=== PATIENT | male | born 1970 | race Caucasian/White ===

== ENCOUNTER 2016-08-01 15:42 | Emergency (ER) | payer OTHER ==
[2016-08-01] MEDS ORDERED: LORazepam 1 MG Tab PO ONE (16:56)
--- NOTE | 2016-08-01 17:05 | EDM.PDOC ---
ED HISTORY OF PRESENT ILLNESS - General Chief Complaint: Chest Pain Stated Complaint: HIGH BP, CHEST PN Time Seen by Provider: 08/01/16 15:53 Source of Information: Reports: Patient, RN notes reviewed - History of Present Illness INITIAL COMMENTS - FREE TEXT/NARRATIVE: 46 year old male comes in with concern of elevated BP at home, palpitations, chest pain. He does have hx of htn. Admits he drank a lot of alcohol last evening. fell early this AM hitting the edge of a table R face. Was seen earlier today at clinic for that. After getting home a few hrs ago started having palpiations, Checked his BP, it was around 200/109, He than started feeling some mild tightness across his chest. he took an extra dose of his metropolol. On arrival to ED chest pain is gone. Still feels anxious. No Shi, nausea or vomiting. Has been on meds for Htn for about 6 months, has gained about 50 or more lbs in the past 6 months. - Related Data Allergies/ADRs: Allergies Allergy/AdvReac Type Severity Reaction Status Date / Time No Known Allergies Allergy Verified 03/17/16 02:24 Home Meds: Home Meds Polyethylene Glycol 3350 [MiraLAX] 17 gm PO TID PRN #30 packet 03/17/16 [Rx] Lisinopril 20 mg PO DAILY 03/20/16 [History] Metoprolol Succinate [Toprol XL] 100 mg PO DAILY 08/01/16 [History] Tadalafil [Cialis] 10 mg PO DAILY PRN 08/01/16 [History] Cephalexin 500 mg PO Q6HR #30 capsule 08/02/16 [Rx] Past Medical History HEENT History: Reports: Other (see below) Other HEENT History: Deviated septom Cardiovascular History: Reports: Hypertension Respiratory History: Reports: Sleep apnea Other Respiratory History: wears a cpap at night Gastrointestinal History: Reports: Diverticulosis Genitourinary History: Reports: Chronic renal insuffiency Musculoskeletal History: Reports: Other (see below) Other Musculoskeletal History: femur fracture with elia placement Neurological History: Reports: Brain injury, Other (see below) Other Neuro History: 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 Pt states that he also had a TBI Endocrine/Metabolic History: Reports: Obesity/BMI 30+ - Infectious Disease History Infectious Disease History: Reports: Chicken pox - Past Surgical History GI Surgical History: Reports: Cholecystectomy Musculoskeletal Surgical History: Reports: Other (see below) Other Musculoskeletal Surgeries/Procedures:: carpal tunnel surgery to both wrists Social & Family History - Family History Family Medical History: Noncontributory Cardiac: Reports: [place] Endocrine/Metabolic: Reports: Diabetes, type II - Tobacco Use Smoking Status *Q: Never Smoker Second Hand Smoke Exposure: No - Caffeine Use Caffeine Use: Reports: Coffee Other Caffeine Use: 2 cups 2-3 times a week - Alcohol Use Days Per Week of Alcohol Use: 3 Number of Drinks Per Day: 10 Total Drinks Per Week: 30 - Recreational Drug Use Recreational Drug Use: No Recreational Drug Type: Reports: Cocaine, Marijuana/Hashish Recreational Drug Use Frequency: Not Used In Over 6 Months - Living Situation & Occupation Living situation: Reports: single Occupation: employed ([employer]) ED ROS GENERAL - Review of Systems Review Of Systems: See Below Constitutional: Denies: fever, chills, diaphoresis HEENT: Reports: Other (recent injury, swelling, erythema, bruising R face) Respiratory: Denies: Shortness of Breath, Pleuritic Chest Pain Cardiovascular: Reports: Chest pain (gone), Palpitations GI/Abdominal: Denies: Abdominal pain, Nausea, Vomiting Musculoskeletal: Denies: neck pain, arm pain, joint pain Skin: Denies: rash Neurological: Denies: Dizziness, Headache Psychiatric: Reports: Anxiety ED EXAM, GENERAL - Physical Exam Exam: See Below General Appearance: alert, anxious Eye Exam: bilateral eye: PERRL Ears: normal external exam Nose: normal inspection Throat/Mouth: Normal inspection Head: facial swelling (and brusing below and lateral to R eye) Neck: supple, full range of motion. No: tender midline Respiratory/Chest: No: no respiratory distress, lungs clear, normal breath sounds Cardiovascular: regular rate, rhythm GI/Abdominal: soft, non tender Back Exam: No: CVA tenderness (L), CVA tenderness (R), vertebral tenderness Extremities: normal inspection. No: pedal edema, leg pain Neurological: alert, oriented, no motor/sensory deficits Skin Exam: Warm, Dry, No rash EKG INTERPRETATION EKG Date: 08/01/16 Rhythm: NSR ST-T: depressed (T wave inversion lead III) Course - Vital Signs Last Recorded V/S: Last Vital Signs Temp 97.8 F 08/01/16 19:15 Pulse 72 08/01/16 19:15 Resp 18 08/01/16 19:15 BP 146/81 H 08/01/16 19:15 Pulse Ox 96 08/01/16 19:15 - Orders/Labs/Meds Meds: Medications Discontinued Medications Generic Name Dose Route Start Last Admin Trade Name Orestes PRN Reason Stop Dose Admin Cephalexin 500 mg 08/01/16 17:51 08/01/16 17:59 Keflex PO 08/01/16 17:52 500 mg ONETIME ONE Administration Clonidine HCl 0.2 mg 08/01/16 17:50 08/01/16 17:59 Catapres PO 08/01/16 17:51 0.2 mg ONETIME ONE Administration Lorazepam 1 mg 08/01/16 16:56 08/01/16 17:01 Ativan PO 08/01/16 16:57 1 mg ONETIME ONE Administration - Re-Assessments/Exams Free Text/Narrative Re-Assessment/Exam: 08/02/16 17:13 patient had taken a 2nd dose of his metropolol at home before coming in. BP's elevated on arrival but not alarming. He continued to be very anxious so was given ativan 1 mg PO. With that he did relax but BP's still running in the 150/ 90's. We than did give him clonidine 0.2 mg PO and BP readings did drop closer toward normal. I did spend a lot time counseling patient about his need to loose weight, eat a more healthy diet, get exercising. He seems to understand and "wants" to work on those changes. It sounds like heavy drinking may also be a problem. Discharge instr. as documented. Departure - Departure Time of Disposition: 18:56 Disposition: Home, Self-Care 01 Condition: fair Clinical Impression: Palpitations Hypertension Qualifiers: Hypertension type: essential hypertension Qualified Code(s): I10 - Essential ( primary) hypertension Prescriptions: Cephalexin 500 mg PO Q6HR #30 capsule Instructions: Hypertension, [id number], Palpitations, [id number] Referrals: Dedra Goncalves NP [Primary Care Provider] - Forms: ED Department Discharge Additional Instructions: low salt, low calorie diet. Continue Lisiniopril every morning as prescribed. Increase metropolol to 100 mg twice daily from your current 100 mg once daily. Read up on the [facility] diet. That is a diet that will help you loose weight in a safe way and give you a diet that is tremendously healthier than what you are eating right now. Begin a regular exercise program. Check your BP 2 or 3 times daily and keep a record of that. Follow up with your regular medical provider in about 3 days, call for appt., Return to ED as needed.
[2016-08-01] MEDS ORDERED: cloNIDine 0.1 MG Tab PO ONE (17:50)
[2016-08-01] MEDS ORDERED: Cephalexin 500 MG Cap PO ONE (17:51)
[2016-08-01 21:04] VITALS: BP 146/81
== END 2016-08-01 19:15 | disposition home or self-care (01) ==
LOC: JD.ED 15:42
DX: R00.2 Palpitations (principal); I12.9 Hypertensive chronic kidney disease with stage 1 through stage 4 chronic kidney disease, or unspecified chronic kidney disease; N18.9 Chronic kidney disease, unspecified; Z79.899 Other long term (current) drug therapy; E66.9 Obesity, unspecified; Z68.34 Body mass index [BMI] 34.0-34.9, adult
CPT/HCPCS: 93005; 99285; A9270; 99284

== ENCOUNTER 2016-11-15 01:30 | Inpatient (IN) | payer OTHER ==
[2016-11-15] MEDS ORDERED: Sodium Chloride 0.9% 1,000 ML IV SCH (02:00)
--- NOTE | 2016-11-15 02:06 | EDM.PDOC ---
ED HPI GENERAL MEDICAL PROBLEM - General Chief Complaint: Cardiovascular Problem Stated Complaint: HIGH BLOOD PRESSURE Time Seen by Provider: 11/15/16 01:45 Source of Information: Reports: Patient, RN Notes Reviewed History Limitations: Reports: No Limitations - History of Present Illness INITIAL COMMENTS - FREE TEXT/NARRATIVE: The patient states that he developed left lower quadrant abdominal pain, sharp in character, 2 days ago, 11/13/2016. The pain initially came and went, however has become more constant. He states that he has been constipated for the last 2 days. He denies any recent fever, nausea, vomiting, diarrhea, or urinary symptoms. He states that he has had similar symptoms 4 or 5 times in the past, and was always diagnosed with diverticulitis. - Related Data Allergies Allergy/AdvReac Type Severity Reaction Status Date / Time No Known Allergies Allergy Verified 11/15/16 01:36 Home Meds: Home Meds Lisinopril 20 mg PO DAILY 03/20/16 [History] Metoprolol Succinate [Toprol XL] 100 mg PO DAILY 08/01/16 [History] amLODIPine [Norvasc] 5 mg PO DAILY 11/15/16 [History] Past Medical History Cardiovascular History: Reports: Hypertension Respiratory History: Reports: Sleep Apnea (CPAP 12) Gastrointestinal History: Reports: Diverticulosis Neurological History: Reports: Brain Injury, Seizure (Petit mal seizures as a child) Psychiatric History: Reports: Addiction (alcoholism) Endocrine/Metabolic History: Reports: Obesity/BMI 30+ - Infectious Disease History Infectious Disease History: Reports: Chicken Pox - Past Surgical History GI Surgical History: Reports: Cholecystectomy Musculoskeletal Surgical History: Reports: Carpal Tunnel (bilateral), ORIF ( right femur) Social & Family History - Family History Family Medical History: Noncontributory Cardiac: Reports: [place] Endocrine/Metabolic: Reports: Diabetes, type II - Tobacco Use Smoking Status *Q: Never Smoker Second Hand Smoke Exposure: No - Caffeine Use Caffeine Use: Reports: Coffee Other Caffeine Use: 2 cups 2-3 times a week - Alcohol Use Alcohol Use History: Yes Days Per Week of Alcohol Use: 3 Number of Drinks Per Day: 10 Total Drinks Per Week: 30 Alcohol Use Frequency: Binges - Recreational Drug Use Recreational Drug Use: Yes Drug Use in Last 12 Months: No Recreational Drug Type: Reports: Cocaine, Marijuana/Hashish Recreational Drug Use Frequency: Not Used In Over 6 Months - Living Situation & Occupation Living situation: Reports: Single, Alone 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) ED ROS GENERAL - Review of Systems Review Of Systems: See Below Constitutional: Reports: No Symptoms HEENT: Reports: No Symptoms Respiratory: Reports: No Symptoms Cardiovascular: Reports: No Symptoms Endocrine: Reports: No Symptoms GI/Abdominal: Reports: No Symptoms : Reports: No Symptoms Musculoskeletal: Reports: No Symptoms Skin: Reports: No Symptoms Neurological: Reports: No Symptoms Psychiatric: Reports: No Symptoms Hematologic/Lymphatic: Reports: No Symptoms Immunologic: Reports: No Symptoms ED EXAM, GENERAL - Physical Exam Exam: See Below Exam Limited By: No Limitations General Appearance: Alert, WD/WN, No Apparent Distress Eye Exam: Bilateral Eye: Normal Inspection Ears: Normal External Exam, Hearing Grossly Normal Nose: Normal Inspection, No Blood Throat/Mouth: Normal Inspection, Normal Lips, Normal Voice, No Airway Compromise Head: Atraumatic, Normocephalic Neck: Normal Inspection, Full Range of Motion Respiratory/Chest: No Respiratory Distress, Lungs Clear, Normal Breath Sounds, No Accessory Muscle Use Cardiovascular: Normal Peripheral Pulses, Regular Rate, Rhythm, No Gallop, No JVD, No Murmur, No Rub Peripheral Pulses: 4+: Radial (L), Radial (R) GI/Abdominal: Normal Bowel Sounds, Soft, No Organomegaly, No Distention, No Abnormal Bruit, No Mass, Tender (Left lower quadrant only. Nontender elsewhere.) , Other (Obese). No: Rebound (Male) Exam: Deferred Rectal (Males) Exam: Deferred Back Exam: Normal Inspection, Full Range of Motion. No: CVA Tenderness (L), CVA Tenderness (R) Extremities: Normal Inspection, Normal Range of Motion, No Pedal Edema, Normal Capillary Refill Neurological: Alert, Oriented, Normal Cognition, No Motor/Sensory Deficits Psychiatric: Normal Affect Skin Exam: Warm, Dry, Intact, Normal Color, No Rash Lymphatic: No Adenopathy Course - Vital Signs Last Recorded V/S: Last Vital Signs Temp 36.9 C 11/15/16 01:36 Pulse 82 11/15/16 01:36 Resp 25 H 11/15/16 01:36 BP 159/103 H 11/15/16 01:36 Pulse Ox 98 11/15/16 01:36 - Orders/Labs/Meds Orders: Active Orders 24 hr Category Date Time Status Abdomen Pelvis w Cont [CT] Stat Exams 11/15/16 02:00 Taken Levofloxacin/Dextrose 5%-Water [Levaquin in D5W 750 MG/ Med 11/15/16 04:28 Ordered 150 ML] 750 mg Premix Bag 1 bag IV ONETIME Sodium Chloride 0.9% [Normal Saline] 1,000 ml Med 11/15/16 02:00 Active IV ASDIRECTED metroNIDAZOLE/Normal Saline [Flagyl 500 MG in NS 100 ML Med 11/15/16 04:29 Ordered ] 500 mg Premix Bag 1 bag IV ONETIME Medication Orders Sodium Chloride (Normal Saline) 1,000 mls @ 150 mls/hr IV ASDIRECTED SAM Last Admin: 11/15/16 02:18 Dose: 150 mls/hr Levofloxacin/Dextrose 750 mg/ (Premix) 150 mls @ 100 mls/hr IV ONETIME ONE Stop: 11/15/16 05:57 Metronidazole 500 mg/ Premix 100 mls @ 100 mls/hr IV ONETIME ONE Stop: 11/15/16 05:28 Labs: Laboratory Tests 11/15/16 11/15/16 11/15/16 Range/Units 02:10 02:10 02:10 WBC 12.14 H (4.23-9.07) K/mm3 RBC 4.95 (4.63-6.08) M/mm3 Hgb 16.6 (13.7-17.5) gm/L Hct 45.0 (40.1-51.0) % MCV 90.9 (79.0-92.2) fl MCH 33.5 H (25.7-32.2) pg MCHC 36.9 H (32.2-35.5) g/dl RDW Std Deviation 41.8 (35.1-43.9) fL Plt Count 182 (163-337) K/mm3 MPV 10.3 (9.4-12.3) fl Neutrophils % (Manual) 72 H (40-60) % Band Neutrophils % 0 (0-10) % Lymphocytes % (Manual) 22 (20-40) % Atypical Lymphs % 0 % Monocytes % (Manual) 2 (2-10) % Eosinophils % (Manual) 4 (0.8-7.0) % Basophils % (Manual) 0 L (0.2-1.2) Platelet Estimate Adequate RBC Morph Comment Normal Sodium 133 L (136-145) mEq/L Potassium 4.0 (3.5-5.1) mEq/L Chloride 98 (98-107) mEq/L Carbon Dioxide 25 (21-32) mEq/L Anion Gap 14.0 (5-15) BUN 23 H (7-18) mg/dL Creatinine 1.3 (0.7-1.3) mg/dL Est Cr Clr Drug Dosing 71.00 mL/min Estimated GFR (MDRD) 59 (>60) mL/min BUN/Creatinine Ratio 17.7 (14-18) Glucose 109 H (74-106) mg/dL Calcium 9.5 (8.5-10.1) mg/dL Total Bilirubin 1.3 H (0.2-1.0) mg/dL AST 44 H (15-37) U/L ALT 103 H (16-63) U/L Alkaline Phosphatase 101 (46-116) U/L Total Protein 8.4 H (6.4-8.2) g/dl Albumin 4.2 (3.4-5.0) g/dl Globulin 4.2 gm/dL Albumin/Globulin Ratio 1.0 (1-2) Lipase 80 (73-393) U/L Urine Color Yellow (Yellow) Urine Appearance Clear (Clear) Urine pH 6.0 (5.0-8.0) Ur Specific [place] 1.025 (1.005-1.030) Urine Protein Negative (Negative) Urine Glucose (UA) Negative (Negative) Urine Ketones Negative (Negative) Urine Occult Blood Negative (Negative) Urine Nitrite Negative (Negative) Urine Bilirubin Negative (Negative) Urine Urobilinogen 0.2 (0.2-1.0) Ur Leukocyte Esterase Negative (Negative) Urine RBC Not seen (0-5) /hpf Urine WBC 0-5 (0-5) /hpf Ur Epithelial Cells 0-5 (0-5) /hpf Urine Bacteria Not seen (FEW) /hpf Urine Mucus Not seen (FEW) /hpf Meds: Medications Generic Name Dose Route Start Last Admin Trade Name Freq PRN Reason Stop Dose Admin Sodium Chloride 1,000 mls @ 150 mls/hr 11/15/16 02:00 11/15/16 02:18 Normal Saline IV 150 mls/hr ASDIRECTED SAM Administration Levofloxacin/Dextrose 750 mg/ 150 mls @ 100 mls/hr 11/15/16 04:28 Premix IV 11/15/16 05:57 ONETIME ONE Metronidazole 500 mg/ Premix 100 mls @ 100 mls/hr 11/15/16 04:29 IV 11/15/16 05:28 ONETIME ONE Discontinued Medications Generic Name Dose Route Start Last Admin Trade Name Orestes PRN Reason Stop Dose Admin Diatrizoate Meglum/Diatrizoate Sod 120 ml 11/15/16 03:51 11/15/16 03:53 Gastrografin 37% PO 11/15/16 03:52 90 ml ONETIME ONE Administration Iopamidol 150 ml 11/15/16 03:51 11/15/16 03:53 Isovue-300 (61%) IVPUSH 11/15/16 03:52 125 ml ONETIME ONE Administration - Re-Assessments/Exams Free Text/Narrative Re-Assessment/Exam: 11/15/16 04:26 CT of the abdomen and pelvis with oral and IV contrast is read by [facility] as: 1. Findings consistent with acute diverticulitis at the junction of the descending and sigmoid colon. No perforation or abscess. Remaining sigmoid colon is also mildly thickened which may be secondary to underdistention with mild colitis not excluded. 2. Hepatic steatosis. 3. Incidental/non-acute findings are described above. 11/15/16 04:37 Test results discussed with the patient. I'm recommending admitting to the hospital, keeping him npo, giving him IV fluid, IV Levaquin, IV Flagyl, and ordering a surgical consultation, because the patient may benefit from excision of the diseased portion of his colon, given that this is his fifth or sixth episode. The patient is agreeable to being admitted. He states that Dr. Jarocho Tavarez was the surgeon that performed his cholecystectomy. Case then discussed with Dr. Villegas at 04:35. She agrees to the admission. Departure - Departure Time of Disposition: 04:38 Disposition: Admitted As Inpatient 66 Condition: Fair Clinical Impression: Acute diverticulitis - My Orders Last 24 Hours: My Active Orders 11/15/16 02:00 Abdomen Pelvis w Cont [CT] Stat Sodium Chloride 0.9% [Normal Saline] 1,000 ml IV ASDIRECTED 11/15/16 04:28 Levofloxacin/Dextrose 5%-Water [Levaquin in D5W 750 MG/150 ML] 750 mg Premix Bag 1 bag IV ONETIME 11/15/16 04:29 metroNIDAZOLE/Normal Saline [Flagyl 500 MG in NS 100 ML] 500 mg Premix Bag 1 bag IV ONETIME - Assessment/Plan Last 24 Hours: My Active Orders 11/15/16 02:00 Abdomen Pelvis w Cont [CT] Stat Sodium Chloride 0.9% [Normal Saline] 1,000 ml IV ASDIRECTED 11/15/16 04:28 Levofloxacin/Dextrose 5%-Water [Levaquin in D5W 750 MG/150 ML] 750 mg Premix Bag 1 bag IV ONETIME 11/15/16 04:29 metroNIDAZOLE/Normal Saline [Flagyl 500 MG in NS 100 ML] 500 mg Premix Bag 1 bag IV ONETIME
[2016-11-15] MEDS ORDERED: Diatrizoate Meglumine/Diatrizoate Sodium 37% 120 ML Bottle PO ONE (03:51)
[2016-11-15] MEDS ORDERED: Iopamidol 612 MG/ML 150 ML Bottle IVPUSH ONE (03:51)
[2016-11-15] MEDS ORDERED: Levofloxacin/Dextrose 5%-Water 750 MG in Premix Bag 1 BAG IV ONE (04:28)
[2016-11-15] MEDS ORDERED: metroNIDAZOLE/Normal Saline 500 MG in Premix Bag 1 BAG IV ONE (04:29)
[2016-11-15] MEDS ORDERED: HYDROmorphone 1 MG/ML Syringe IVPUSH PRN ×2 (05:21→05:28)
[2016-11-15] MEDS ORDERED: Ondansetron 4 MG/2 ML SDV IVPUSH PRN (05:32)
[2016-11-15] MEDS ORDERED: Pneumococcal Polyvalent-23 Vaccine 0.5 ML SDV IM ONE (06:26)
[2016-11-15] MEDS ORDERED: Ondansetron 4 MG Tab.DIS PO PRN (06:41)
[2016-11-15] MEDS ORDERED: Morphine 2 MG/ML Syringe IVPUSH PRN (06:41)
[2016-11-15] MEDS ORDERED: Temazepam 7.5 MG Cap PO PRN (06:41)
[2016-11-15] MEDS ORDERED: Docusate Sodium 100 MG Cap PO PRN (06:41)
[2016-11-15] MEDS ORDERED: Magnesium Hydroxide 400 MG/5 ML Susp 30 ML Cup PO PRN (06:41)
[2016-11-15] MEDS ORDERED: Famotidine 20 MG/2 ML SDV IVPUSH ONE (06:47)
--- NOTE | 2016-11-15 08:06 | PCM.HP ---
<DudleyGloria M - Last Filed: 11/15/16 08:07> H&P History of Present Illness - General Date of Service: 11/15/16 Admit Problem/Dx: Diverticulitis Alexandre was admitted through ER early childhood hours with bridge orders from ER physician, Dr. Saldaña with acute diverticulitis. He has been having LLQ pain intermittent x 2 days, worse last night. He has been constipated the past 2 days since onset of pain. He has had hx of diverticulitis 4 or 5 times in the past. He has been on a "diet" with his PCP and has been eating "tuna fish and pistachios for a week". In hindsight, he feels the nuts were his trigger. He was nauseated upon arrival to ED but no vomiting. No f/c/s. He has not had flare of diverticulitis for "at least a few years". He had CT of abd and pelvis with oral and IV contrast is read by [facility] as: 1. Findings consistent with acute diverticulitis at the junction of the descending and sigmoid colon. No perforation or abscess. Remaining sigmoid colon is also mildly thickened which may be secondary to underdistention with mild colitis not excluded. 2. Hepatic steatosis. 3. Incidental/non-acute findings are described above. He was given IV levaquin and flagyl in the ED and ordered to continue. Since transfer to the floor patient has had several loose stools with improvement of pain and abd distention. No hematochezia/melena noted. He rates pain at 1/10 now, was 8/10 when he came into ER. He is afebrile, no f/c/s. No nausea. PMH significant for HTN and obesity. He is a full code status. Source of Information: Patient, Other (ER notes) History Limitations: Reports: No Limitations, Other (anxious) - History of Present Illness Onset of Symptoms: Reports: Gradual Symptom Onset Date: 11/13/16 Location: Reports: Abdomen Quality: Reports: Pressure, Sharp, Stabbing Severity: Severe (was severe upon presentation to ED, now is mild.) Improves with: Reports: Rest Worsens with: Reports: Movement Context: Reports: Other (eating nuts for the past week) Associated Symptoms: Reports: Loss of Appetite. Denies: Chest Pain, Cough, Diaphoresis, Fever/Chills, Headaches, Nausea/Vomiting, Shortness of Breath - Related Data Allergies/Adverse Reactions: Allergies Allergy/AdvReac Type Severity Reaction Status Date / Time No Known Allergies Allergy Verified 11/15/16 05:21 Home Medications: Home Meds Lisinopril 20 mg PO DAILY 03/20/16 [History] Metoprolol Succinate [Toprol XL] 100 mg PO DAILY 08/01/16 [History] Levofloxacin [Levaquin] 750 mg PO DAILY #10 tablet 11/15/16 [Rx] Ofloxacin [IJD: Ocuflox 0.3% Ophth Soln] 2 ml EYEBOTH QID #1 bottle 11/15/16 [Rx ] Ondansetron [Zofran ODT] 4 mg PO Q4H PRN #15 tab.dis 11/15/16 [Rx] amLODIPine [Norvasc] 5 mg PO DAILY 11/15/16 [History] metroNIDAZOLE [Flagyl] 500 mg PO Q8H #30 tablet 11/15/16 [Rx] Past Medical History HEENT History: Reports: Other (See Below) Cardiovascular History: Reports: Hypertension Respiratory History: Reports: Sleep Apnea Other Respiratory History: uses CPAP at home Gastrointestinal History: Reports: Diverticulosis Genitourinary History: Reports: Chronic Renal Insuffiency, Other (See Below) Other Genitourinary History: impotence Musculoskeletal History: Reports: Other (See Below) Neurological History: Reports: Brain Injury, Seizure Other Neuro History: 2001 head injury. Seizures as a child - out grew age 12. Psychiatric History: Reports: Addiction Other Psychiatric History: Alcohol Endocrine/Metabolic History: Reports: Obesity/BMI 30+ - Infectious Disease History Infectious Disease History: Reports: Chicken Pox - Past Surgical History GI Surgical History: Reports: Cholecystectomy Musculoskeletal Surgical History: Reports: Carpal Tunnel, ORIF Other Musculoskeletal Surgeries/Procedures:: bilateral carpal tunnel. Right leg ORIF. Dermatological Surgical History: Reports: None Social & Family History - Family History Family Medical History: Noncontributory Cardiac: Reports: [place] Endocrine/Metabolic: Reports: Diabetes, type II Oncologic: Reports: Lung - Tobacco Use Smoking Status *Q: Never Smoker Second Hand Smoke Exposure: No - Caffeine Use Caffeine Use: Reports: Coffee Other Caffeine Use: 2 cups 2-3 times a week - Alcohol Use Days Per Week of Alcohol Use: 4 Number of Drinks Per Day: 4 Total Drinks Per Week: 16 - Recreational Drug Use Recreational Drug Use: Yes Drug Use in Last 12 Months: No Recreational Drug Type: Reports: Marijuana/Hashish Recreational Drug Use Frequency: Not Used In Over 6 Months - Living Situation & Occupation Living situation: Reports: Single, Alone 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 Denies: Fever, Chills, Weakness HEENT: Reports: No Symptoms Pulmonary: Reports: No Symptoms. Denies: Shortness of Breath, Cough Cardiovascular: Reports: No Symptoms. Denies: Chest Pain, Palpitations, Dyspnea on Exertion Gastrointestinal: Reports: Abdominal Pain, Constipation. Denies: Black Stool, Bloody Stool Genitourinary: Reports: No Symptoms Musculoskeletal: Reports: No Symptoms Psychiatric: Reports: Anxiety, Agitation Neurological: Reports: No Symptoms Exam - Exam Exam: See Below - Vital Signs Vital Signs: Last Vital Signs Temp 97.9 F 11/15/16 07:54 Pulse 77 11/15/16 07:54 Resp 20 11/15/16 07:54 BP 152/95 H 11/15/16 07:54 Pulse Ox 96 11/15/16 07:54 Weight: 113.353 kg - Exam General: Alert, Oriented, Cooperative, Other (anxious) HEENT: EOMI, Hearing Intact, Mucosa Moist & [place], Pupils Equal, Pupils Reactive. No: Conjunctiva Clear (injection to sclera bilat) Neck: Supple, Trachea Midline Lungs: Clear to Auscultation, Normal Respiratory Effort Cardiovascular: Regular Rate, Regular Rhythm Abdomen: Normal Bowel Sounds, Tenderness (LLQ). No: Distention, Guarding, Rigidity, Rebound, Hepatomegaly, Splenomegaly, Mass (Male) Exam: Deferred Rectal (Males) Exam: Deferred Back Exam: Normal Inspection Extremities: Normal Inspection. No: Clubbing, Cyanosis, Calf Tenderness, Edema Peripheral Pulses: 2+: Dorsalis Pedis (L), Dorsalis Pedis (R) Skin: Warm, Dry Neurological: Cranial Nerves Intact Neuro Extensive - Mental Status: Alert, Oriented x3, Normal Cognition, Memory Intact, Other (anxious) Psychiatric: Alert, Anxious - Patient Data Result Diagrams: 11/15/16 02:10 11/15/16 02:10 *Q Meaningful Use (ADM) - VTE *Q VTE Criteria *Q: - Stroke *Q Stroke Criteria *Q: - AMI *Q AMI Criteria *Q: - Problem List (1) Acute diverticulitis SNOMED Code(s): 779994408 ICD Code: K57.92 - DVTRCLI OF INTEST, PART UNSP, W/O PERF OR ABSCESS W/O BLEED Status: Acute Priority: High Current Visit: Yes (2) Abdominal pain SNOMED Code(s): 20008042 ICD Code: R10.9 - UNSPECIFIED ABDOMINAL PAIN Status: Acute Priority: High Current Visit: Yes Qualifiers: Abdominal location: left lower quadrant Qualified Code(s): R10.32 - Left lower quadrant pain Problem List Initiated/Reviewed/Updated: Yes Orders Last 24hrs: Active Orders 24 hr Category Date Time Status Patient Status [ADT] Routine ADT 11/15/16 06:41 Active Activity as Tolerated [RC] .Routine Care 11/15/16 05:47 Active Ambulate [RC] QSHIFT Care 11/15/16 06:41 Active CPAP Adult [RT BiPAP/CPAP] [RC] ASDIRECTED Care 11/15/16 05:50 Active Height and Weight [RC] DAILY Care 11/15/16 06:41 Active Intake and Output [RC] QSHIFT Care 11/15/16 06:42 Active Oxygen Therapy [RC] PRN Care 11/15/16 06:41 Active Up ad Rena [RC] ASDIRECTED Care 11/15/16 06:41 Active VTE/DVT Education [RC] PER UNIT ROUTINE Care 11/15/16 06:41 Active Vital Signs [RC] Q4H Care 11/15/16 06:41 Active Consult to Case Management [CONS] Routine Cons 11/15/16 06:41 Active Consult to Lpn Or Medical Assistant [CONS] Routine Cons 11/15/16 06:41 Active Consult to Varnish Finisher [CONS] Routine Cons 11/15/16 06:41 Active Nothing per Oral Now Diet [DIET] Diet 11/15/16 Breakfast Active BASIC METABOLIC PANEL,BMP [CHEM] DAILY Lab 11/16/16 05:00 Ordered BASIC METABOLIC PANEL,BMP [CHEM] DAILY Lab 11/17/16 05:00 Ordered BASIC METABOLIC PANEL,BMP [CHEM] DAILY Lab 11/18/16 05:00 Ordered BASIC METABOLIC PANEL,BMP [CHEM] DAILY Lab 11/19/16 05:00 Ordered BASIC METABOLIC PANEL,BMP [CHEM] DAILY Lab 11/20/16 05:00 Ordered C-REACTIVE PROTEIN [CHEM] DAILY Lab 11/16/16 05:00 Ordered C-REACTIVE PROTEIN [CHEM] DAILY Lab 11/17/16 05:00 Ordered C-REACTIVE PROTEIN [CHEM] DAILY Lab 11/18/16 05:00 Ordered C-REACTIVE PROTEIN [CHEM] DAILY Lab 11/19/16 05:00 Ordered CBC WITH AUTO DIFF [HEME] DAILY Lab 11/16/16 05:00 Ordered CBC WITH AUTO DIFF [HEME] DAILY Lab 11/17/16 05:00 Ordered CBC WITH AUTO DIFF [HEME] DAILY Lab 11/18/16 05:00 Ordered CBC WITH AUTO DIFF [HEME] DAILY Lab 11/19/16 05:00 Ordered CBC WITH AUTO DIFF [HEME] DAILY Lab 11/20/16 05:00 Ordered UA W/MICROSCOPIC [URIN] Routine Lab 11/15/16 06:41 Uncollected Acetaminophen/HYDROcodone [Sherman 325-5 MG] Med 11/15/16 06:41 Active 1 tab PO Q4H PRN Docusate Sodium [Colace] Med 11/15/16 06:41 Active 100 mg PO BID PRN Enoxaparin [Lovenox] Med 11/15/16 09:00 Active 40 mg SUBCUT DAILY Famotidine [Pepcid] Med 11/15/16 21:00 Active 20 mg PO BID Levofloxacin/Dextrose 5%-Water [Levaquin in D5W 750 MG/ Med 11/16/16 05:30 Active 150 ML] 750 mg Premix Bag 1 bag IV Q24H Lisinopril [Prinivil] Med 11/15/16 09:00 Active 20 mg PO DAILY Magnesium Hydroxide [Milk of Magnesia] Med 11/15/16 06:41 Active 30 ml PO Q12H PRN Metoclopramide [Reglan] Med 11/15/16 07:00 Active 10 mg IVPUSH Q6H Metoprolol Succinate [Toprol XL] Med 11/15/16 09:00 Active 100 mg PO DAILY Morphine Med 11/15/16 06:41 Active 2 mg IVPUSH Q2H PRN Ofloxacin [Ocuflox 0.3% Ophth Soln] Med 11/15/16 07:45 Ordered 2 ml EYEBOTH Q2H Ondansetron [Zofran ODT] Med 11/15/16 06:41 Active 4 mg PO Q4H PRN Ondansetron [Zofran] Med 11/15/16 05:32 Active 4 mg IVPUSH Q6H PRN Temazepam [Restoril] Med 11/15/16 06:41 Active 7.5 mg PO BEDTIME PRN amLODIPine [Norvasc] Med 11/15/16 09:00 Active 5 mg PO DAILY metroNIDAZOLE/Normal Saline [Flagyl 500 MG in NS 100 ML Med 11/15/16 13:00 Active ] 500 mg Premix Bag 1 bag IV Q8H Resuscitation Status Routine Resus Stat 11/15/16 05:47 Ordered Medication Orders Hydrocodone Bitart/Acetaminophen (Sherman 325-5 Mg) 1 tab PO Q4H PRN PRN Reason: Pain (moderate 4-6) Amlodipine Besylate (Norvasc) [address] [facility] Docusate Sodium (Colace) 100 mg PO BID PRN PRN Reason: Constipation Enoxaparin Sodium (Lovenox) [address] [facility] Famotidine (Pepcid) [address] [facility] Sodium Chloride (Normal Saline) 1,000 mls @ 150 mls/hr IV ASDIRECTED [facility] Last Admin: 11/15/16 02:18 Dose: 150 mls/hr Levofloxacin/Dextrose 750 mg/ (Premix) 150 mls @ 100 mls/hr IV Q24H [facility] Metronidazole 500 mg/ Premix 100 mls @ 100 mls/hr IV Q8H [facility] Lisinopril (Prinivil) [address] [facility] Magnesium Hydroxide (Milk Of Magnesia) 30 ml PO Q12H PRN PRN Reason: Constipation Metoclopramide HCl (Reglan) [address] [facility] Metoprolol Succinate (Toprol Xl) [address] [facility] Morphine Sulfate (Morphine) 2 mg IVPUSH Q2H PRN PRN Reason: Pain (severe 7-10) Stop: 11/16/16 06:43 Ofloxacin (Ocuflox 0.3% Ophth Soln) [address] [facility] Ondansetron HCl (Zofran) 4 mg IVPUSH Q6H PRN PRN Reason: Nausea/Vomiting Ondansetron HCl (Zofran Odt) 4 mg PO Q4H PRN PRN Reason: nausea, able to take PO Temazepam (Restoril) 7.5 mg PO BEDTIME PRN PRN Reason: Sleep Assessment/Plan Comment:: I/P: Acute sigmoid diverticulitis: confirmed via CT scan -WBC 12K, CRP 1.7 -follow daily labs -Rec'd levaquin and flagyl in ER via IV, will continue -Cont IVF for hydration -NPO -antiemetics PRN -Feels better after bowel movements, pain improved -Patient wishes to be discharged home on oral antibiotics; discussed repeat labs, needs to tolerate meals and pain controlled prior to discharge. Chronic: -HTN-b/p elevated, cont home meds and close monitoring -telemetry ? anxiety Hx of alcohol use/abuse documented in history--will confirm with patient, ? withdrawl. Initiate CIWA scale. Other: GI/DVT prophylax CM/SW for dc planning assistance Patient is Full Code status <La Villegas - Last Filed: 11/15/16 17:38> Exam - Vital Signs Vital Signs: Last Vital Signs Temp 36.7 C 11/15/16 12:07 Pulse 72 11/15/16 12:07 Resp 20 11/15/16 12:07 BP 135/78 11/15/16 12:07 Pulse Ox 98 11/15/16 12:07 - Patient Data Result Diagrams: 11/15/16 02:10 11/15/16 02:10 *Q Meaningful Use (ADM) - VTE *Q VTE Criteria *Q: - Stroke *Q Stroke Criteria *Q: - AMI *Q AMI Criteria *Q: Orders Last 24hrs: Active Orders 24 hr Category Date Time Status Patient Status [ADT] Routine ADT 11/15/16 06:41 Active Activity as Tolerated [RC] .Routine Care 11/15/16 05:47 Active Ambulate [RC] QSHIFT Care 11/15/16 06:41 Active CIWAA Assessment [RC] Q4H Care 11/15/16 08:45 Active CPAP Adult [RT BiPAP/CPAP] [RC] ASDIRECTED Care 11/15/16 05:50 Active Height and Weight [RC] DAILY Care 11/15/16 06:41 Active Intake and Output [RC] QSHIFT Care 11/15/16 06:42 Active Oxygen Therapy [RC] PRN Care 11/15/16 06:41 Active Up ad Rena [RC] ASDIRECTED Care 11/15/16 06:41 Active VTE/DVT Education [RC] PER UNIT ROUTINE Care 11/15/16 06:41 Active Vital Signs [RC] Q4H Care 11/15/16 06:41 Active Consult to Case Management [CONS] Routine Cons 11/15/16 06:41 Active Consult to Lpn Or Medical Assistant [CONS] Routine Cons 11/15/16 06:41 Active Consult to Varnish Finisher [CONS] Routine Cons 11/15/16 06:41 Active Clear Liquid Diet [DIET] Diet 11/15/16 Dinner Active BASIC METABOLIC PANEL,BMP [CHEM] DAILY Lab 11/16/16 05:00 Ordered BASIC METABOLIC PANEL,BMP [CHEM] DAILY Lab 11/17/16 05:00 Ordered BASIC METABOLIC PANEL,BMP [CHEM] DAILY Lab 11/18/16 05:00 Ordered BASIC METABOLIC PANEL,BMP [CHEM] DAILY Lab 11/19/16 05:00 Ordered BASIC METABOLIC PANEL,BMP [CHEM] DAILY Lab 11/20/16 05:00 Ordered C-REACTIVE PROTEIN [CHEM] DAILY Lab 11/16/16 05:00 Ordered C-REACTIVE PROTEIN [CHEM] DAILY Lab 11/17/16 05:00 Ordered C-REACTIVE PROTEIN [CHEM] DAILY Lab 11/18/16 05:00 Ordered C-REACTIVE PROTEIN [CHEM] DAILY Lab 11/19/16 05:00 Ordered CBC WITH AUTO DIFF [HEME] DAILY Lab 11/16/16 05:00 Ordered CBC WITH AUTO DIFF [HEME] DAILY Lab 11/17/16 05:00 Ordered CBC WITH AUTO DIFF [HEME] DAILY Lab 11/18/16 05:00 Ordered CBC WITH AUTO DIFF [HEME] DAILY Lab 11/19/16 05:00 Ordered CBC WITH AUTO DIFF [HEME] DAILY Lab 11/20/16 05:00 Ordered Acetaminophen/HYDROcodone [Sherman 325-5 MG] Med 11/15/16 06:41 Active 1 tab PO Q4H PRN Docusate Sodium [Colace] Med 11/15/16 06:41 Active 100 mg PO BID PRN Enoxaparin [Lovenox] Med 11/15/16 09:00 Active 40 mg SUBCUT DAILY Famotidine [Pepcid] Med 11/15/16 21:00 Active 20 mg PO BID LORazepam [Ativan] Med 11/15/16 10:09 Active 1 mg IVPUSH Q4H PRN Levofloxacin/Dextrose 5%-Water [Levaquin in D5W 750 MG/ Med 11/16/16 05:30 Active 150 ML] 750 mg Premix Bag 1 bag IV Q24H Lisinopril [Prinivil] Med 11/15/16 09:00 Active 20 mg PO DAILY Magnesium Hydroxide [Milk of Magnesia] Med 11/15/16 06:41 Active 30 ml PO Q12H PRN Metoprolol Succinate [Toprol XL] Med 11/15/16 09:00 Active 100 mg PO DAILY Morphine Med 11/15/16 06:41 Active 2 mg IVPUSH Q2H PRN Ofloxacin [Ocuflox 0.3% Ophth Soln] Med 11/15/16 13:00 Active 0 ml EYEBOTH QID Ondansetron [Zofran ODT] Med 11/15/16 06:41 Active 4 mg PO Q4H PRN Ondansetron [Zofran] Med 11/15/16 05:32 Active 4 mg IVPUSH Q6H PRN Temazepam [Restoril] Med 11/15/16 06:41 Active 7.5 mg PO BEDTIME PRN amLODIPine [Norvasc] Med 11/15/16 09:00 Active 5 mg PO DAILY chlordiazePOXIDE [Librium] Med 11/15/16 10:15 Active 50 mg PO BID cloNIDine [Catapres] Med 11/15/16 21:00 Active 0.1 mg PO Q12HR metroNIDAZOLE/Normal Saline [Flagyl 500 MG in NS 100 ML Med 11/15/16 13:00 Active ] 500 mg Premix Bag 1 bag IV Q8H Resuscitation Status Routine Resus Stat 11/15/16 05:47 Ordered Medication Orders Hydrocodone Bitart/Acetaminophen (Sherman 325-5 Mg) 1 tab PO Q4H PRN PRN Reason: Pain (moderate 4-6) Amlodipine Besylate (Norvasc) [address] [facility] Last Admin: 11/15/16 09:51 Dose: Chlordiazepoxide HCl (Librium) [address] [facility] Last Admin: 11/15/16 10:53 Dose: 50 mg Clonidine HCl (Catapres) 0.[address] [facility] Docusate Sodium (Colace) 100 mg PO BID PRN PRN Reason: Constipation Enoxaparin Sodium (Lovenox) [address] [facility] Last Admin: 11/15/16 09:51 Dose: Not Given Famotidine (Pepcid) [address] [facility] Levofloxacin/Dextrose 750 mg/ (Premix) 150 mls @ 100 mls/hr IV Q24H [facility] Metronidazole 500 mg/ Premix 100 mls @ 100 mls/hr IV Q8H [facility] Last Admin: 11/15/16 15:26 Dose: 100 mls/hr Lisinopril (Prinivil) [address] [facility] Last Admin: 11/15/16 09:51 Dose: Lorazepam (Ativan) 1 mg IVPUSH Q4H PRN PRN Reason: Withdrawal Symptoms Magnesium Hydroxide (Milk Of Magnesia) 30 ml PO Q12H PRN PRN Reason: Constipation Metoprolol Succinate (Toprol Xl) [address] [facility] Last Admin: 11/15/16 09:51 Dose: Morphine Sulfate (Morphine) 2 mg IVPUSH Q2H PRN PRN Reason: Pain (severe 7-10) Stop: 11/16/16 06:43 Ofloxacin (Ocuflox 0.3% Ophth Soln) [address] [facility] Last Admin: 11/15/16 17:12 Dose: Admin: 11/15/16 15:27 Dose: 2 drop Admin: 11/15/16 15:27 Dose: Not Given Ondansetron HCl (Zofran) 4 mg IVPUSH Q6H PRN PRN Reason: Nausea/Vomiting Ondansetron HCl (Zofran Odt) 4 mg PO Q4H PRN PRN Reason: nausea, able to take PO Temazepam (Restoril) 7.5 mg PO BEDTIME PRN PRN Reason: Sleep Assessment/Plan Comment:: Needs insight, explained disease process including treatment, progression and untoward events. Has wanted to leave, degree of anxiety is out of proportion with diverticulitis.
--- NOTE | 2016-11-15 09:08 | CT ---
CT abdomen and pelvis Technique: Multiple axial sections were obtained from above the dome of the diaphragm inferiorly through the pubic symphysis. Intravenous and oral contrast has been given. Delayed images were obtained through the bladder. Comparison: Previous CT abdomen and pelvis exam of 03/17/16. Findings: Small portion of the visualized lung bases show nothing acute. Liver shows fatty infiltration. 1.6 cm cyst is noted within the upper right lobe of the liver. This finding is stable from previous exam. Spleen appears within normal limits. Adrenal glands show no nodule. Pancreas is within normal limits. Surgical clips are seen from prior cholecystectomy. Kidneys show contrast enhancement without hydronephrosis or mass. Abdominal aorta shows no aneurysmal dilatation. No retroperitoneal adenopathy or mesenteric abnormalities are seen. Mild inflammatory change is seen around the diverticula at the junction of the descending and sigmoid colon compatible with diverticulitis. Diverticulosis is noted within the sigmoid colon as well as descending colon. No bowel dilatation is seen. No free fluid is identified. Small fat-containing umbilical hernia is incidentally noted. Bone window settings were reviewed showing mild degenerative change within the spine. Impression: 1. Findings compatible with diverticulitis at the junction of the descending and sigmoid regions. 2. Other incidental findings as noted above which remains stable from prior CT exam. Diagnostic code #3 Agree with preliminary report issued by [facility] ([facility] preliminary report dictated on 11/15/16, 5:16 AM Central Time)
[2016-11-15] MEDS: Metoclopramide 10 MG/2 ML SDV IVPUSH SCH ×2 (09:50→15:56)
[2016-11-15] MEDS: Ofloxacin 0.3% Ophth Soln 5 ML Bottle EYEBOTH SCH ×7 (09:50→20:10)
[2016-11-15] MEDS: Enoxaparin 40 MG/0.4 ML Syringe SUBCUT SCH (09:51)
[2016-11-15] MEDS: Lisinopril 20 MG Tab PO SCH (09:51)
[2016-11-15] MEDS: amLODIPine 5 MG Tab PO SCH (09:51)
[2016-11-15] MEDS: Metoprolol Succinate 50 MG Tab.ER PO SCH (09:51)
[2016-11-15] MEDS ORDERED: LORazepam 1 MG Tab PO ONE (10:06)
[2016-11-15] MEDS ORDERED: LORazepam 2 MG/ML MDV IVPUSH PRN ×2 (10:09→21:26)
[2016-11-15] MEDS: chlordiazePOXIDE 25 MG Cap PO SCH ×2 (10:53→20:09)
[2016-11-15] MEDS: metroNIDAZOLE/Normal Saline 500 MG in Premix Bag 1 BAG IV SCH ×2 (15:26→20:11)
[2016-11-15] MEDS: Acetaminophen/HYDROcodone 325-5 MG Tab PO PRN (18:51)
[2016-11-15] MEDS: Famotidine 20 MG Tab PO SCH (20:08)
[2016-11-15] MEDS ORDERED: cloNIDine 0.1 MG Tab PO SCH (21:00)
[2016-11-15] MEDS ORDERED: Temazepam 15 MG Cap PO PRN (21:24)
[2016-11-15] MEDS ORDERED: hydrALAZINE 20 MG/ML SDV IVPUSH PRN (21:34)
[2016-11-15] MEDS ORDERED: cloNIDine 0.1 MG Tab PO PRN (23:16)
[2016-11-16] MEDS: metroNIDAZOLE/Normal Saline 500 MG in Premix Bag 1 BAG IV SCH ×3 (04:08→20:55)
[2016-11-16] MEDS: Acetaminophen/HYDROcodone 325-5 MG Tab PO PRN ×4 (04:09→20:56)
[2016-11-16] MEDS ORDERED: cloNIDine 0.1 MG Tab PO SCH (05:00)
[2016-11-16] MEDS: Levofloxacin/Dextrose 5%-Water 750 MG in Premix Bag 1 BAG IV SCH (05:21)
[2016-11-16] MEDS: Famotidine 20 MG Tab PO SCH ×2 (08:36→20:57)
[2016-11-16] MEDS: Enoxaparin 40 MG/0.4 ML Syringe SUBCUT SCH (08:36)
[2016-11-16] MEDS: Metoprolol Succinate 50 MG Tab.ER PO SCH (09:02)
[2016-11-16] MEDS: amLODIPine 5 MG Tab PO SCH (09:16)
[2016-11-16] MEDS: chlordiazePOXIDE 25 MG Cap PO SCH ×2 (09:16→20:56)
[2016-11-16] MEDS: Lisinopril 20 MG Tab PO SCH (09:17)
[2016-11-16] MEDS: Ofloxacin 0.3% Ophth Soln 5 ML Bottle EYEBOTH SCH ×6 (09:18→20:57)
--- NOTE | 2016-11-16 11:58 | PCM.PN ---
<Gloria Buckner M - Last Filed: 11/16/16 11:58> - General Info Date of Service: 11/16/16 Admission Dx/Problem (Free Text): Diverticulitis Patient is doing better today, less anxious and pain is less to LLQ today. Slept well last night. Tolerating clear liquids without problems/nausea or worsening pain, is hungry this morning. Has been ambulating in hallways. CIWAA's have been 0-3. Functional Status: Reports: pain controlled, tolerating diet, ambulating, urinating. Denies: new symptoms - Review of Systems General: Reports: No Symptoms. Denies: Fever HEENT: Reports: no symptoms Pulmonary: Reports: no symptoms Cardiovascular: Reports: No Symptoms Gastrointestinal: Reports: Abdominal pain (LLQ). Denies: Constipation, Diarrhea , Nausea, Vomiting Genitourinary: Reports: no symptoms Musculoskeletal: Reports: no symptoms Neurological: Reports: No Symptoms Psychiatric: Reports: no symptoms, anxiety (improved) - Patient Data Vitals - most recent: Last Vital Signs Temp 97.5 F 11/16/16 08:27 Pulse 90 11/16/16 08:27 Resp 16 11/16/16 08:27 BP 139/81 11/16/16 09:17 Pulse Ox 96 11/16/16 08:27 Weight - most recent: 111.782 kg I&O - last 24 hours: Intake & Output 11/15/16 11/16/16 11/16/16 22:59 06:59 14:59 Intake Total 1860 500 900 Balance 1860 500 900 Lab Results last 24 hrs: Laboratory Results - last 24 hr 11/16/16 11/16/16 11/16/16 Range/Units 05:55 05:55 05:55 WBC 5.60 (4.23-9.07) K/mm3 RBC 4.47 L (4.63-6.08) M/mm3 Hgb 14.8 (13.7-17.5) gm/L Hct 41.7 (40.1-51.0) % MCV 93.3 H (79.0-92.2) fl MCH 33.1 H (25.7-32.2) pg MCHC 35.5 (32.2-35.5) g/dl RDW Std Deviation 42.8 (35.1-43.9) fL Plt Count 126 L (163-337) K/mm3 MPV 10.6 (9.4-12.3) fl Neut % (Auto) 67.0 (34.0-67.9) % Lymph % (Auto) 15.7 L (21.8-53.1) % [place] % (Auto) 13.2 H (5.3-12.2) % Eos % (Auto) 3.6 (0.8-7.0) Baso % (Auto) 0.5 (0.1-1.2) % Neut # (Auto) 3.75 (1.78-5.38) K/mm3 Lymph # (Auto) 0.88 L (1.32-3.57) K/mm3 [place] # (Auto) 0.74 (0.30-0.82) K/mm3 Eos # (Auto) 0.20 (0.04-0.54) K/mm3 Baso # (Auto) 0.03 (0.01-0.08) K/mm3 Sodium 136 (136-145) mEq/L Potassium 4.0 (3.5-5.1) mEq/L Chloride 103 (98-107) mEq/L Carbon Dioxide 24 (21-32) mEq/L Anion Gap 13.0 (5-15) BUN 16 (7-18) mg/dL Creatinine 1.2 (0.7-1.3) mg/dL Est Cr Clr Drug Dosing 76.92 mL/min Estimated GFR (MDRD) > 60 (>60) mL/min BUN/Creatinine Ratio 13.3 L (14-18) Glucose 108 H (74-106) mg/dL Calcium 8.9 (8.5-10.1) mg/dL C-Reactive Protein 6.0 H* (<1.0) mg/dL Med Orders - Current: Current Medications Hydrocodone Bitart/Acetaminophen ([place] 325-5 Mg) 1 tab PO Q4H PRN PRN Reason: Pain (moderate 4-6) Last Admin: 11/16/16 08:35 Dose: 1 tab Amlodipine Besylate (Norvasc) 5 mg PO DAILY [facility] Last Admin: 11/16/16 09:16 Dose: 5 mg Chlordiazepoxide HCl (Librium) 50 mg PO BID [facility] Last Admin: 11/16/16 09:16 Dose: 50 mg Clonidine HCl (Catapres) 0.1 mg PO Q8H PRN PRN Reason: Anxiety Docusate Sodium (Colace) 100 mg PO BID PRN PRN Reason: Constipation Enoxaparin Sodium (Lovenox) 40 mg SUBCUT DAILY [facility] Last Admin: 11/16/16 08:36 Dose: 40 mg Famotidine (Pepcid) 20 mg PO BID [facility] Last Admin: 11/16/16 08:36 Dose: 20 mg Hydralazine HCl (Apresoline) 20 mg IVPUSH Q6H PRN PRN Reason: Hypertension Hydrochlorothiazide (Hydrochlorothiazide) 12.5 mg PO DAILY [facility] Levofloxacin/Dextrose 750 mg/ (Premix) 150 mls @ 100 mls/hr IV Q24H [facility] Last Admin: 11/16/16 05:21 Dose: 100 mls/hr Metronidazole 500 mg/ Premix 100 mls @ 100 mls/hr IV Q8H [facility] Last Admin: 11/16/16 04:08 Dose: 100 mls/hr Lorazepam (Ativan) 2 mg IVPUSH Q4H PRN PRN Reason: Withdrawal Symptoms Losartan Potassium (Cozaar) 50 mg PO DAILY [facility] Magnesium Hydroxide (Milk Of Magnesia) 30 ml PO Q12H PRN PRN Reason: Constipation Ofloxacin (Ocuflox 0.3% Oph Soln) 0 ml EYEBOTH QID [facility] Last Admin: 11/16/16 09:28 Dose: Not Given Ondansetron HCl (Zofran) 4 mg IVPUSH Q6H PRN PRN Reason: Nausea/Vomiting Ondansetron HCl (Zofran Odt) 4 mg PO Q4H PRN PRN Reason: nausea, able to take PO Temazepam (Restoril) 15 mg PO BEDTIME PRN PRN Reason: Sleep Discontinued Medications Clonidine HCl (Catapres) 0.1 mg PO Q12HR [facility] Last Admin: 11/15/16 20:15 Dose: 0.1 mg Clonidine HCl (Catapres) 0.1 mg PO Q8H [facility] Diatrizoate Meglum/Diatrizoate Sod (Gastrografin 37%) 120 ml PO ONETIME ONE Stop: 11/15/16 03:52 Last Admin: 11/15/16 03:53 Dose: 90 ml Famotidine (Pepcid) 20 mg IVPUSH ONETIME ONE Stop: 11/15/16 06:48 Last Admin: 11/15/16 08:01 Dose: 20 mg Hydromorphone HCl (Dilaudid) 1 mg IVPUSH Q2H PRN PRN Reason: Pain Last Admin: 11/15/16 05:37 Dose: 1 mg Sodium Chloride (Normal Saline) 1,000 mls @ 150 mls/hr IV ASDIRECTED [facility] Last Admin: 11/15/16 02:18 Dose: 150 mls/hr Levofloxacin/Dextrose 750 mg/ (Premix) 150 mls @ 100 mls/hr IV ONETIME ONE Stop: 11/15/16 05:57 Last Admin: 11/15/16 04:50 Dose: 100 mls/hr Metronidazole 500 mg/ Premix 100 mls @ 100 mls/hr IV ONETIME ONE Stop: 11/15/16 05:28 Last Admin: 11/15/16 04:50 Dose: 100 mls/hr Iopamidol (Isovue-300 (61%)) 150 ml IVPUSH ONETIME ONE Stop: 11/15/16 03:52 Last Admin: 11/15/16 03:53 Dose: 125 ml Lisinopril (Prinivil) 20 mg PO DAILY [facility] Last Admin: 11/16/16 09:17 Dose: 20 mg Lorazepam (Ativan) 1 mg PO ONETIME ONE Stop: 11/15/16 10:07 Last Admin: 11/15/16 10:53 Dose: 1 mg Lorazepam (Ativan) 1 mg IVPUSH Q4H PRN PRN Reason: Withdrawal Symptoms Metoclopramide HCl (Reglan) 10 mg IVPUSH Q6H [facility] Last Admin: 11/15/16 15:56 Dose: Not Given Metoprolol Succinate (Toprol Xl) 100 mg PO DAILY [facility] Last Admin: 11/16/16 09:02 Dose: Not Given Morphine Sulfate (Morphine) 2 mg IVPUSH Q2H PRN PRN Reason: Pain (severe 7-10) Stop: 11/16/16 06:43 Ofloxacin (Ocuflox 0.3% Ophth Soln) 0 ml EYEBOTH Q2H [facility] Last Admin: 11/16/16 09:18 Dose: 2 drop Temazepam (Restoril) 7.5 mg PO BEDTIME PRN PRN Reason: Sleep - Exam Quality Assessment: DVT prophylaxis General: alert, oriented, cooperative, no acute distress HEENT: Pupils equal, Pupils reactive, EOMI, Mucous membr. moist/pink Neck: supple Lungs: Clear to auscultation, Normal respiratory effort Cardiovascular: Regular Rate, Regular Rhythm Abdomen: bowel sounds present, soft, no distension, tenderness (LLQ). No: rigidity, rebound, guarding (Male) Exam: Deferred Extremities: no edema Peripheral Pulses: 0: Dorsalis Pedis (R), 1+: Dorsalis Pedis (L) Neurological: no new focal deficit Psy/Mental Status: alert, normal affect, normal mood - Problem List & Annotations (1) Acute diverticulitis SNOMED Code(s): 943335595 Code(s): K57.92 - DVTRCLI OF INTEST, PART UNSP, W/O PERF OR ABSCESS W/O BLEED Status: Acute Priority: High Current Visit: Yes (2) Abdominal pain SNOMED Code(s): 42969289 Code(s): R10.9 - UNSPECIFIED ABDOMINAL PAIN Status: Acute Priority: High Current Visit: Yes Qualifiers: Abdominal location: left lower quadrant Qualified Code(s): R10.32 - Left lower quadrant pain (3) Hypertension SNOMED Code(s): 05641781 Code(s): I10 - ESSENTIAL (PRIMARY) HYPERTENSION Status: Chronic Priority : Medium Current Visit: Yes Qualifiers: Hypertension type: essential hypertension Qualified Code(s): I10 - Essential (primary) hypertension (4) Alcohol use SNOMED Code(s): 382873567 Code(s): Z78.9 - OTHER SPECIFIED HEALTH STATUS Status: Chronic Priority: High Current Visit: Yes (5) Anxiety SNOMED Code(s): 24367771 Code(s): F41.9 - ANXIETY DISORDER, UNSPECIFIED Status: Chronic Priority: Medium Current Visit: Yes - Problem List Review Problem List Initiated/Reviewed/Updated: Yes - My Orders Last 24 Hours: My Active Orders 11/15/16 13:00 Ofloxacin [Ocuflox 0.3% Ophth Soln] 0 ml EYEBOTH QID 11/15/16 21:00 Famotidine [Pepcid] 20 mg PO BID 11/17/16 05:00 BASIC METABOLIC PANEL,BMP [CHEM] DAILY C-REACTIVE PROTEIN [CHEM] DAILY CBC WITH AUTO DIFF [HEME] DAILY 11/17/16 09:00 Hydrochlorothiazide 12.5 mg PO DAILY Losartan [Cozaar] 50 mg PO DAILY 11/18/16 05:00 BASIC METABOLIC PANEL,BMP [CHEM] DAILY C-REACTIVE PROTEIN [CHEM] DAILY CBC WITH AUTO DIFF [HEME] DAILY 11/19/16 05:00 BASIC METABOLIC PANEL,BMP [CHEM] DAILY C-REACTIVE PROTEIN [CHEM] DAILY CBC WITH AUTO DIFF [HEME] DAILY 11/20/16 05:00 BASIC METABOLIC PANEL,BMP [CHEM] DAILY CBC WITH AUTO DIFF [HEME] DAILY - Plan Plan:: I/P: Acute sigmoid diverticulitis: confirmed via CT scan -WBC 12K, CRP 1.7--improving -follow daily labs -Rec'd levaquin and flagyl in ER via IV, will continue -Clear liquid diet- advance to full liquid this afternoon -antiemetics PRN -Cont ambulate QID and PRN -Feels better after bowel movements, pain improved -Order Builder consult Chronic: -HTN-b/p elevated -telemetry -Adjust antihypertensive regimen and cont close monitoring -Alcohol use/abuse -Outpatient substance abuse counseling -Anxiety -Fup as outpatient -Obesity -Order Builder consult -Alcohol cessation Other: GI/DVT prophylax CM/SW for dc planning assistance Patient is Full Code status <[place] - Last Filed: 11/16/16 12:49> - Patient Data Vitals - most recent: Last Vital Signs Temp 36.4 C 11/16/16 08:27 Pulse 90 11/16/16 08:27 Resp 16 11/16/16 08:27 BP 139/81 11/16/16 09:17 Pulse Ox 96 11/16/16 08:27 I&O - last 24 hours: Intake & Output 11/15/16 11/16/16 11/16/16 22:59 06:59 14:59 Intake Total 1860 500 900 Balance 1860 500 900 Lab Results last 24 hrs: Laboratory Results - last 24 hr 11/16/16 11/16/16 11/16/16 Range/Units 05:55 05:55 05:55 WBC 5.60 (4.23-9.07) K/mm3 RBC 4.47 L (4.63-6.08) M/mm3 Hgb 14.8 (13.7-17.5) gm/L Hct 41.7 (40.1-51.0) % MCV 93.3 H (79.0-92.2) fl MCH 33.1 H (25.7-32.2) pg MCHC 35.5 (32.2-35.5) g/dl RDW Std Deviation 42.8 (35.1-43.9) fL Plt Count 126 L (163-337) K/mm3 MPV 10.6 (9.4-12.3) fl Neut % (Auto) 67.0 (34.0-67.9) % Lymph % (Auto) 15.7 L (21.8-53.1) % [place] % (Auto) 13.2 H (5.3-12.2) % Eos % (Auto) 3.6 (0.8-7.0) Baso % (Auto) 0.5 (0.1-1.2) % Neut # (Auto) 3.75 (1.78-5.38) K/mm3 Lymph # (Auto) 0.88 L (1.32-3.57) K/mm3 [place] # (Auto) 0.74 (0.30-0.82) K/mm3 Eos # (Auto) 0.20 (0.04-0.54) K/mm3 Baso # (Auto) 0.03 (0.01-0.08) K/mm3 Sodium 136 (136-145) mEq/L Potassium 4.0 (3.5-5.1) mEq/L Chloride 103 (98-107) mEq/L Carbon Dioxide 24 (21-32) mEq/L Anion Gap 13.0 (5-15) BUN 16 (7-18) mg/dL Creatinine 1.2 (0.7-1.3) mg/dL Est Cr Clr Drug Dosing 76.92 mL/min Estimated GFR (MDRD) > 60 (>60) mL/min BUN/Creatinine Ratio 13.3 L (14-18) Glucose 108 H (74-106) mg/dL Calcium 8.9 (8.5-10.1) mg/dL C-Reactive Protein 6.0 H* (<1.0) mg/dL Med Orders - Current: Current Medications Hydrocodone Bitart/Acetaminophen ([place] 325-5 Mg) 1 tab PO Q4H PRN PRN Reason: Pain (moderate 4-6) Last Admin: 11/16/16 08:35 Dose: 1 tab Amlodipine Besylate (Norvasc) 5 mg PO DAILY [facility] Last Admin: 11/16/16 09:16 Dose: 5 mg Chlordiazepoxide HCl (Librium) 50 mg PO BID [facility] Last Admin: 11/16/16 09:16 Dose: 50 mg Clonidine HCl (Catapres) 0.1 mg PO Q8H PRN PRN Reason: Anxiety Docusate Sodium (Colace) 100 mg PO BID PRN PRN Reason: Constipation Enoxaparin Sodium (Lovenox) 40 mg SUBCUT DAILY [facility] Last Admin: 11/16/16 08:36 Dose: 40 mg Famotidine (Pepcid) 20 mg PO BID [facility] Last Admin: 11/16/16 08:36 Dose: 20 mg Hydralazine HCl (Apresoline) 20 mg IVPUSH Q6H PRN PRN Reason: Hypertension Hydrochlorothiazide (Hydrochlorothiazide) 12.5 mg PO DAILY [facility] Levofloxacin/Dextrose 750 mg/ (Premix) 150 mls @ 100 mls/hr IV Q24H [facility] Last Admin: 11/16/16 05:21 Dose: 100 mls/hr Metronidazole 500 mg/ Premix 100 mls @ 100 mls/hr IV Q8H [facility] Last Admin: 11/16/16 04:08 Dose: 100 mls/hr Lorazepam (Ativan) 2 mg IVPUSH Q4H PRN PRN Reason: Withdrawal Symptoms Losartan Potassium (Cozaar) 50 mg PO DAILY [facility] Magnesium Hydroxide (Milk Of Magnesia) 30 ml PO Q12H PRN PRN Reason: Constipation Ofloxacin (Ocuflox 0.3% Ophth Soln) 0 ml EYEBOTH QID [facility] Last Admin: 11/16/16 09:28 Dose: Not Given Ondansetron HCl (Zofran) 4 mg IVPUSH Q6H PRN PRN Reason: Nausea/Vomiting Ondansetron HCl (Zofran Odt) 4 mg PO Q4H PRN PRN Reason: nausea, able to take PO Temazepam (Restoril) 15 mg PO BEDTIME PRN PRN Reason: Sleep Discontinued Medications Clonidine HCl (Catapres) 0.1 mg PO Q12HR [facility] Last Admin: 11/15/16 20:15 Dose: 0.1 mg Clonidine HCl (Catapres) 0.1 mg PO Q8H [facility] Diatrizoate Meglum/Diatrizoate Sod (Gastrografin 37%) 120 ml PO ONETIME ONE Stop: 11/15/16 03:52 Last Admin: 11/15/16 03:53 Dose: 90 ml Famotidine (Pepcid) 20 mg IVPUSH ONETIME ONE Stop: 11/15/16 06:48 Last Admin: 11/15/16 08:01 Dose: 20 mg Hydromorphone HCl (Dilaudid) 1 mg IVPUSH Q2H PRN PRN Reason: Pain Last Admin: 11/15/16 05:37 Dose: 1 mg Sodium Chloride (Normal Saline) 1,000 mls @ 150 mls/hr IV ASDIRECTED [facility] Last Admin: 11/15/16 02:18 Dose: 150 mls/hr Levofloxacin/Dextrose 750 mg/ (Premix) 150 mls @ 100 mls/hr IV ONETIME ONE Stop: 11/15/16 05:57 Last Admin: 11/15/16 04:50 Dose: 100 mls/hr Metronidazole 500 mg/ Premix 100 mls @ 100 mls/hr IV ONETIME ONE Stop: 11/15/16 05:28 Last Admin: 11/15/16 04:50 Dose: 100 mls/hr Iopamidol (Isovue-300 (61%)) 150 ml IVPUSH ONETIME ONE Stop: 11/15/16 03:52 Last Admin: 11/15/16 03:53 Dose: 125 ml Lisinopril (Prinivil) 20 mg PO DAILY [facility] Last Admin: 11/16/16 09:17 Dose: 20 mg Lorazepam (Ativan) 1 mg PO ONETIME ONE Stop: 11/15/16 10:07 Last Admin: 11/15/16 10:53 Dose: 1 mg Lorazepam (Ativan) 1 mg IVPUSH Q4H PRN PRN Reason: Withdrawal Symptoms Metoclopramide HCl (Reglan) 10 mg IVPUSH Q6H [facility] Last Admin: 11/15/16 15:56 Dose: Not Given Metoprolol Succinate (Toprol Xl) 100 mg PO DAILY [facility] Last Admin: 11/16/16 09:02 Dose: Not Given Morphine Sulfate (Morphine) 2 mg IVPUSH Q2H PRN PRN Reason: Pain (severe 7-10) Stop: 11/16/16 06:43 Ofloxacin (Ocuflox 0.3% Ophth Soln) 0 ml EYEBOTH Q2H [facility] Last Admin: 11/16/16 09:18 Dose: 2 drop Temazepam (Restoril) 7.5 mg PO BEDTIME PRN PRN Reason: Sleep - My Orders Last 24 Hours: My Active Orders 11/15/16 21:24 Temazepam [Restoril] 15 mg PO BEDTIME PRN 11/15/16 21:26 LORazepam [Ativan] 2 mg IVPUSH Q4H PRN 11/15/16 21:34 hydrALAZINE [Apresoline] 20 mg IVPUSH Q6H PRN 11/15/16 23:16 cloNIDine [Catapres] 0.1 mg PO Q8H PRN 11/16/16 Lunch Full Liquid Diet [DIET] - Plan Plan:: Poor insight, has not invested in himself and impulsive; lives in the moment only. Will be provided with alcohol program via [facility] as an out patient. States he [facility] to [facility]. Declined AA, etc; wants weight loss information which has been provided by the dietary dept. LOS additional 24-48 hours to advice diet and treat withdrawal from ETOH.
[2016-11-17] MEDS: Levofloxacin/Dextrose 5%-Water 750 MG in Premix Bag 1 BAG IV SCH (05:34)
[2016-11-17] MEDS: metroNIDAZOLE/Normal Saline 500 MG in Premix Bag 1 BAG IV SCH (05:34)
[2016-11-17 08:14] VITALS: BP 153/99
[2016-11-17] MEDS: Ofloxacin 0.3% Ophth Soln 5 ML Bottle EYEBOTH SCH (08:42)
[2016-11-17] MEDS: chlordiazePOXIDE 25 MG Cap PO SCH (08:43)
[2016-11-17] MEDS: Enoxaparin 40 MG/0.4 ML Syringe SUBCUT SCH (08:43)
[2016-11-17] MEDS: Famotidine 20 MG Tab PO SCH (08:43)
[2016-11-17] MEDS: amLODIPine 5 MG Tab PO SCH (08:49)
[2016-11-17] MEDS ORDERED: Hydrochlorothiazide 12.5 MG Cap PO SCH (09:00)
[2016-11-17] MEDS ORDERED: Losartan 25 MG Tab PO SCH (09:00)
--- NOTE | 2016-11-17 12:21 | PCM.DCSUM1 ---
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 Saldaña with acute diverticulitis. He has been having LLQ pain intermittent x 2 days, worse last night. He has been constipated the past 2 days since onset of pain. He has had hx of diverticulitis 4 or 5 times in the past. He has been on a "diet" with his PCP and has been eating "tuna fish and pistachios for a week". In hindsight, he feels the nuts were his trigger. He was nauseated upon arrival to ED but no vomiting. No f/c/s. He has not had flare of diverticulitis for "at least a few years". He had CT of abd and pelvis with oral and IV contrast is read by [facility] as: 1. Findings consistent with acute diverticulitis at the junction of the descending and sigmoid colon. No perforation or abscess. Remaining sigmoid colon is also mildly thickened which may be secondary to underdistention with mild colitis not excluded. 2. Hepatic steatosis. 3. Incidental/non-acute findings are described above. He was given IV levaquin and flagyl in the ED and ordered to continue. Since transfer to the floor patient has had several loose stools with improvement of pain and abd distention. No hematochezia/melena noted. He rates pain at 1/10 now, was 8/10 when he came into ER. He is afebrile, no f/c/s. No nausea. PMH significant for HTN and obesity. He is a full code status. Patient was treated with IV levaquin and metronidazole, zofran, oral pain medications. IVF initially while NPO. Diet advanced to clear liquids-->full liquids-->soft and regular, heart healthy. Tolerated well. He was ambulatory around the unit. CIWA's were 0-3 for alcohol withdrawl as he admitted to drinking 4-5 whiskey cokes/night. He is referred to outpatient alcohol treatment /counseling. Supply Chain Generalist was consulted for diverticulitis and weight management as he is concerned about 60lb wt gain since moving to [place] from [place] a few years ago for work. He will cont to see Supply Chain Generalist as outpatient. B/P medications were augmented with improvements in pressures. He is instructed to keep a log of b/p' s, check once daily and take record to PCP at follow up visit for review. Multiple long discusions were had with patient with provider, nursing, social work regarding need for lifestyle changes with diet, exercise, alcohol cessation. He does wish to change lifestyle and appears motivated however is laden with excuses during his stay. States he desires a new PCP who will keep him motivated to make these needed lifestyle changes. He will follow up with Dr. Johnson in the clinic within 7 days of discharge with b/p log for review. He will continue to see Supply Chain Generalist weekly on an outpatient basis. He has been provided referral for outpatient substance abuse counseling, patient will need to make own appointment as hospital staff is unable to arrange appointment for patient per [facility] office. Patient is dc'd home this afternoon with soft diet, oral antibiotic, avoidance of all alcohol. - Discharge Data Discharge Date: 11/17/16 (admit date 11/15/16) Discharge Disposition: Home, Self-Care 01 Condition: Good - Discharge Diagnosis/Problem(s) (1) Acute diverticulitis SNOMED Code(s): 182821919 ICD Code: K57.92 - DVTRCLI OF INTEST, PART UNSP, W/O PERF OR ABSCESS W/O BLEED Status: Acute Priority: High Current Visit: Yes (2) Abdominal pain SNOMED Code(s): 59989612 ICD Code: R10.9 - UNSPECIFIED ABDOMINAL PAIN Status: Acute Priority: High Current Visit: Yes Qualifiers: Abdominal location: left lower quadrant Qualified Code(s): R10.32 - Left lower quadrant pain (3) Hypertension SNOMED Code(s): 57271528 ICD Code: I10 - ESSENTIAL (PRIMARY) HYPERTENSION Status: Chronic Priority : Medium Current Visit: Yes Qualifiers: Hypertension type: essential hypertension Qualified Code(s): I10 - Essential (primary) hypertension (4) Alcohol use SNOMED Code(s): 204942378 ICD Code: Z78.9 - OTHER SPECIFIED HEALTH STATUS Status: Chronic Priority : High Current Visit: Yes (5) Anxiety SNOMED Code(s): 08581085 ICD Code: F41.9 - ANXIETY DISORDER, UNSPECIFIED Status: Chronic Priority : Medium Current Visit: Yes - Patient Summary/Data Operative Procedure(s) Performed: None Complications: None Consults: Consultations 11/15/16 06:41 Consult to Case Management [CONS] Routine Consult to Supply Chain Generalist [CONS] Routine Consult to Oil Well Pumper [CONS] Routine Labs Pending at D/C: None Planned Operative Procedure(s) after DC: None Hospital Course: As above - Patient Instructions Diet: Heart Healthy Diet, Weight Loss Diet Activity: As Tolerated (no work for 48 hours then may return. ) Driving: Do Not Drive (today; may drive tomorrow) Showering/Bathing: May Shower Notify Provider of: Fever, Increased Pain, Nausea and/or Vomiting - Discharge Plan Prescriptions/Med Rec: Levofloxacin [Levaquin] 750 mg PO DAILY #14 tablet Olmesartan/Amlodipin/Hcthiazid [Tribenzor 40-5-25 MG] 1 each PO DAILY #30 tablet Ondansetron [Zofran ODT] 4 mg PO Q4H PRN #15 tab.dis PRN Reason: Nausea metroNIDAZOLE [Flagyl] 500 mg PO Q8H #21 tablet Home Medications: Home Meds amLODIPine [Norvasc] 5 mg PO DAILY 11/15/16 [History] Levofloxacin [Levaquin] 750 mg PO DAILY #14 tablet 11/17/16 [Rx] Olmesartan/Amlodipin/Hcthiazid [Tribenzor 40-5-25 MG] 1 each PO DAILY #30 tablet 11/17/16 [Rx] Ondansetron [Zofran ODT] 4 mg PO Q4H PRN #15 tab.dis 11/17/16 [Rx] metroNIDAZOLE [Flagyl] 500 mg PO Q8H #21 tablet 11/17/16 [Rx] Patient Handouts: Alcohol Use Disorder, Alcohol Withdrawal, Diverticulitis, Alcohol Abuse and Nutrition, Diet for Metabolic Syndrome, Calorie Counting for Weight Loss Referrals: Yariel Martínez MD [Physician] - Sandip Johnson [Physician] - 11/24/16 4:00 pm (at [facility] in [place] come to east side of hospital building, come 15 minutes prior to the appointment ro register.) - Discharge Summary/Plan Comment DC Time >30 min.: Yes (40 min) - General Info Date of Service: 11/17/16 Admission Dx/Problem (Free Text: Diverticulitis Patient is doing better today, less anxious and pain is less to LLQ today. Slept well last night. Tolerated regular breakfast without problems/nausea or worsening pain, is hungry this morning. Has been ambulating in hallways without problems/pain. CIWAA's have been 0-3. He has met with veneer drier tailer and wishes to cont f/up as outpatient with her. Is anxious for discharge home today. Functional Status: Reports: pain controlled, tolerating diet, ambulating, urinating. Denies: new symptoms - Review of Systems General: Reports: No Symptoms HEENT: Reports: no symptoms Pulmonary: Reports: no symptoms Cardiovascular: Reports: No Symptoms Gastrointestinal: Reports: Abdominal pain (minimal LLQ abd pain) Genitourinary: Reports: no symptoms Musculoskeletal: Reports: no symptoms Skin: Reports: no symptoms Neurological: Reports: No Symptoms Psychiatric: Reports: anxiety (improved from time of admission). Denies: cravings (denies alcohol cravings) - Patient Data Vitals - Most Recent: Last Vital Signs Temp 97.9 F 11/17/16 07:50 Pulse 82 11/17/16 07:50 Resp 12 11/17/16 07:50 BP 153/99 H 11/17/16 08:49 Pulse Ox 100 11/17/16 07:50 Weight - Most Recent: 67.041 kg I&O - Last 24 hours: Intake & Output 11/16/16 11/17/16 11/17/16 22:59 06:59 14:59 Intake Total 1250 500 120 Output Total 1800 3 Balance -550 497 120 Lab Results - Last 24 hrs: Laboratory Results - last 24 hr 11/17/16 11/17/16 11/17/16 Range/Units 05:19 05:39 05:39 WBC 5.00 (4.23-9.07) K/mm3 RBC 4.31 L (4.63-6.08) M/mm3 Hgb 14.5 (13.7-17.5) gm/L Hct 40.3 (40.1-51.0) % MCV 93.5 H (79.0-92.2) fl MCH 33.6 H (25.7-32.2) pg MCHC 36.0 H (32.2-35.5) g/dl RDW Std Deviation 41.9 (35.1-43.9) fL Plt Count 146 L (163-337) K/mm3 MPV 10.0 (9.4-12.3) fl Neut % (Auto) 60.6 (34.0-67.9) % Lymph % (Auto) 20.6 L (21.8-53.1) % [place] % (Auto) 13.8 H (5.3-12.2) % Eos % (Auto) 4.6 (0.8-7.0) Baso % (Auto) 0.4 (0.1-1.2) % Neut # (Auto) 3.03 (1.78-5.38) K/mm3 Lymph # (Auto) 1.03 L (1.32-3.57) K/mm3 [place] # (Auto) 0.69 (0.30-0.82) K/mm3 Eos # (Auto) 0.23 (0.04-0.54) K/mm3 Baso # (Auto) 0.02 (0.01-0.08) K/mm3 Manual Slide Review Not Reportable Sodium 139 (136-145) mEq/L Potassium 4.1 (3.5-5.1) mEq/L Chloride 105 (98-107) mEq/L Carbon Dioxide 27 (21-32) mEq/L Anion Gap 11.1 (5-15) BUN 12 (7-18) mg/dL Creatinine 1.1 (0.7-1.3) mg/dL Est Cr Clr Drug Dosing 79.57 mL/min Estimated GFR (MDRD) > 60 (>60) mL/min BUN/Creatinine Ratio 10.9 L (14-18) Glucose 100 (74-106) mg/dL Calcium 9.1 (8.5-10.1) mg/dL C-Reactive Protein 4.3 H* (<1.0) mg/dL Med Orders - Current: Current Medications Hydrocodone Bitart/Acetaminophen (Dana 325-5 Mg) 1 tab PO Q4H PRN PRN Reason: Pain (moderate 4-6) Last Admin: 11/16/16 20:56 Dose: 1 tab Amlodipine Besylate (Norvasc) 5 mg PO DAILY [facility] Last Admin: 11/17/16 08:49 Dose: 5 mg Chlordiazepoxide HCl (Librium) 50 mg PO BID [facility] Last Admin: 11/17/16 08:43 Dose: 50 mg Clonidine HCl (Catapres) 0.1 mg PO Q8H PRN PRN Reason: Anxiety Docusate Sodium (Colace) 100 mg PO BID PRN PRN Reason: Constipation Enoxaparin Sodium (Lovenox) 40 mg SUBCUT DAILY [facility] Last Admin: 11/17/16 08:43 Dose: 40 mg Famotidine (Pepcid) 20 mg PO BID [facility] Last Admin: 11/17/16 08:43 Dose: 20 mg Hydralazine HCl (Apresoline) 20 mg IVPUSH Q6H PRN PRN Reason: Hypertension Hydrochlorothiazide (Hydrochlorothiazide) 12.5 mg PO DAILY [facility] Last Admin: 11/17/16 08:43 Dose: 12.5 mg Levofloxacin/Dextrose 750 mg/ (Premix) 150 mls @ 100 mls/hr IV Q24H [facility] Last Admin: 11/17/16 05:34 Dose: 100 mls/hr Metronidazole 500 mg/ Premix 100 mls @ 100 mls/hr IV Q8H [facility] Last Admin: 11/17/16 05:34 Dose: 100 mls/hr Lorazepam (Ativan) 2 mg IVPUSH Q4H PRN PRN Reason: Withdrawal Symptoms Losartan Potassium (Cozaar) 50 mg PO DAILY [facility] Last Admin: 11/17/16 08:43 Dose: 50 mg Magnesium Hydroxide (Milk Of Magnesia) 30 ml PO Q12H PRN PRN Reason: Constipation Ofloxacin (Ocuflox 0.3% Ophth Soln) 0 ml EYEBOTH QID [facility] Last Admin: 11/17/16 08:42 Dose: 2 drop Ondansetron HCl (Zofran) 4 mg IVPUSH Q6H PRN PRN Reason: Nausea/Vomiting Ondansetron HCl (Zofran Odt) 4 mg PO Q4H PRN PRN Reason: nausea, able to take PO Temazepam (Restoril) 15 mg PO BEDTIME PRN PRN Reason: Sleep Discontinued Medications Clonidine HCl (Catapres) 0.1 mg PO Q12HR [facility] Last Admin: 11/15/16 20:15 Dose: 0.1 mg Clonidine HCl (Catapres) 0.1 mg PO Q8H [facility] Diatrizoate Meglum/Diatrizoate Sod (Gastrografin 37%) 120 ml PO ONETIME ONE Stop: 11/15/16 03:52 Last Admin: 11/15/16 03:53 Dose: 90 ml Famotidine (Pepcid) 20 mg IVPUSH ONETIME ONE Stop: 11/15/16 06:48 Last Admin: 11/15/16 08:01 Dose: 20 mg Hydromorphone HCl (Dilaudid) 1 mg IVPUSH Q2H PRN PRN Reason: Pain Last Admin: 11/15/16 05:37 Dose: 1 mg Sodium Chloride (Normal Saline) 1,000 mls @ 150 mls/hr IV ASDIRECTED [facility] Last Admin: 11/15/16 02:18 Dose: 150 mls/hr Levofloxacin/Dextrose 750 mg/ (Premix) 150 mls @ 100 mls/hr IV ONETIME ONE Stop: 11/15/16 05:57 Last Admin: 11/15/16 04:50 Dose: 100 mls/hr Metronidazole 500 mg/ Premix 100 mls @ 100 mls/hr IV ONETIME ONE Stop: 11/15/16 05:28 Last Admin: 11/15/16 04:50 Dose: 100 mls/hr Iopamidol (Isovue-300 (61%)) 150 ml IVPUSH ONETIME ONE Stop: 11/15/16 03:52 Last Admin: 11/15/16 03:53 Dose: 125 ml Lisinopril (Prinivil) 20 mg PO DAILY [facility] Last Admin: 11/16/16 09:17 Dose: 20 mg Lorazepam (Ativan) 1 mg PO ONETIME ONE Stop: 11/15/16 10:07 Last Admin: 11/15/16 10:53 Dose: 1 mg Lorazepam (Ativan) 1 mg IVPUSH Q4H PRN PRN Reason: Withdrawal Symptoms Metoclopramide HCl (Reglan) 10 mg IVPUSH Q6H [facility] Last Admin: 11/15/16 15:56 Dose: Not Given Metoprolol Succinate (Toprol Xl) 100 mg PO DAILY [facility] Last Admin: 11/16/16 09:02 Dose: Not Given Morphine Sulfate (Morphine) 2 mg IVPUSH Q2H PRN PRN Reason: Pain (severe 7-10) Stop: 11/16/16 06:43 Ofloxacin (Ocuflox 0.3% Ophth Soln) 0 ml EYEBOTH Q2H [facility] Last Admin: 11/16/16 12:44 Dose: 2 drop Temazepam (Restoril) 7.5 mg PO BEDTIME PRN PRN Reason: Sleep - Exam Quality Assessment: Reports: DVT prophylaxis General: Reports: alert, oriented, cooperative, no acute distress HEENT: Reports: Pupils equal, Pupils reactive, EOMI, Mucous membr. moist/pink Neck: Reports: supple Lungs: Reports: Clear to auscultation, Normal respiratory effort Cardiovascular: Reports: Regular Rate, Regular Rhythm Abdomen: Reports: bowel sounds present, soft, no distension, tenderness ( minimal to LLQ). Denies: rigidity, rebound, guarding (Male) Exam: Deferred Rectal (Males) Exam: Deferred Extremities: Reports: no edema Neurological: Reports: no new focal deficit Psy/Mental Status: Reports: alert, normal affect, normal mood *Q Meaningful Use (DIS) - VTE *Q VTE Criteria *Q: - Stroke *Q Stroke Criteria *Q: - AMI *Q AMI Criteria *Q: <La Villegas - Last Filed: 11/17/16 12:47> Discharge Summary - Hospital Course Free Text/Narrative:: Patient states that he needs a firm hand/guidance for medical care. He is aware of the need to make dietary changes, lose weight and abstain from ETOH. He has requested a change in providers as mentioned above. - Patient Summary/Data Consults: Consultations 11/15/16 06:41 Consult to Case Management [CONS] Routine Consult to Supply Chain Generalist [CONS] Routine Consult to Oil Well Pumper [CONS] Routine - Patient Data Vitals - Most Recent: Last Vital Signs Temp 36.6 C 11/17/16 07:50 Pulse 82 11/17/16 07:50 Resp 12 11/17/16 07:50 BP 153/99 H 11/17/16 08:49 Pulse Ox 100 11/17/16 07:50 I&O - Last 24 hours: Intake & Output 11/16/16 11/17/16 11/17/16 22:59 06:59 14:59 Intake Total 1250 500 120 Output Total 1800 3 Balance -550 497 120 Lab Results - Last 24 hrs: Laboratory Results - last 24 hr 11/17/16 11/17/16 11/17/16 Range/Units 05:19 05:39 05:39 WBC 5.00 (4.23-9.07) K/mm3 RBC 4.31 L (4.63-6.08) M/mm3 Hgb 14.5 (13.7-17.5) gm/L Hct 40.3 (40.1-51.0) % MCV 93.5 H (79.0-92.2) fl MCH 33.6 H (25.7-32.2) pg MCHC 36.0 H (32.2-35.5) g/dl RDW Std Deviation 41.9 (35.1-43.9) fL Plt Count 146 L (163-337) K/mm3 MPV 10.0 (9.4-12.3) fl Neut % (Auto) 60.6 (34.0-67.9) % Lymph % (Auto) 20.6 L (21.8-53.1) % [place] % (Auto) 13.8 H (5.3-12.2) % Eos % (Auto) 4.6 (0.8-7.0) Baso % (Auto) 0.4 (0.1-1.2) % Neut # (Auto) 3.03 (1.78-5.38) K/mm3 Lymph # (Auto) 1.03 L (1.32-3.57) K/mm3 [place] # (Auto) 0.69 (0.30-0.82) K/mm3 Eos # (Auto) 0.23 (0.04-0.54) K/mm3 Baso # (Auto) 0.02 (0.01-0.08) K/mm3 Manual Slide Review Not Reportable Sodium 139 (136-145) mEq/L Potassium 4.1 (3.5-5.1) mEq/L Chloride 105 (98-107) mEq/L Carbon Dioxide 27 (21-32) mEq/L Anion Gap 11.1 (5-15) BUN 12 (7-18) mg/dL Creatinine 1.1 (0.7-1.3) mg/dL Est Cr Clr Drug Dosing 79.57 mL/min Estimated GFR (MDRD) > 60 (>60) mL/min BUN/Creatinine Ratio 10.9 L (14-18) Glucose 100 (74-106) mg/dL Calcium 9.1 (8.5-10.1) mg/dL C-Reactive Protein 4.3 H* (<1.0) mg/dL Med Orders - Current: Current Medications Hydrocodone Bitart/Acetaminophen (Dana 325-5 Mg) 1 tab PO Q4H PRN PRN Reason: Pain (moderate 4-6) Last Admin: 11/16/16 20:56 Dose: 1 tab Amlodipine Besylate (Norvasc) 5 mg PO DAILY [facility] Last Admin: 11/17/16 08:49 Dose: 5 mg Chlordiazepoxide HCl (Librium) 50 mg PO BID [facility] Last Admin: 11/17/16 08:43 Dose: 50 mg Clonidine HCl (Catapres) 0.1 mg PO Q8H PRN PRN Reason: Anxiety Docusate Sodium (Colace) 100 mg PO BID PRN PRN Reason: Constipation Enoxaparin Sodium (Lovenox) 40 mg SUBCUT DAILY [facility] Last Admin: 11/17/16 08:43 Dose: 40 mg Famotidine (Pepcid) 20 mg PO BID [facility] Last Admin: 11/17/16 08:43 Dose: 20 mg Hydralazine HCl (Apresoline) 20 mg IVPUSH Q6H PRN PRN Reason: Hypertension Hydrochlorothiazide (Hydrochlorothiazide) 12.5 mg PO DAILY [facility] Last Admin: 11/17/16 08:43 Dose: 12.5 mg Levofloxacin/Dextrose 750 mg/ (Premix) 150 mls @ 100 mls/hr IV Q24H [facility] Last Admin: 11/17/16 05:34 Dose: 100 mls/hr Metronidazole 500 mg/ Premix 100 mls @ 100 mls/hr IV Q8H [facility] Last Admin: 11/17/16 05:34 Dose: 100 mls/hr Lorazepam (Ativan) 2 mg IVPUSH Q4H PRN PRN Reason: Withdrawal Symptoms Losartan Potassium (Cozaar) 50 mg PO DAILY [facility] Last Admin: 11/17/16 08:43 Dose: 50 mg Magnesium Hydroxide (Milk Of Magnesia) 30 ml PO Q12H PRN PRN Reason: Constipation Ofloxacin (Ocuflox 0.3% Ophth Soln) 0 ml EYEBOTH QID [facility] Last Admin: 11/17/16 08:42 Dose: 2 drop Ondansetron HCl (Zofran) 4 mg IVPUSH Q6H PRN PRN Reason: Nausea/Vomiting Ondansetron HCl (Zofran Odt) 4 mg PO Q4H PRN PRN Reason: nausea, able to take PO Temazepam (Restoril) 15 mg PO BEDTIME PRN PRN Reason: Sleep Discontinued Medications Clonidine HCl (Catapres) 0.1 mg PO Q12HR [facility] Last Admin: 11/15/16 20:15 Dose: 0.1 mg Clonidine HCl (Catapres) 0.1 mg PO Q8H [facility] Diatrizoate Meglum/Diatrizoate Sod (Gastrografin 37%) 120 ml PO ONETIME ONE Stop: 11/15/16 03:52 Last Admin: 11/15/16 03:53 Dose: 90 ml Famotidine (Pepcid) 20 mg IVPUSH ONETIME ONE Stop: 11/15/16 06:48 Last Admin: 11/15/16 08:01 Dose: 20 mg Hydromorphone HCl (Dilaudid) 1 mg IVPUSH Q2H PRN PRN Reason: Pain Last Admin: 11/15/16 05:37 Dose: 1 mg Sodium Chloride (Normal Saline) 1,000 mls @ 150 mls/hr IV ASDIRECTED [facility] Last Admin: 11/15/16 02:18 Dose: 150 mls/hr Levofloxacin/Dextrose 750 mg/ (Premix) 150 mls @ 100 mls/hr IV ONETIME ONE Stop: 11/15/16 05:57 Last Admin: 11/15/16 04:50 Dose: 100 mls/hr Metronidazole 500 mg/ Premix 100 mls @ 100 mls/hr IV ONETIME ONE Stop: 11/15/16 05:28 Last Admin: 11/15/16 04:50 Dose: 100 mls/hr Iopamidol (Isovue-300 (61%)) 150 ml IVPUSH ONETIME ONE Stop: 11/15/16 03:52 Last Admin: 11/15/16 03:53 Dose: 125 ml Lisinopril (Prinivil) 20 mg PO DAILY [facility] Last Admin: 11/16/16 09:17 Dose: 20 mg Lorazepam (Ativan) 1 mg PO ONETIME ONE Stop: 11/15/16 10:07 Last Admin: 11/15/16 10:53 Dose: 1 mg Lorazepam (Ativan) 1 mg IVPUSH Q4H PRN PRN Reason: Withdrawal Symptoms Metoclopramide HCl (Reglan) 10 mg IVPUSH Q6H [facility] Last Admin: 11/15/16 15:56 Dose: Not Given Metoprolol Succinate (Toprol Xl) 100 mg PO DAILY [facility] Last Admin: 11/16/16 09:02 Dose: Not Given Morphine Sulfate (Morphine) 2 mg IVPUSH Q2H PRN PRN Reason: Pain (severe 7-10) Stop: 11/16/16 06:43 Ofloxacin (Ocuflox 0.3% Ophth Soln) 0 ml EYEBOTH Q2H [facility] Last Admin: 11/16/16 12:44 Dose: 2 drop Temazepam (Restoril) 7.5 mg PO BEDTIME PRN PRN Reason: Sleep *Q Meaningful Use (DIS) - VTE *Q VTE Criteria *Q: - Stroke *Q Stroke Criteria *Q: - AMI *Q AMI Criteria *Q:
== END 2016-11-17 12:45 | disposition home or self-care (01) | DRG 392 ==
LOC: JD.ED 01:30 → JD.MS 04:49
PROVIDERS: ADMIT Internal Medicine Cardiovascular Disease; ATTEND Internal Medicine Cardiovascular Disease
DX: K57.32 Diverticulitis of large intestine without perforation or abscess without bleeding (principal); I12.9 Hypertensive chronic kidney disease with stage 1 through stage 4 chronic kidney disease, or unspecified chronic kidney disease; N18.9 Chronic kidney disease, unspecified; F41.9 Anxiety disorder, unspecified; E66.9 Obesity, unspecified; Z68.30 Body mass index [BMI] 30.0-30.9, adult; G47.30 Sleep apnea, unspecified; F10.20 Alcohol dependence, uncomplicated; K76.0 Fatty (change of) liver, not elsewhere classified; Z79.899 Other long term (current) drug therapy; N52.9 Male erectile dysfunction, unspecified
CPT/HCPCS: 36415; 74177; 74177-26; 80048; 80053; 80306; 81001; 83690; 85025; 86140; 94660; 96360; 96361; 99222; 99232; 99239; 99284; 99285-25; A9270-GY; G0480; J1170; J1650; J1956; J7040; Q9963; Q9967

== ENCOUNTER 2017-03-09 09:39 | Inpatient (IN) | payer OTHER ==
[2017-03-09] MEDS ORDERED: Sodium Chloride 0.9% 1,000 ML IV ONE (10:43)
[2017-03-09] MEDS ORDERED: LORazepam 2 MG/ML MDV IVPUSH ONE ×3 (10:44→11:34)
--- NOTE | 2017-03-09 11:31 | EDM.PDOCBH ---
ED HPI GENERAL MEDICAL PROBLEM - General Chief Complaint: Drug or Alcohol Abuse Stated Complaint: Alcohol withdrawal Time Seen by Provider: 03/09/17 11:15 Source of Information: Reports: Patient, RN Notes Reviewed History Limitations: Reports: No Limitations - History of Present Illness INITIAL COMMENTS - FREE TEXT/NARRATIVE: 47 year old male presents to the ED with complaints of alcohol withdrawal and is seeking help for alcohol abuse. He admits to drinking 2 full liters and 2 fifths of vodka since Monday (4 days ago). He last drink was around 7pm last evening. This morning he woke up feeling shaky, anxious, and experiencing visual hallucinations. He denies history of alcohol withdrawal seizures. He says this amount of drinking is not normal for him. He usually only drinks on the weekends. He says he was feeling very down while he was drinking. He admits to suicidal thoughts while he was drinking but denies suicidal intent or plan at this time. 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 He is now established with a buddhist and feels hopeful. He denies nausea or vomiting. He has some LUQ abdominal pain and burning. He denies tobacco or drug use. Left Abdomen Pain Score (Numeric/FACES): 8 - Related Data Allergies Allergy/AdvReac Type Severity Reaction Status Date / Time No Known Allergies Allergy Verified 03/09/17 10:06 Home Meds: Home Meds Levofloxacin [Levaquin] 750 mg PO DAILY #14 tablet 11/17/16 [Rx] Olmesartan/Amlodipin/Hcthiazid [Tribenzor 40-5-25 MG] 1 each PO DAILY #30 tablet 11/17/16 [Rx] Ondansetron [Zofran ODT] 4 mg PO Q4H PRN #15 tab.dis 11/17/16 [Rx] metroNIDAZOLE [Flagyl] 500 mg PO Q8H #21 tablet 11/17/16 [Rx] Past Medical History HEENT History: Reports: Other (See Below) Cardiovascular History: Reports: Hypertension Respiratory History: Reports: Sleep Apnea Other Respiratory History: uses CPAP at home Gastrointestinal History: Reports: Diverticulosis Genitourinary History: Reports: Chronic Renal Insuffiency, Other (See Below) Other Genitourinary History: impotence Musculoskeletal History: Reports: Fracture Neurological History: Reports: Brain Injury, Seizure Other Neuro History: 2001 head injury. Seizures as a child - out grew age 12. Psychiatric History: Reports: Addiction, Depression, Suicidal Ideation Other Psychiatric History: Alcohol Endocrine/Metabolic History: Reports: Obesity/BMI 30+ - Infectious Disease History Infectious Disease History: Reports: Chicken Pox - Past Surgical History GI Surgical History: Reports: Cholecystectomy Musculoskeletal Surgical History: Reports: Other (See Below) Other Musculoskeletal Surgeries/Procedures:: Hand surg x2 and right leg surg Dermatological Surgical History: Reports: None Social & Family History - Family History Family Medical History: Noncontributory Cardiac: Reports: [place] Endocrine/Metabolic: Reports: Diabetes, type II Oncologic: Reports: Lung - Tobacco Use Smoking Status *Q: Never Smoker Second Hand Smoke Exposure: No - Caffeine Use Caffeine Use: Reports: Coffee Other Caffeine Use: 2 cups 2-3 times a week - Alcohol Use Days Per Week of Alcohol Use: 3 Number of Drinks Per Day: 0 Total Drinks Per Week: 0 Date of Last Drink: 03/08/17 Time of Last Drink: 18:00 - Recreational Drug Use Recreational Drug Use: No Drug Use in Last 12 Months: No Recreational Drug Type: Reports: Marijuana/Hashish Recreational Drug Use Frequency: Not Used In Over 6 Months - Living Situation & Occupation Living situation: Reports: Single, Alone 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 Denies: Fever Respiratory: Reports: No Symptoms. Denies: Shortness of Breath Cardiovascular: Reports: No Symptoms. Denies: Chest Pain GI/Abdominal: Reports: Abdominal Pain. Denies: Black Stool, Bloody Stool, Diarrhea, Hematemesis, Nausea, Vomiting Neurological: Denies: Headache Psychiatric: Reports: Anxiety, Depression, Hallucinations. Denies: Suicidal Ideation ED EXAM, BEHAVIORAL HEALTH - Physical Exam Exam: See Below Exam Limited By: No Limitations General Appearance: Alert, Anxious, Moderate Distress, Obese Eye Exam: Bilateral Eye: EOMI, PERRL Respiratory/Chest: No Respiratory Distress, Lungs Clear, Normal Breath Sounds Cardiovascular: Normal Peripheral Pulses, No Murmur, Tachycardia GI/Abdominal: Normal Bowel Sounds, Soft, No Organomegaly, No Distention, Tender (LUQ and epigastric region ) Neurological: Alert, Normal Cognition, Normal Gait, Oriented x 3, Tremor. No: Ataxia Psychiatric: Depressed Mood, Restless, Tearful, Visual Hallucinations. No: Suicidal Plan, Suicidal Thoughts, Auditory Hallucinations, Paranoid Thoughts, Threatening Behavior Skin Exam: Warm, Intact, Normal color, Diaphoretic COURSE, BEHAVIORAL HEALTH COMP - Course Vital Signs: Last Vital Signs Temp 98.6 F 03/09/17 09:58 Pulse 104 H 03/09/17 09:58 Resp 24 H 03/09/17 09:58 BP 125/71 03/09/17 09:58 Pulse Ox 99 03/09/17 09:58 Orders, Labs, Meds: Active Orders 24 hr Category Date Time Status CIWAA Assessment [RC] Q1H Care 03/09/17 11:28 Ordered Sodium Chloride 0.9% [Normal Saline] 1,000 ml Med 03/09/17 10:43 Active IV ONETIME Medication Orders Sodium Chloride (Normal Saline) 1,000 mls @ 999 mls/hr IV ONETIME ONE Stop: 03/09/17 11:43 Last Admin: 03/09/17 10:57 Dose: 999 mls/hr Laboratory Tests 03/09/17 03/09/17 Range/Units 10:35 10:35 WBC 9.79 H (4.23-9.07) K/mm3 RBC 4.57 L (4.63-6.08) M/mm3 Hgb 15.3 (13.7-17.5) gm/L Hct 42.8 (40.1-51.0) % MCV 93.7 H (79.0-92.2) fl MCH 33.5 H (25.7-32.2) pg MCHC 35.7 H (32.2-35.5) g/dl RDW Std Deviation 42.2 (35.1-43.9) fL Plt Count 238 (163-337) K/mm3 MPV 10.0 (9.4-12.3) fl Neut % (Auto) 78.7 H (34.0-67.9) % Lymph % (Auto) 11.7 L (21.8-53.1) % [place] % (Auto) 8.2 (5.3-12.2) % Eos % (Auto) 0.6 L (0.8-7.0) Baso % (Auto) 0.6 (0.1-1.2) % Neut # (Auto) 7.70 H (1.78-5.38) K/mm3 Lymph # (Auto) 1.15 L (1.32-3.57) K/mm3 [place] # (Auto) 0.80 (0.30-0.82) K/mm3 Eos # (Auto) 0.06 (0.04-0.54) K/mm3 Baso # (Auto) 0.06 (0.01-0.08) K/mm3 Sodium 138 (136-145) mEq/L Potassium 5.1 (3.5-5.1) mEq/L Chloride 99 (98-107) mEq/L Carbon Dioxide 20 L (21-32) mEq/L Anion Gap 24.1 H (5-15) BUN 44 H (7-18) mg/dL Creatinine 2.1 H (0.7-1.3) mg/dL Est Cr Clr Drug Dosing 44.19 mL/min Estimated GFR (MDRD) 34 (>60) mL/min BUN/Creatinine Ratio 21.0 H (14-18) Glucose 98 (74-106) mg/dL Calcium 9.4 (8.5-10.1) mg/dL Total Bilirubin 0.9 (0.2-1.0) mg/dL AST 66 H (15-37) U/L ALT 58 (16-63) U/L Alkaline Phosphatase 114 (46-116) U/L Total Protein 8.6 H (6.4-8.2) g/dl Albumin 4.4 (3.4-5.0) g/dl Globulin 4.2 gm/dL Albumin/Globulin Ratio 1.1 (1-2) Ethyl Alcohol 0.02 (0.00) gm% Medications Generic Name Dose Route Start Last Admin Trade Name Freq PRN Reason Stop Dose Admin Sodium Chloride 1,000 mls @ 999 mls/hr 03/09/17 10:43 03/09/17 10:57 Normal Saline IV 03/09/17 11:43 999 mls/hr ONETIME ONE Administration Discontinued Medications Generic Name Dose Route Start Last Admin Trade Name Freq PRN Reason Stop Dose Admin Lorazepam 1 mg 03/09/17 10:44 03/09/17 10:56 Ativan IVPUSH 03/09/17 10:45 1 mg ONETIME ONE Administration Lorazepam 1 mg 03/09/17 11:28 Ativan IVPUSH 03/09/17 11:29 ONETIME ONE Lorazepam 0 mg 03/09/17 11:34 Ativan IVPUSH 03/09/17 11:35 ONETIME ONE Protocol Re-Assessment/Re-Exam: CBC essentially normal. CMP reveals Na 138, K 5.1, Co2 20, anion gap 24, BUN 44 , creatinine 2.1, AST 66, ALT 58. ETOH is 0.02. wa protocol implemented. Treated initially with IV fluids and Ativan. [address] Avelar who has accepted care of the patient. He will be admitted as inpatient to the ICU for alcohol withdrawal. Departure - Departure Time of Disposition: 11:41 Disposition: Admitted As Inpatient 66 Condition: Fair Clinical Impression: Alcohol withdrawal syndrome Qualifiers: Complication of substance-induced condition: with delirium Qualified Code(s): F10.231 - Alcohol dependence with withdrawal delirium - Discharge Information Referrals: PCP,Unknown [Primary Care Provider] - - My Orders Last 24 Hours: My Active Orders 03/09/17 10:43 Sodium Chloride 0.9% [Normal Saline] 1,000 ml IV ONETIME 03/09/17 11:28 CIWAA Assessment [RC] Q1H - Assessment/Plan Last 24 Hours: My Active Orders 03/09/17 10:43 Sodium Chloride 0.9% [Normal Saline] 1,000 ml IV ONETIME 03/09/17 11:28 CIWAA Assessment [RC] Q1H
--- NOTE | 2017-03-09 11:45 | PCM.HP ---
H&P History of Present Illness - General Date of Service: 03/09/17 Admit Problem/Dx: Ashish Calixto Source of Information: Patient, Old Records, Provider, RN Notes Reviewed History Limitations: Reports: Altered Mental Status, Intoxication - History of Present Illness Initial Comments - Free Text/Narative: This is a 47 yo white male with past medical hx/o hypertension, diabetes, history of fatty liver disease, sleep apnea, hx/o TBI, history of diverticulitis , hx/o substance abuse and alcohol induced seizures who presents to emergency department with complains of alcohol withdrawal. Patient carries a history of chronic alcohol abuse. He has been drinking since Monday and took about 2 full Liters and 2 fifths of vodka. His last drink was about 7 PM last evening. Patient woke up this morning tremulous, anxious and having visual hallucinations. He carries a hx/o alcohol related seizures but denies having any. Patient could not give me a reason why he drinks so much. However her expressed willingness to get better. He has been speaking to someone at his local nondenominational. His initial workup in emergency department shows a CBC remarkable for WBC of 9.79, RBC of 4.57, MCV of 92.7, MCH of 32.5, MCHC of 34.7, neutrophils of 70.7% , lymphocytes of 11.7% and eosinophils of 0.6%. His chemistry is remarkable for carbon dioxide of 20, anion gap of 24.1, BUN of 44, creatinine of 2.1, AST of 66 , and total protein of 8.6. His lipase is normal at 101. Blood alcohol level is 0.02. Patient is being admitted for medical detoxification. He is full code. Left Abdomen Pain Score (Numeric/FACES): 8 - Related Data Allergies/Adverse Reactions: Allergies Allergy/AdvReac Type Severity Reaction Status Date / Time No Known Allergies Allergy Verified 03/09/17 15:42 Home Medications: Home Meds Olmesartan/Amlodipin/Hcthiazid [Tribenzor 40-5-25 MG] 1 each PO DAILY #30 tablet 11/17/16 [Rx] Tadalafil [Cialis] 5 mg PO DAILY 03/09/17 [History] Past Medical History HEENT History: Reports: Other (See Below) Cardiovascular History: Reports: Hypertension Respiratory History: Reports: Sleep Apnea Other Respiratory History: uses CPAP at home Gastrointestinal History: Reports: Diverticulosis Genitourinary History: Reports: Chronic Renal Insuffiency, Other (See Below) Other Genitourinary History: impotence Musculoskeletal History: Reports: Fracture Neurological History: Reports: Brain Injury, Seizure Other Neuro History: 2001 head injury. Seizures as a child - out grew age 12. Psychiatric History: Reports: Addiction, Depression, Suicidal Ideation Other Psychiatric History: Alcohol Endocrine/Metabolic History: Reports: Obesity/BMI 30+ - Infectious Disease History Infectious Disease History: Reports: Chicken Pox - Past Surgical History GI Surgical History: Reports: Cholecystectomy Musculoskeletal Surgical History: Reports: Other (See Below) Other Musculoskeletal Surgeries/Procedures:: Hand surg x2 and right leg surg Dermatological Surgical History: Reports: None Social & Family History - Family History Family Medical History: Noncontributory Cardiac: Reports: [place] Endocrine/Metabolic: Reports: Diabetes, type II Oncologic: Reports: Lung - Tobacco Use Smoking Status *Q: Never Smoker Second Hand Smoke Exposure: No - Caffeine Use Caffeine Use: Reports: Coffee Other Caffeine Use: 2 cups 2-3 times a week - Alcohol Use Days Per Week of Alcohol Use: 3 Number of Drinks Per Day: 0 Total Drinks Per Week: 0 Date of Last Drink: 03/08/17 Time of Last Drink: 18:00 - Recreational Drug Use Recreational Drug Use: No Drug Use in Last 12 Months: No Recreational Drug Type: Reports: Marijuana/Hashish Recreational Drug Use Frequency: Not Used In Over 6 Months - Living Situation & Occupation Living situation: Reports: Single, Alone Occupation: Employed ([employer]) H&P Review of Systems - Review of Systems: Review Of Systems: See Below General: Reports: Malaise, Weakness, Night Sweats. Denies: Fever, Chills, Fatigue HEENT: Reports: No Symptoms Pulmonary: Denies: Shortness of Breath Cardiovascular: Denies: Chest Pain, Dyspnea on Exertion, Lightheadedness Gastrointestinal: Reports: Abdominal Pain. Denies: Nausea, Vomiting Skin: Denies: Cyanosis, Pallor, Diaphoresis, Bruising, Pruritis Psychiatric: Reports: Depression, Anxiety, Hallucinations. Denies: Agitation, Suicidal Ideation Neurological: Reports: Tremors, Trouble Speaking, Difficulty Walking, Weakness, Gait Disturbance. Denies: Confusion, Dizziness, Seizure Hematologic/Lymphatic: Reports: No Symptoms Immunologic: Reports: No Symptoms Exam - Exam Exam: See Below - Vital Signs Vital Signs: Last Vital Signs Temp 37.0 C 03/09/17 09:58 Pulse 104 H 03/09/17 09:58 Resp 24 H 03/09/17 09:58 BP 125/71 03/09/17 09:58 Pulse Ox 99 03/09/17 09:58 Weight: 108.862 kg - Exam General: Alert, Oriented, Cooperative, Moderate Distress, Other (Obese) HEENT: Conjunctiva Clear, Hearing Intact, Mucosa Moist & [place], Nares Patent, Normal Nasal Septum, Posterior Pharynx Clear, Pupils Equal, Pupils Reactive. No : EOMI Neck: Supple, Trachea Midline, +2 Carotid Pulse wo Bruit Lungs: Clear to Auscultation, Normal Respiratory Effort Cardiovascular: Regular Rhythm, Tachycardia GI/Abdominal Exam: Normal Bowel Sounds, Soft, Non-Tender, No Organomegaly, No Distention, No Abnormal Bruit, No Mass, Other (Obese) (Male) Exam: Deferred Rectal (Males) Exam: Deferred Back Exam: Normal Inspection, Decreased Range of Motion Extremities: Normal Inspection, Normal Range of Motion, Non-Tender, No Pedal Edema, Normal Capillary Refill Peripheral Pulses: 3+: Posterior Tibial (L), Posterior Tibial (R), Dorsalis Pedis (L), Dorsalis Pedis (R) Skin: Warm, Dry, Intact Neuro Extensive - Mental Status: Oriented x3, Normal Cognition, Memory Intact, Nl Response to Commands, Other (Intoxicated) Neuro Extensive - Motor, Sensory, Reflexes: CN II-XII Intact (limited due to intoxication), Normal Gait Psychiatric: Anxious, Hallucinations, Withdrawal Symptoms. No: Alert, Suicidal Ideation - Patient Data Lab Results Last 24 hrs: Laboratory Results - last 24 hr 03/09/17 03/09/17 Range/Units 10:35 10:35 WBC 9.79 H (4.23-9.07) K/mm3 RBC 4.57 L (4.63-6.08) M/mm3 Hgb 15.3 (13.7-17.5) gm/L Hct 42.8 (40.1-51.0) % MCV 93.7 H (79.0-92.2) fl MCH 33.5 H (25.7-32.2) pg MCHC 35.7 H (32.2-35.5) g/dl RDW Std Deviation 42.2 (35.1-43.9) fL Plt Count 238 (163-337) K/mm3 MPV 10.0 (9.4-12.3) fl Neut % (Auto) 78.7 H (34.0-67.9) % Lymph % (Auto) 11.7 L (21.8-53.1) % [place] % (Auto) 8.2 (5.3-12.2) % Eos % (Auto) 0.6 L (0.8-7.0) Baso % (Auto) 0.6 (0.1-1.2) % Neut # (Auto) 7.70 H (1.78-5.38) K/mm3 Lymph # (Auto) 1.15 L (1.32-3.57) K/mm3 [place] # (Auto) 0.80 (0.30-0.82) K/mm3 Eos # (Auto) 0.06 (0.04-0.54) K/mm3 Baso # (Auto) 0.06 (0.01-0.08) K/mm3 Sodium 138 (136-145) mEq/L Potassium 5.1 (3.5-5.1) mEq/L Chloride 99 (98-107) mEq/L Carbon Dioxide 20 L (21-32) mEq/L Anion Gap 24.1 H (5-15) BUN 44 H (7-18) mg/dL Creatinine 2.1 H (0.7-1.3) mg/dL Est Cr Clr Drug Dosing 44.19 mL/min Estimated GFR (MDRD) 34 (>60) mL/min BUN/Creatinine Ratio 21.0 H (14-18) Glucose 98 (74-106) mg/dL Calcium 9.4 (8.5-10.1) mg/dL Total Bilirubin 0.9 (0.2-1.0) mg/dL AST 66 H (15-37) U/L ALT 58 (16-63) U/L Alkaline Phosphatase 114 (46-116) U/L Total Protein 8.6 H (6.4-8.2) g/dl Albumin 4.4 (3.4-5.0) g/dl Globulin 4.2 gm/dL Albumin/Globulin Ratio 1.1 (1-2) Ethyl Alcohol 0.02 (0.00) gm% Result Diagrams: 03/09/17 10:35 03/09/17 10:35 *Q Meaningful Use (ADM) - VTE *Q VTE Criteria *Q: - Stroke *Q Stroke Criteria *Q: - AMI *Q AMI Criteria *Q: Problem List Initiated/Reviewed/Updated: Yes Orders Last 24hrs: Active Orders 24 hr Category Date Time Status CIWAA Assessment [RC] Q1H Care 03/09/17 11:28 Active LIPASE [CHEM] Stat Lab 03/09/17 11:41 Ordered Assessment/Plan Comment:: Assessment/Plan: Acute: ETOH Withdrawal Symptoms/DT - CIWA protocol: CIWA score is markedly elevated - Librium/Clonidine/Topamax/Seroquel - Hydralzine and IVP BB for HR/BP control - Ativan for Abortive Seizure and Withdrawal Symptoms - Tele-psych and SA consult Alcohol Abuse - Acute on Chronic - Risk factors: Occupation and underlying Psych issues - He drinks heavily - He was not very forthcoming with me why he drinks so much - CIWA Protocol as above - SA consult Hx/o Poly-Substance Abuse - Used Marijuana/Hashish in the past - UDS: not done - Counseled on Substance Abuse - SA/Psych consult Acute Kidney Injury/Pre-renal Azotemia - BUN 44/Cr 2.1 - Likely dehydration from drinking alcohol and poor fluid intake - Baseline GFR is > 60; he is at 34 - Currently receiving IV hydration - Monitor Is/Os Chronic: HTN ANNABELLE on CPAP Hx/o TBI with Seizures Hx/o Substance Abuse Anxiety Depression Hx/o Suicidal Ideation Hx/o ETOH Induced Seizures Alcohol Dependence/Abuse Plan: Admit to ICU MVI, Folic, Acid and Thiamine CIWA protocol Ativan for Abortive Seizure and Withdrawal Symptoms PRN meds for Withdrawal Symptoms Aspiration/Seizure Precautions SW/CM d/c planning SA/Psych consult Code Status: 1
[2017-03-09] MEDS ORDERED: Promethazine 12.5 MG in Sodium Chloride 0.9% 50 ML IV PRN (11:49)
[2017-03-09] MEDS ORDERED: Polyethylene Glycol 3350 Powder 17 GM Packet PO PRN (11:49)
[2017-03-09] MEDS ORDERED: Acetaminophen 325 MG Tab PO PRN (11:49)
[2017-03-09] MEDS ORDERED: Ondansetron 4 MG/2 ML SDV IV PRN (11:49)
[2017-03-09] MEDS ORDERED: Acetaminophen/HYDROcodone 325-5 MG Tab PO PRN (11:49)
[2017-03-09] MEDS ORDERED: Bisacodyl 5 MG Tab PO PRN (11:49)
[2017-03-09] MEDS ORDERED: Albuterol/Ipratropium 3.0-0.5 MG/3 ML Neb Soln NEB PRN (11:49)
[2017-03-09] MEDS ORDERED: HYDROmorphone 0.5 MG/0.5 ML Syringe IVPUSH PRN (11:49)
[2017-03-09] MEDS ORDERED: Docusate Sodium 100 MG Cap PO PRN (11:49)
[2017-03-09] MEDS ORDERED: chlordiazePOXIDE 25 MG Cap PO PRN (11:55)
[2017-03-09] MEDS ORDERED: cloNIDine 0.1 MG Tab PO PRN (11:55)
[2017-03-09] MEDS ORDERED: hydrALAZINE 20 MG/ML SDV IVPUSH PRN (11:56)
[2017-03-09] MEDS ORDERED: LORazepam 2 MG/ML MDV IVPUSH PRN ×2 (11:56→11:59)
[2017-03-09] MEDS ORDERED: Metoprolol Tartrate 5 MG/5 ML SDV IVPUSH PRN (11:56)
[2017-03-09] MEDS ORDERED: Sodium Chloride 0.9% 1,000 ML IV SCH (12:00)
[2017-03-09] MEDS ORDERED: Famotidine 20 MG Tab PO SCH (12:00)
[2017-03-09] MEDS ORDERED: Topiramate 25 MG Tab PO STA (12:15)
[2017-03-09] MEDS ORDERED: QUEtiapine 25 MG Tab PO ONE (13:00)
[2017-03-09] MEDS: QUEtiapine 25 MG Tab PO ONE ×2 (13:04→13:05)
[2017-03-09 20:38] VITALS: BP 98/58
--- NOTE | 2017-03-09 21:15 | PCM.DCSUM1 ---
Discharge Summary - Hospital Course Free Text/Narrative:: 47 year old male presents to the ED with complaints of alcohol withdrawal and is seeking help for alcohol abuse. He admits to drinking 2 full liters and 2 fifths of vodka since Monday (4 days ago). He last drink was around 7pm last evening. This morning he woke up feeling shaky, anxious, and experiencing visual hallucinations. He denies history of alcohol withdrawal seizures. He says this amount of drinking is not normal for him. He usually only drinks on the weekends. He says he was feeling very down while he was drinking. He admits to suicidal thoughts while he was drinking but denies suicidal intent or plan at this time. 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 He is now established with a baptist and feels hopeful. He denies nausea or vomiting. He has some LUQ abdominal pain and burning. He denies tobacco or drug use. CBC essentially normal. CMP reveals Na 138, K 5.1, Co2 20, anion gap 24, BUN 44, creatinine 2.1, AST 66, ALT 58. ETOH is 0.02. [place] protocol implemented. Treated initially with IV fluids and Ativan. He was subsequently admitted to ICU for detox. He is a full code. He does not have a PCP. Once in our care standard treatment for alcohol withdrawals was initiated. It is reported he wished to sober up. Librium, Catapres, [place], Lopressor and normal saline were given. Nursing reports the patient received a call from his boss requiring the patient to be to work tomorrow. The patient would now like to leave immediately. I went in to discuss with the patient what has changed, as he was reportedly excited to achieve a sober lifestyle. He reports he spoke with his baptist and he will still remain sober and he does not need to be here. I explained to the patient that his baptist leaders are not medical lab technician and that there is a high risk of withdrawal symptoms including nausea, vomiting, dizziness, seizure, syncope, hallucinations, injury to himself or other people, and potentially . 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 He is unfazed by this and requests to leave. AMA form is signed. Nursing witnesses this. IV is removed. Patient is discharged. I was unable to examine patient prior to discharge. - Discharge Data Discharge Date: 03/09/17 (Admit date: 03/09/17) Discharge Disposition: Against Medical Advice 07 Condition: Fair - Discharge Diagnosis/Problem(s) (1) Alcohol withdrawal syndrome SNOMED Code(s): 181525966 ICD Code: F10.239 - ALCOHOL DEPENDENCE WITH WITHDRAWAL, UNSPECIFIED Status : Acute Priority: High Current Visit: Yes Qualifiers: Complication of substance-induced condition: with delirium Qualified Code(s ): F10.231 - Alcohol dependence with withdrawal delirium - Patient Instructions Diet: Usual Diet as Tolerated Driving: Do Not Drive Showering/Bathing: May Shower Notify Provider of: Fever, Increased Pain, Nausea and/or Vomiting ( hallucinations, seizures, tremors ) - Discharge Plan Home Medications: Home Meds Olmesartan/Amlodipin/Hcthiazid [Tribenzor 40-5-25 MG] 1 each PO DAILY #30 tablet 11/17/16 [Rx] Tadalafil [Cialis] 5 mg PO DAILY 03/09/17 [History] Referrals: PCP,Unknown [Primary Care Provider] - - Discharge Summary/Plan Comment DC Time >30 min.: No - General Info Date of Service: 03/09/17 Admission Dx/Problem (Free Text: Deleirолег Calixto Subjective Update: Patient did not allow me to obtain ROS prior to him leaving. - Patient Data Vitals - Most Recent: Last Vital Signs Temp 98.8 F 03/09/17 20:00 Pulse 112 H 03/09/17 19:25 Resp 19 03/09/17 20:00 BP 98/58 L 03/09/17 20:00 Pulse Ox 97 03/09/17 20:00 Weight - Most Recent: 240 lb I&O - Last 24 hours: Intake & Output 03/09/17 03/09/17 03/09/17 06:59 14:59 22:59 Intake Total 300 1208 Balance 300 1208 Med Orders - Current: Current Medications Acetaminophen (Tylenol) 650 mg PO Q4H PRN PRN Reason: Pain (Mild 1-3)/fever Hydrocodone Bitart/Acetaminophen ([place] 325-5 Mg) 1 tab PO Q4H PRN PRN Reason: Pain (moderate 4-6) Last Admin: 03/09/17 15:15 Dose: 1 tab Albuterol/Ipratropium (Duoneb 3.0-0.5 Mg/3 Ml) 3 ml NEB Q4H PRN PRN Reason: Shortness Of Breath/wheezing Amlodipine Besylate (Norvasc) 5 mg PO DAILY PENDING SALE TO [facility] Bisacodyl (Dulcolax) 5 mg PO DAILY PRN PRN Reason: Constipation Chlordiazepoxide HCl (Librium) 25 mg PO Q8H PRN PRN Reason: Withdrawal Symptoms Last Admin: 03/09/17 15:12 Dose: 25 mg Clonidine HCl (Catapres) 0.1 mg PO Q4H PRN PRN Reason: Agitation Last Admin: 03/09/17 15:12 Dose: 0.1 mg Docusate Sodium (Colace) 100 mg PO BID PRN PRN Reason: Constipation Famotidine (Pepcid) 20 mg PO BID PENDING SALE TO [facility] Last Admin: 03/09/17 13:05 Dose: 20 mg Folic Acid (Folic Acid) 1 mg PO DAILY PENDING SALE TO [facility] Stop: 03/12/17 09:01 Hydralazine HCl (Apresoline) 20 mg IVPUSH Q4H PRN PRN Reason: Hypertension Hydrochlorothiazide (Hydrochlorothiazide) 25 mg PO DAILY PENDING SALE TO [facility] Hydromorphone HCl (Dilaudid) 0.25 mg IVPUSH Q2H PRN PRN Reason: Pain (severe 7-10) Promethazine HCl 12.5 mg/ (Sodium Chloride) 50.5 mls @ 100 mls/hr IV Q6H PRN PRN Reason: Nausea/Vomiting Sodium Chloride (Normal Saline) 1,000 mls @ 125 mls/hr IV ASDIRECTED PENDING SALE TO [facility] Last Admin: 03/09/17 13:14 Dose: 125 mls/hr Lorazepam (Ativan) 2 mg IVPUSH Q4H PRN PRN Reason: Seizures Lorazepam (Ativan) 1 mg IVPUSH Q4H PRN; Protocol PRN Reason: Withdrawal Symptoms Losartan Potassium (Cozaar) 100 mg PO DAILY PENDING SALE TO [facility] Magnesium Sulfate (Pharmacy To Dose - Magnesium Replacement) 0 dose .XX ASDIRECTED PRN PRN Reason: RX TO WATCH MAG LEVELS Metoprolol Tartrate (Lopressor) 5 mg IVPUSH Q4H PRN PRN Reason: Tachycardia Last Admin: 03/09/17 17:05 Dose: 5 mg Multivitamins (Thera) 1 each PO DAILY PENDING SALE TO [facility] Ondansetron HCl (Zofran) 4 mg IV Q6H PRN PRN Reason: Nausea/Vomiting Polyethylene Glycol (Miralax) 17 gm PO DAILY PRN PRN Reason: Constipation Potassium Chloride (Pharmacy To Dose - Potassium Replacement) 0 dose .XX ASDIRECTED PRN PRN Reason: RX TO WATCH K LEVELS Quetiapine Fumarate (Seroquel) 50 mg PO BEDTIME SAM Quetiapine Fumarate (Seroquel) 25 mg PO DAILY SAM Senna/Docusate Sodium (Senna Plus) 1 tab PO BID PRN PRN Reason: Constipation Thiamine HCl (Vitamin B-1) 100 mg PO DAILY SAM Topiramate (Topamax) 25 mg PO BID SAM Discontinued Medications Sodium Chloride (Normal Saline) 1,000 mls @ 999 mls/hr IV ONETIME ONE Stop: 03/09/17 11:43 Last Admin: 03/09/17 10:57 Dose: 999 mls/hr Lorazepam (Ativan) 1 mg IVPUSH ONETIME ONE Stop: 03/09/17 10:45 Last Admin: 03/09/17 10:56 Dose: 1 mg Lorazepam (Ativan) 1 mg IVPUSH ONETIME ONE Stop: 03/09/17 11:29 Last Admin: 03/09/17 11:36 Dose: Not Given Lorazepam (Ativan) 0 mg IVPUSH ONETIME ONE PRN Reason: Protocol Stop: 03/09/17 11:35 Last Admin: 03/09/17 11:39 Dose: 2 mg Quetiapine Fumarate (Seroquel) 50 mg PO ONETIME ONE Stop: 03/09/17 12:16 Last Admin: 03/09/17 13:05 Dose: 50 mg Quetiapine Fumarate (Seroquel) 50 mg PO ONETIME ONE Stop: 03/09/17 13:01 Last Admin: 03/09/17 13:16 Dose: Not Given Topiramate (Topamax) 50 mg PO NOW STA Stop: 03/09/17 12:16 Last Admin: 03/09/17 13:05 Dose: 50 mg - Exam Physical Findings Comments:: Patient did not allow me to examine him prior to him leaving *Q Meaningful Use (DIS) - VTE *Q VTE Criteria *Q: - Stroke *Q Stroke Criteria *Q: - AMI *Q AMI Criteria *Q:
[2017-03-10] MEDS ORDERED: Topiramate 25 MG Tab PO SCH (09:00)
[2017-03-10] MEDS ORDERED: Folic Acid 1 MG Tab PO SCH (09:00)
[2017-03-10] MEDS ORDERED: Thiamine 100 MG Tab PO SCH (09:00)
[2017-03-10] MEDS ORDERED: amLODIPine 5 MG Tab PO SCH (09:00)
[2017-03-10] MEDS ORDERED: Hydrochlorothiazide 25 MG Tab PO SCH (09:00)
[2017-03-10] MEDS ORDERED: Losartan 100 MG Tab PO SCH (09:00)
[2017-03-10] MEDS ORDERED: QUEtiapine 25 MG Tab PO SCH ×2 (09:00→21:00)
[2017-03-10] MEDS ORDERED: Multivitamins,Therapeutic Tab PO SCH (09:00)
== END 2017-03-09 19:47 | disposition left against medical advice (07) | DRG 894 ==
LOC: JD.ED 09:39 → UNDOADMIN 11:46 → JD.ICU 11:46
PROVIDERS: ADMIT Internal Medicine; ATTEND Internal Medicine
DX: F10.231 Alcohol dependence with withdrawal delirium (principal); N17.9 Acute kidney failure, unspecified; I12.9 Hypertensive chronic kidney disease with stage 1 through stage 4 chronic kidney disease, or unspecified chronic kidney disease; N18.9 Chronic kidney disease, unspecified; G47.33 Obstructive sleep apnea (adult) (pediatric); F32.9 Major depressive disorder, single episode, unspecified; F41.9 Anxiety disorder, unspecified; Z53.21 Procedure and treatment not carried out due to patient leaving prior to being seen by health care provider; E66.9 Obesity, unspecified; Z68.30 Body mass index [BMI] 30.0-30.9, adult; Y90.5 Blood alcohol level of 100-119 mg/100 ml
CPT/HCPCS: 36415; 80053; 83690; 85025; 96361; 96374; 96376; 99284; 99285-25; A9270-GY; G0480; J2060; J3490; J7040

== ENCOUNTER 2017-03-29 17:35 | Inpatient (IN) | payer OTHER ==
--- NOTE | 2017-03-29 18:08 | EDM.PDOC ---
ED HPI GENERAL MEDICAL PROBLEM - General Chief Complaint: Drug or Alcohol Abuse Stated Complaint: Alcohol detox Time Seen by Provider: 03/29/17 18:08 Source of Information: Reports: Patient, RN Notes Reviewed History Limitations: Reports: No Limitations - History of Present Illness INITIAL COMMENTS - FREE TEXT/NARRATIVE: 47 year old male presents to the ED with complaints of alcohol withdrawal. He reports drinking 1 liter plus 1/5th of Vodka since Monday (two days ago). His last drink was around 2am this morning. He is experiencing tremors, visual hallucinations, and anxiety. He says he would like help with the withdrawals. He would then like to seek outpatient treatment. He denies drug use. He is accompanied by his house keeper who checks in on him frequently. She reports that last evening she was unable to wake him up because he was so heavily intoxicated. He admits to some nausea and vomiting. No abdominal pain. He denies suicidal thoughts. Patient was here on 03/09/17. I saw him and subsequently admitted him for alcohol withdrawal. After reviewing the chart, I see that the patient left AMA later that day. I asked the patient about this. He said that his boss called and needed him at work the next day. I asked when he is scheduled to work again and he said Monday (5 days from now). I asked if he's committed to staying this time and he said yes. - Related Data Allergies Allergy/AdvReac Type Severity Reaction Status Date / Time No Known Allergies Allergy Verified 03/09/17 15:42 Home Meds: Home Meds Olmesartan/Amlodipin/Hcthiazid [Tribenzor 40-5-25 MG] 1 each PO DAILY #30 tablet 11/17/16 [Rx] Tadalafil [Cialis] 5 mg PO DAILY 03/09/17 [History] Past Medical History HEENT History: Reports: Impaired Vision Cardiovascular History: Reports: High Cholesterol, Hypertension Respiratory History: Reports: Sleep Apnea Other Respiratory History: uses CPAP at home Gastrointestinal History: Reports: Diverticulosis Genitourinary History: Reports: Other (See Below) Other Genitourinary History: impotence Musculoskeletal History: Reports: Fracture Neurological History: Reports: Brain Injury, Seizure Other Neuro History: 2001 head injury. Seizures as a child - out grew age 12. Psychiatric History: Reports: Addiction, Depression, Suicidal Ideation Other Psychiatric History: Alcohol Endocrine/Metabolic History: Reports: Obesity/BMI 30+ - Infectious Disease History Infectious Disease History: Reports: Chicken Pox - Past Surgical History GI Surgical History: Reports: Cholecystectomy Musculoskeletal Surgical History: Reports: Other (See Below) Other Musculoskeletal Surgeries/Procedures:: Hand surg x2 and right leg surg Social & Family History - Family History Family Medical History: Noncontributory Cardiac: Reports: [place] Endocrine/Metabolic: Reports: Diabetes, type II Oncologic: Reports: Lung - Tobacco Use Smoking Status *Q: Never Smoker Second Hand Smoke Exposure: No - Caffeine Use Caffeine Use: Reports: None Other Caffeine Use: 2 cups 2-3 times a week - Alcohol Use Days Per Week of Alcohol Use: 7 Number of Drinks Per Day: 10 Total Drinks Per Week: 70 - Recreational Drug Use Recreational Drug Use: Yes Drug Use in Last 12 Months: No Recreational Drug Type: Reports: Marijuana/Hashish Recreational Drug Use Frequency: Not Used In Over 6 Months - Living Situation & Occupation Living situation: Reports: Single, Alone 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 Denies: Fever, Chills Respiratory: Reports: No Symptoms. Denies: Shortness of Breath Cardiovascular: Reports: No Symptoms. Denies: Chest Pain GI/Abdominal: Reports: Nausea, Vomiting. Denies: Abdominal Pain Neurological: Reports: Tremors. Denies: Headache, Numbness, Tingling, Difficulty Walking, Weakness Psychiatric: Reports: Anxiety ED EXAM, GENERAL - Physical Exam Exam: See Below Exam Limited By: No Limitations General Appearance: Alert, Anxious, Moderate Distress, Obese Eye Exam: Bilateral Eye: EOMI, PERRL Respiratory/Chest: No Respiratory Distress, Lungs Clear, Normal Breath Sounds, No Accessory Muscle Use, Chest Non-Tender Cardiovascular: Normal Peripheral Pulses, Tachycardia GI/Abdominal: Normal Bowel Sounds, Soft, Non-Tender, No Distention, Other ( obese abdomen ) Neurological: Alert, Oriented, Normal Cognition, Normal Gait, Other (tremors noted ) Psychiatric: Anxious, Tearful Skin Exam: Warm, Intact, Diaphoretic Course - Vital Signs Last Recorded V/S: Last Vital Signs Temp 99.1 F 03/29/17 17:53 Pulse 105 H 03/29/17 17:53 Resp 20 03/29/17 17:53 BP 128/81 03/29/17 17:53 Pulse Ox 99 03/29/17 17:53 - Orders/Labs/Meds Orders: Active Orders 24 hr Category Date Time Status Peripheral IV Care [RC] . DIRECTED Care 03/29/17 18:41 Active Sodium Chloride 0.9% [Saline Flush] Med 03/29/17 18:41 Active 10 ml FLUSH ASDIRECTED PRN Peripheral IV Insertion Adult [OM.PC] Stat Oth 03/29/17 18:41 Ordered Medication Orders Sodium Chloride (Saline Flush) 10 ml FLUSH ASDIRECTED PRN PRN Reason: Keep Vein Open Labs: Laboratory Tests 03/29/17 03/29/17 03/29/17 Range/Units 18:51 19:20 19:20 WBC 11.69 H (4.23-9.07) K/mm3 RBC 4.32 L (4.63-6.08) M/mm3 Hgb 14.4 (13.7-17.5) gm/L Hct 40.2 (40.1-51.0) % MCV 93.1 H (79.0-92.2) fl MCH 33.3 H (25.7-32.2) pg MCHC 35.8 H (32.2-35.5) g/dl RDW Std Deviation 40.1 (35.1-43.9) fL Plt Count 283 (163-337) K/mm3 MPV 9.7 (9.4-12.3) fl Neut % (Auto) 74.7 H (34.0-67.9) % Lymph % (Auto) 13.3 L (21.8-53.1) % Lake % (Auto) 10.1 (5.3-12.2) % Eos % (Auto) 1.2 (0.8-7.0) Baso % (Auto) 0.5 (0.1-1.2) % Neut # (Auto) 8.73 H (1.78-5.38) K/mm3 Lymph # (Auto) 1.56 (1.32-3.57) K/mm3 Lake # (Auto) 1.18 H (0.30-0.82) K/mm3 Eos # (Auto) 0.14 (0.04-0.54) K/mm3 Baso # (Auto) 0.06 (0.01-0.08) K/mm3 Sodium 134 L (136-145) mEq/L Potassium 4.8 (3.5-5.1) mEq/L Chloride 98 (98-107) mEq/L Carbon Dioxide 20 L (21-32) mEq/L Anion Gap 20.8 H (5-15) BUN 60 H (7-18) mg/dL Creatinine 2.3 H (0.7-1.3) mg/dL Est Cr Clr Drug Dosing 41.00 mL/min Estimated GFR (MDRD) 31 (>60) mL/min BUN/Creatinine Ratio 26.1 H (14-18) Glucose 103 (74-106) mg/dL Calcium 9.0 (8.5-10.1) mg/dL Total Bilirubin 0.6 (0.2-1.0) mg/dL AST 46 H (15-37) U/L ALT 71 H (16-63) U/L Alkaline Phosphatase 104 (46-116) U/L Total Protein 8.3 H (6.4-8.2) g/dl Albumin 4.2 (3.4-5.0) g/dl Globulin 4.1 gm/dL Albumin/Globulin Ratio 1.0 (1-2) Lipase 113 (73-393) U/L Urine Opiates Screen Negative (NEGATIVE) Ur Buprenorphine Scrn Negative (NEGATIVE) Ur Oxycodone Screen Negative (NEGATIVE) Urine Methadone Screen Negative (NEGATIVE) Ur Propoxyphene Screen Negative (NEGATIVE) Ur Barbiturates Screen Negative (NEGATIVE) Ur Tricyclics Screen Negative (NEGATIVE) Ur Phencyclidine Scrn Negative (NEGATIVE) Ur Amphetamine Screen Negative (NEGATIVE) U Methamphetamines Scrn Negative (NEGATIVE) U Benzodiazepines Scrn Negative (NEGATIVE) U Cocaine Metab Screen Negative (NEGATIVE) U Marijuana (THC) Screen Negative (NEGATIVE) Ethyl Alcohol 0.01 (0.00) gm% Meds: Medications Generic Name Dose Route Start Last Admin Trade Name Freq PRN Reason Stop Dose Admin Sodium Chloride 10 ml 03/29/17 18:41 Saline Flush FLUSH ASDIRECTED PRN Keep Vein Open Discontinued Medications Generic Name Dose Route Start Last Admin Trade Name Freq PRN Reason Stop Dose Admin Hydromorphone HCl 2 mg 03/29/17 18:41 Dilaudid IVPUSH 03/29/17 18:42 ONETIME ONE Sodium Chloride 1,000 mls @ 999 mls/hr 03/29/17 18:42 03/29/17 19:25 Normal Saline IV 03/29/17 19:42 999 mls/hr ONETIME ONE Administration Lorazepam 0 mg 03/29/17 18:47 03/29/17 19:34 Ativan IVPUSH 03/29/17 18:48 2 mg ONETIME ONE Administration Protocol - Re-Assessments/Exams Free Text/Narrative Re-Assessment/Exam: CIWA protocol and Ativan protocol implemented. IV fluids ordered. CBC reveals elevated WBC of 11.69. CMP reveals Na 134, K 4.8, Co2 20, BUN 60, creatinine 2.3, anion gap 20.8, and elevated LFTs. Negative UDS. ETOH 0.01. Patient is agreeable to be admitted and go through alcohol withdrawal treatment. 03/29/17 20:[address] Villegas. Plan to admit to ICU for alcohol withdrawal. She has accepted care of the patient. He will be admitted inpatient to the ICU. Departure - Departure Time of Disposition: 20:21 Disposition: Admitted As Inpatient 66 Condition: Fair Clinical Impression: Alcohol withdrawal syndrome Qualifiers: Complication of substance-induced condition: with delirium Qualified Code(s): F10.231 - Alcohol dependence with withdrawal delirium - Discharge Information Referrals: Sandip Johnson [Primary Care Provider] - Forms: ED Department Discharge - My Orders Last 24 Hours: My Active Orders 03/29/17 18:41 Peripheral IV Care [RC] . DIRECTED Sodium Chloride 0.9% [Saline Flush] 10 ml FLUSH ASDIRECTED PRN Peripheral IV Insertion Adult [OM.PC] Stat - Assessment/Plan Last 24 Hours: My Active Orders 03/29/17 18:41 Peripheral IV Care [RC] . DIRECTED Sodium Chloride 0.9% [Saline Flush] 10 ml FLUSH ASDIRECTED PRN Peripheral IV Insertion Adult [OM.PC] Stat
[2017-03-29] MEDS ORDERED: HYDROmorphone 1 MG/ML Syringe IVPUSH ONE (18:41)
[2017-03-29] MEDS ORDERED: Sodium Chloride 0.9% 10 ML Syringe FLUSH PRN (18:41)
[2017-03-29] MEDS ORDERED: Sodium Chloride 0.9% 1,000 ML IV ONE (18:42)
[2017-03-29] MEDS ORDERED: LORazepam 2 MG/ML MDV IVPUSH ONE ×2 (18:47→20:38)
[2017-03-29] MEDS ORDERED: Magnesium Sulfate/Water 2 GM in Premix Bag 1 BAG IV ONE (22:00)
[2017-03-29] MEDS: LORazepam 2 MG/ML MDV IVPUSH PRN ×2 (22:11→23:49)
[2017-03-29] MEDS: NS + KCl 20mEq/L 1,000 ML IV SCH (22:16)
[2017-03-29] MEDS ORDERED: chlordiazePOXIDE 25 MG Cap PO ONE (22:30)
[2017-03-29] MEDS ORDERED: cloNIDine 0.1 MG Tab PO ONE (22:30)
[2017-03-30] MEDS: LORazepam 2 MG/ML MDV IVPUSH PRN ×8 (02:20→23:40)
[2017-03-30] MEDS: NS + KCl 20mEq/L 1,000 ML IV SCH (03:27)
[2017-03-30] MEDS: chlordiazePOXIDE 25 MG Cap PO SCH ×3 (08:26→20:07)
[2017-03-30] MEDS ORDERED: cloNIDine 0.1 MG Tab PO SCH (09:00)
[2017-03-30] MEDS ORDERED: Ondansetron 4 MG/2 ML SDV IVPUSH PRN (09:03)
[2017-03-30] MEDS ORDERED: FLU Vacc QS 2017-18 (6mos UP)/PF 60 MCG/0.5 ML Syringe IM ONE (10:00)
[2017-03-30] MEDS ORDERED: NS + KCl 20mEq/L 1,000 ML IV SCH (10:15)
--- NOTE | 2017-03-30 13:18 | PCM.HP ---
H&P History of Present Illness - General Date of Service: 03/29/17 Admit Problem/Dx: Admission Diagnosis/Problem Admission Diagnosis/Problem Alcohol withdrawal syndrome Source of Information: Patient, Provider History Limitations: Reports: No Limitations - History of Present Illness Initial Comments - Free Text/Narative: 47 year old male with history of HTN/HLD/ANNABELLE and alcohol dependence presents to the ED requesting assistance for withdrawal symptoms. He previously presented earlier in the month but signed out AMA. On that occasion, he had also requested help for alcohol dependence. He stated that he could not stay because he could not miss work and left AMA. He returns on the day of admission stating that he requires help and will stay. He drinks up to a liter or a fifth of Vodka daily. At the time he was seen in the ED he was anxious, and tremulous; he will be admitted to the ICU. Onset of Symptoms: Reports: Gradual Symptom Onset Date: 03/29/17 Duration of Symptoms: Reports: Hour(s):, Getting Worse Location: Reports: Abdomen, Generalized Quality: Reports: Same as Previous Episode Severity: Moderate Improves with: Reports: Medication Worsens with: Reports: None Associated Symptoms: Reports: Confusion, Other (anxiety/agitation) Headache Pain Score (Numeric/FACES): 3 - Related Data Allergies/Adverse Reactions: Allergies Allergy/AdvReac Type Severity Reaction Status Date / Time No Known Allergies Allergy Verified 03/09/17 15:42 Home Medications: Home Meds Olmesartan/Amlodipin/Hcthiazid [Tribenzor 40-5-25 MG] 1 each PO DAILY #30 tablet 11/17/16 [Rx] Tadalafil [Cialis] 5 mg PO DAILY 03/09/17 [History] Past Medical History HEENT History: Reports: Impaired Vision Cardiovascular History: Reports: High Cholesterol, Hypertension Respiratory History: Reports: Sleep Apnea Other Respiratory History: uses CPAP at home Gastrointestinal History: Reports: Diverticulosis Genitourinary History: Reports: Other (See Below) Other Genitourinary History: impotence Musculoskeletal History: Reports: Fracture Neurological History: Reports: Brain Injury, Seizure Other Neuro History: 2001 head injury. Seizures as a child - out grew age 12. Psychiatric History: Reports: Addiction, Depression, Suicidal Ideation Other Psychiatric History: Alcohol Endocrine/Metabolic History: Reports: Obesity/BMI 30+ - Infectious Disease History Infectious Disease History: Reports: Chicken Pox - Past Surgical History GI Surgical History: Reports: Cholecystectomy Musculoskeletal Surgical History: Reports: Other (See Below) Other Musculoskeletal Surgeries/Procedures:: Hand surg x2 and right leg surg Social & Family History - Family History Family Medical History: Noncontributory Cardiac: Reports: NE Endocrine/Metabolic: Reports: Diabetes, type II Oncologic: Reports: Lung - Tobacco Use Smoking Status *Q: Never Smoker Second Hand Smoke Exposure: No - Caffeine Use Caffeine Use: Reports: None Other Caffeine Use: 2 cups 2-3 times a week - Alcohol Use Days Per Week of Alcohol Use: 7 Number of Drinks Per Day: 10 Total Drinks Per Week: 70 Date of Last Drink: 03/28/17 Time of Last Drink: 03:00 - Recreational Drug Use Recreational Drug Use: Yes Drug Use in Last 12 Months: No Recreational Drug Type: Reports: Marijuana/Hashish Recreational Drug Use Frequency: Not Used In Over 6 Months - Living Situation & Occupation Living situation: Reports: Single, Alone 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) H&P Review of Systems - Review of Systems: Review Of Systems: See Below General: Reports: Diaphoresis HEENT: Reports: No Symptoms Pulmonary: Reports: No Symptoms Cardiovascular: Reports: Lightheadedness Gastrointestinal: Reports: No Symptoms Genitourinary: Reports: No Symptoms Musculoskeletal: Reports: No Symptoms Skin: Reports: No Symptoms Psychiatric: Reports: Confusion Neurological: Reports: No Symptoms Hematologic/Lymphatic: Reports: No Symptoms Immunologic: Reports: No Symptoms Exam - Exam Exam: See Below - Vital Signs Vital Signs: Last Vital Signs Temp 36.4 C 03/30/17 08:00 Pulse 78 03/30/17 12:00 Resp 10 L 03/30/17 12:00 BP 101/54 L 03/30/17 12:00 Pulse Ox 97 03/30/17 12:00 Weight: 112.037 kg - Exam Quality Assessment: Supplemental Oxygen, DVT Prophylaxis General: Alert, Oriented, Cooperative, Mild Distress HEENT: EOMI, Nares Patent, Normal Nasal Septum, Pupils Equal, Pupils Reactive, PERRLA Neck: Supple, Trachea Midline Lungs: Clear to Auscultation, Normal Respiratory Effort Cardiovascular: Regular Rate, Tachycardia GI/Abdominal Exam: Normal Bowel Sounds, Soft, Non-Tender, No Organomegaly, No Distention (Male) Exam: Deferred Rectal (Males) Exam: Deferred Back Exam: Normal Inspection Extremities: Normal Inspection, Normal Range of Motion Skin: Warm Neurological: Cranial Nerves Intact, Reflexes Equal Bilateral Neuro Extensive - Mental Status: Alert, Oriented x3, Normal Mood/Affect, Normal Cognition, Memory Intact Neuro Extensive - Motor, Sensory, Reflexes: CN II-XII Intact, Normal Gait, Normal Reflexes Psychiatric: Alert, Anxious - Patient Data Lab Results Last 24 hrs: Laboratory Results - last 24 hr 03/30/17 03/30/17 Range/Units 06:10 06:10 WBC 5.74 (4.23-9.07) K/mm3 RBC 3.67 L (4.63-6.08) M/mm3 Hgb 12.1 L (13.7-17.5) gm/L Hct 34.5 L (40.1-51.0) % MCV 94.0 H (79.0-92.2) fl MCH 33.0 H (25.7-32.2) pg MCHC 35.1 (32.2-35.5) g/dl RDW Std Deviation 39.9 (35.1-43.9) fL Plt Count 186 (163-337) K/mm3 MPV 10.0 (9.4-12.3) fl Neut % (Auto) 59.2 (34.0-67.9) % Lymph % (Auto) 21.8 (21.8-53.1) % [place] % (Auto) 14.1 H (5.3-12.2) % Eos % (Auto) 4.0 (0.8-7.0) Baso % (Auto) 0.7 (0.1-1.2) % Neut # (Auto) 3.40 (1.78-5.38) K/mm3 Lymph # (Auto) 1.25 L (1.32-3.57) K/mm3 [place] # (Auto) 0.81 (0.30-0.82) K/mm3 Eos # (Auto) 0.23 (0.04-0.54) K/mm3 Baso # (Auto) 0.04 (0.01-0.08) K/mm3 Sodium 134 L (136-145) mEq/L Potassium 5.1 (3.5-5.1) mEq/L Chloride 104 (98-107) mEq/L Carbon Dioxide 22 (21-32) mEq/L Anion Gap 13.1 (5-15) BUN 49 H (7-18) mg/dL Creatinine 1.5 H (0.7-1.3) mg/dL Est Cr Clr Drug Dosing 62.86 mL/min Estimated GFR (MDRD) 50 (>60) mL/min BUN/Creatinine Ratio 32.7 H (14-18) Glucose 103 (74-106) mg/dL Calcium 8.3 L (8.5-10.1) mg/dL Magnesium 2.6 H (1.8-2.4) mg/dl C-Reactive Protein < 0.2 (<1.0) mg/dL Result Diagrams: 03/30/17 06:10 03/30/17 06:10 *Q Meaningful Use (ADM) - VTE *Q VTE Criteria *Q: - Stroke *Q Stroke Criteria *Q: - AMI *Q AMI Criteria *Q: - Problem List (1) Obesity (BMI 30-39.9) SNOMED Code(s): 193645710 ICD Code: E66.9 - OBESITY, UNSPECIFIED Status: Acute Current Visit: Yes (2) Alcohol withdrawal syndrome SNOMED Code(s): 524940113 ICD Code: F10.239 - ALCOHOL DEPENDENCE WITH WITHDRAWAL, UNSPECIFIED Status : Acute Priority: High Current Visit: Yes Qualifiers: Complication of substance-induced condition: with delirium Qualified Code(s ): F10.231 - Alcohol dependence with withdrawal delirium (3) Alcohol use SNOMED Code(s): 592575133 ICD Code: Z78.9 - OTHER SPECIFIED HEALTH STATUS Status: Chronic Priority : High Current Visit: No (4) Anxiety SNOMED Code(s): 83550900 ICD Code: F41.9 - ANXIETY DISORDER, UNSPECIFIED Status: Chronic Priority : Medium Current Visit: No (5) Hypertension SNOMED Code(s): 33306188 ICD Code: I10 - ESSENTIAL (PRIMARY) HYPERTENSION Status: Chronic Priority : High Current Visit: No Qualifiers: Hypertension type: essential hypertension Qualified Code(s): I10 - Essential (primary) hypertension (6) Sleep apnea SNOMED Code(s): 82035147 ICD Code: G47.30 - SLEEP APNEA, UNSPECIFIED Status: Chronic Priority: Medium Current Visit: No Problem Details: Home CPAP Qualifiers: Sleep apnea type: unspecified type Qualified Code(s): G47.30 - Sleep apnea , unspecified Problem List Initiated/Reviewed/Updated: Yes Orders Last 24hrs: Active Orders 24 hr Category Date Time Status RT BiPAP/CPAP [RC] ASDIRECTED Care 03/29/17 21:50 Active Full Liquid Diet [DIET] Diet 03/30/17 Lunch Active LORazepam [Ativan] Med 03/30/17 00:10 Active 4 mg IVPUSH Q6H PRN LORazepam [Ativan] Med 03/29/17 21:50 Active See Protocol IVPUSH ASDIRECTED PRN NS + KCl 20mEq/L [Normal Saline with 20 mEq KCl] 1,000 Med 03/30/17 10:15 Active ml IV ASDIRECTED Ondansetron [Zofran] Med 03/30/17 09:03 Active 4 mg IVPUSH Q4HR PRN chlordiazePOXIDE [Librium] Med 03/30/17 09:00 Active 25 mg PO TID cloNIDine [Catapres] Med 03/30/17 09:00 Active 0.1 mg PO Q12HR Resuscitation Status Routine Resus Stat 03/30/17 09:52 Ordered Medication Orders Chlordiazepoxide HCl (Librium) 25 mg PO TID [facility] Last Admin: 03/30/17 08:26 Dose: 25 mg Clonidine HCl (Catapres) 0.1 mg PO Q12HR [facility] Last Admin: 03/30/17 08:26 Dose: 0.1 mg Potassium Chloride/Sodium Chloride (Normal Saline With 20 Meq Kcl) 1,000 mls @ 125 mls/hr IV ASDIRECTED SAM Last Admin: 03/30/17 10:13 Dose: 125 mls/hr Lorazepam (Ativan) 0 mg IVPUSH ASDIRECTED PRN; Protocol PRN Reason: Withdrawal Symptoms Last Admin: 03/30/17 09:53 Dose: 1 mg Admin: 03/30/17 06:37 Dose: 1 mg Admin: 03/30/17 02:20 Dose: 2 mg Admin: 03/29/17 23:49 Dose: 2 mg Admin: 03/29/17 22:11 Dose: 1 mg Lorazepam (Ativan) 4 mg IVPUSH Q6H PRN PRN Reason: Anxiety Last Admin: 03/30/17 02:57 Dose: 4 mg Ondansetron HCl (Zofran) 4 mg IVPUSH Q4HR PRN PRN Reason: Nausea/Vomiting Last Admin: 03/30/17 09:52 Dose: 4 mg Sodium Chloride (Saline Flush) 10 ml FLUSH ASDIRECTED PRN PRN Reason: Keep Vein Open Assessment/Plan Comment:: Impression: ETOH dependence ETOH withdrawal syndrome Anxiety/depression Chronic HTN Obesity, BMI 35.4 ANNABELLE on CPAP HLD History of diverticulitis Plan: IVF CIWA protocol Monitor and replace electrolytes BB/clonidine scheduled or when needed. Daily labs Home meds SW/PT/OT consults DVT/GI prophylaxis Substance abuse consult Psychiatric eval LOS anticipated 96 hours.
--- NOTE | 2017-03-30 13:58 | PCM.PN ---
- General Info Date of Service: 03/30/17 Functional Status: Reports: Tolerating Diet, Ambulating, Urinating - Review of Systems General: Reports: No Symptoms HEENT: Reports: No Symptoms Pulmonary: Reports: No Symptoms Cardiovascular: Reports: No Symptoms Gastrointestinal: Reports: No Symptoms Genitourinary: Reports: No Symptoms Musculoskeletal: Reports: No Symptoms Skin: Reports: No Symptoms Neurological: Reports: No Symptoms Psychiatric: Reports: Anxiety - Patient Data Vitals - Most Recent: Last Vital Signs Temp 36.4 C 03/30/17 08:00 Pulse 78 03/30/17 12:00 Resp 10 L 03/30/17 12:00 BP 101/54 L 03/30/17 12:00 Pulse Ox 97 03/30/17 12:00 Weight - Most Recent: 112.037 kg I&O - Last 24 Hours: Intake & Output 03/29/17 03/30/17 03/30/17 22:59 06:59 14:59 Intake Total 1630 Output Total 850 750 Balance 780 -750 Lab Results Last 24 Hours: Laboratory Results - last 24 hr 03/30/17 03/30/17 Range/Units 06:10 06:10 WBC 5.74 (4.23-9.07) K/mm3 RBC 3.67 L (4.63-6.08) M/mm3 Hgb 12.1 L (13.7-17.5) gm/L Hct 34.5 L (40.1-51.0) % MCV 94.0 H (79.0-92.2) fl MCH 33.0 H (25.7-32.2) pg MCHC 35.1 (32.2-35.5) g/dl RDW Std Deviation 39.9 (35.1-43.9) fL Plt Count 186 (163-337) K/mm3 MPV 10.0 (9.4-12.3) fl Neut % (Auto) 59.2 (34.0-67.9) % Lymph % (Auto) 21.8 (21.8-53.1) % [place] % (Auto) 14.1 H (5.3-12.2) % Eos % (Auto) 4.0 (0.8-7.0) Baso % (Auto) 0.7 (0.1-1.2) % Neut # (Auto) 3.40 (1.78-5.38) K/mm3 Lymph # (Auto) 1.25 L (1.32-3.57) K/mm3 [place] # (Auto) 0.81 (0.30-0.82) K/mm3 Eos # (Auto) 0.23 (0.04-0.54) K/mm3 Baso # (Auto) 0.04 (0.01-0.08) K/mm3 Sodium 134 L (136-145) mEq/L Potassium 5.1 (3.5-5.1) mEq/L Chloride 104 (98-107) mEq/L Carbon Dioxide 22 (21-32) mEq/L Anion Gap 13.1 (5-15) BUN 49 H (7-18) mg/dL Creatinine 1.5 H (0.7-1.3) mg/dL Est Cr Clr Drug Dosing 62.86 mL/min Estimated GFR (MDRD) 50 (>60) mL/min BUN/Creatinine Ratio 32.7 H (14-18) Glucose 103 (74-106) mg/dL Calcium 8.3 L (8.5-10.1) mg/dL Magnesium 2.6 H (1.8-2.4) mg/dl C-Reactive Protein < 0.2 (<1.0) mg/dL Med Orders - Current: Current Medications Chlordiazepoxide HCl (Librium) 25 mg PO TID [facility] Last Admin: 03/30/17 08:26 Dose: 25 mg Clonidine HCl (Catapres) 0.1 mg PO Q12HR [facility] Last Admin: 03/30/17 08:26 Dose: 0.1 mg Potassium Chloride/Sodium Chloride (Normal Saline With 20 Meq Kcl) 1,000 mls @ 125 mls/hr IV ASDIRECTED SAM Last Admin: 03/30/17 10:13 Dose: 125 mls/hr Lorazepam (Ativan) 0 mg IVPUSH ASDIRECTED PRN; Protocol PRN Reason: Withdrawal Symptoms Last Admin: 03/30/17 09:53 Dose: 1 mg Lorazepam (Ativan) 4 mg IVPUSH Q6H PRN PRN Reason: Anxiety Last Admin: 03/30/17 02:57 Dose: 4 mg Ondansetron HCl (Zofran) 4 mg IVPUSH Q4HR PRN PRN Reason: Nausea/Vomiting Last Admin: 03/30/17 09:52 Dose: 4 mg Sodium Chloride (Saline Flush) 10 ml FLUSH ASDIRECTED PRN PRN Reason: Keep Vein Open Discontinued Medications Chlordiazepoxide HCl (Librium) 25 mg PO ONETIME ONE Stop: 03/29/17 22:31 Last Admin: 03/29/17 22:35 Dose: 25 mg Clonidine HCl (Catapres) 0.1 mg PO ONETIME ONE Stop: 03/29/17 22:31 Last Admin: 03/29/17 22:35 Dose: 0.1 mg Hydromorphone HCl (Dilaudid) 2 mg IVPUSH ONETIME ONE Stop: 03/29/17 18:42 Last Admin: 03/30/17 00:26 Dose: Not Given Sodium Chloride (Normal Saline) 1,000 mls @ 999 mls/hr IV ONETIME ONE Stop: 03/29/17 19:42 Last Admin: 03/29/17 19:25 Dose: 999 mls/hr Magnesium Sulfate 2 gm/ Premix 50 mls @ 25 mls/hr IV ONETIME ONE Stop: 03/29/17 23:59 Last Admin: 03/29/17 22:15 Dose: 25 mls/hr Potassium Chloride/Sodium Chloride (Normal Saline With 20 Meq Kcl) 1,000 mls @ 200 mls/hr IV ASDIRECTED [facility] Last Admin: 03/30/17 03:27 Dose: 200 mls/hr Influenza Virus Vaccine (Pharmacy To Dose - Influenza Vaccine) 1 each IM ONETIME ONE Stop: 03/29/17 21:39 Influenza Virus Vaccine (Flulaval Quad [id number]) 60 mcg IM .ONCE ONE Stop: 03/30/17 10:01 Lorazepam (Ativan) 0 mg IVPUSH ONETIME ONE PRN Reason: Protocol Stop: 03/29/17 18:48 Last Admin: 03/29/17 19:34 Dose: 2 mg Lorazepam (Ativan) 0 mg IVPUSH ONETIME ONE PRN Reason: Protocol Stop: 03/29/17 20:39 Last Admin: 03/29/17 20:43 Dose: 2 mg - Exam Quality Assessment: Supplemental Oxygen, DVT Prophylaxis General: Alert, Oriented, Cooperative, No Acute Distress HEENT: Pupils Equal, Pupils Reactive, EOMI Neck: Supple, Trachea Midline Lungs: Normal Respiratory Effort Cardiovascular: Regular Rate GI/Abdominal Exam: Normal Bowel Sounds, Soft, Non-Tender, No Organomegaly, No Distention (Male) Exam: Deferred Back Exam: Normal Inspection Extremities: Normal Inspection Skin: Warm Neurological: No New Focal Deficit, Normal Gait, Normal Speech Psy/Mental Status: Alert, Anxious - Problem List & Annotations (1) Obesity (BMI 30-39.9) SNOMED Code(s): 268201700 Code(s): E66.9 - OBESITY, UNSPECIFIED Status: Acute Current Visit: Yes (2) Alcohol withdrawal syndrome SNOMED Code(s): 543275111 Code(s): F10.239 - ALCOHOL DEPENDENCE WITH WITHDRAWAL, UNSPECIFIED Status: Acute Priority: High Current Visit: Yes Qualifiers: Complication of substance-induced condition: with delirium Qualified Code(s ): F10.231 - Alcohol dependence with withdrawal delirium (3) Alcohol use SNOMED Code(s): 443269395 Code(s): Z78.9 - OTHER SPECIFIED HEALTH STATUS Status: Chronic Priority: High Current Visit: No (4) Anxiety SNOMED Code(s): 21207797 Code(s): F41.9 - ANXIETY DISORDER, UNSPECIFIED Status: Chronic Priority: Medium Current Visit: No (5) Hypertension SNOMED Code(s): 38358004 Code(s): I10 - ESSENTIAL (PRIMARY) HYPERTENSION Status: Chronic Priority : High Current Visit: No Qualifiers: Hypertension type: essential hypertension Qualified Code(s): I10 - Essential (primary) hypertension (6) Sleep apnea SNOMED Code(s): 83508986 Code(s): G47.30 - SLEEP APNEA, UNSPECIFIED Status: Chronic Priority: Medium Current Visit: No Qualifiers: Sleep apnea type: unspecified type Qualified Code(s): G47.30 - Sleep apnea , unspecified Annotation/Comment:: Home CPAP - Problem List Review Problem List Initiated/Reviewed/Updated: Yes - My Orders Last 24 Hours: My Active Orders 03/29/17 21:50 RT BiPAP/CPAP [RC] ASDIRECTED LORazepam [Ativan] See Protocol IVPUSH ASDIRECTED PRN 03/30/17 00:10 LORazepam [Ativan] 4 mg IVPUSH Q6H PRN 03/30/17 09:00 chlordiazePOXIDE [Librium] 25 mg PO TID cloNIDine [Catapres] 0.1 mg PO Q12HR 03/30/17 09:03 Ondansetron [Zofran] 4 mg IVPUSH Q4HR PRN 03/30/17 09:52 Resuscitation Status Routine 03/30/17 10:15 NS + KCl 20mEq/L [Normal Saline with 20 mEq KCl] 1,000 ml IV ASDIRECTED 03/30/17 Lunch Full Liquid Diet [DIET] - Plan Plan:: Impression: ETOH dependence ETOH withdrawal syndrome Anxiety/depression Chronic HTN Obesity, BMI 35.4 ANNABELLE on CPAP HLD History of diverticulitis Plan: IVF CIWA protocol Monitor and replace electrolytes BB/clonidine scheduled or when needed. Daily labs Home meds SW/PT/OT consults DVT/GI prophylaxis Substance abuse consult Psychiatric eval LOS anticipated 96 hours.
[2017-03-30] MEDS ORDERED: Metoprolol Tartrate 5 MG/5 ML SDV IVPUSH PRN (14:00)
[2017-03-30] MEDS: Biotin/Folic Acid/Vitamin C/Vitamin B Complex Tab PO SCH (14:26)
[2017-03-30] MEDS: Pantoprazole 40 MG Tab.CR PO SCH (16:59)
[2017-03-30] MEDS: Metoprolol Tartrate 25 MG Tab PO SCH ×2 (18:34→22:13)
[2017-03-30] MEDS: Folic Acid 1 MG Tab PO SCH (20:06)
[2017-03-31] MEDS: cloNIDine 0.1 MG Tab PO SCH ×3 (00:05→20:50)
[2017-03-31] MEDS: LORazepam 2 MG/ML MDV IVPUSH PRN ×4 (03:29→14:30)
[2017-03-31] MEDS: Pantoprazole 40 MG Tab.CR PO SCH ×2 (05:37→15:45)
[2017-03-31] MEDS: chlordiazePOXIDE 25 MG Cap PO SCH ×3 (08:34→20:50)
[2017-03-31] MEDS: Biotin/Folic Acid/Vitamin C/Vitamin B Complex Tab PO SCH (08:34)
[2017-03-31] MEDS: Metoprolol Tartrate 25 MG Tab PO SCH ×2 (08:35→20:50)
[2017-03-31] MEDS ORDERED: chlordiazePOXIDE 25 MG Cap PO ONE (12:47)
--- NOTE | 2017-03-31 17:39 | PCM.PN ---
- General Info Date of Service: 03/31/17 Functional Status: Reports: Tolerating Diet, Ambulating, Urinating - Review of Systems General: Reports: No Symptoms HEENT: Reports: No Symptoms Pulmonary: Reports: No Symptoms Cardiovascular: Reports: No Symptoms Gastrointestinal: Reports: No Symptoms Genitourinary: Reports: No Symptoms Musculoskeletal: Reports: No Symptoms Skin: Reports: No Symptoms Neurological: Reports: No Symptoms Psychiatric: Reports: Anxiety, Agitation - Patient Data Vitals - Most Recent: Last Vital Signs Temp 37.2 C 03/31/17 15:49 Pulse 72 03/31/17 15:49 Resp 22 H 03/31/17 15:49 BP 130/79 03/31/17 15:49 Pulse Ox 96 03/31/17 15:49 Weight - Most Recent: 112.491 kg I&O - Last 24 Hours: Intake & Output 03/31/17 03/31/17 03/31/17 06:59 14:59 22:59 Intake Total 480 450 325 Output Total 400 200 Balance 80 250 325 Lab Results Last 24 Hours: Laboratory Results - last 24 hr 03/31/17 03/31/17 03/31/17 Range/Units 05:44 05:45 05:45 Sodium 133 L (136-145) mEq/L Potassium 5.0 (3.5-5.1) mEq/L Chloride 103 (98-107) mEq/L Carbon Dioxide 23 (21-32) mEq/L Anion Gap 12.0 (5-15) BUN 32 H (7-18) mg/dL Creatinine 1.3 (0.7-1.3) mg/dL Est Cr Clr Drug Dosing 72.53 mL/min Estimated GFR (MDRD) 59 (>60) mL/min BUN/Creatinine Ratio 24.6 H (14-18) Glucose 103 (74-106) mg/dL Hemoglobin A1c 5.40 (4.50-6.20) % Calcium 9.7 (8.5-10.1) mg/dL Magnesium 2.1 (1.8-2.4) mg/dl Med Orders - Current: Current Medications Chlordiazepoxide HCl (Librium) 50 mg PO TID [facility] Last Admin: 03/31/17 15:44 Dose: 50 mg Clonidine HCl (Catapres) 0.1 mg PO Q12HR [facility] Last Admin: 03/31/17 08:34 Dose: Not Given Folic Acid (Folic Acid) 1 mg PO BEDTIME [facility] Last Admin: 03/30/17 20:06 Dose: 1 mg Lorazepam (Ativan) 0 mg IVPUSH ASDIRECTED PRN; Protocol PRN Reason: Withdrawal Symptoms Last Admin: 03/31/17 14:30 Dose: 2 mg Lorazepam (Ativan) 2 mg IVPUSH Q6H [facility] Metoprolol Tartrate (Lopressor) 5 mg IVPUSH Q6H PRN PRN Reason: heart rate Metoprolol Tartrate (Lopressor) 25 mg PO Q12HR [facility] Last Admin: 03/31/17 08:35 Dose: Not Given Ondansetron HCl (Zofran) 4 mg IVPUSH Q4HR PRN PRN Reason: Nausea/Vomiting Last Admin: 03/30/17 09:52 Dose: 4 mg Pantoprazole Sodium (Protonix) 40 mg PO BIDAC [facility] Last Admin: 03/31/17 15:45 Dose: 40 mg Sodium Chloride (Saline Flush) 10 ml FLUSH ASDIRECTED PRN PRN Reason: Keep Vein Open Vitamin B Complex/Vit C/Folic Acid (Nephrocaps) 1 tab PO DAILY [facility] Last Admin: 03/31/17 08:34 Dose: 1 tab Discontinued Medications Chlordiazepoxide HCl (Librium) 25 mg PO TID [facility] Last Admin: 03/31/17 08:34 Dose: 25 mg Chlordiazepoxide HCl (Librium) 25 mg PO ONETIME ONE Stop: 03/29/17 22:31 Last Admin: 03/29/17 22:35 Dose: 25 mg Chlordiazepoxide HCl (Librium) 25 mg PO ONETIME ONE Stop: 03/31/17 12:48 Last Admin: 03/31/17 13:05 Dose: 25 mg Clonidine HCl (Catapres) 0.1 mg PO Q12HR [facility] Last Admin: 03/30/17 08:26 Dose: 0.1 mg Clonidine HCl (Catapres) 0.1 mg PO ONETIME ONE Stop: 03/29/17 22:31 Last Admin: 03/29/17 22:35 Dose: 0.1 mg Hydromorphone HCl (Dilaudid) 2 mg IVPUSH ONETIME ONE Stop: 03/29/17 18:42 Last Admin: 03/30/17 00:26 Dose: Not Given Sodium Chloride (Normal Saline) 1,000 mls @ 999 mls/hr IV ONETIME ONE Stop: 03/29/17 19:42 Last Admin: 03/29/17 19:25 Dose: 999 mls/hr Magnesium Sulfate 2 gm/ Premix 50 mls @ 25 mls/hr IV ONETIME ONE Stop: 03/29/17 23:59 Last Admin: 03/29/17 22:15 Dose: 25 mls/hr Potassium Chloride/Sodium Chloride (Normal Saline With 20 Meq Kcl) 1,000 mls @ 200 mls/hr IV ASDIRECTED [facility] Last Admin: 03/30/17 03:27 Dose: 200 mls/hr Potassium Chloride/Sodium Chloride (Normal Saline With 20 Meq Kcl) 1,000 mls @ 125 mls/hr IV ASDIRECTED [facility] Last Admin: 03/30/17 10:13 Dose: 125 mls/hr Influenza Virus Vaccine (Pharmacy To Dose - Influenza Vaccine) 1 each IM ONETIME ONE Stop: 03/29/17 21:39 Influenza Virus Vaccine (Flulaval Quad [id number]) 60 mcg IM .ONCE ONE Stop: 03/30/17 10:01 Lorazepam (Ativan) 0 mg IVPUSH ONETIME ONE PRN Reason: Protocol Stop: 03/29/17 18:48 Last Admin: 03/29/17 19:34 Dose: 2 mg Lorazepam (Ativan) 0 mg IVPUSH ONETIME ONE PRN Reason: Protocol Stop: 03/29/17 20:39 Last Admin: 03/29/17 20:43 Dose: 2 mg Lorazepam (Ativan) 4 mg IVPUSH Q6H PRN PRN Reason: Anxiety Last Admin: 03/31/17 10:41 Dose: 4 mg - Exam Quality Assessment: DVT Prophylaxis General: Alert, Oriented, Cooperative, No Acute Distress HEENT: Pupils Equal, Pupils Reactive, EOMI Neck: Supple, Trachea Midline, No JVD Lungs: Normal Respiratory Effort Cardiovascular: Regular Rate, Tachycardia GI/Abdominal Exam: Normal Bowel Sounds, Soft, Non-Tender, No Organomegaly, No Distention (Male) Exam: Deferred Back Exam: Normal Inspection Extremities: Normal Inspection Skin: Warm Neurological: No New Focal Deficit, Normal Gait, Normal Speech Psy/Mental Status: Alert, Anxious, Agitated - Problem List & Annotations (1) Obesity (BMI 30-39.9) SNOMED Code(s): 050901294 Code(s): E66.9 - OBESITY, UNSPECIFIED Status: Acute Current Visit: Yes (2) Alcohol withdrawal syndrome SNOMED Code(s): 058354702 Code(s): F10.239 - ALCOHOL DEPENDENCE WITH WITHDRAWAL, UNSPECIFIED Status: Acute Priority: High Current Visit: Yes Qualifiers: Complication of substance-induced condition: with delirium Qualified Code(s ): F10.231 - Alcohol dependence with withdrawal delirium (3) Alcohol use SNOMED Code(s): 936383279 Code(s): Z78.9 - OTHER SPECIFIED HEALTH STATUS Status: Chronic Priority: High Current Visit: No (4) Anxiety SNOMED Code(s): 79109329 Code(s): F41.9 - ANXIETY DISORDER, UNSPECIFIED Status: Chronic Priority: Medium Current Visit: No (5) Hypertension SNOMED Code(s): 86728346 Code(s): I10 - ESSENTIAL (PRIMARY) HYPERTENSION Status: Chronic Priority : High Current Visit: No Qualifiers: Hypertension type: essential hypertension Qualified Code(s): I10 - Essential (primary) hypertension (6) Sleep apnea SNOMED Code(s): 77322316 Code(s): G47.30 - SLEEP APNEA, UNSPECIFIED Status: Chronic Priority: Medium Current Visit: No Qualifiers: Sleep apnea type: unspecified type Qualified Code(s): G47.30 - Sleep apnea , unspecified Annotation/Comment:: Home CPAP - Problem List Review Problem List Initiated/Reviewed/Updated: Yes - My Orders Last 24 Hours: My Active Orders 03/30/17 19:00 Metoprolol Tartrate [Lopressor] 25 mg PO Q12HR 03/30/17 21:00 Folic Acid 1 mg PO BEDTIME 03/30/17 23:00 cloNIDine [Catapres] 0.1 mg PO Q12HR 03/30/17 Dinner Regular Diet [DIET] 03/31/17 09:00 Consult to Dietary [Consult to Sample Carrier] [CONS] Routine Consult to Pitch Gatherer [CONS] Routine 03/31/17 11:55 chlordiazePOXIDE [Librium] 50 mg PO TID 03/31/17 12:00 Consult for Substance Abuse [CONS] Routine 03/31/17 18:00 LORazepam [Ativan] 2 mg IVPUSH Q6H - Plan Plan:: Impression: ETOH dependence ETOH withdrawal syndrome Anxiety/depression Chronic HTN Obesity, BMI 35.4 ANNABELLE on CPAP HLD History of diverticulitis Plan: Increase Librium 50 mg q 8H, adjust as needed. IVF CIWA protocol Monitor and replace electrolytes BB/clonidine scheduled or when needed. Daily labs Home meds SW/PT/OT consults DVT/GI prophylaxis Substance abuse consult Psychiatric eval LOS >96 hours for treatment.
[2017-03-31] MEDS: LORazepam 2 MG/ML MDV IVPUSH SCH (18:44)
[2017-03-31] MEDS ORDERED: Temazepam 30 MG Cap PO PRN (20:34)
[2017-03-31] MEDS: Folic Acid 1 MG Tab PO SCH (20:50)
[2017-04-01] MEDS: LORazepam 2 MG/ML MDV IVPUSH SCH ×4 (00:20→19:01)
[2017-04-01] MEDS: Pantoprazole 40 MG Tab.CR PO SCH ×2 (06:01→15:01)
[2017-04-01] MEDS: cloNIDine 0.1 MG Tab PO SCH ×2 (08:17→21:13)
[2017-04-01] MEDS: chlordiazePOXIDE 25 MG Cap PO SCH ×3 (08:56→21:13)
[2017-04-01] MEDS: Biotin/Folic Acid/Vitamin C/Vitamin B Complex Tab PO SCH (08:56)
[2017-04-01] MEDS: Metoprolol Tartrate 25 MG Tab PO SCH ×2 (08:57→21:11)
--- NOTE | 2017-04-01 15:49 | PCM.PN ---
- General Info Date of Service: 04/01/17 Functional Status: Reports: Tolerating Diet, Ambulating, Urinating - Review of Systems General: Reports: No Symptoms HEENT: Reports: No Symptoms Pulmonary: Reports: No Symptoms Cardiovascular: Reports: No Symptoms Gastrointestinal: Reports: No Symptoms Genitourinary: Reports: No Symptoms Musculoskeletal: Reports: No Symptoms Skin: Reports: No Symptoms Psychiatric: Reports: Anxiety, Agitation, Other (irritable) - Patient Data Vitals - Most Recent: Last Vital Signs Temp 36.6 C 04/01/17 12:00 Pulse 72 04/01/17 08:57 Resp 17 04/01/17 12:00 BP 136/78 04/01/17 12:00 Pulse Ox 98 04/01/17 12:00 Weight - Most Recent: 112.491 kg I&O - Last 24 Hours: Intake & Output 04/01/17 04/01/17 04/01/17 06:59 14:59 22:59 Intake Total 800 500 Balance 800 500 Med Orders - Current: Current Medications Chlordiazepoxide HCl (Librium) 50 mg PO TID [facility] Last Admin: 04/01/17 15:01 Dose: 50 mg Clonidine HCl (Catapres) 0.1 mg PO Q12HR [facility] Last Admin: 04/01/17 08:17 Dose: Not Given Folic Acid (Folic Acid) 1 mg PO BEDTIME [facility] Last Admin: 03/31/17 20:50 Dose: 1 mg Lorazepam (Ativan) 0 mg IVPUSH ASDIRECTED PRN; Protocol PRN Reason: Withdrawal Symptoms Last Admin: 03/31/17 14:30 Dose: 2 mg Lorazepam (Ativan) 2 mg IVPUSH Q6H [facility] Last Admin: 04/01/17 11:04 Dose: 2 mg Metoprolol Tartrate (Lopressor) 5 mg IVPUSH Q6H PRN PRN Reason: heart rate Metoprolol Tartrate (Lopressor) 25 mg PO Q12HR [facility] Last Admin: 04/01/17 08:57 Dose: 25 mg Ondansetron HCl (Zofran) 4 mg IVPUSH Q4HR PRN PRN Reason: Nausea/Vomiting Last Admin: 03/30/17 09:52 Dose: 4 mg Pantoprazole Sodium (Protonix) 40 mg PO BIDAC [facility] Last Admin: 04/01/17 15:01 Dose: 40 mg Sodium Chloride (Saline Flush) 10 ml FLUSH ASDIRECTED PRN PRN Reason: Keep Vein Open Temazepam (Restoril) 30 mg PO BEDTIME PRN PRN Reason: Insomnia Last Admin: 03/31/17 20:50 Dose: 30 mg Vitamin B Complex/Vit C/Folic Acid (Nephrocaps) 1 tab PO DAILY [facility] Last Admin: 04/01/17 08:56 Dose: 1 tab Discontinued Medications Chlordiazepoxide HCl (Librium) 25 mg PO TID [facility] Last Admin: 03/31/17 08:34 Dose: 25 mg Chlordiazepoxide HCl (Librium) 25 mg PO ONETIME ONE Stop: 03/29/17 22:31 Last Admin: 03/29/17 22:35 Dose: 25 mg Chlordiazepoxide HCl (Librium) 25 mg PO ONETIME ONE Stop: 03/31/17 12:48 Last Admin: 03/31/17 13:05 Dose: 25 mg Clonidine HCl (Catapres) 0.1 mg PO Q12HR [facility] Last Admin: 03/30/17 08:26 Dose: 0.1 mg Clonidine HCl (Catapres) 0.1 mg PO ONETIME ONE Stop: 03/29/17 22:31 Last Admin: 03/29/17 22:35 Dose: 0.1 mg Hydromorphone HCl (Dilaudid) 2 mg IVPUSH ONETIME ONE Stop: 03/29/17 18:42 Last Admin: 03/30/17 00:26 Dose: Not Given Sodium Chloride (Normal Saline) 1,000 mls @ 999 mls/hr IV ONETIME ONE Stop: 03/29/17 19:42 Last Admin: 03/29/17 19:25 Dose: 999 mls/hr Magnesium Sulfate 2 gm/ Premix 50 mls @ 25 mls/hr IV ONETIME ONE Stop: 03/29/17 23:59 Last Admin: 03/29/17 22:15 Dose: 25 mls/hr Potassium Chloride/Sodium Chloride (Normal Saline With 20 Meq Kcl) 1,000 mls @ 200 mls/hr IV ASDIRECTED [facility] Last Admin: 03/30/17 03:27 Dose: 200 mls/hr Potassium Chloride/Sodium Chloride (Normal Saline With 20 Meq Kcl) 1,000 mls @ 125 mls/hr IV ASDIRECTED [facility] Last Admin: 03/30/17 10:13 Dose: 125 mls/hr Influenza Virus Vaccine (Pharmacy To Dose - Influenza Vaccine) 1 each IM ONETIME ONE Stop: 03/29/17 21:39 Influenza Virus Vaccine (Flulaval Quad [id number]) 60 mcg IM .ONCE ONE Stop: 03/30/17 10:01 Lorazepam (Ativan) 0 mg IVPUSH ONETIME ONE PRN Reason: Protocol Stop: 03/29/17 18:48 Last Admin: 03/29/17 19:34 Dose: 2 mg Lorazepam (Ativan) 0 mg IVPUSH ONETIME ONE PRN Reason: Protocol Stop: 03/29/17 20:39 Last Admin: 03/29/17 20:43 Dose: 2 mg Lorazepam (Ativan) 4 mg IVPUSH Q6H PRN PRN Reason: Anxiety Last Admin: 03/31/17 10:41 Dose: 4 mg - Exam Quality Assessment: DVT Prophylaxis General: Alert, Oriented, Cooperative, No Acute Distress HEENT: Pupils Equal, Pupils Reactive, EOMI Neck: Supple, Trachea Midline, No JVD Lungs: Clear to Auscultation, Normal Respiratory Effort Cardiovascular: Regular Rate, Tachycardia GI/Abdominal Exam: Normal Bowel Sounds, Soft, Non-Tender, No Organomegaly, No Distention (Male) Exam: Deferred Back Exam: Normal Inspection Extremities: Normal Inspection Skin: Warm Neurological: No New Focal Deficit Psy/Mental Status: Alert, Normal Affect, Normal Mood - Problem List & Annotations (1) Obesity (BMI 30-39.9) SNOMED Code(s): 836992808 Code(s): E66.9 - OBESITY, UNSPECIFIED Status: Acute Current Visit: Yes (2) Alcohol withdrawal syndrome SNOMED Code(s): 153593528 Code(s): F10.239 - ALCOHOL DEPENDENCE WITH WITHDRAWAL, UNSPECIFIED Status: Acute Priority: High Current Visit: Yes Qualifiers: Complication of substance-induced condition: with delirium Qualified Code(s ): F10.231 - Alcohol dependence with withdrawal delirium (3) Alcohol use SNOMED Code(s): 250489308 Code(s): Z78.9 - OTHER SPECIFIED HEALTH STATUS Status: Chronic Priority: High Current Visit: No (4) Anxiety SNOMED Code(s): 10088764 Code(s): F41.9 - ANXIETY DISORDER, UNSPECIFIED Status: Chronic Priority: Medium Current Visit: No (5) Hypertension SNOMED Code(s): 82418634 Code(s): I10 - ESSENTIAL (PRIMARY) HYPERTENSION Status: Chronic Priority : High Current Visit: No Qualifiers: Hypertension type: essential hypertension Qualified Code(s): I10 - Essential (primary) hypertension (6) Sleep apnea SNOMED Code(s): 51092255 Code(s): G47.30 - SLEEP APNEA, UNSPECIFIED Status: Chronic Priority: Medium Current Visit: No Qualifiers: Sleep apnea type: unspecified type Qualified Code(s): G47.30 - Sleep apnea , unspecified Annotation/Comment:: Home CPAP - Problem List Review Problem List Initiated/Reviewed/Updated: Yes - My Orders Last 24 Hours: My Active Orders 03/31/17 18:00 LORazepam [Ativan] 2 mg IVPUSH Q6H 03/31/17 20:34 Temazepam [Restoril] 30 mg PO BEDTIME PRN 04/01/17 11:39 Consult to Physician [CONS] Routine 04/01/17 11:40 Notify Provider Consults [RC] ASDIRECTED - Plan Plan:: Impression: ETOH dependence ETOH withdrawal syndrome Anxiety/depression Psychosis, 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 Chronic HTN Obesity, BMI 35.4 ANNABELLE on CPAP HLD History of diverticulitis Plan: Increase Librium 50 mg q 8H, adjust as needed. IVF CIWA protocol Psych recommendation, Seroquel 50 mg at bedtime; continue Librium 50 mg TID Monitor and replace electrolytes BB/clonidine scheduled or when needed. Daily labs Home meds SW/PT/OT consults DVT/GI prophylaxis Substance abuse consult--->04/02/17. LOS >96 hours for treatment.
[2017-04-01] MEDS: Folic Acid 1 MG Tab PO SCH (21:13)
[2017-04-01] MEDS: QUEtiapine 25 MG Tab PO SCH (21:13)
[2017-04-01] MEDS: Topiramate 25 MG Tab PO SCH (21:13)
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
[2017-04-02] MEDS: LORazepam 2 MG/ML MDV IVPUSH SCH ×4 (00:24→18:52)
[2017-04-02] MEDS: Pantoprazole 40 MG Tab.CR PO SCH ×2 (06:28→15:11)
[2017-04-02] MEDS: cloNIDine 0.1 MG Tab PO SCH ×2 (08:42→21:22)
[2017-04-02] MEDS: Metoprolol Tartrate 25 MG Tab PO SCH ×2 (08:42→21:21)
[2017-04-02] MEDS: Biotin/Folic Acid/Vitamin C/Vitamin B Complex Tab PO SCH (08:57)
[2017-04-02] MEDS: chlordiazePOXIDE 25 MG Cap PO SCH ×3 (08:57→21:21)
[2017-04-02] MEDS: Topiramate 25 MG Tab PO SCH ×2 (08:57→21:22)
--- NOTE | 2017-04-02 12:19 | PCM.PN ---
- General Info Date of Service: 04/02/17 Functional Status: Reports: Tolerating Diet, Ambulating, Urinating - Review of Systems General: Reports: No Symptoms HEENT: Reports: No Symptoms Pulmonary: Reports: No Symptoms Cardiovascular: Reports: No Symptoms Gastrointestinal: Reports: No Symptoms Genitourinary: Reports: No Symptoms Musculoskeletal: Reports: No Symptoms Skin: Reports: No Symptoms Neurological: Reports: No Symptoms Psychiatric: Reports: No Symptoms - Patient Data Vitals - Most Recent: Last Vital Signs Temp 36.8 C 04/02/17 08:00 Pulse 60 04/02/17 08:42 Resp 16 04/02/17 08:00 BP 110/70 04/02/17 08:42 Pulse Ox 95 04/02/17 08:00 Weight - Most Recent: 112.491 kg I&O - Last 24 Hours: Intake & Output 04/01/17 04/02/17 04/02/17 22:59 06:59 14:59 Intake Total 540 800 Balance 540 800 Med Orders - Current: Current Medications Chlordiazepoxide HCl (Librium) 50 mg PO TID [facility] Last Admin: 04/02/17 08:57 Dose: 50 mg Clonidine HCl (Catapres) 0.1 mg PO Q12HR [facility] Last Admin: 04/02/17 08:42 Dose: Not Given Folic Acid (Folic Acid) 1 mg PO BEDTIME [facility] Last Admin: 04/01/17 21:13 Dose: 1 mg Lorazepam (Ativan) 0 mg IVPUSH ASDIRECTED PRN; Protocol PRN Reason: Withdrawal Symptoms Last Admin: 03/31/17 14:30 Dose: 2 mg Lorazepam (Ativan) 2 mg IVPUSH Q6H [facility] Last Admin: 04/02/17 06:27 Dose: 2 mg Metoprolol Tartrate (Lopressor) 5 mg IVPUSH Q6H PRN PRN Reason: heart rate Metoprolol Tartrate (Lopressor) 25 mg PO Q12HR [facility] Last Admin: 04/02/17 08:42 Dose: Not Given Ondansetron HCl (Zofran) 4 mg IVPUSH Q4HR PRN PRN Reason: Nausea/Vomiting Last Admin: 03/30/17 09:52 Dose: 4 mg Pantoprazole Sodium (Protonix) 40 mg PO BIDAC [facility] Last Admin: 04/02/17 06:28 Dose: 40 mg Quetiapine Fumarate (Seroquel) 50 mg PO BEDTIME [facility] Last Admin: 04/01/17 21:13 Dose: 50 mg Sodium Chloride (Saline Flush) 10 ml FLUSH ASDIRECTED PRN PRN Reason: Keep Vein Open Temazepam (Restoril) 30 mg PO BEDTIME PRN PRN Reason: Insomnia Last Admin: 03/31/17 20:50 Dose: 30 mg Topiramate (Topamax) 25 mg PO BID [facility] Last Admin: 04/02/17 08:57 Dose: 25 mg Vitamin B Complex/Vit C/Folic Acid (Nephrocaps) 1 tab PO DAILY [facility] Last Admin: 04/02/17 08:57 Dose: 1 tab Discontinued Medications Chlordiazepoxide HCl (Librium) 25 mg PO TID [facility] Last Admin: 03/31/17 08:34 Dose: 25 mg Chlordiazepoxide HCl (Librium) 25 mg PO ONETIME ONE Stop: 03/29/17 22:31 Last Admin: 03/29/17 22:35 Dose: 25 mg Chlordiazepoxide HCl (Librium) 25 mg PO ONETIME ONE Stop: 03/31/17 12:48 Last Admin: 03/31/17 13:05 Dose: 25 mg Clonidine HCl (Catapres) 0.1 mg PO Q12HR [facility] Last Admin: 03/30/17 08:26 Dose: 0.1 mg Clonidine HCl (Catapres) 0.1 mg PO ONETIME ONE Stop: 03/29/17 22:31 Last Admin: 03/29/17 22:35 Dose: 0.1 mg Hydromorphone HCl (Dilaudid) 2 mg IVPUSH ONETIME ONE Stop: 03/29/17 18:42 Last Admin: 03/30/17 00:26 Dose: Not Given Sodium Chloride (Normal Saline) 1,000 mls @ 999 mls/hr IV ONETIME ONE Stop: 03/29/17 19:42 Last Admin: 03/29/17 19:25 Dose: 999 mls/hr Magnesium Sulfate 2 gm/ Premix 50 mls @ 25 mls/hr IV ONETIME ONE Stop: 03/29/17 23:59 Last Admin: 03/29/17 22:15 Dose: 25 mls/hr Potassium Chloride/Sodium Chloride (Normal Saline With 20 Meq Kcl) 1,000 mls @ 200 mls/hr IV ASDIRECTED [facility] Last Admin: 03/30/17 03:27 Dose: 200 mls/hr Potassium Chloride/Sodium Chloride (Normal Saline With 20 Meq Kcl) 1,000 mls @ 125 mls/hr IV ASDIRECTED [facility] Last Admin: 03/30/17 10:13 Dose: 125 mls/hr Influenza Virus Vaccine (Pharmacy To Dose - Influenza Vaccine) 1 each IM ONETIME ONE Stop: 03/29/17 21:39 Influenza Virus Vaccine (Flulaval Quad [id number]) 60 mcg IM .ONCE ONE Stop: 03/30/17 10:01 Lorazepam (Ativan) 0 mg IVPUSH ONETIME ONE PRN Reason: Protocol Stop: 03/29/17 18:48 Last Admin: 03/29/17 19:34 Dose: 2 mg Lorazepam (Ativan) 0 mg IVPUSH ONETIME ONE PRN Reason: Protocol Stop: 03/29/17 20:39 Last Admin: 03/29/17 20:43 Dose: 2 mg Lorazepam (Ativan) 4 mg IVPUSH Q6H PRN PRN Reason: Anxiety Last Admin: 03/31/17 10:41 Dose: 4 mg - Exam Quality Assessment: DVT Prophylaxis General: Alert, Oriented, Cooperative, No Acute Distress HEENT: Pupils Equal, Pupils Reactive, EOMI Neck: Supple, Trachea Midline, No JVD Lungs: Normal Respiratory Effort, Decreased Breath Sounds, Wheezing Cardiovascular: Regular Rate, Regular Rhythm GI/Abdominal Exam: Normal Bowel Sounds, Soft, Non-Tender, No Organomegaly, No Distention (Male) Exam: Deferred Back Exam: Normal Inspection Extremities: Normal Inspection, Normal Range of Motion, Non-Tender, No Pedal Edema Skin: Warm Neurological: No New Focal Deficit Psy/Mental Status: Alert, Anxious, Agitated - Problem List & Annotations (1) Obesity (BMI 30-39.9) SNOMED Code(s): 614580432 Code(s): E66.9 - OBESITY, UNSPECIFIED Status: Acute Current Visit: Yes (2) Alcohol withdrawal syndrome SNOMED Code(s): 553019664 Code(s): F10.239 - ALCOHOL DEPENDENCE WITH WITHDRAWAL, UNSPECIFIED Status: Acute Priority: High Current Visit: Yes Qualifiers: Complication of substance-induced condition: with delirium Qualified Code(s ): F10.231 - Alcohol dependence with withdrawal delirium (3) Alcohol use SNOMED Code(s): 781944250 Code(s): Z78.9 - OTHER SPECIFIED HEALTH STATUS Status: Chronic Priority: High Current Visit: No (4) Anxiety SNOMED Code(s): 29651335 Code(s): F41.9 - ANXIETY DISORDER, UNSPECIFIED Status: Chronic Priority: Medium Current Visit: No (5) Hypertension SNOMED Code(s): 50577697 Code(s): I10 - ESSENTIAL (PRIMARY) HYPERTENSION Status: Chronic Priority : High Current Visit: No Qualifiers: Hypertension type: essential hypertension Qualified Code(s): I10 - Essential (primary) hypertension (6) Sleep apnea SNOMED Code(s): 38062368 Code(s): G47.30 - SLEEP APNEA, UNSPECIFIED Status: Chronic Priority: Medium Current Visit: No Qualifiers: Sleep apnea type: unspecified type Qualified Code(s): G47.30 - Sleep apnea , unspecified Annotation/Comment:: Home CPAP - Problem List Review Problem List Initiated/Reviewed/Updated: Yes - My Orders Last 24 Hours: My Active Orders 04/01/17 11:39 Consult to Physician [CONS] Routine 04/01/17 11:40 Notify Provider Consults [RC] ASDIRECTED - Plan Plan:: Impression: ETOH dependence ETOH withdrawal syndrome Anxiety/depression Psychosis, 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 Chronic HTN Obesity, BMI 35.4 ANNABELLE on CPAP HLD History of diverticulitis Plan: Increase Librium 50 mg q 8H, adjust as needed. IVF CIWA protocol Ativan scheduled Continue Seroquel 50 mg at bedtime; continue Librium 50 mg TID Monitor and replace electrolytes BB/clonidine scheduled or when needed. Daily labs Home meds SW/PT/OT consults DVT/GI prophylaxis Substance abuse consult, inpatient therapy recommend; will pursue placement in [facility] LOS >96 hours for treatment for ETOH withdrawal.
[2017-04-02] MEDS ORDERED: Bisacodyl 5 MG Tab PO ONE (21:00)
[2017-04-02] MEDS: Folic Acid 1 MG Tab PO SCH (21:21)
[2017-04-02] MEDS: QUEtiapine 25 MG Tab PO SCH (21:21)
[2017-04-03] MEDS: LORazepam 2 MG/ML MDV IVPUSH SCH ×4 (00:30→18:20)
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
[2017-04-03] MEDS: Pantoprazole 40 MG Tab.CR PO SCH ×2 (07:16→16:21)
[2017-04-03] MEDS: Biotin/Folic Acid/Vitamin C/Vitamin B Complex Tab PO SCH (08:25)
[2017-04-03] MEDS: Metoprolol Tartrate 25 MG Tab PO SCH ×2 (08:25→23:02)
[2017-04-03] MEDS: cloNIDine 0.1 MG Tab PO SCH ×2 (08:26→23:00)
[2017-04-03] MEDS: Topiramate 25 MG Tab PO SCH ×2 (08:26→20:05)
[2017-04-03] MEDS: chlordiazePOXIDE 25 MG Cap PO SCH ×3 (09:06→20:04)
[2017-04-03] MEDS ORDERED: LORazepam 2 MG/ML MDV IVPUSH ONE (16:10)
[2017-04-03] MEDS ORDERED: Haloperidol Lactate 5 MG/ML SDV IVPUSH ONE (16:16)
--- NOTE | 2017-04-03 17:38 | PCM.PN ---
- General Info Functional Status: Reports: Tolerating Diet, Ambulating, Urinating - Review of Systems General: Reports: No Symptoms HEENT: Reports: No Symptoms Pulmonary: Reports: No Symptoms Cardiovascular: Reports: No Symptoms Gastrointestinal: Reports: No Symptoms Genitourinary: Reports: No Symptoms Musculoskeletal: Reports: No Symptoms Skin: Reports: No Symptoms Neurological: Reports: No Symptoms Psychiatric: Reports: Mood Lability, Anxiety, Agitation - Patient Data Vitals - Most Recent: Last Vital Signs Temp 37.6 C 04/03/17 16:00 Pulse 74 04/03/17 16:00 Resp 20 04/03/17 16:00 BP 129/79 04/03/17 16:00 Pulse Ox 100 04/03/17 16:00 Weight - Most Recent: 112.491 kg I&O - Last 24 Hours: Intake & Output 04/03/17 04/03/17 04/03/17 06:59 14:59 22:59 Intake Total 120 120 860 Balance 120 120 860 Med Orders - Current: Current Medications Chlordiazepoxide HCl (Librium) 50 mg PO TID [facility] Last Admin: 04/03/17 16:21 Dose: 50 mg Clonidine HCl (Catapres) 0.1 mg PO Q12HR [facility] Last Admin: 04/03/17 08:26 Dose: Not Given Folic Acid (Folic Acid) 1 mg PO BEDTIME [facility] Last Admin: 04/02/17 21:21 Dose: 1 mg Lorazepam (Ativan) 0 mg IVPUSH ASDIRECTED PRN; Protocol PRN Reason: Withdrawal Symptoms Last Admin: 03/31/17 14:30 Dose: 2 mg Lorazepam (Ativan) 3 mg IVPUSH Q6H [facility] Last Admin: 04/03/17 14:54 Dose: Not Given Metoprolol Tartrate (Lopressor) 5 mg IVPUSH Q6H PRN PRN Reason: heart rate Metoprolol Tartrate (Lopressor) 25 mg PO Q12HR [facility] Last Admin: 04/03/17 08:25 Dose: Not Given Ondansetron HCl (Zofran) 4 mg IVPUSH Q4HR PRN PRN Reason: Nausea/Vomiting Last Admin: 03/30/17 09:52 Dose: 4 mg Pantoprazole Sodium (Protonix) 40 mg PO BIDAC [facility] Last Admin: 04/03/17 16:21 Dose: 40 mg Quetiapine Fumarate (Seroquel) 50 mg PO BEDTIME [facility] Last Admin: 04/02/17 21:21 Dose: 50 mg Sodium Chloride (Saline Flush) 10 ml FLUSH ASDIRECTED PRN PRN Reason: Keep Vein Open Topiramate (Topamax) 25 mg PO BID [facility] Last Admin: 04/03/17 08:26 Dose: 25 mg Vitamin B Complex/Vit C/Folic Acid (Nephrocaps) 1 tab PO DAILY [facility] Last Admin: 04/03/17 08:25 Dose: 1 tab Discontinued Medications Bisacodyl (Dulcolax) 10 mg PO ONETIME ONE Stop: 04/02/17 21:01 Last Admin: 04/02/17 21:22 Dose: Not Given Chlordiazepoxide HCl (Librium) 25 mg PO TID [facility] Last Admin: 03/31/17 08:34 Dose: 25 mg Chlordiazepoxide HCl (Librium) 25 mg PO ONETIME ONE Stop: 03/29/17 22:31 Last Admin: 03/29/17 22:35 Dose: 25 mg Chlordiazepoxide HCl (Librium) 25 mg PO ONETIME ONE Stop: 03/31/17 12:48 Last Admin: 03/31/17 13:05 Dose: 25 mg Clonidine HCl (Catapres) 0.1 mg PO Q12HR [facility] Last Admin: 03/30/17 08:26 Dose: 0.1 mg Clonidine HCl (Catapres) 0.1 mg PO ONETIME ONE Stop: 03/29/17 22:31 Last Admin: 03/29/17 22:35 Dose: 0.1 mg Haloperidol Lactate (Haldol) 1 mg IVPUSH ONETIME ONE Stop: 04/03/17 16:17 Last Admin: 04/03/17 16:27 Dose: 1 mg Hydromorphone HCl (Dilaudid) 2 mg IVPUSH ONETIME ONE Stop: 03/29/17 18:42 Last Admin: 03/30/17 00:26 Dose: Not Given Sodium Chloride (Normal Saline) 1,000 mls @ 999 mls/hr IV ONETIME ONE Stop: 03/29/17 19:42 Last Admin: 03/29/17 19:25 Dose: 999 mls/hr Magnesium Sulfate 2 gm/ Premix 50 mls @ 25 mls/hr IV ONETIME ONE Stop: 03/29/17 23:59 Last Admin: 03/29/17 22:15 Dose: 25 mls/hr Potassium Chloride/Sodium Chloride (Normal Saline With 20 Meq Kcl) 1,000 mls @ 200 mls/hr IV ASDIRECTED [facility] Last Admin: 03/30/17 03:27 Dose: 200 mls/hr Potassium Chloride/Sodium Chloride (Normal Saline With 20 Meq Kcl) 1,000 mls @ 125 mls/hr IV ASDIRECTED [facility] Last Admin: 03/30/17 10:13 Dose: 125 mls/hr Influenza Virus Vaccine (Pharmacy To Dose - Influenza Vaccine) 1 each IM ONETIME ONE Stop: 03/29/17 21:39 Influenza Virus Vaccine (Flulaval Quad [id number]) 60 mcg IM .ONCE ONE Stop: 03/30/17 10:01 Lorazepam (Ativan) 0 mg IVPUSH ONETIME ONE PRN Reason: Protocol Stop: 03/29/17 18:48 Last Admin: 03/29/17 19:34 Dose: 2 mg Lorazepam (Ativan) 0 mg IVPUSH ONETIME ONE PRN Reason: Protocol Stop: 03/29/17 20:39 Last Admin: 03/29/17 20:43 Dose: 2 mg Lorazepam (Ativan) 4 mg IVPUSH Q6H PRN PRN Reason: Anxiety Last Admin: 03/31/17 10:41 Dose: 4 mg Lorazepam (Ativan) 2 mg IVPUSH Q6H [facility] Last Admin: 04/02/17 12:50 Dose: 2 mg Lorazepam (Ativan) 2 mg IVPUSH ONETIME ONE Stop: 04/03/17 16:11 Last Admin: 04/03/17 16:30 Dose: 2 mg Temazepam (Restoril) 30 mg PO BEDTIME PRN PRN Reason: Insomnia Last Admin: 03/31/17 20:50 Dose: 30 mg - Exam Quality Assessment: DVT Prophylaxis General: Alert, Oriented, Cooperative, No Acute Distress HEENT: Pupils Equal, Pupils Reactive, EOMI Neck: Supple, Trachea Midline Lungs: Normal Respiratory Effort Cardiovascular: Regular Rate, Regular Rhythm GI/Abdominal Exam: Normal Bowel Sounds, Soft, Non-Tender, No Organomegaly, No Distention (Male) Exam: Deferred Back Exam: Normal Inspection Extremities: Normal Inspection, No Pedal Edema Skin: Warm Neurological: No New Focal Deficit Psy/Mental Status: Alert, Labile Mood, Anxious, Agitated - Problem List & Annotations (1) Obesity (BMI 30-39.9) SNOMED Code(s): 217836614 Code(s): E66.9 - OBESITY, UNSPECIFIED Status: Acute Current Visit: Yes (2) Alcohol withdrawal syndrome SNOMED Code(s): 227558396 Code(s): F10.239 - ALCOHOL DEPENDENCE WITH WITHDRAWAL, UNSPECIFIED Status: Acute Priority: High Current Visit: Yes Qualifiers: Complication of substance-induced condition: with delirium Qualified Code(s ): F10.231 - Alcohol dependence with withdrawal delirium (3) Alcohol use SNOMED Code(s): 237923817 Code(s): Z78.9 - OTHER SPECIFIED HEALTH STATUS Status: Chronic Priority: High Current Visit: No (4) Anxiety SNOMED Code(s): 65430283 Code(s): F41.9 - ANXIETY DISORDER, UNSPECIFIED Status: Chronic Priority: Medium Current Visit: No (5) Hypertension SNOMED Code(s): 60006465 Code(s): I10 - ESSENTIAL (PRIMARY) HYPERTENSION Status: Chronic Priority : High Current Visit: No Qualifiers: Hypertension type: essential hypertension Qualified Code(s): I10 - Essential (primary) hypertension (6) Sleep apnea SNOMED Code(s): 98805518 Code(s): G47.30 - SLEEP APNEA, UNSPECIFIED Status: Chronic Priority: Medium Current Visit: No Qualifiers: Sleep apnea type: unspecified type Qualified Code(s): G47.30 - Sleep apnea , unspecified Annotation/Comment:: Home CPAP - Problem List Review Problem List Initiated/Reviewed/Updated: Yes - My Orders Last 24 Hours: My Active Orders 04/02/17 18:00 LORazepam [Ativan] 3 mg IVPUSH Q6H 04/03/17 16:33 RT Incentive Spirometry [RC] ASDIRECTED - Plan Plan:: Impression: ETOH dependence ETOH withdrawal syndrome Anxiety/depression Psychosis, 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 Chronic HTN Obesity, BMI 35.4 ANNABELLE on CPAP HLD History of diverticulitis Plan: Increase Librium 50 mg q 8H, adjust as needed. IVF CIWA protocol Ativan/Haldol scheduled Continue Seroquel 50 mg at bedtime; continue Librium 50 mg TID Monitor and replace electrolytes BB/clonidine scheduled or when needed. Daily labs Home meds SW/PT/OT consults DVT/GI prophylaxis Substance abuse consult, inpatient therapy recommend; will pursue placement in [facility]--->04/04/17 LOS >96 hours for treatment for ETOH withdrawal.
[2017-04-03] MEDS ORDERED: Topiramate 25 MG Tab PO SCH (19:38)
[2017-04-03] MEDS: Folic Acid 1 MG Tab PO SCH (20:05)
[2017-04-03] MEDS: QUEtiapine 25 MG Tab PO SCH (20:05)
[2017-04-03] MEDS: Haloperidol Lactate 5 MG/ML SDV IVPUSH SCH (20:08)
[2017-04-03] MEDS ORDERED: LORazepam 2 MG/ML MDV IVPUSH SCH (21:00)
[2017-04-04] MEDS: Haloperidol Lactate 5 MG/ML SDV IVPUSH SCH ×3 (02:26→10:24)
[2017-04-04] MEDS: LORazepam 2 MG/ML MDV IVPUSH SCH ×2 (02:26→09:35)
[2017-04-04] MEDS: LORazepam 2 MG/ML MDV IVPUSH PRN (03:44)
[2017-04-04] MEDS: Pantoprazole 40 MG Tab.CR PO SCH (08:03)
[2017-04-04 08:43] VITALS: BP 139/82
--- NOTE | 2017-04-04 08:44 | PCM.DCSUM1 ---
Discharge Summary - Hospital Course Free Text/Narrative:: Alexandre is a 47yo male who presented to ED with alcohol withdrawl symptoms and wanting assistance for alcohol dependence. He is known to Hospitalist service as this is his 3rd admission in the past 4-6 months, second for alcohol withdrawl. Hospitalist service was consulted for admission for detox and assist with dependence. He was initially admitted to ICU, monitored with detox protocol, ativan, librium , seroquel. Dr. Martínez, Psychatrist and Moses Devine [facility] were consulted. Patient was committed for inpatient treatment. Patient went through alcohol withdrawl without complications. He is discharged to [facility] with registered representative's office to transport. He is to follow up with PCP when discharged from [facility] and when he returns to [place]. - Discharge Data Discharge Date: 04/04/17 (admit date 03/29/17) Discharge Disposition: DC/Tfer to Inpt Rehab Fac 62 Condition: Fair - Discharge Diagnosis/Problem(s) (1) Alcohol withdrawal syndrome SNOMED Code(s): 202823613 ICD Code: F10.239 - ALCOHOL DEPENDENCE WITH WITHDRAWAL, UNSPECIFIED Status : Acute Priority: High Qualifiers: Complication of substance-induced condition: with delirium Qualified Code(s ): F10.231 - Alcohol dependence with withdrawal delirium (2) Alcohol use SNOMED Code(s): 758426441 ICD Code: Z78.9 - OTHER SPECIFIED HEALTH STATUS Status: Chronic Priority : High (3) Anxiety SNOMED Code(s): 94138086 ICD Code: F41.9 - ANXIETY DISORDER, UNSPECIFIED Status: Chronic Priority : Medium (4) Obesity (BMI 30-39.9) SNOMED Code(s): 110517362 ICD Code: E66.9 - OBESITY, UNSPECIFIED Status: Acute - Patient Summary/Data Operative Procedure(s) Performed: None Complications: None Consults: Consultations 03/31/17 09:00 Consult to Dietary [Consult to Web[employer] Process Server Developer] [CONS] Routine Consult to Phy Therapist [CONS] Routine 03/31/17 12:00 Consult for Substance Abuse [CONS] Routine 04/01/17 11:39 Consult to Physician [CONS] Routine 04/01/17 17:58 Consult to Spiritual Care [CONS] Routine Labs Pending at D/C: None Recommended Follow-up Testing/Procedures: Follow up with PCP when discharged from inpatient rehab Planned Operative Procedure(s) after DC: None Hospital Course: As above - Patient Instructions Diet: Heart Healthy Diet, Drink 8-10+ Glasses/Day Activity: As Tolerated Driving: Do Not Drive Showering/Bathing: May Shower Notify Provider of: Fever, Increased Pain, Swelling and Redness, Nausea and/or Vomiting - Discharge Plan Prescriptions/Med Rec: Metoprolol Tartrate [Lopressor] 25 mg PO Q12HR #60 tablet Biotin/FA/Vit C/Vit B Complex [Nephrocaps] 1 tab PO DAILY #30 tablet Folic Acid 1 mg PO BEDTIME #30 tablet Pantoprazole [ProTONIX] 40 mg PO BIDAC #60 tab.cr QUEtiapine [SEROquel] 50 mg PO BEDTIME #30 tablet Home Medications: Home Meds Olmesartan/Amlodipin/Hcthiazid [Tribenzor 40-5-25 MG] 1 each PO DAILY #30 tablet 11/17/16 [Rx] Biotin/FA/Vit C/Vit B Complex [Nephrocaps] 1 tab PO DAILY #30 tablet 04/04/17 [ Rx] Folic Acid 1 mg PO BEDTIME #30 tablet 04/04/17 [Rx] Metoprolol Tartrate [Lopressor] 25 mg PO Q12HR #60 tablet 04/04/17 [Rx] Pantoprazole [ProTONIX] 40 mg PO BIDAC #60 tab.cr 04/04/17 [Rx] QUEtiapine [SEROquel] 50 mg PO BEDTIME #30 tablet 04/04/17 [Rx] Patient Handouts: Alcohol Use Disorder, Alcohol Intoxication Forms: ED Department Discharge Referrals: Sandip Johnson [Primary Care Provider] - - Discharge Summary/Plan Comment DC Time >30 min.: Yes (40 min) - General Info Date of Service: 04/04/17 Admission Dx/Problem (Free Text: Admission Diagnosis/Problem Admission Diagnosis/Problem Alcohol withdrawal syndrome Functional Status: Reports: Pain Controlled, Tolerating Diet, Ambulating, Urinating - Review of Systems General: Reports: No Symptoms HEENT: Reports: No Symptoms Pulmonary: Reports: No Symptoms Cardiovascular: Reports: No Symptoms Gastrointestinal: Reports: No Symptoms Genitourinary: Reports: No Symptoms Musculoskeletal: Reports: No Symptoms Skin: Reports: No Symptoms Neurological: Reports: No Symptoms Psychiatric: Reports: No Symptoms - Patient Data Vitals - Most Recent: Last Vital Signs Temp 98.7 F 04/04/17 08:00 Pulse 69 04/04/17 08:00 Resp 16 04/04/17 08:00 BP 139/82 04/04/17 08:00 Pulse Ox 100 04/04/17 08:00 Weight - Most Recent: 244 lb 8 oz I&O - Last 24 hours: Intake & Output 04/03/17 04/04/17 04/04/17 22:59 06:59 14:59 Intake Total 1100 120 Output Total 300 Balance 1100 -180 Lab Results - Last 24 hrs: Laboratory Results - last 24 hr 04/04/17 Range/Units 08:00 WBC 7.62 (4.23-9.07) K/mm3 RBC 3.96 L (4.63-6.08) M/mm3 Hgb 13.3 L (13.7-17.5) gm/L Hct 37.2 L (40.1-51.0) % MCV 93.9 H (79.0-92.2) fl MCH 33.6 H (25.7-32.2) pg MCHC 35.8 H (32.2-35.5) g/dl RDW Std Deviation 40.2 (35.1-43.9) fL Plt Count 160 L (163-337) K/mm3 MPV 10.3 (9.4-12.3) fl Neut % (Auto) 66.4 (34.0-67.9) % Lymph % (Auto) 17.5 L (21.8-53.1) % [place] % (Auto) 10.4 (5.3-12.2) % Eos % (Auto) 4.9 (0.8-7.0) Baso % (Auto) 0.5 (0.1-1.2) % Neut # (Auto) 5.07 (1.78-5.38) K/mm3 Lymph # (Auto) 1.33 (1.32-3.57) K/mm3 [place] # (Auto) 0.79 (0.30-0.82) K/mm3 Eos # (Auto) 0.37 (0.04-0.54) K/mm3 Baso # (Auto) 0.04 (0.01-0.08) K/mm3 Med Orders - Current: Current Medications Chlordiazepoxide HCl (Librium) 50 mg PO TID [facility] Last Admin: 04/03/17 20:04 Dose: 50 mg Clonidine HCl (Catapres) 0.1 mg PO Q12HR [facility] Last Admin: 04/03/17 23:00 Dose: Not Given Folic Acid (Folic Acid) 1 mg PO BEDTIME [facility] Last Admin: 04/03/17 20:05 Dose: 1 mg Haloperidol Lactate (Haldol) 1 mg IVPUSH Q6H [facility] Last Admin: 04/04/17 02:26 Dose: 1 mg Lorazepam (Ativan) 0 mg IVPUSH ASDIRECTED PRN; Protocol PRN Reason: Withdrawal Symptoms Last Admin: 04/04/17 03:44 Dose: 1 mg Lorazepam (Ativan) 2 mg IVPUSH Q6H [facility] Last Admin: 04/04/17 02:26 Dose: 2 mg Metoprolol Tartrate (Lopressor) 5 mg IVPUSH Q6H PRN PRN Reason: heart rate Metoprolol Tartrate (Lopressor) 25 mg PO Q12HR [facility] Last Admin: 04/03/17 23:02 Dose: Not Given Ondansetron HCl (Zofran) 4 mg IVPUSH Q4HR PRN PRN Reason: Nausea/Vomiting Last Admin: 03/30/17 09:52 Dose: 4 mg Pantoprazole Sodium (Protonix) 40 mg PO BIDAC [facility] Last Admin: 04/04/17 08:03 Dose: Not Given Quetiapine Fumarate (Seroquel) 50 mg PO BEDTIME [facility] Last Admin: 04/03/17 20:05 Dose: 50 mg Sodium Chloride (Saline Flush) 10 ml FLUSH ASDIRECTED PRN PRN Reason: Keep Vein Open Topiramate (Topamax) 25 mg PO BID [facility] Last Admin: 04/03/17 20:05 Dose: 25 mg Vitamin B Complex/Vit C/Folic Acid (Nephrocaps) 1 tab PO DAILY [facility] Last Admin: 04/03/17 08:25 Dose: 1 tab Discontinued Medications Bisacodyl (Dulcolax) 10 mg PO ONETIME ONE Stop: 04/02/17 21:01 Last Admin: 04/02/17 21:22 Dose: Not Given Chlordiazepoxide HCl (Librium) 25 mg PO TID [facility] Last Admin: 03/31/17 08:34 Dose: 25 mg Chlordiazepoxide HCl (Librium) 25 mg PO ONETIME ONE Stop: 03/29/17 22:31 Last Admin: 03/29/17 22:35 Dose: 25 mg Chlordiazepoxide HCl (Librium) 25 mg PO ONETIME ONE Stop: 03/31/17 12:48 Last Admin: 03/31/17 13:05 Dose: 25 mg Clonidine HCl (Catapres) 0.1 mg PO Q12HR [facility] Last Admin: 03/30/17 08:26 Dose: 0.1 mg Clonidine HCl (Catapres) 0.1 mg PO ONETIME ONE Stop: 03/29/17 22:31 Last Admin: 03/29/17 22:35 Dose: 0.1 mg Haloperidol Lactate (Haldol) 1 mg IVPUSH ONETIME ONE Stop: 04/03/17 16:17 Last Admin: 04/03/17 16:27 Dose: 1 mg Haloperidol Lactate (Haldol) 1 mg IVPUSH Q6HR [facility] Last Admin: 04/04/17 04:54 Dose: Not Given Hydromorphone HCl (Dilaudid) 2 mg IVPUSH ONETIME ONE Stop: 03/29/17 18:42 Last Admin: 03/30/17 00:26 Dose: Not Given Sodium Chloride (Normal Saline) 1,000 mls @ 999 mls/hr IV ONETIME ONE Stop: 03/29/17 19:42 Last Admin: 03/29/17 19:25 Dose: 999 mls/hr Magnesium Sulfate 2 gm/ Premix 50 mls @ 25 mls/hr IV ONETIME ONE Stop: 03/29/17 23:59 Last Admin: 03/29/17 22:15 Dose: 25 mls/hr Potassium Chloride/Sodium Chloride (Normal Saline With 20 Meq Kcl) 1,000 mls @ 200 mls/hr IV ASDIRECTED [facility] Last Admin: 03/30/17 03:27 Dose: 200 mls/hr Potassium Chloride/Sodium Chloride (Normal Saline With 20 Meq Kcl) 1,000 mls @ 125 mls/hr IV ASDIRECTED [facility] Last Admin: 03/30/17 10:13 Dose: 125 mls/hr Influenza Virus Vaccine (Pharmacy To Dose - Influenza Vaccine) 1 each IM ONETIME ONE Stop: 03/29/17 21:39 Influenza Virus Vaccine (Flulaval Quad [id number]) 60 mcg IM .ONCE ONE Stop: 03/30/17 10:01 Lorazepam (Ativan) 0 mg IVPUSH ONETIME ONE PRN Reason: Protocol Stop: 03/29/17 18:48 Last Admin: 03/29/17 19:34 Dose: 2 mg Lorazepam (Ativan) 0 mg IVPUSH ONETIME ONE PRN Reason: Protocol Stop: 03/29/17 20:39 Last Admin: 03/29/17 20:43 Dose: 2 mg Lorazepam (Ativan) 4 mg IVPUSH Q6H PRN PRN Reason: Anxiety Last Admin: 03/31/17 10:41 Dose: 4 mg Lorazepam (Ativan) 2 mg IVPUSH Q6H [facility] Last Admin: 04/02/17 12:50 Dose: 2 mg Lorazepam (Ativan) 3 mg IVPUSH Q6H [facility] Last Admin: 04/03/17 18:20 Dose: Not Given Lorazepam (Ativan) 2 mg IVPUSH ONETIME ONE Stop: 04/03/17 16:11 Last Admin: 04/03/17 16:30 Dose: 2 mg Lorazepam (Ativan) 2 mg IVPUSH Q6H [facility] Last Admin: 04/03/17 20:05 Dose: 2 mg Temazepam (Restoril) 30 mg PO BEDTIME PRN PRN Reason: Insomnia Last Admin: 03/31/17 20:50 Dose: 30 mg Topiramate (Topamax) 25 mg PO BID [facility] Last Admin: 04/03/17 08:26 Dose: 25 mg Topiramate (Topamax) 50 mg PO BID [facility] - Exam Quality Assessment: Reports: DVT Prophylaxis General: Reports: Alert, Cooperative, No Acute Distress HEENT: Reports: Pupils Equal, EOMI, Mucous Membr. Moist/[place] Neck: Reports: Supple Lungs: Reports: Clear to Auscultation, Normal Respiratory Effort Cardiovascular: Reports: Regular Rate, Regular Rhythm GI/Abdominal Exam: Normal Bowel Sounds (Male) Exam: Deferred Rectal (Males) Exam: Deferred Extremities: No Pedal Edema Neurological: Reports: No New Focal Deficit Psy/Mental Status: Reports: Alert, Normal Affect, Normal Mood *Q Meaningful Use (DIS) - VTE *Q VTE Criteria *Q: - Stroke *Q Stroke Criteria *Q: - AMI *Q AMI Criteria *Q:
[2017-04-04] MEDS: Biotin/Folic Acid/Vitamin C/Vitamin B Complex Tab PO SCH (08:45)
[2017-04-04] MEDS: Topiramate 25 MG Tab PO SCH (08:45)
[2017-04-04] MEDS: chlordiazePOXIDE 25 MG Cap PO SCH (08:45)
[2017-04-04] MEDS: cloNIDine 0.1 MG Tab PO SCH (08:48)
[2017-04-04] MEDS: Metoprolol Tartrate 25 MG Tab PO SCH (10:25)
== END 2017-04-04 10:03 | DRG 897 ==
LOC: JD.ED 17:35 → JD.ICU 20:35
PROVIDERS: ADMIT Internal Medicine Cardiovascular Disease; ATTEND Internal Medicine Cardiovascular Disease
PROC: HZ2ZZZZ Detoxification Services for Substance Abuse Treatment (ICD-10-PCS; principal; 2017-03-29)
DX: F10.231 Alcohol dependence with withdrawal delirium (principal); F14.20 Cocaine dependence, uncomplicated; Y90.0 Blood alcohol level of less than 20 mg/100 ml; F12.90 Cannabis use, unspecified, uncomplicated; I10 Essential (primary) hypertension; E78.5 Hyperlipidemia, unspecified; G47.33 Obstructive sleep apnea (adult) (pediatric); F32.9 Major depressive disorder, single episode, unspecified; E66.9 Obesity, unspecified; Z79.899 Other long term (current) drug therapy; F29 Unspecified psychosis not due to a substance or known physiological condition; F41.9 Anxiety disorder, unspecified; Z68.35 Body mass index [BMI] 35.0-35.9, adult
CPT/HCPCS: 36415; 80048; 80053; 80306; 83036; 83690; 83735; 83880; 85025; 86140; 94660; 96361; 96374; 99284; 99285-25; A9270-GY; G0480; J1630; J2060; J2405; J3475; J3480; J7040

== ENCOUNTER 2017-05-05 07:41 | Emergency (ER) | payer OTHER ==
[2017-05-05 07:53] VITALS: BP 117/57
--- NOTE | 2017-05-05 08:17 | EDM.PDOCBH ---
ED HPI GENERAL MEDICAL PROBLEM - General Chief Complaint: Drug or Alcohol Abuse Stated Complaint: CHEST HURTING FROM DRINKING NEEDS DETOX Time Seen by Provider: 05/05/17 07:55 Source of Information: Reports: Patient History Limitations: Reports: Intoxication - History of Present Illness INITIAL COMMENTS - FREE TEXT/NARRATIVE: The patient presents for detox. He was seen twice last month. On one occasion he was admitted for detox and he left AMA before 24 hours. He came back 20 days later and was admitted for detox and then he went to [place]. He completed the stay in [place] and was sober until the of this month. He has been drinking daily since then and very heavy the past few days. He last drank last night at 12 am or 1am. He says he had some mid sternal chest pain this morning. He has been at a [facility] based AA program at the local [facility]. Onset: Gradual Duration: Day(s): Location: Reports: Chest Quality: Reports: Sharp Severity: Moderate Improves with: Reports: None Worsens with: Reports: None Associated Symptoms: Reports: Chest Pain. Denies: Confusion, Cough, Diaphoresis , Fever/Chills, Nausea/Vomiting, Shortness of Breath - Related Data Allergies Allergy/AdvReac Type Severity Reaction Status Date / Time No Known Allergies Allergy Verified 05/05/17 07:52 Home Meds: Home Meds Olmesartan/Amlodipin/Hcthiazid [Tribenzor 40-5-25 MG] 1 each PO DAILY #30 tablet 11/17/16 [Rx] Biotin/FA/Vit C/Vit B Complex [Nephrocaps] 1 tab PO DAILY #30 tablet 04/04/17 [ Rx] Folic Acid 1 mg PO BEDTIME #30 tablet 04/04/17 [Rx] Metoprolol Tartrate [Lopressor] 25 mg PO Q12HR #60 tablet 04/04/17 [Rx] Pantoprazole [ProTONIX] 40 mg PO BIDAC #60 tab.cr 04/04/17 [Rx] QUEtiapine [SEROquel] 50 mg PO BEDTIME #30 tablet 04/04/17 [Rx] Past Medical History HEENT History: Reports: Impaired Vision Cardiovascular History: Reports: High Cholesterol, Hypertension Respiratory History: Reports: Sleep Apnea Other Respiratory History: uses CPAP at home Gastrointestinal History: Reports: Diverticulosis Genitourinary History: Reports: Other (See Below) Other Genitourinary History: impotence Musculoskeletal History: Reports: Fracture Neurological History: Reports: Brain Injury, Seizure Other Neuro History: 2001 head injury. Seizures as a child - out grew age 12. Psychiatric History: Reports: Addiction, Depression, Suicidal Ideation Other Psychiatric History: Alcohol Endocrine/Metabolic History: Reports: Obesity/BMI 30+ - Infectious Disease History Infectious Disease History: Reports: Chicken Pox - Past Surgical History GI Surgical History: Reports: Cholecystectomy Musculoskeletal Surgical History: Reports: Other (See Below) Other Musculoskeletal Surgeries/Procedures:: Hand surg x2 and right leg surg Dermatological Surgical History: Reports: None Social & Family History - Family History Family Medical History: Noncontributory Cardiac: Reports: [place] Endocrine/Metabolic: Reports: Diabetes, type II Oncologic: Reports: Lung - Tobacco Use Smoking Status *Q: Unknown Ever Smoked Second Hand Smoke Exposure: No - Caffeine Use Caffeine Use: Reports: None Other Caffeine Use: 2 cups 2-3 times a week - Alcohol Use Days Per Week of Alcohol Use: 7 Number of Drinks Per Day: 10 Total Drinks Per Week: 70 - Recreational Drug Use Recreational Drug Use: No Drug Use in Last 12 Months: No Recreational Drug Type: Reports: Marijuana/Hashish Recreational Drug Use Frequency: Not Used In Over 6 Months - Living Situation & Occupation Living situation: Reports: Single, Alone 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) ED ROS GENERAL - Review of Systems Review Of Systems: See Below Constitutional: Reports: No Symptoms HEENT: Reports: No Symptoms Respiratory: Reports: No Symptoms Cardiovascular: Reports: Chest Pain Endocrine: Reports: No Symptoms GI/Abdominal: Reports: No Symptoms : Reports: No Symptoms Musculoskeletal: Reports: No Symptoms ED EXAM, BEHAVIORAL HEALTH - Physical Exam Exam: See Below Exam Limited By: No Limitations General Appearance: Alert, No Apparent Distress Ears: Normal External Exam Nose: Normal Inspection Head: Atraumatic, Normocephalic Neck: Normal Inspection Respiratory/Chest: No Respiratory Distress, Lungs Clear, Normal Breath Sounds Cardiovascular: Regular Rate, Rhythm, No Edema, No Murmur GI/Abdominal: Soft, Non-Tender, No Organomegaly, No Mass COURSE, BEHAVIORAL HEALTH COMP - Course Vital Signs: Last Vital Signs Temp 98.5 F 05/05/17 07:47 Pulse 92 05/05/17 07:47 Resp 18 05/05/17 07:47 BP 117/57 L 05/05/17 07:47 Pulse Ox 98 05/05/17 07:47 Re-Assessment/Re-Exam: I told the patient we will need to start an IV, do an EKG, CXR and labs. He said no that is not what I need. I just need the IV. I told him you are a 47 year old man and we are not going to ignore the fact that you had chest pain. I also told him that you do not come in here and tell us how to do our job. He did not want to stay and he left before the discharge was done. Departure - Departure Time of Disposition: 08:20 Disposition: Home, Self-Care 01 Condition: Good Clinical Impression: Alcohol abuse - Discharge Information Referrals: Sandip Johnson [Primary Care Provider] - Additional Instructions: Call Moses Devine at [facility] Abuse [facility] at or [facility] at . Please return if you are worse.
[2017-05-05] MEDS ORDERED: Ondansetron 4 MG/2 ML SDV IVPUSH ONE (09:05)
[2017-05-05] MEDS ORDERED: Sodium Chloride 0.9% 10 ML Syringe FLUSH PRN (09:05)
[2017-05-05] MEDS ORDERED: Famotidine 20 MG/2 ML SDV IVPUSH ONE (09:07)
[2017-05-05] MEDS ORDERED: Sodium Chloride 0.9% 1,000 ML IV SCH (09:15)
--- NOTE | 2017-05-05 10:43 | CR ---
Chest: Portable view of the chest was obtained. Comparison: Prior chest x-ray of 11/09/15. Heart size and mediastinum are normal. Lungs are clear. Bony structures are grossly intact. Impression: 1. Nothing acute is identified on portable chest x-ray. Diagnostic code #1
== END 2017-05-05 11:16 | disposition home or self-care (01) ==
LOC: JD.ED 07:41
DX: F10.10 Alcohol abuse, uncomplicated (principal); Y90.0 Blood alcohol level of less than 20 mg/100 ml; R07.89 Other chest pain; I10 Essential (primary) hypertension; F32.9 Major depressive disorder, single episode, unspecified; Z79.899 Other long term (current) drug therapy
CPT/HCPCS: 36415; 71010; 80053; 84484; 85025; 96361; 96374; 96375; 99285; G0480; J2405; J7040; J7050; 99284

== ENCOUNTER 2017-07-09 14:03 | Emergency (ER) | payer OTHER ==
[2017-07-09 14:17] VITALS: BP 145/94
[2017-07-09] MEDS ORDERED: Sodium Chloride 0.9% 1,000 ML IV SCH (14:45)
--- NOTE | 2017-07-09 14:54 | EDM.PDOC ---
ED HPI GENERAL MEDICAL PROBLEM - General Chief Complaint: Gastrointestinal Problem Stated Complaint: DIVERTICULITIS FLARE UP Time Seen by Provider: 07/09/17 14:16 Source of Information: Reports: Patient History Limitations: Reports: No Limitations - History of Present Illness INITIAL COMMENTS - FREE TEXT/NARRATIVE: The patient states that he saw Dr. Johnson on 06/22/2017 for abdominal bloating, constipation, and left lower quadrant abdominal pain. The patient states that no tests were done, but that diverticulitis was diagnosed, the patient was prescribed 10 day courses of Augmentin and Flagyl. He states that his bloating has continued, and he now has watery diarrhea instead of constipation. His left lower quadrant abdominal pain has improved, and is now quite minimal, however, the patient is concerned that he still has diverticulitis. No recent fever. No recent nausea or emesis. No recent chest pain, palpitations, or dyspnea. The patient's symptoms are similar to prior diverticulitis, that he has had 6 or 7 times. Abdomen Pain Score (Numeric/FACES): 7 - Related Data Allergies Allergy/AdvReac Type Severity Reaction Status Date / Time No Known Allergies Allergy Verified 07/09/17 14:17 Home Meds: Home Meds Olmesartan/Amlodipin/Hcthiazid [[id number] 20-5-12.5] 1 tab PO DAILY [History] Tadalafil [Cialis] 10 mg PO ASDIRECTED 07/09/17 [History] Past Medical History HEENT History: Reports: Impaired Vision Cardiovascular History: Reports: High Cholesterol, Hypertension Respiratory History: Reports: Sleep Apnea (nightly CPAP 12) Gastrointestinal History: Reports: Diverticulosis Musculoskeletal History: Reports: Fracture Neurological History: Reports: Brain Injury (2000), Seizure (Petit mal seizures as a child) Psychiatric History: Reports: Addiction ([place]), Depression, Suicidal Ideation Endocrine/Metabolic History: Reports: Obesity/BMI 30+ - Infectious Disease History Infectious Disease History: Reports: Chicken Pox - Past Surgical History GI Surgical History: Reports: Cholecystectomy Musculoskeletal Surgical History: Reports: Carpal Tunnel (bilateral), ORIF ( right femur) Dermatological Surgical History: Reports: None Social & Family History - Family History Family Medical History: Noncontributory Cardiac: Reports: [place] Endocrine/Metabolic: Reports: Diabetes, type II Oncologic: Reports: Lung - Tobacco Use Smoking Status *Q: Never Smoker Second Hand Smoke Exposure: No - Caffeine Use Caffeine Use: Reports: Coffee Other Caffeine Use: 2 cups 2-3 times a week - Alcohol Use Alcohol Use History: Yes Days Per Week of Alcohol Use: 7 Number of Drinks Per Day: 10 Total Drinks Per Week: 70 Date/Time of Last Drink Comment: None since 05/01/2017 - Recreational Drug Use Recreational Drug Use: Yes Drug Use in Last 12 Months: No Recreational Drug Type: Reports: Cocaine (last 2002), Marijuana/Hashish (last 2013) - Living Situation & Occupation Living situation: Reports: , Alone 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 ED EXAM, GI/ABD - Physical Exam Exam: See Below Exam Limited By: No Limitations General Appearance: Alert, WD/WN, No Apparent Distress Eyes: Bilateral: Normal Appearance, EOMI Ears: Normal External Exam, Hearing Grossly Normal Nose: Normal Inspection, No Blood Throat/Mouth: Normal Inspection, Normal Lips, Normal Voice, No Airway Compromise Head: Atraumatic, Normocephalic Neck: Normal Inspection, Full Range of Motion Respiratory/Chest: No Respiratory Distress, Lungs Clear, Normal Breath Sounds, No Accessory Muscle Use Cardiovascular: Normal Peripheral Pulses, Regular Rate, Rhythm, No Edema, No Gallop, No JVD, No Murmur, No Rub GI/Abdominal Exam: Soft, No Organomegaly, No Distention, No Abnormal Bruit, No Mass, Tender (Minimal, to the left lower quadrant only. Essentially nontender elsewhere.), Abnormal Bowel Sounds (decreased) (Male) Exam: Deferred Rectal (Males) Exam: Deferred Back Exam: Normal Inspection, Full Range of Motion, NT Extremities: Normal Inspection, Normal Range of Motion, No Pedal Edema, Normal Capillary Refill Neurological: Alert, Oriented, Normal Cognition, No Motor/Sensory Deficits Psychiatric: Normal Affect Skin Exam: Warm, Dry, Intact, Normal Color, No Rash Course - Vital Signs Last Recorded V/S: Last Vital Signs Temp 36.3 C 07/09/17 14:09 Pulse 94 07/09/17 14:09 Resp 13 07/09/17 14:09 BP 145/94 H 07/09/17 14:09 Pulse Ox 98 07/09/17 14:09 - Orders/Labs/Meds Orders: Active Orders 24 hr Category Date Time Status Abdomen Pelvis w Cont [CT] Stat Exams 07/09/17 14:39 Taken Sodium Chloride 0.9% [Normal Saline] 1,000 ml Med 07/09/17 14:45 Active IV ASDIRECTED Sodium Chloride 0.9% [Saline Flush] Med 07/09/17 15:52 Active 10 ml FLUSH ONETIME PRN Medication Orders Sodium Chloride (Normal Saline) 1,000 mls @ 150 mls/hr IV ASDIRECTED SAM Last Admin: 07/09/17 14:45 Dose: 150 mls/hr Sodium Chloride (Saline Flush) 10 ml FLUSH ONETIME PRN PRN Reason: IV FLUSH Last Admin: 07/09/17 16:01 Dose: 10 ml Labs: Laboratory Tests 07/09/17 07/09/17 07/09/17 Range/Units 14:17 14:17 15:15 WBC 6.21 (4.23-9.07) K/mm3 RBC 4.74 (4.63-6.08) M/mm3 Hgb 14.9 (13.7-17.5) gm/L Hct 42.1 (40.1-51.0) % MCV 88.8 (79.0-92.2) fl MCH 31.4 (25.7-32.2) pg MCHC 35.4 (32.2-35.5) g/dl RDW Std Deviation 40.4 (35.1-43.9) fL Plt Count 217 (163-337) K/mm3 MPV 10.4 (9.4-12.3) fl Neutrophils % (Manual) 55 (40-60) % Band Neutrophils % 0 (0-10) % Lymphocytes % (Manual) 41 H (20-40) % Atypical Lymphs % 0 % Monocytes % (Manual) 2 (2-10) % Eosinophils % (Manual) 1 (0.8-7.0) % Basophils % (Manual) 1 (0.2-1.2) Platelet Estimate Adequate Plt Morphology Comment Normal RBC Morph Comment Normal Sodium 137 (136-145) mEq/L Potassium 4.1 (3.5-5.1) mEq/L Chloride 100 (98-107) mEq/L Carbon Dioxide 28 (21-32) mEq/L Anion Gap 13.1 (5-15) BUN 21 H (7-18) mg/dL Creatinine 1.2 (0.7-1.3) mg/dL Est Cr Clr Drug Dosing 78.58 mL/min Estimated GFR (MDRD) > 60 (>60) mL/min BUN/Creatinine Ratio 17.5 (14-18) Glucose 108 H (74-106) mg/dL Calcium 9.2 (8.5-10.1) mg/dL Total Bilirubin 0.5 (0.2-1.0) mg/dL AST 46 H (15-37) U/L ALT 64 H (16-63) U/L Alkaline Phosphatase 81 (46-116) U/L Total Protein 7.8 (6.4-8.2) g/dl Albumin 3.9 (3.4-5.0) g/dl Globulin 3.9 gm/dL Albumin/Globulin Ratio 1.0 (1-2) Lipase 112 (73-393) U/L Urine Color Yellow (Yellow) Urine Appearance Clear (Clear) Urine pH 6.5 (5.0-8.0) Ur Specific [place] 1.025 (1.005-1.030) Urine Protein Trace H (Negative) Urine Glucose (UA) Negative (Negative) Urine Ketones Negative (Negative) Urine Occult Blood Negative (Negative) Urine Nitrite Negative (Negative) Urine Bilirubin Negative (Negative) Urine Urobilinogen 0.2 (0.2-1.0) Ur Leukocyte Esterase Negative (Negative) Urine RBC Not seen (0-5) /hpf Urine WBC 0-5 (0-5) /hpf Ur Epithelial Cells 0-5 (0-5) /hpf Urine Bacteria Not seen (FEW) /hpf Urine Mucus Not seen (FEW) /hpf Meds: Medications Generic Name Dose Route Start Last Admin Trade Name Freq PRN Reason Stop Dose Admin Sodium Chloride 1,000 mls @ 150 mls/hr 07/09/17 14:45 07/09/17 14:45 Normal Saline IV 150 mls/hr ASDIRECTED SAM Administration Sodium Chloride 10 ml 07/09/17 15:52 07/09/17 16:01 Saline Flush FLUSH 10 ml ONETIME PRN Administration IV FLUSH Discontinued Medications Generic Name Dose Route Start Last Admin Trade Name Freq PRN Reason Stop Dose Admin Diatrizoate Meglum/Diatrizoate Sod 120 ml 07/09/17 15:52 07/09/17 16:00 Gastrografin 37% PO 07/09/17 15:53 90 ml ONETIME ONE Administration Iopamidol 150 ml 07/09/17 15:52 07/09/17 16:01 Isovue-300 (61%) IVPUSH 07/09/17 15:53 150 ml ONETIME ONE Administration - Re-Assessments/Exams Free Text/Narrative Re-Assessment/Exam: 07/09/17 14:49 The patient is complaining primarily of a bloating sensation and watery diarrhea , not so much pain. He is not requesting pain medication. I have ordered a CT scan, along with blood work and a urinalysis. I ordered IV fluid to complete the CT scan. 07/09/17 16:27 CT of the abdomen and pelvis with oral and IV contrast is read by [facility] as "Distal colonic diverticulosis. No CT evidence of diverticulitis." 07/09/17 16:44 Test results discussed with the patient. No diverticulitis on today's workup. I will refer the patient to Dr. Tavarez for colonoscopy, as the patient states that it has been about 4 years since he last had one. Departure - Departure Time of Disposition: 16:45 Disposition: Home, Self-Care 01 Condition: Good Clinical Impression: Diverticulosis - Discharge Information Referrals: Sandip Johnson [Primary Care Provider] - Jarocho Tavarez MD [Physician] - Forms: ED Department Discharge Additional Instructions: You were seen in the emergency room for mild lower left abdominal pain, bloating , and watery diarrhea. Workup in the ER included blood work, a urinalysis, and a CT scan of your abdomen and pelvis. Your workup found that you have diverticulosis (pockets on your colon), but no diverticulitis (infection of those pockets). You can resume a normal diet. Consider increasing the fiber in your diet. Follow-up with the Surgeon Dr. Tavarez to discuss getting a colonoscopy. If any other problems, please do not hesitate to return to the ER. - My Orders Last 24 Hours: My Active Orders 07/09/17 14:39 Abdomen Pelvis w Cont [CT] Stat 07/09/17 14:45 Sodium Chloride 0.9% [Normal Saline] 1,000 ml IV ASDIRECTED 07/09/17 15:52 Sodium Chloride 0.9% [Saline Flush] 10 ml FLUSH ONETIME PRN - Assessment/Plan Last 24 Hours: My Active Orders 07/09/17 14:39 Abdomen Pelvis w Cont [CT] Stat 07/09/17 14:45 Sodium Chloride 0.9% [Normal Saline] 1,000 ml IV ASDIRECTED 07/09/17 15:52 Sodium Chloride 0.9% [Saline Flush] 10 ml FLUSH ONETIME PRN
[2017-07-09] MEDS ORDERED: Diatrizoate Meglumine/Diatrizoate Sodium 37% 120 ML Bottle PO ONE (15:52)
[2017-07-09] MEDS ORDERED: Sodium Chloride 0.9% 10 ML Syringe FLUSH PRN (15:52)
[2017-07-09] MEDS ORDERED: Iopamidol 612 MG/ML 150 ML Bottle IVPUSH ONE (15:52)
--- NOTE | 2017-07-10 10:05 | CT ---
CT abdomen and pelvis Technique: Multiple axial sections were obtained from above the dome of the diaphragm inferiorly to the pubic symphysis. Intravenous and oral contrast was utilized. Delayed images were also obtained through the bladder. Comparison: Prior CT abdomen and pelvis exam of 11/15/16. Findings: Visualized lung bases show nothing acute. Liver shows fatty infiltration. Two cysts are identified within the liver which appears stable from previous exam. Spleen appears within normal limits. Adrenal glands show no nodule. Pancreas is within normal limits. Surgical clips are seen from prior cholecystectomy. Adrenal glands show no nodule. Kidneys show symmetric contrast enhancement without hydronephrosis or mass. Aorta shows no aneurysmal dilatation. No retroperitoneal adenopathy or mesenteric abnormalities are seen. Sigmoid and descending diverticulosis is seen without diverticulitis. Appendix is seen which appears normal. Delayed images show contrast within the distal ureters and within the bladder. Bone window settings were reviewed which show mild degenerative change within the spine most prominent at L4-L5 and L5-S1. Small fat-containing umbilical hernia is incidentally noted. Impression: 1. Incidental findings as noted above. Nothing acute is identified on CT study of the abdomen and pelvis. Diagnostic code #2 I agree with preliminary report issued by [facility] ([facility] preliminary report dictated on 07/09/17, 5:18 PM Central Time)
== END 2017-07-09 17:02 | disposition home or self-care (01) ==
LOC: JD.ED 14:03
DX: K57.30 Diverticulosis of large intestine without perforation or abscess without bleeding (principal); I10 Essential (primary) hypertension; E78.00 Pure hypercholesterolemia, unspecified; G47.30 Sleep apnea, unspecified
CPT/HCPCS: 36415; 74177; 80053; 81001; 83690; 85025; 96360; 96361; 99284; J7040; J7050; Q9963; Q9967

== ENCOUNTER 2017-07-19 19:24 | Emergency (ER) | payer OTHER ==
[2017-07-19 19:36] VITALS: BP 141/90
--- NOTE | 2017-07-19 20:01 | EDM.PDOC ---
ED HPI GENERAL MEDICAL PROBLEM - General Chief Complaint: Drug or Alcohol Abuse Stated Complaint: chest pain Time Seen by Provider: 07/19/17 19:44 - History of Present Illness INITIAL COMMENTS - FREE TEXT/NARRATIVE: 47-year-old male presents to emergency room alcohol detox. However, he has to be at work in the morning. Patient's been drinking heavily he needs to get back into treatment program he has been in several inpatient treatments and Antabuse has not worked well for him he wants to try the once a month shot and he needs to follow-up with [facility]. Patient has been in multiple times for detox. This time the patient complains of substernal chest burning and significant heartburn. He has not had any issues of vomiting blood or passing blood in the stool has not had significant bleeding or bruising. Chest Pain Score (Numeric/FACES): 7 - Related Data Allergies Allergy/AdvReac Type Severity Reaction Status Date / Time No Known Allergies Allergy Verified 07/19/17 19:36 Home Meds: Home Meds Olmesartan/Amlodipin/Hcthiazid [[id number] 20-5-12.5] 1 tab PO DAILY [History] Tadalafil [Cialis] 10 mg PO ASDIRECTED 07/09/17 [History] Past Medical History HEENT History: Reports: Impaired Vision Cardiovascular History: Reports: High Cholesterol, Hypertension Respiratory History: Reports: Sleep Apnea Other Respiratory History: uses CPAP at home Gastrointestinal History: Reports: Diverticulosis Genitourinary History: Reports: Other (See Below) Other Genitourinary History: impotence Musculoskeletal History: Reports: Fracture Neurological History: Reports: Brain Injury, Seizure Other Neuro History: 2001 head injury. Seizures as a child - out grew age 12. Psychiatric History: Reports: Addiction, Depression, Suicidal Ideation Other Psychiatric History: Alcohol Endocrine/Metabolic History: Reports: Obesity/BMI 30+ - Infectious Disease History Infectious Disease History: Reports: Chicken Pox - Past Surgical History GI Surgical History: Reports: Cholecystectomy Musculoskeletal Surgical History: Reports: Carpal Tunnel, ORIF Dermatological Surgical History: Reports: None Social & Family History - Family History Family Medical History: Noncontributory Cardiac: Reports: [place] Endocrine/Metabolic: Reports: Diabetes, type II Oncologic: Reports: Lung - Tobacco Use Smoking Status *Q: Never Smoker Second Hand Smoke Exposure: No - Caffeine Use Caffeine Use: Reports: Coffee Other Caffeine Use: 2 cups 2-3 times a week - Alcohol Use Days Per Week of Alcohol Use: 7 Number of Drinks Per Day: 10 Total Drinks Per Week: 70 - Recreational Drug Use Recreational Drug Use: No Drug Use in Last 12 Months: No Recreational Drug Type: Reports: Cocaine (last 2002), Marijuana/Hashish (last 2013) Recreational Drug Use Frequency: Not Used In Over 6 Months - Living Situation & Occupation Living situation: Reports: , Alone 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 Denies: No Symptoms : Reports: No Symptoms ED EXAM, GENERAL - Physical Exam Exam: See Below Exam Limited By: No Limitations General Appearance: Alert, No Apparent Distress Eye Exam: Bilateral Eye: Normal Inspection, PERRL Ears: Normal External Exam, Normal Canal, Hearing Grossly Normal, Normal TMs Nose: Normal Inspection, Normal Mucosa, No Blood Throat/Mouth: Normal Inspection, Normal Lips, Normal Teeth, Normal Oropharynx, Normal Voice, No Airway Compromise Head: Atraumatic, Normocephalic Neck: Normal Inspection, Supple, Non-Tender, Full Range of Motion Respiratory/Chest: No Respiratory Distress, Lungs Clear, Normal Breath Sounds, No Accessory Muscle Use, Chest Non-Tender Cardiovascular: Normal Peripheral Pulses, Regular Rate, Rhythm, No Edema, No Murmur GI/Abdominal: Normal Bowel Sounds, Soft, Other (He has some epigastric discomfort with palpation no rigidity rebound or guarding noted no other significant tenderness noted) Back Exam: Normal Inspection. No: CVA Tenderness (L), CVA Tenderness (R) Psychiatric: Normal Affect Skin Exam: Warm, Dry, Intact Lymphatic: No Adenopathy Course - Vital Signs Last Recorded V/S: Last Vital Signs Temp 37.2 C 07/19/17 19:30 Pulse 101 H 07/19/17 19:30 Resp 22 H 07/19/17 19:30 BP 141/90 H 07/19/17 19:30 Pulse Ox 99 07/19/17 19:30 - Orders/Labs/Meds Orders: Active Orders 24 hr Category Date Time Status EKG Documentation Completion [RC] STAT Care 07/19/17 20:02 Active Famotidine [Pepcid] Med 07/19/17 22:21 Once 40 mg PO ONETIME ONE Medication Orders Famotidine (Pepcid) 40 mg PO ONETIME ONE Stop: 07/19/17 22:22 Labs: Laboratory Tests 07/19/17 07/19/17 07/19/17 Range/Units 20:15 20:15 20:15 WBC 10.38 H (4.23-9.07) K/mm3 RBC 4.74 (4.63-6.08) M/mm3 Hgb 14.9 (13.7-17.5) gm/L Hct 41.4 (40.1-51.0) % MCV 87.3 (79.0-92.2) fl MCH 31.4 (25.7-32.2) pg MCHC 36.0 H (32.2-35.5) g/dl RDW Std Deviation 39.8 (35.1-43.9) fL Plt Count 227 (163-337) K/mm3 MPV 9.7 (9.4-12.3) fl Neutrophils % (Manual) 80 H (40-60) % Band Neutrophils % 0 (0-10) % Lymphocytes % (Manual) 14 L (20-40) % Atypical Lymphs % 0 % Monocytes % (Manual) 4 (2-10) % Eosinophils % (Manual) 0 L (0.8-7.0) % Basophils % (Manual) 2 H (0.2-1.2) Platelet Estimate Adequate RBC Morph Comment Normal PT 11.2 (8.0-13.0) SECONDS INR 1.05 Troponin I < 0.017 (0.00-0.056) ng/mL TSH 3rd Generation 3.345 (0.358-3.74) uIU/mL Urine Color (Yellow) Urine Appearance (Clear) Urine pH (5.0-8.0) Ur Specific [place] (1.005-1.030) Urine Protein (Negative) Urine Glucose (UA) (Negative) Urine Ketones (Negative) Urine Occult Blood (Negative) Urine Nitrite (Negative) Urine Bilirubin (Negative) Urine Urobilinogen (0.2-1.0) Ur Leukocyte Esterase (Negative) Urine RBC (0-5) /hpf Urine WBC (0-5) /hpf Ur Epithelial Cells (0-5) /hpf Urine Bacteria (FEW) /hpf Urine Mucus (FEW) /hpf Urine Opiates Screen (NEGATIVE) Ur Buprenorphine Scrn (NEGATIVE) Ur Oxycodone Screen (NEGATIVE) Urine Methadone Screen (NEGATIVE) Ur Propoxyphene Screen (NEGATIVE) Ur Barbiturates Screen (NEGATIVE) Ur Tricyclics Screen (NEGATIVE) Ur Phencyclidine Scrn (NEGATIVE) Ur Amphetamine Screen (NEGATIVE) U Methamphetamines Scrn (NEGATIVE) U Benzodiazepines Scrn (NEGATIVE) U Cocaine Metab Screen (NEGATIVE) U Marijuana (THC) Screen (NEGATIVE) Ethyl Alcohol 0.00 (0.00) gm% 07/19/17 07/19/17 Range/Units 21:23 21:23 WBC (4.23-9.07) K/mm3 RBC (4.63-6.08) M/mm3 Hgb (13.7-17.5) gm/L Hct (40.1-51.0) % MCV (79.0-92.2) fl MCH (25.7-32.2) pg MCHC (32.2-35.5) g/dl RDW Std Deviation (35.1-43.9) fL Plt Count (163-337) K/mm3 MPV (9.4-12.3) fl Neutrophils % (Manual) (40-60) % Band Neutrophils % (0-10) % Lymphocytes % (Manual) (20-40) % Atypical Lymphs % % Monocytes % (Manual) (2-10) % Eosinophils % (Manual) (0.8-7.0) % Basophils % (Manual) (0.2-1.2) Platelet Estimate RBC Morph Comment PT (8.0-13.0) SECONDS INR Troponin I (0.00-0.056) ng/mL TSH 3rd Generation (0.358-3.74) uIU/mL Urine Color Yellow (Yellow) Urine Appearance Clear (Clear) Urine pH 6.0 (5.0-8.0) Ur Specific [place] > or = 1.030 (1.005-1.030) Urine Protein 1+ H (Negative) Urine Glucose (UA) Negative (Negative) Urine Ketones Negative (Negative) Urine Occult Blood Trace-lysed H (Negative) Urine Nitrite Negative (Negative) Urine Bilirubin Negative (Negative) Urine Urobilinogen 0.2 (0.2-1.0) Ur Leukocyte Esterase Negative (Negative) Urine RBC Not seen (0-5) /hpf Urine WBC 0-5 (0-5) /hpf Ur Epithelial Cells 0-5 (0-5) /hpf Urine Bacteria Few (FEW) /hpf Urine Mucus Not seen (FEW) /hpf Urine Opiates Screen Negative (NEGATIVE) Ur Buprenorphine Scrn Negative (NEGATIVE) Ur Oxycodone Screen Negative (NEGATIVE) Urine Methadone Screen Negative (NEGATIVE) Ur Propoxyphene Screen Negative (NEGATIVE) Ur Barbiturates Screen Negative (NEGATIVE) Ur Tricyclics Screen Negative (NEGATIVE) Ur Phencyclidine Scrn Negative (NEGATIVE) Ur Amphetamine Screen Negative (NEGATIVE) U Methamphetamines Scrn Negative (NEGATIVE) U Benzodiazepines Scrn Negative (NEGATIVE) U Cocaine Metab Screen Negative (NEGATIVE) U Marijuana (THC) Screen Negative (NEGATIVE) Ethyl Alcohol (0.00) gm% Meds: Medications Generic Name Dose Route Start Last Admin Trade Name Freq PRN Reason Stop Dose Admin Famotidine 40 mg 07/19/17 22:21 Pepcid PO 07/19/17 22:22 ONETIME ONE Discontinued Medications Generic Name Dose Route Start Last Admin Trade Name Freq PRN Reason Stop Dose Admin Al Hydroxide/Mg Hydroxide 30 0 ml 07/19/17 20:03 07/19/17 20:19 ml/ Lidocaine HCl 15 ml PO 07/19/17 20:04 45 ml ONETIME ONE Administration Lorazepam 1 mg 07/19/17 20:45 07/19/17 20:50 Ativan PO 07/19/17 20:46 1 mg ONETIME ONE Administration Ondansetron HCl 4 mg 07/19/17 20:04 07/19/17 20:19 Zofran Odt PO 07/19/17 20:05 4 mg ONETIME ONE Administration - Re-Assessments/Exams Free Text/Narrative Re-Assessment/Exam: 07/19/17 20:44 Patient had improvement following the GI cocktail he understands that he's given have limited medical options with him be in insistent on going to work tomorrow he is given a milligram of Ativan now and he can use on as-needed basis so long as he is not going to work. 07/19/17 22:22 Patient continues to do well after the GI cocktail he was given 1 mg of Ativan is doing well with this patient needs to go to work tomorrow. Any agrees to follow-up with [facility]. Patient was given 1 mg of Ativan and this is controlling his symptoms. He understands he cannot use this and go to work at the same time he thinks he will be okay. He agrees to return to the emergency room with any questions or problems. Departure - Departure Time of Disposition: 22:23 Disposition: Home, Self-Care 01 Clinical Impression: Anxiety, Dyspepsia, GERD (gastroesophageal reflux disease) Alcohol withdrawal syndrome Qualifiers: Complication of substance-induced condition: with delirium Qualified Code(s): F10.231 - Alcohol dependence with withdrawal delirium - Discharge Information Instructions: Chemical Dependency Additional Instructions: Return to emergency room if any questions problems worsening symptoms. Follow-up with [facility] as soon as you can. Use the Ativan, 1 mg every 6 hours as needed to control symptoms however he need to allow 12 hours after using this medication before driving or returning to work. You have been given 10 of the lorazepam, or Ativan from the machine out in the waiting room. Follow-up in the Hospital clinic if needed by the end of the week [phone] - My Orders Last 24 Hours: My Active Orders 07/19/17 20:02 EKG Documentation Completion [RC] STAT 07/19/17 22:21 Famotidine [Pepcid] 40 mg PO ONETIME ONE - Assessment/Plan Last 24 Hours: My Active Orders 07/19/17 20:02 EKG Documentation Completion [RC] STAT 07/19/17 22:21 Famotidine [Pepcid] 40 mg PO ONETIME ONE
[2017-07-19] MEDS ORDERED: Alum Hydrox/Mag Hydrox/Simeth 30 ML, Lidocaine 2% 15 ML PO ONE ×2 (20:03)
[2017-07-19] MEDS ORDERED: Ondansetron 4 MG Tab.DIS PO ONE (20:04)
[2017-07-19] MEDS ORDERED: LORazepam 1 MG Tab PO ONE (20:45)
[2017-07-19] MEDS ORDERED: Famotidine 20 MG Tab PO ONE (22:21)
== END 2017-07-19 22:30 | disposition home or self-care (01) ==
LOC: JD.ED 19:24
DX: F10.231 Alcohol dependence with withdrawal delirium (principal); F41.9 Anxiety disorder, unspecified; R10.13 Epigastric pain; K21.9 Gastro-esophageal reflux disease without esophagitis; I10 Essential (primary) hypertension; E78.00 Pure hypercholesterolemia, unspecified; F32.9 Major depressive disorder, single episode, unspecified; Z79.899 Other long term (current) drug therapy
CPT/HCPCS: 36415; 80306; 81001; 84443; 84484; 85025; 85610; 93005; 99285; A9270; G0480; 99284

== ENCOUNTER 2017-07-25 21:13 | Inpatient (IN) | payer OTHER ==
[2017-07-25] MEDS ORDERED: HYDROmorphone 0.5 MG/0.5 ML SYRINGE IVPUSH ONE ×2 (21:40→23:22)
[2017-07-25] MEDS ORDERED: Metoclopramide 10 MG/2 ML SDV IVPUSH ONE (21:41)
[2017-07-25] MEDS ORDERED: Sodium Chloride 0.9% 1,000 ML IV SCH (21:45)
--- NOTE | 2017-07-25 21:48 | EDM.PDOC ---
ED HPI GENERAL MEDICAL PROBLEM - General Chief Complaint: Abdominal Pain Stated Complaint: DIVERTICULTIS Time Seen by Provider: 07/25/17 21:43 Source of Information: Reports: Patient History Limitations: Reports: No Limitations - History of Present Illness INITIAL COMMENTS - FREE TEXT/NARRATIVE: 47-year-old male presents to the ED with acute lower abdominal pain. He states for the last 2 days he's had gradually worsening left lower quadrant abdominal pain. He developed watery diarrhea ever since he was on a 10 day course of antibiotics for diverticulitis.he believes this was Amoxil and Flagyl. Finished meds about 10 days ago. Patient apparently by history has had 6 bouts of diverticulitis in the last year. Initial problems or diagnosis of diverticulitis was 5 years ago. He states yesterday he developed significant bleeding bright red per rectum which occurred 3 more times today. Pain is increased in the left lower quadrant to the point that he can barely walk. Painful to ride in the truck today. He went to work out of fear of getting fired as he has missed quite a bit of work due to illness and alchoholism. Feels like he has the flu.Not sure if he has a fever but he is a low-grade fever on exam here. States it is very painful to touch his left lower quadrant of his abdomen to cough or to sneeze. Painfull to get in and out of the truck. Patient did have half a chicken salad for dinner but did not eat any supper tonight. States he has not drank any alcohol for the last 9 days.? However nurses report he was in the ED july 19 acutely intoxicated. Check of the records indicate he was seen in the ED on July 19 and blood alcohol that time was 0.0. He was seeking alcohol detox at that time but was insistent he needed to get to work the next day or he would lose his job. Follow-up with alcohol and drug treatment Counselor Moses Devine. He is interested in the once monthly injection of long-acting Antabuse. He denies any use of street drugs or other substances. Urine drug screen was negative last week. Onset: Gradual (Increasing left lower quadrant abdominal pain over the last 3 days. Associated high-volume dark colored diarrhea stool that became bloody yesterday. No pain with bowel movement.) Onset Date: 03/18/18 (His finished a ten-day course of antibiotics states he did develop diarrhea since that time and it's never cleared up.) Duration: Day(s): Location: Reports: Abdomen (Left lower quadrant of the abdomen.) Quality: Reports: Ache Severity: Severe (Pain is 9 out of 10) Improves with: Reports: Rest Worsens with: Reports: Other (Worse with deep breathing coughing or sneezing for getting in and out of the motor vehicle.), Movement Context: Reports: Other (History of recurrent diverticulitis proven by CT scans on several occasions.). Denies: Activity, Exercise, Lifting, Sick Contact, Trauma Associated Symptoms: Reports: Loss of Appetite, Malaise, Nausea/Vomiting, Weakness, Other (States joints ache today.). Denies: Confusion, Chest Pain, Cough, cough w sputum, Diaphoresis, Fever/Chills, Headaches, Rash (Mild nausea) , Seizure, Shortness of Breath, Syncope Treatments [employer] EX[employer]ENT[employer]IC: Reports: Other (see below) (None.) - Related Data Allergies Allergy/AdvReac Type Severity Reaction Status Date / Time No Known Allergies Allergy Verified 07/25/17 21:20 Home Meds: Home Meds Olmesartan/Amlodipin/Hcthiazid [[id number] 20-5-12.5] 1 tab PO DAILY [History] Tadalafil [Cialis] 10 mg PO ASDIRECTED 07/09/17 [History] Past Medical History HEENT History: Reports: Impaired Vision Cardiovascular History: Reports: High Cholesterol, Hypertension Respiratory History: Reports: Sleep Apnea Other Respiratory History: uses CPAP at home Gastrointestinal History: Reports: Diverticulosis Genitourinary History: Reports: Other (See Below) Other Genitourinary History: impotence Musculoskeletal History: Reports: Fracture Neurological History: Reports: Brain Injury, Seizure Other Neuro History: 2001 head injury. Seizures as a child - out grew age 12. Psychiatric History: Reports: Addiction, Depression, Suicidal Ideation Other Psychiatric History: Alcohol Endocrine/Metabolic History: Reports: Obesity/BMI 30+ - Infectious Disease History Infectious Disease History: Reports: Chicken Pox - Past Surgical History GI Surgical History: Reports: Cholecystectomy Musculoskeletal Surgical History: Reports: Carpal Tunnel, ORIF Dermatological Surgical History: Reports: None Social & Family History - Family History Family Medical History: Noncontributory Cardiac: Reports: [place] Endocrine/Metabolic: Reports: Diabetes, type II Oncologic: Reports: Lung - Tobacco Use Smoking Status *Q: Unknown Ever Smoked Second Hand Smoke Exposure: No - Caffeine Use Caffeine Use: Reports: Coffee Other Caffeine Use: 2 cups 2-3 times a week - Alcohol Use Days Per Week of Alcohol Use: 7 Number of Drinks Per Day: 10 Total Drinks Per Week: 70 - Recreational Drug Use Recreational Drug Use: No Drug Use in Last 12 Months: No Recreational Drug Type: Reports: Cocaine (last 2002), Marijuana/Hashish (last 2013) Recreational Drug Use Frequency: Not Used In Over 6 Months - Living Situation & Occupation Living situation: Reports: , Alone 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 Denies: Fever, Chills HEENT: Reports: No Symptoms Respiratory: Reports: No Symptoms Cardiovascular: Reports: No Symptoms Endocrine: Reports: Fatigue GI/Abdominal: Reports: Abdominal Pain, Diarrhea (See history of present illness well localized to the left lower quadrant of the abdomen. History of recurrent diverticulitis. Bloody diarrhea the last 2 days. After this it was dark in color but not bloody), Decreased Appetite, Nausea (Mild nausea). Denies: Stool Incontinence, Vomiting : Reports: No Symptoms (Today.) Musculoskeletal: Reports: Joint Pain (Everything aches knees hips lower back) Skin: Reports: No Symptoms Neurological: Reports: No Symptoms Psychiatric: Reports: No Symptoms Hematologic/Lymphatic: Reports: No Symptoms Immunologic: Reports: No Symptoms ED EXAM, GI/ABD - Physical Exam Exam: See Below Exam Limited By: No Limitations General Appearance: Alert, WD/WN, Anxious (Came prepared to stay in the hospital as he feels too ill to navigate at home. He is hoping to get a colonoscopy done and definitive management of recurrent diverticulitis.), Moderate Distress Throat/Mouth: Normal Inspection, Normal Lips, Normal Teeth, Normal Oropharynx Head: Atraumatic, Normocephalic Neck: Normal Inspection, Supple, Non-Tender, Full Range of Motion. No: Lymphadenopathy (L), Lymphadenopathy (R) Respiratory/Chest: No Respiratory Distress, Lungs Clear, Normal Breath Sounds, No Accessory Muscle Use Cardiovascular: Normal Peripheral Pulses, Regular Rate, Rhythm, No Edema, No Gallop, No Murmur GI/Abdominal Exam: Normal Bowel Sounds, No Organomegaly, Distended (Is diffusely distended and slightly tympanitic to percussion. Still passing flatus. ), Guarding (Left lower quadrant of the abdomen left lower quadrant of the abdomen), Rebound, Tender, Other (Clinically has an acute abdomen with peritonitis localized to the left lower quadrant.) (Male) Exam: No Hernia Back Exam: Normal Inspection, Full Range of Motion. No: CVA Tenderness (L), CVA Tenderness (R) Extremities: Normal Inspection, Normal Range of Motion, Non-Tender, No Pedal Edema Neurological: Alert, Oriented, CN II-XII Intact, Normal Cognition Psychiatric: Normal Affect, Normal Mood Skin Exam: Warm, Dry, Intact, Normal Color, No Rash Course - Vital Signs Last Recorded V/S: Last Vital Signs Temp 37.2 C 07/25/17 21:20 Pulse 95 07/25/17 21:20 Resp 18 07/25/17 21:20 BP 127/80 07/25/17 21:20 Pulse Ox 97 07/25/17 21:20 - Orders/Labs/Meds Orders: Active Orders 24 hr Category Date Time Status Abdomen 1V Flat [CR] Stat Exams 07/25/17 21:41 Taken Abdomen Pelvis w Cont [CT] Stat Exams 07/25/17 22:14 Taken Sodium Chloride 0.9% [Normal Saline] 1,000 ml Med 07/25/17 21:45 Active IV ASDIRECTED Medication Orders Sodium Chloride (Normal Saline) 1,000 mls @ 200 mls/hr IV ASDIRECTED SAM Last Admin: 07/25/17 21:50 Dose: 200 mls/hr Labs: Laboratory Tests 07/25/17 07/25/17 07/25/17 Range/Units 21:45 21:45 21:45 WBC 12.70 H (4.23-9.07) K/mm3 RBC 4.30 L (4.63-6.08) M/mm3 Hgb 13.5 L (13.7-17.5) gm/L Hct 38.3 L (40.1-51.0) % MCV 89.1 (79.0-92.2) fl MCH 31.4 (25.7-32.2) pg MCHC 35.2 (32.2-35.5) g/dl RDW Std Deviation 42.0 (35.1-43.9) fL Plt Count 165 (163-337) K/mm3 MPV 10.4 (9.4-12.3) fl Neutrophils % (Manual) 73 H (40-60) % Band Neutrophils % 1 (0-10) % Lymphocytes % (Manual) 13 L (20-40) % Atypical Lymphs % 0 % Monocytes % (Manual) 8 (2-10) % Eosinophils % (Manual) 4 (0.8-7.0) % Basophils % (Manual) 1 (0.2-1.2) Toxic Granulation 2+ moderate Platelet Estimate Adequate Plt Morphology Comment Normal RBC Morph Comment Normal ESR 22 H (0-15) mm/hr Sodium 136 (136-145) mEq/L Potassium 3.8 (3.5-5.1) mEq/L Chloride 99 (98-107) mEq/L Carbon Dioxide 26 (21-32) mEq/L Anion Gap 14.8 (5-15) BUN 26 H (7-18) mg/dL Creatinine 1.2 (0.7-1.3) mg/dL Est Cr Clr Drug Dosing 78.58 mL/min Estimated GFR (MDRD) > 60 (>60) mL/min BUN/Creatinine Ratio 21.7 H (14-18) Glucose 92 (74-106) mg/dL Calcium 9.4 (8.5-10.1) mg/dL Magnesium 1.4 L (1.8-2.4) mg/dl Total Bilirubin 0.8 (0.2-1.0) mg/dL AST 41 H (15-37) U/L ALT 67 H (16-63) U/L Alkaline Phosphatase 79 (46-116) U/L C-Reactive Protein 2.5 H* (<1.0) mg/dL Total Protein 7.9 (6.4-8.2) g/dl Albumin 4.3 (3.4-5.0) g/dl Globulin 3.6 gm/dL Albumin/Globulin Ratio 1.2 (1-2) Lipase 116 (73-393) U/L Urine Color (Yellow) Urine Appearance (Clear) Urine pH (5.0-8.0) Ur Specific [place] (1.005-1.030) Urine Protein (Negative) Urine Glucose (UA) (Negative) Urine Ketones (Negative) Urine Occult Blood (Negative) Urine Nitrite (Negative) Urine Bilirubin (Negative) Urine Urobilinogen (0.2-1.0) Ur Leukocyte Esterase (Negative) Urine RBC (0-5) /hpf Urine WBC (0-5) /hpf Ur Epithelial Cells (0-5) /hpf Urine Bacteria (FEW) /hpf Urine Mucus (FEW) /hpf C.difficile [id number] C. difficile Tox (PCR) 07/25/17 07/25/17 Range/Units 22:50 23:30 WBC (4.23-9.07) K/mm3 RBC (4.63-6.08) M/mm3 Hgb (13.7-17.5) gm/L Hct (40.1-51.0) % MCV (79.0-92.2) fl MCH (25.7-32.2) pg MCHC (32.2-35.5) g/dl RDW Std Deviation (35.1-43.9) fL Plt Count (163-337) K/mm3 MPV (9.4-12.3) fl Neutrophils % (Manual) (40-60) % Band Neutrophils % (0-10) % Lymphocytes % (Manual) (20-40) % Atypical Lymphs % % Monocytes % (Manual) (2-10) % Eosinophils % (Manual) (0.8-7.0) % Basophils % (Manual) (0.2-1.2) Toxic Granulation Platelet Estimate Plt Morphology Comment RBC Morph Comment ESR (0-15) mm/hr Sodium (136-145) mEq/L Potassium (3.5-5.1) mEq/L Chloride (98-107) mEq/L Carbon Dioxide (21-32) mEq/L Anion Gap (5-15) BUN (7-18) mg/dL Creatinine (0.7-1.3) mg/dL Est Cr Clr Drug Dosing mL/min Estimated GFR (MDRD) (>60) mL/min BUN/Creatinine Ratio (14-18) Glucose (74-106) mg/dL Calcium (8.5-10.1) mg/dL Magnesium (1.8-2.4) mg/dl Total Bilirubin (0.2-1.0) mg/dL AST (15-37) U/L ALT (16-63) U/L Alkaline Phosphatase (46-116) U/L C-Reactive Protein (<1.0) mg/dL Total Protein (6.4-8.2) g/dl Albumin (3.4-5.0) g/dl Globulin gm/dL Albumin/Globulin Ratio (1-2) Lipase (73-393) U/L Urine Color Yellow (Yellow) Urine Appearance Clear (Clear) Urine pH 5.5 (5.0-8.0) Ur Specific [place] > or = 1.030 (1.005-1.030) Urine Protein Negative (Negative) Urine Glucose (UA) Negative (Negative) Urine Ketones Negative (Negative) Urine Occult Blood Negative (Negative) Urine Nitrite Negative (Negative) Urine Bilirubin Negative (Negative) Urine Urobilinogen 0.2 (0.2-1.0) Ur Leukocyte Esterase Negative (Negative) Urine RBC 0-5 (0-5) /hpf Urine WBC 0-5 (0-5) /hpf Ur Epithelial Cells 0-5 (0-5) /hpf Urine Bacteria Few (FEW) /hpf Urine Mucus Few (FEW) /hpf C.difficile [id number] Presumptive negative C. difficile Tox (PCR) Positive H Meds: Medications Generic Name Dose Route Start Last Admin Trade Name Freq PRN Reason Stop Dose Admin Sodium Chloride 1,000 mls @ 200 mls/hr 07/25/17 21:45 07/25/17 21:50 Normal Saline IV 200 mls/hr ASDIRECTED SAM Administration Discontinued Medications Generic Name Dose Route Start Last Admin Trade Name Freq PRN Reason Stop Dose Admin Diatrizoate Meglum/Diatrizoate Sod 90 ml 07/25/17 23:13 07/25/17 23:54 Gastrografin 37% PO 07/25/17 23:14 90 ml ONETIME ONE Administration Hydromorphone HCl 1 mg 07/25/17 21:40 07/25/17 21:50 Dilaudid IVPUSH 07/25/17 21:41 1 mg ONETIME ONE Administration Hydromorphone HCl 1 mg 07/25/17 23:22 07/25/17 23:28 Dilaudid IVPUSH 07/25/17 23:23 1 mg ONETIME ONE Administration Hydromorphone HCl 1 mg 07/26/17 01:12 07/26/17 01:23 Dilaudid IVPUSH 07/26/17 01:13 1 mg ONETIME ONE Administration Metronidazole 500 mg/ Premix 100 mls @ 100 mls/hr 07/25/17 22:15 07/25/17 22: 20 IV 07/25/17 23:14 100 mls/hr ONETIME ONE Administration Magnesium Sulfate 2 gm/ Premix 50 mls @ 25 mls/hr 07/25/17 22:57 07/25/17 23: 24 IV 07/26/17 00:56 25 mls/hr ONETIME ONE Administration Levofloxacin/Dextrose 750 mg/ 150 mls @ 100 mls/hr 07/25/17 23:59 Premix IV 07/26/17 01:28 ONETIME ONE Iopamidol 125 ml 07/25/17 23:13 07/25/17 23:54 Isovue-300 (61%) IVPUSH 07/25/17 23:14 125 ml ONETIME ONE Administration Lorazepam 1 mg 07/26/17 01:12 07/26/17 01:23 Ativan IVPUSH 07/26/17 01:13 1 ml ONETIME ONE Administration Metoclopramide HCl 10 mg 07/25/17 21:41 07/25/17 21:50 Reglan IVPUSH 07/25/17 21:42 10 mg ONETIME ONE Administration - Radiology Interpretation Free Text/Narrative:: 47-year-old male presents to the ED with diffuse left lower quadrant abdominal pain. Patient states he just finished a ten-day course of antibiotics for suspect diverticulitis a week ago. On recheck he was doing well although he felt he wasn't much improved. He has developed watery dark diarrhea since the time of antibiotic usage suggesting possibility of C. difficile enteritis. Over the last 2 and half days she's developed increasing left lower quadrant abdominal pain that worsened today with very sharp stabbing pain. 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 Appetite has dissipated with last meal at dinner today. Had one loose bloody stool about 1:00 today nothing since. Still passing flatus per rectum. He's able to localize the pain very well to the left lower quadrant of the abdomen. On my assessment he has scattered few by bowel sounds. Abdomen is mildly distended and tibia to percussion. He is tender to percussion left lower quadrant and acutely tender with evidence of acute abdomen peritonitis left lower quadrant. Has rebound tenderness and guarding. Plan 1 view of the abdomen will be done to rule out free air which would mandate immediate surgery. If this is normal he will of CT of the abdomen with oral and IV contrast. Routine labs to be collected meantime. IV will be normal saline at 200 mils per hour. Will give Dilaudid 1 mg IV and Reglan 10 mg IV for pain relief. - Re-Assessments/Exams Free Text/Narrative Re-Assessment/Exam: 07/25/17 22:15 1 view the abdomen reveals no free air. No sign of bowel obstruction. Will therefore proceed with CT of the abdomen and pelvis with oral and IV contrast. Labs are pending. Will start him on Flagyl 500 mg intravenously at this time. Reports pain is tolerable at this time. 07/25/17 22:47 Labs are back. White count is elevated at 12.70 with 73% neutrophils and 1% bands reported. Hemoglobin is 13.5 with hematocrit of 38.3. Platelet count 165,000. Sedimentation rate was 22. Sodium is 136 with a potassium of 3.8. Chloride is 99 with bicarbonate 26. And a gap is 14.8. BUNs mildly elevated at 26 with a creatinine of 1.2. GFR remains greater than 60. Glucose is 92. Calcium is 9.4 magnesium is low at 1.4. Total bilirubin 0.8. AST is 41 ALT is 67. Alkaline phosphatase normal at 79. C-reactive protein is 2.5. Lipase normal at 116. Magnesium level is a little on the low side. This puts him at a little bit higher risk of alcohol withdrawal symptoms. Will give 2 g of magnesium sulfate intravenously after the Flagyl is completed 07/25/17 23:23 patient is starting to have more pain. Likely due to contrast traversing his colon. Will repeat Dilaudid 1 mg IV. 07/26/17 00:00 CT of the abdomen and pelvis has been completed. Visualized portions of the distal lungs appear normal. Cardiac silhouette is normal. Liver is normal. Gallbladder is absent with surgical clips present in the gallbladder fossa. Pancreas appears normal. Both kidneys appear normal with normal ureters. Small bowel appears to be normal stomach is filled with contrast and appears normal. There is an area of diverticulitis of the superior aspect of the sigmoid colon near the junction with the descending colon. There is surrounding inflammatory infiltrate without any phlegmon or abscess. Free air is evident. Will add Levaquin 750 mg IV to his treatment. Plan will be to tentatively admit him to hospital for IV antibiotic therapy. 07/26/17 00:54 spoke with bank consultant hospitalist Dr. Avelar and the patient will be admitted to the [facility] surgery floor on telemetry. I will write the bridge orders to facilitate admission. 07/26/17 01:26 Stool sample is positive for C. difficile enteritis toxin. This test came back after had spoken with Dr. Avelar. This would be a better explanation of his chronic diarrhea since finishing course of Amoxil and Flagyl 10 days ago. Patient will be admitted to the hospital with contact isolation. Departure - Departure Time of Disposition: 01:22 Disposition: Admitted As Inpatient 66 Condition: Fair Clinical Impression: Enteritis due to Clostridium difficile, Hypomagnesemia, History of alcohol abuse Diverticulitis large intestine Qualifiers: Diverticulitis bleeding: with bleeding Diverticulitis complication: without perforation or abscess Qualified Code(s): K57.33 - Diverticulitis of large intestine without perforation or abscess with bleeding - Discharge Information - My Orders Last 24 Hours: My Active Orders 07/25/17 21:41 Abdomen 1V Flat [CR] Stat 07/25/17 21:45 Sodium Chloride 0.9% [Normal Saline] 1,000 ml IV ASDIRECTED 07/25/17 22:14 Abdomen Pelvis w Cont [CT] Stat - Assessment/Plan Last 24 Hours: My Active Orders 07/25/17 21:41 Abdomen 1V Flat [CR] Stat 07/25/17 21:45 Sodium Chloride 0.9% [Normal Saline] 1,000 ml IV ASDIRECTED 07/25/17 22:14 Abdomen Pelvis w Cont [CT] Stat
[2017-07-25] MEDS ORDERED: metroNIDAZOLE/Normal Saline 500 MG in Premix Bag 1 BAG IV ONE (22:15)
[2017-07-25] MEDS ORDERED: Magnesium Sulfate/Water 2 GM in Premix Bag 1 BAG IV ONE (22:57)
[2017-07-25] MEDS ORDERED: Diatrizoate Meglumine/Diatrizoate Sodium 37% 120 ML Bottle PO ONE (23:13)
[2017-07-25] MEDS ORDERED: Iopamidol 612 MG/ML 150 ML Bottle IVPUSH ONE (23:13)
[2017-07-25] MEDS ORDERED: Levofloxacin/Dextrose 5%-Water 750 MG in Premix Bag 1 BAG IV ONE (23:59)
[2017-07-26] MEDS ORDERED: LORazepam 2 MG/ML SDV IVPUSH ONE (01:12)
[2017-07-26] MEDS ORDERED: HYDROmorphone 0.5 MG/0.5 ML SYRINGE IVPUSH ONE (01:12)
[2017-07-26] MEDS ORDERED: Metoclopramide 10 MG/2 ML SDV IVPUSH PRN (02:48)
--- NOTE | 2017-07-26 06:49 | CR ---
Abdomen: Supine view of the abdomen was obtained. Comparison: Previous abdominal x-ray of 03/17/16. Intramedullary elia partially visualized within the right femur. Surgical clips are noted from prior cholecystectomy. Bowel gas pattern shows slightly prominent air-filled small bowel loops within the upper abdomen possibly due to slight ileus. Bowel gas pattern is otherwise unremarkable. Bony structures show mild degenerative endplate spurring. Impression: 1. Several slightly prominent air-filled loops of small bowel most likely representing ileus. 2. Other incidental findings. Diagnostic code #2
--- NOTE | 2017-07-26 06:59 | PCM.HP ---
<Ira Avelar T - Last Filed: 07/26/17 06:59> H&P History of Present Illness - General Date of Service: 07/26/17 Admit Problem/Dx: Admission Diagnosis/Problem Admission Diagnosis/Problem Diverticulitis large intestine w/o perforation or abscess w/bleeding Source of Information: Patient, Lead Investigator, Old Records, Provider, RN Notes Reviewed History Limitations: Reports: No Limitations - Related Data Allergies/Adverse Reactions: Allergies Allergy/AdvReac Type Severity Reaction Status Date / Time No Known Allergies Allergy Verified 07/25/17 21:20 Home Medications: Home Meds Olmesartan/Amlodipin/Hcthiazid [[id number]-[id number]-Hhfp 20-5-12.5] 1 tab PO DAILY [History] Tadalafil [Cialis] 10 mg PO ASDIRECTED 07/09/17 [History] Past Medical History HEENT History: Reports: Impaired Vision Cardiovascular History: Reports: High Cholesterol, Hypertension Respiratory History: Reports: Sleep Apnea Other Respiratory History: uses CPAP at home Gastrointestinal History: Reports: Diverticulosis Genitourinary History: Reports: Other (See Below) Other Genitourinary History: impotence Musculoskeletal History: Reports: Fracture Neurological History: Reports: Brain Injury, Seizure Other Neuro History: 2001 head injury. Seizures as a child - out grew age 12. Psychiatric History: Reports: Addiction, Depression, Suicidal Ideation Other Psychiatric History: Alcohol Endocrine/Metabolic History: Reports: Obesity/BMI 30+ - Infectious Disease History Infectious Disease History: Reports: C-Difficile - Past Surgical History GI Surgical History: Reports: Cholecystectomy Musculoskeletal Surgical History: Reports: Carpal Tunnel, ORIF Dermatological Surgical History: Reports: None Social & Family History - Family History Family Medical History: Noncontributory Cardiac: Reports: [place] Endocrine/Metabolic: Reports: Diabetes, type II Oncologic: Reports: Lung - Tobacco Use Smoking Status *Q: Never Smoker Second Hand Smoke Exposure: No - Caffeine Use Caffeine Use: Reports: Coffee Other Caffeine Use: 2 cups 2-3 times a week - Alcohol Use Days Per Week of Alcohol Use: 7 Number of Drinks Per Day: 10 Total Drinks Per Week: 70 - Recreational Drug Use Recreational Drug Use: No Drug Use in Last 12 Months: No Recreational Drug Type: Reports: Cocaine (last 2002), Marijuana/Hashish (last 2013) Recreational Drug Use Frequency: Not Used In Over 6 Months - Living Situation & Occupation Living situation: Reports: , Alone 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) H&P Review of Systems - Review of Systems: Review Of Systems: See Below Exam - Exam Exam: See Below - Vital Signs Vital Signs: Last Vital Signs Temp 36.8 C 07/26/17 04:23 Pulse 87 07/26/17 04:26 Resp 18 07/26/17 04:23 BP 90/53 L 07/26/17 04:23 Pulse Ox 96 07/26/17 04:26 Weight: 252 lb 4.8 oz - Patient Data Result Diagrams: 07/25/17 21:45 07/25/17 21:45 *Q Meaningful Use (ADM) - VTE *Q VTE Criteria *Q: - Stroke *Q Stroke Criteria *Q: - AMI *Q AMI Criteria *Q: Orders Last 24hrs: Active Orders 24 hr Category Date Time Status Up With Assistance [RC] ASDIRECTED Care 07/26/17 02:48 Active Clear Liquid Diet [DIET] Diet 07/26/17 Breakfast Active D5 1/2 NS w/ 20 mEq/L KCl 1,000 ml Med 07/26/17 04:00 Active IV ASDIRECTED Meperidine [Demerol] Med 07/26/17 02:48 Active 75 mg IV Q3HR PRN Metoclopramide [Reglan] Med 07/26/17 02:48 Active 10 mg IVPUSH Q6H PRN Sodium Chloride 0.9% [Normal Saline] 1,000 ml Med 07/26/17 02:45 Active IV ASDIRECTED metroNIDAZOLE/Normal Saline [Flagyl 500 MG in NS 100 ML Med 07/26/17 06:00 Active ] 500 mg Premix Bag 1 bag IV Q8H Resuscitation Status Routine Resus Stat 07/26/17 02:48 Ordered Medication Orders Potassium Chloride/Dextrose/Sod Cl (D5 1/2 Ns W/ 20 Meq/L Kcl) 1,000 mls @ 125 mls/hr IV ASDIRECTED [facility] Sodium Chloride (Normal Saline) 1,000 mls @ 125 mls/hr IV ASDIRECTED [facility] Metronidazole 500 mg/ Premix 100 mls @ 100 mls/hr IV Q8H [facility] Meperidine HCl (Demerol) 75 mg IV Q3HR PRN PRN Reason: pain Metoclopramide HCl (Reglan) 10 mg IVPUSH Q6H PRN PRN Reason: nausea <Partha Calvin - Last Filed: 07/26/17 12:52> H&P History of Present Illness - General Admit Problem/Dx: Admission Diagnosis/Problem Admission Diagnosis/Problem Diverticulitis large intestine w/o perforation or abscess w/bleeding Source of Information: Patient, Old Records, Provider, RN, RN Notes Reviewed History Limitations: Reports: No Limitations - History of Present Illness Initial Comments - Free Text/Narative: Alexandre Lopez is a 47 yo male who presented to our ED last night (07/25/17) wwith sudden onset lower abdominal pain. He states the pain has been ongoing for the past 2 days it has been worsening It is primarily in his left lower quadrant. He's also had watery diarrhea. He was recently on a 10 day course of antibiotics for diverticulitis, which he believes was Amoxil and Flagyl. he reportedly finished this course about 10 days ago. Reports 6 bouts of diverticulitis in the past year. Reports havingan initial diagnosis of diverticulitis approximately 5 years prior. Patient states yesterday he had a very significant bout of bright red blood per rectum. This continued to occur. The pain issevere he has difficulty walking. Reportedly has difficulty eating with appetite. Reportedly has not drank any alcohol for the last 9 days. Old records show he came to the ED on July 19 needing assistance with detoxing and his DOMENICA at that time was 0.00. Reportedly sees alcohol and drug treatment counselor Moses Devine regularly. denies any use of street drugs or other substances. Urine drug screen that was performed last week was negative. In the ED temp was 37.2C. Pulse 95. Respirations 18. Blood pressure 127/80. Pulse ox 97%. Labs were obtained:CBC was elevated at 12.7. Hemoglobin low at 13.5. Hematocrit low at 30.3. He is normocytic. Pulse regular 165,000. Neutrophils were elevated at 73%. There is 1% band neutrophils. ESR was elevated at 22. Sodium was 136. Potassium 3.8. Chloride 99. Carbon dioxide 26. Anion gap was 14.8. BUN was 26. Creatinine 1.2. EGFR greater than 60. Closely 92. Calcium 9.4. Magnesium was quite low 1.4. bbilirubin 0.8. AST is 41, ALT 67, alkaline phosphatase 79. CRP is 2.5. Protein 7.9. Albumin 4.3. Lipase is good at 116. UA was negative, however his urine is quite concentrated. C. difficile toxin by PCR is found to be positive. He started on IV fluids and given Dilaudid for pain. Metronidazole was also initiated. 2 g bag of mag was started. He was given Soma 50 mg Levaquin. 1 mg ativan was started and 1 mg Reglan was pushed. Chest x-rays obtained and interpreted by Dr. Roe as "1. Several slightly prominent air-filled loops of small bowel most likely representing ileus. 2. Other incidental findings." CT the abdomen and pelvis is obtained and interpreted by Dr. Roe as "findings compatible with diverticat the junction of the descending and sigmoid regions. This finding is interval change from previous exam. 2. Other incidental findings as noted." Of note his liver does have mild fatty in. He also has a small fat-containing umbilical hernia. He carries history of: HLD, HTN, sleep apnea with CPAP use at home, diverticulosis, brain injuryresulting in seizures as a child which he grew out of at age 12. He also has a history ofalcohol addiction, depression, suicidal ideation, obesity, cholecystectomy. He also has a history of cocaine and marijuana use, which he has not used in several years. He subsequent admitted to the medical floor. He is a full code. His PCP is Dr. Johnson here at [facility]. Left Lower Abdomen Pain Score (Numeric/FACES): 4 H&P Review of Systems - Review of Systems: Review Of Systems: See Below General: Reports: Malaise, Weakness, Decreased Appetite. Denies: Fever, Chills , Diaphoresis, Weight Loss HEENT: Reports: No Symptoms Pulmonary: Reports: No Symptoms. Denies: Shortness of Breath, Pleuritic Chest Pain, Cough, Sputum Cardiovascular: Reports: No Symptoms. Denies: Chest Pain, Dyspnea on Exertion, Edema, Blood Pressure Problem Gastrointestinal: Reports: Abdominal Pain, Diarrhea, Decreased Appetite, Flatus , Hematochezia. Denies: Constipation, Hematemesis, Nausea, Vomiting Genitourinary: Reports: No Symptoms Musculoskeletal: Reports: Joint Pain (chronic generalized ) Skin: Reports: No Symptoms Psychiatric: Reports: Anxiety Neurological: Reports: No Symptoms Hematologic/Lymphatic: Reports: No Symptoms Immunologic: Reports: No Symptoms Exam - Exam Exam: See Below - Vital Signs Vital Signs: Last Vital Signs Temp 99.1 F 07/26/17 08:03 Pulse 90 07/26/17 08:03 Resp 20 07/26/17 08:03 BP 114/52 L 07/26/17 08:03 Pulse Ox 93 L 07/26/17 08:03 - Exam Quality Assessment: DVT Prophylaxis General: Alert, Oriented, Cooperative, Mild Distress (especially with movement ) HEENT: PERRLA, Hearing Intact, Mucosa Moist & [place], Nares Patent, Normal Nasal Septum, Posterior Pharynx Clear, Conjunctiva Clear, EOMI, EACs Clear, TMs Clear Neck: Supple, Trachea Midline. No: JVD Lungs: Clear to Auscultation, Normal Respiratory Effort Cardiovascular: Regular Rate, Regular Rhythm GI/Abdominal Exam: Soft, Guarding, Tender, Abnormal Bowel Sounds (hyperactive ) . No: Distended (Male) Exam: Deferred Rectal (Males) Exam: Deferred Back Exam: Normal Inspection, Full Range of Motion Extremities: Normal Inspection, Normal Range of Motion, Non-Tender, No Pedal Edema, Normal Capillary Refill Peripheral Pulses: 3+: Radial (L), Radial (R), Posterior Tibial (L), Posterior Tibial (R), Dorsalis Pedis (L), Dorsalis Pedis (R) Skin: Warm, Dry, Intact Neurological: Cranial Nerves Intact (grossly ) Neuro Extensive - Mental Status: Alert, Oriented x3, Normal Cognition Psychiatric: Alert, Normal Affect, Anxious - Patient Data Result Diagrams: 07/25/17 21:45 07/25/17 21:45 *Q Meaningful Use (ADM) - VTE *Q VTE Criteria *Q: - Stroke *Q Stroke Criteria *Q: - AMI *Q AMI Criteria *Q: - Problem List (1) Diverticulitis large intestine SNOMED Code(s): 7903731 ICD Code: K57.32 - DVTRCLI OF LG INT W/O PERFORATION OR ABSCESS W/O BLEEDING Status: Acute Priority: High Current Visit: Yes Qualifiers: Diverticulitis bleeding: with bleeding Diverticulitis complication: without perforation or abscess Qualified Code(s): K57.33 - Diverticulitis of large intestine without perforation or abscess with bleeding (2) Enteritis due to Clostridium difficile SNOMED Code(s): 823727268 ICD Code: A04.72 - ENTEROCOLITIS D/T CLOSTRIDIUM DIFFICILE, NOT SPCF RECUR Status: Acute Priority: High Current Visit: Yes (3) History of alcohol abuse SNOMED Code(s): 463791646 ICD Code: Z87.898 - PERSONAL HISTORY OF OTHER SPECIFIED CONDITIONS Status: Chronic Priority: Medium Current Visit: No (4) Hypomagnesemia SNOMED Code(s): 991024791 ICD Code: E83.42 - HYPOMAGNESEMIA Status: Acute Priority: High Current Visit: Yes (5) Abdominal pain SNOMED Code(s): 39279934 ICD Code: R10.9 - UNSPECIFIED ABDOMINAL PAIN Status: Acute Priority: High Current Visit: Yes Qualifiers: Abdominal location: left lower quadrant Qualified Code(s): R10.32 - Left lower quadrant pain (6) GERD (gastroesophageal reflux disease) SNOMED Code(s): 618015373 ICD Code: K21.9 - GASTRO-ESOPHAGEAL REFLUX DISEASE WITHOUT ESOPHAGITIS Status: Chronic Priority: Low Current Visit: No Qualifiers: Esophagitis presence: esophagitis presence not specified Qualified Code(s) : K21.9 - Gastro-esophageal reflux disease without esophagitis (7) Obesity (BMI 30-39.9) SNOMED Code(s): 493775985 ICD Code: E66.9 - OBESITY, UNSPECIFIED Status: Chronic Priority: Low Current Visit: No (8) Anxiety SNOMED Code(s): 82354361 ICD Code: F41.9 - ANXIETY DISORDER, UNSPECIFIED Status: Acute Priority: Medium Current Visit: Yes (9) Hypertension SNOMED Code(s): 75013065 ICD Code: I10 - ESSENTIAL (PRIMARY) HYPERTENSION Status: Chronic Priority : Medium Current Visit: No Qualifiers: Hypertension type: essential hypertension Qualified Code(s): I10 - Essential (primary) hypertension (10) Sleep apnea SNOMED Code(s): 89651633 ICD Code: G47.30 - SLEEP APNEA, UNSPECIFIED Status: Chronic Priority: Medium Current Visit: No Problem Details: Home CPAP Qualifiers: Sleep apnea type: unspecified type Qualified Code(s): G47.30 - Sleep apnea , unspecified Problem List Initiated/Reviewed/Updated: Yes Orders Last 24hrs: Active Orders 24 hr Category Date Time Status Ambulate [RC] ASDIRECTED Care 07/26/17 11:38 Active Ambulate [RC] PER UNIT ROUTINE Care 07/26/17 11:39 Active Antiembolic Devices [RC] PER UNIT ROUTINE Care 07/26/17 09:55 Active Height and Weight [RC] DAILY Care 07/26/17 11:38 Active Intake and Output [RC] QSHIFT Care 07/26/17 11:39 Active Notify Provider Consults [RC] ASDIRECTED Care 07/26/17 08:01 Active Oxygen Therapy [RC] PRN Care 07/26/17 11:38 Active Pulse Oximetry [RC] PRN Care 07/26/17 11:39 Active Up With Assistance [RC] ASDIRECTED Care 07/26/17 02:48 Active VTE/DVT Education [RC] PER UNIT ROUTINE Care 07/26/17 11:38 Active Vital Signs [RC] Q4H Care 07/26/17 11:38 Active Consult to Physician [CONS] Routine Cons 07/26/17 08:01 Active Clear Liquid Diet [DIET] Diet 07/26/17 Breakfast Active Acetaminophen [Tylenol] Med 07/26/17 11:38 Active 650 mg PO Q4H PRN Acetaminophen/HYDROcodone [[place] 325-5 MG] Med 07/26/17 11:38 Active 1 tab PO Q4H PRN D5 1/2 NS w/ 20 mEq/L KCl 1,000 ml Med 07/26/17 04:00 Active IV ASDIRECTED Meperidine [Demerol] Med 07/26/17 02:48 Active 75 mg IV Q3HR PRN Metoclopramide [Reglan] Med 07/26/17 02:48 Active 10 mg IVPUSH Q6H PRN Ondansetron [Zofran ODT] Med 07/26/17 11:38 Active 4 mg PO Q6H PRN Ondansetron [Zofran] Med 07/26/17 11:38 Active 4 mg IV Q6H PRN Sodium Chloride 0.9% [Normal Saline] 1,000 ml Med 07/26/17 02:45 Active IV ASDIRECTED Vancomycin [First-Vancomycin 50 Compounding Kit] Med 07/26/17 09:00 Active 125 mg PO QID metroNIDAZOLE/Normal Saline [Flagyl 500 MG in NS 100 ML Med 07/26/17 06:00 Active ] 500 mg Premix Bag 1 bag IV Q8H Isolation [COMM] Routine Oth 07/26/17 07:47 Ordered SHANTANU Hose [Antiembolic Hose] [OM.PC] Routine Oth 07/26/17 09:55 Ordered Resuscitation Status Routine Resus Stat 07/26/17 02:48 Ordered Medication Orders Acetaminophen (Tylenol) 650 mg PO Q4H PRN PRN Reason: Pain (Mild 1-3)/fever Hydrocodone Bitart/Acetaminophen ([place] 325-5 Mg) 1 tab PO Q4H PRN PRN Reason: Pain (moderate 4-6) Potassium Chloride/Dextrose/Sod Cl (D5 1/2 Ns W/ 20 Meq/L Kcl) 1,000 mls @ 125 mls/hr IV ASDIRECTED [facility] Last Admin: 07/26/17 07:12 Dose: 125 mls/hr Sodium Chloride (Normal Saline) 1,000 mls @ 125 mls/hr IV ASDIRECTED [facility] Metronidazole 500 mg/ Premix 100 mls @ 100 mls/hr IV Q8H [facility] Last Admin: 07/26/17 07:08 Dose: 100 mls/hr Meperidine HCl (Demerol) 75 mg IV Q3HR PRN PRN Reason: pain Last Admin: 07/26/17 10:29 Dose: 75 mg Admin: 07/26/17 07:31 Dose: 75 mg Metoclopramide HCl (Reglan) 10 mg IVPUSH Q6H PRN PRN Reason: nausea Ondansetron HCl (Zofran Odt) 4 mg PO Q6H PRN PRN Reason: nausea, able to take PO Ondansetron HCl (Zofran) 4 mg IV Q6H PRN PRN Reason: Nausea/Vomiting Vancomycin HCl (First-Vancomycin 50 Compounding Kit) 125 mg PO QID [facility] Last Admin: 07/26/17 10:13 Dose: 125 mg Assessment/Plan Comment:: I/P: Acute: Diverticulitis -Worsening LLQ ab pain over past 2 days -Hematochezia over past day prior to arrival -Reports 6 bouts of diverticulitis over past year, initial diagnosis 5 years ago -Was given oral antibiotic (thinks Amoxil and Flagyl) 20 days ago and finished 10 day course 10 days ago -Ab X-ray notes several slightly prominent air -filled loops of small bowel suggesting ileus -Ab CT- findings compatible with diverticulitis at junction of descending and sigmoid regions -WBC 12.70, CRP 2.5, ESR 22 -Given levaquin in ED - stop -Flagyl -IV fluids as ordered -Ambulation -Clear liquid diet for now -GS consult - Dr. Tavarez -Pain meds as ordered C. Diff infection -Recently on oral antibiotics -Multiple bouts of watery diarrhea -No history of C. Diff -IV fluids as ordered -Oral vancomycin -Contact precautions -Barrier cream if needed Hx/o ETOH abuse -Recently detoxed -Reports no ETOH in past 9 days -CIWAA protocol -Ativan as needed -Monitor Chronic: HLD HTN Sleep apnea on CPAP Diverticulosis - as above Brain injury resulting in seizures which resolved at age 12 Addiction Depression Hx/o suicidal ideation Obesity Hx/o Cholecystectomy Plan: Admit to medical floor Other orders as indicated above He is ambulatory so will hold off PT/OT for now DVT/PE prophylaxis: SHANTANU estrada Home medications as ordered Routine AM labs Code status: Full code; PCP: Dr. Johnson at [facility]
[2017-07-26] MEDS: metroNIDAZOLE/Normal Saline 500 MG in Premix Bag 1 BAG IV SCH ×3 (07:08→21:02)
[2017-07-26] MEDS: D5 1/2 NS w/ 20 mEq/L KCl 1,000 ML IV SCH ×2 (07:12→23:02)
--- NOTE | 2017-07-26 07:16 | CT ---
CT abdomen and pelvis Technique: Multiple axial sections were obtained from above the dome of the diaphragm inferiorly through the pubic symphysis. Intravenous and oral contrast was utilized. Delayed images were also obtained through the abdomen and pelvis. Comparison: Previous abdominal and pelvic CT exam of 07/09/17. Findings: Visualized lung bases show nothing acute. Cyst is identified near the gallbladder fossa as well upper right lobe. Largest cyst measures about 2.0 cm in size. Liver shows mild fatty infiltration. Spleen appears within normal limits. Surgical clips are seen from prior cholecystectomy. Adrenal glands show no nodule. Pancreas appears within normal limits. Aorta shows no aneurysmal dilatation. Kidneys show symmetric contrast enhancement without hydronephrosis or mass. Delayed images show contrast excretion into nondilated ureters as well as contrast seen within the bladder. Diverticuli are seen within the sigmoid colon and within portions of the descending colon. Inflammatory change is seen around one of these diverticula near the junction of the descending and sigmoid colon with adjacent bowel wall thickening. Findings are felt compatible with diverticulitis. No focal fluid collections are seen to indicate abscess at this time. These findings are an interval change from previous CT exam. No additional pelvic abnormality is seen. No free fluid is seen. Appendix is seen which appears normal in size. Bone window settings were reviewed which show disc space narrowing within L4-L5 with vacuum phenomena. Posterior disc space narrowing noted at L5-S1 with posterior spurring and degenerative apophyseal change. Lesser degenerative change within other portions of the spine is noted. Small fat-containing umbilical hernia is seen. Impression: 1. Findings compatible with diverticulitis at the junction of the descending and sigmoid regions. This finding is an interval change from previous exam. 2. Other incidental findings as noted above. Diagnostic code #3 Agree with preliminary report issued by [facility] ([facility] preliminary report dictated on 07/26/17, 1:06 AM Central Time)
[2017-07-26] MEDS: Meperidine PF 50 MG/ML Syringe IV PRN ×2 (07:31→10:29)
[2017-07-26] MEDS: Vancomycin 50 MG/ML 150ML Oral Solution Kit PO SCH ×4 (10:13→20:58)
--- NOTE | 2017-07-26 10:27 | PCM.CONSN ---
- General Info Date of Service: 07/26/17 - Patient Data Vitals - Most Recent: Last Vital Signs Temp 99.1 F 07/26/17 08:03 Pulse 90 07/26/17 08:03 Resp 20 07/26/17 08:03 BP 114/52 L 07/26/17 08:03 Pulse Ox 93 L 07/26/17 08:03 Weight - Most Recent: 114.441 kg I&O - Last 24 Hours: Intake & Output 07/25/17 07/26/17 07/26/17 23:59 07:59 15:59 Intake Total 1456 Balance 1456 Med Orders - Current: Current Medications Potassium Chloride/Dextrose/Sod Cl (D5 1/2 Ns W/ 20 Meq/L Kcl) 1,000 mls @ 125 mls/hr IV ASDIRECTED [facility] Last Admin: 07/26/17 07:12 Dose: 125 mls/hr Sodium Chloride (Normal Saline) 1,000 mls @ 125 mls/hr IV ASDIRECTED [facility] Metronidazole 500 mg/ Premix 100 mls @ 100 mls/hr IV Q8H [facility] Last Admin: 07/26/17 07:08 Dose: 100 mls/hr Meperidine HCl (Demerol) 75 mg IV Q3HR PRN PRN Reason: pain Last Admin: 07/26/17 07:31 Dose: 75 mg Metoclopramide HCl (Reglan) 10 mg IVPUSH Q6H PRN PRN Reason: nausea Vancomycin HCl (First-Vancomycin 50 Compounding Kit) 125 mg PO QID [facility] Last Admin: 07/26/17 10:13 Dose: 125 mg Discontinued Medications Diatrizoate Meglum/Diatrizoate Sod (Gastrografin 37%) 90 ml PO ONETIME ONE Stop: 07/25/17 23:14 Last Admin: 07/25/17 23:54 Dose: 90 ml Hydromorphone HCl (Dilaudid) 1 mg IVPUSH ONETIME ONE Stop: 07/25/17 21:41 Last Admin: 07/25/17 21:50 Dose: 1 mg Hydromorphone HCl (Dilaudid) 1 mg IVPUSH ONETIME ONE Stop: 07/25/17 23:23 Last Admin: 07/25/17 23:28 Dose: 1 mg Hydromorphone HCl (Dilaudid) 1 mg IVPUSH ONETIME ONE Stop: 07/26/17 01:13 Last Admin: 07/26/17 01:23 Dose: 1 mg Sodium Chloride (Normal Saline) 1,000 mls @ 200 mls/hr IV ASDIRECTED [facility] Last Admin: 07/25/17 21:50 Dose: 200 mls/hr Metronidazole 500 mg/ Premix 100 mls @ 100 mls/hr IV ONETIME ONE Stop: 07/25/17 23:14 Last Admin: 07/25/17 22:20 Dose: 100 mls/hr Magnesium Sulfate 2 gm/ Premix 50 mls @ 25 mls/hr IV ONETIME ONE Stop: 07/26/17 00:56 Last Admin: 07/25/17 23:24 Dose: 25 mls/hr Levofloxacin/Dextrose 750 mg/ (Premix) 150 mls @ 100 mls/hr IV ONETIME ONE Stop: 07/26/17 01:28 Last Admin: 07/26/17 02:28 Dose: 100 mls/hr Iopamidol (Isovue-300 (61%)) 125 ml IVPUSH ONETIME ONE Stop: 07/25/17 23:14 Last Admin: 07/25/17 23:54 Dose: 125 ml Lorazepam (Ativan) 1 mg IVPUSH ONETIME ONE Stop: 07/26/17 01:13 Last Admin: 07/26/17 01:23 Dose: 1 ml Metoclopramide HCl (Reglan) 10 mg IVPUSH ONETIME ONE Stop: 07/25/17 21:42 Last Admin: 07/25/17 21:50 Dose: 10 mg Consult PN Assessment/Plan Procedures: Procedures ASSAY OF LIPASE (07/09/17) ASSAY OF TROPONIN QUANT (07/19/17) ASSAY THYROID STIM HORMONE (07/19/17) C-REACTIVE PROTEIN (03/17/16) CHEST X-RAY 1 VIEW FRONTAL (05/05/17) CHEST X-RAY 2VW FRONTAL&LATL (04/21/15) COMPLETE CBC W/AUTO DIFF WBC (07/19/17) COMPREHEN METABOLIC PANEL (07/09/17) CT ABD & PELV W/CONTRAST (07/09/17) DRUG TEST PRSMV INSTRMNT (07/19/17) ELECTROCARDIOGRAM TRACING (07/19/17) EMERGENCY DEPT VISIT (07/19/17) EMERGENCY DEPT VISIT (07/09/17) EMERGENCY DEPT VISIT (05/05/17) EMERGENCY DEPT VISIT (02/09/16) EMERGENCY DEPT VISIT (11/09/15) EMERGENCY DEPT VISIT (07/06/15) EMERGENCY DEPT VISIT (04/21/15) HYDRATE IV INFUSION ADD-ON (07/09/17) HYDRATION IV INFUSION INIT (07/09/17) POLYSOM 6/>YRS CPAP 4/> PARM (05/30/15) PROTHROMBIN TIME (07/19/17) ROUTINE VENIPUNCTURE (07/19/17) THER/PROPH/DIAG INJ IV PUSH (05/05/17) TX/PRO/DX INJ NEW DRUG ADDON (05/05/17) TX/PRO/DX INJ SAME DRUG [employer] (03/17/16) URINALYSIS AUTO W/SCOPE (07/19/17) X-RAY EXAM OF ABDOMEN (03/17/16) X-RAY EXAM OF ANKLE (06/08/17) X-RAY EXAM OF FOOT (06/08/17) Problem List Initiated/Reviewed/Updated: Yes Plan: surgical consult dictated [facility]
[2017-07-26] MEDS ORDERED: Acetaminophen 325 MG Tab PO PRN (11:38)
[2017-07-26] MEDS ORDERED: Ondansetron 4 MG Tab.DIS PO PRN (11:38)
[2017-07-26] MEDS ORDERED: Ondansetron 4 MG/2 ML SDV IV PRN (11:38)
[2017-07-26] MEDS ORDERED: Metoprolol Tartrate 5 MG/5 ML SDV IVPUSH PRN (12:50)
[2017-07-26] MEDS ORDERED: LORazepam 2 MG/ML SDV IVPUSH PRN ×2 (12:50→12:51)
[2017-07-26] MEDS ORDERED: hydrALAZINE 20 MG/ML SDV IVPUSH PRN (12:50)
[2017-07-26] MEDS: Sodium Chloride 0.9% 1,000 ML IV SCH (13:52)
[2017-07-26] MEDS: Acetaminophen/HYDROcodone 325-5 MG Tab PO PRN ×2 (15:07→23:08)
[2017-07-26] MEDS: Meperidine 50 MG/ML Vial IV PRN ×2 (17:27→20:57)
[2017-07-26] MEDS ORDERED: diphenhydrAMINE 50 MG/ML SDV IVPUSH ONE (23:20)
[2017-07-27] MEDS: Meperidine 50 MG/ML Vial IV PRN (04:22)
[2017-07-27] MEDS: metroNIDAZOLE/Normal Saline 500 MG in Premix Bag 1 BAG IV SCH (05:40)
[2017-07-27] MEDS: Sodium Chloride 0.9% 1,000 ML IV SCH (06:49)
--- NOTE | 2017-07-27 08:23 | CONS ---
CONSULTING PHYSICIAN: Jarocho Tavarez MD DATE OF CONSULTATION: 07/26/2017 ADDENDUM: PHYSICAL EXAMINATION: DERM: The patient's skin is warm and dry. NEUROLOGIC: No sensorineural deficit. Cranial nerves 3 through 12 intact. PSYCHIATRIC: Normal. MEDICATIONS: Per medication reconciliation form. MMODAL /[id number]
--- NOTE | 2017-07-27 08:23 | CONS ---
CONSULTING PHYSICIAN: Jarocho Tavarez MD DATE OF CONSULTATION: 07/26/2017 HISTORY OF PRESENT ILLNESS: This is a 47-year-old male who has diverticulitis. He has had episodes of diverticulitis starting in 2012, and usually about every year since then, he would present with the disease, have a CT scan, and be placed on antibiotics with improvement. His last episode began about 6 months ago where he was given antibiotics, but he states he really did not completely improve, and then 2 weeks ago, he began to have pain in the left lower quadrant and then later was given outpatient Flagyl and then had diarrhea, bloody stools, came into the clinic. His symptoms have been that of pain, guarding, and tenderness in the left lower quadrant with numerous loose stools. He has been diagnosed with C. diff in addition to his diverticulitis. He has been scheduled to see Surgery, but this episode has intervened. PAST MEDICAL HISTORY: Some sleep apnea, CPAP, diverticulosis, and his last colonoscopy was done in 2012, showing polyps. He has a history of brain injury with seizures, history of depression, and some excess abuse of alcohol. He does not smoke. PAST SURGICAL HISTORY: Carpal tunnel, ORIF surgery, and cholecystectomy. FAMILY HISTORY: Reports diabetes type 2. SOCIAL HISTORY: No recreational drugs. REVIEW OF SYSTEMS: No chest pain, shortness of breath, cough, hoarseness, wheezing, fainting, weakness, numbness, convulsions. PHYSICAL EXAMINATION: GENERAL: Reveals an alert, cooperative male. VITAL SIGNS: Temperature 36, pulse 95, respirations 18, blood pressure 127/80. EYES: Sclerae white. Extraocular muscle motion normal. ORAL CAVITY: Healthy mucous membrane with mouth and tongue. NECK: Supple. No nodes. No thyromegaly. LUNGS: Clear. HEART: Heart tones regular rate. ABDOMEN: Distended and guarding and rebound in the left lower quadrant extending up to the left upper quadrant. Right-sided abdomen is slightly tender. DIAGNOSTIC DATA: CT scan does not show any abscess, but is consistent with diverticulitis. White count is 12,000, hemoglobin 13, platelet count 165. Urinalysis unremarkable. C- reactive protein 2.5. C. diff is positive. ASSESSMENT: 1. Diverticulitis. 2. Clostridium difficile positive. MEDICATIONS: Per medication reconciliation form, would recommend antibiotics as you are doing. If he does not improve and resolve, he should be referred to a higher center of care. He is a high risk for surgical intervention. Discussed a need for colostomy. Risks and complications were briefly detailed with Surgery. LARRY /[id number]
[2017-07-27] MEDS ORDERED: OLMESARTAN PO SCH (09:00)
[2017-07-27] MEDS ORDERED: AMLODIPINE PO SCH (09:00)
[2017-07-27] MEDS ORDERED: HYDROCHLOROTHIAZIDE PO SCH (09:00)
[2017-07-27] MEDS: AMLODIPINE PO SCH (09:40)
[2017-07-27] MEDS: Vancomycin 50 MG/ML 150ML Oral Solution Kit PO SCH ×4 (09:40→20:41)
[2017-07-27] MEDS: HCTZ PO SCH (09:40)
[2017-07-27] MEDS: OLMESARTAN PO SCH (09:40)
[2017-07-27] MEDS: Acetaminophen/HYDROcodone 325-5 MG Tab PO PRN (09:43)
--- NOTE | 2017-07-27 13:20 | PCM.PN ---
- General Info Date of Service: 07/27/17 Functional Status: Reports: Tolerating Diet, Ambulating, Urinating - Review of Systems General: Reports: No Symptoms HEENT: Reports: No Symptoms Pulmonary: Reports: No Symptoms Cardiovascular: Reports: No Symptoms Gastrointestinal: Reports: Abdominal Pain Genitourinary: Reports: No Symptoms Musculoskeletal: Reports: No Symptoms Skin: Reports: No Symptoms Neurological: Reports: No Symptoms Psychiatric: Reports: No Symptoms - Patient Data Vitals - Most Recent: Last Vital Signs Temp 36.8 C 07/27/17 11:26 Pulse 72 07/27/17 11:26 Resp 12 07/27/17 11:26 BP 128/83 07/27/17 11:26 Pulse Ox 99 07/27/17 11:31 Weight - Most Recent: 115.303 kg I&O - Last 24 Hours: Intake & Output 07/26/17 07/27/17 07/27/17 22:59 06:59 14:59 Intake Total 3350 2010 720 Output Total 300 1200 Balance 3050 810 720 Lab Results Last 24 Hours: Laboratory Results - last 24 hr 07/26/17 07/27/17 07/27/17 Range/Units 16:04 06:15 06:15 WBC 8.00 (4.23-9.07) K/mm3 RBC 3.78 L (4.63-6.08) M/mm3 Hgb 12.0 L (13.7-17.5) gm/L Hct 34.5 L (40.1-51.0) % MCV 91.3 (79.0-92.2) fl MCH 31.7 (25.7-32.2) pg MCHC 34.8 (32.2-35.5) g/dl RDW Std Deviation 42.2 (35.1-43.9) fL Plt Count 153 L (163-337) K/mm3 MPV 11.1 (9.4-12.3) fl Neut % (Auto) 72.5 H (34.0-67.9) % Lymph % (Auto) 10.9 L (21.8-53.1) % [place] % (Auto) 13.3 H (5.3-12.2) % Eos % (Auto) 2.8 (0.8-7.0) Baso % (Auto) 0.4 (0.1-1.2) % Neut # (Auto) 5.81 H (1.78-5.38) K/mm3 Lymph # (Auto) 0.87 L (1.32-3.57) K/mm3 [place] # (Auto) 1.06 H (0.30-0.82) K/mm3 Eos # (Auto) 0.22 (0.04-0.54) K/mm3 Baso # (Auto) 0.03 (0.01-0.08) K/mm3 Sodium 135 L 136 (136-145) mEq/L Potassium 3.7 3.8 (3.5-5.1) mEq/L Chloride 101 103 (98-107) mEq/L Carbon Dioxide 26 24 (21-32) mEq/L Anion Gap 11.7 12.8 (5-15) BUN 21 H 14 (7-18) mg/dL Creatinine 1.2 1.0 (0.7-1.3) mg/dL Est Cr Clr Drug Dosing 78.58 94.29 mL/min Estimated GFR (MDRD) > 60 > 60 (>60) mL/min BUN/Creatinine Ratio 17.5 14.0 (14-18) Glucose 87 107 H (74-106) mg/dL Calcium 8.6 8.7 (8.5-10.1) mg/dL Magnesium 1.9 1.8 (1.8-2.4) mg/dl C-Reactive Protein 6.1 H* (<1.0) mg/dL Med Orders - Current: Current Medications Acetaminophen (Tylenol) 650 mg PO Q4H PRN PRN Reason: Pain (Mild 1-3)/fever Hydrocodone Bitart/Acetaminophen ([place] 325-5 Mg) 1 tab PO Q4H PRN PRN Reason: Pain (moderate 4-6) Last Admin: 07/27/17 09:43 Dose: 1 tab Hydralazine HCl (Apresoline) 10 mg IVPUSH Q6H PRN PRN Reason: Hypertension Potassium Chloride/Dextrose/Sod Cl (D5 1/2 Ns W/ 20 Meq/L Kcl) 1,000 mls @ 125 mls/hr IV ASDIRECTED [facility] Last Admin: 07/26/17 23:02 Dose: 125 mls/hr Sodium Chloride (Normal Saline) 1,000 mls @ 125 mls/hr IV ASDIRECTED [facility] Last Admin: 07/27/17 06:49 Dose: 125 mls/hr Magnesium Sulfate 2 gm/ Premix 50 mls @ 25 mls/hr IV Q2H [facility] Stop: 07/27/17 16:18 Lorazepam (Ativan) 2 mg IVPUSH Q4H PRN PRN Reason: Seizures Lorazepam (Ativan) 1 - 3 mg IVPUSH Q4H PRN; Protocol PRN Reason: withdrawl Metoclopramide HCl (Reglan) 10 mg IVPUSH Q6H PRN PRN Reason: nausea Metoprolol Tartrate (Lopressor) 5 mg IVPUSH Q4H PRN PRN Reason: Tachycardia Ondansetron HCl (Zofran Odt) 4 mg PO Q6H PRN PRN Reason: nausea, able to take PO Ondansetron HCl (Zofran) 4 mg IV Q6H PRN PRN Reason: Nausea/Vomiting Olmesartan/Amlodipine/Hctz 40-5 -12.5mg Own Med * * 0 each PO DAILY [facility] Last Admin: 07/27/17 09:40 Dose: 1 each Vancomycin HCl (First-Vancomycin 50 Compounding Kit) 125 mg PO QID [facility] Last Admin: 07/27/17 13:07 Dose: 125 mg Discontinued Medications Diatrizoate Meglum/Diatrizoate Sod (Gastrografin 37%) 90 ml PO ONETIME ONE Stop: 07/25/17 23:14 Last Admin: 07/25/17 23:54 Dose: 90 ml Diphenhydramine HCl (Benadryl) 25 mg IVPUSH ONETIME ONE Stop: 07/26/17 23:21 Last Admin: 07/26/17 23:31 Dose: 25 mg Hydromorphone HCl (Dilaudid) 1 mg IVPUSH ONETIME ONE Stop: 07/25/17 21:41 Last Admin: 07/25/17 21:50 Dose: 1 mg Hydromorphone HCl (Dilaudid) 1 mg IVPUSH ONETIME ONE Stop: 07/25/17 23:23 Last Admin: 07/25/17 23:28 Dose: 1 mg Hydromorphone HCl (Dilaudid) 1 mg IVPUSH ONETIME ONE Stop: 07/26/17 01:13 Last Admin: 07/26/17 01:23 Dose: 1 mg Sodium Chloride (Normal Saline) 1,000 mls @ 200 mls/hr IV ASDIRECTED [facility] Last Admin: 07/25/17 21:50 Dose: 200 mls/hr Metronidazole 500 mg/ Premix 100 mls @ 100 mls/hr IV ONETIME ONE Stop: 07/25/17 23:14 Last Admin: 07/25/17 22:20 Dose: 100 mls/hr Magnesium Sulfate 2 gm/ Premix 50 mls @ 25 mls/hr IV ONETIME ONE Stop: 07/26/17 00:56 Last Admin: 07/25/17 23:24 Dose: 25 mls/hr Levofloxacin/Dextrose 750 mg/ (Premix) 150 mls @ 100 mls/hr IV ONETIME ONE Stop: 07/26/17 01:28 Last Admin: 07/26/17 02:28 Dose: 100 mls/hr Metronidazole 500 mg/ Premix 100 mls @ 100 mls/hr IV Q8H [facility] Last Admin: 07/27/17 05:40 Dose: 100 mls/hr Iopamidol (Isovue-300 (61%)) 125 ml IVPUSH ONETIME ONE Stop: 07/25/17 23:14 Last Admin: 07/25/17 23:54 Dose: 125 ml Lorazepam (Ativan) 1 mg IVPUSH ONETIME ONE Stop: 07/26/17 01:13 Last Admin: 07/26/17 01:23 Dose: 1 ml Meperidine HCl (Demerol) 75 mg IV Q3HR PRN PRN Reason: pain Last Admin: 07/26/17 10:29 Dose: 75 mg Meperidine HCl (Meperidine) 75 mg IV Q3H PRN PRN Reason: pain Last Admin: 07/27/17 04:22 Dose: 75 mg Metoclopramide HCl (Reglan) 10 mg IVPUSH ONETIME ONE Stop: 07/25/17 21:42 Last Admin: 07/25/17 21:50 Dose: 10 mg Olmesartan/Amlodipine/Hctz 20-5 -?? Own Med 1 tab PO DAILY [facility] - Exam Quality Assessment: DVT Prophylaxis General: Alert, Oriented, Cooperative HEENT: Pupils Equal, Pupils Reactive, EOMI Neck: Trachea Midline Lungs: Normal Respiratory Effort Cardiovascular: Regular Rate, Regular Rhythm GI/Abdominal Exam: Normal Bowel Sounds, Soft, Non-Tender, No Organomegaly, No Distention (Male) Exam: Deferred Back Exam: Normal Inspection Extremities: Normal Inspection Skin: Warm Neurological: No New Focal Deficit Psy/Mental Status: Alert, Anxious - Problem List Review Problem List Initiated/Reviewed/Updated: Yes - My Orders Last 24 Hours: My Active Orders 07/27/17 12:19 Magnesium Sulfate/Water [Magnesium Sulfate 2 GM in Water 50 ML] 2 gm Premix Bag 1 bag IV Q2H 07/27/17 12:20 Consult to Dietary [Consult to Manager Mental Health] [CONS] Routine - Plan Plan:: I/P: Acute: Diverticulitis -Worsening LLQ ab pain over past 2 days -Hematochezia over past day prior to arrival -Reports 6 bouts of diverticulitis over past year, initial diagnosis 5 years ago -Was given oral antibiotic (thinks Amoxil and Flagyl) 20 days ago and finished 10 day course 10 days ago -Ab X-ray notes several slightly prominent air -filled loops of small bowel suggesting ileus -Ab CT- findings compatible with diverticulitis at junction of descending and sigmoid regions -WBC 12.70, CRP 2.5, ESR 22 -Given levaquin in ED - stop -Flagyl stop today -IV fluids as ordered -Ambulation -Clear liquid diet for now, advance as tolerated - consult - Dr. Tavarez -Pain meds as ordered C. Diff infection -Recently on oral antibiotics -Multiple bouts of watery diarrhea with blood -No history of C. Diff -IV fluids as ordered -Oral vancomycin -Contact precautions -Barrier cream if needed Hx/o ETOH abuse -Recently detoxed -Reports no ETOH in past 9 days -CIWAA protocol -Ativan as needed -Monitor Chronic: HLD HTN Sleep apnea on CPAP Diverticulosis - as above Brain injury resulting in seizures which resolved at age 12 Addiction Depression Hx/o suicidal ideation Obesity Hx/o Cholecystectomy Plan: DC narcotics after ttoday Other orders as indicated above He is ambulatory so will hold off PT/OT for now DVT/PE prophylaxis: SHANTANU hose Home medications as ordered Routine AM labs DC 24-48 hours. Code status: Full code; PCP: Dr. Johnson at [facility]
[2017-07-27] MEDS: Magnesium Sulfate/Water 2 GM in Premix Bag 1 BAG IV SCH ×2 (13:58→16:07)
[2017-07-27] MEDS: D5 1/2 NS w/ 20 mEq/L KCl 1,000 ML IV SCH (15:04)
[2017-07-28] MEDS: HCTZ PO SCH (10:20)
[2017-07-28] MEDS: OLMESARTAN PO SCH (10:20)
[2017-07-28] MEDS: AMLODIPINE PO SCH (10:20)
[2017-07-28] MEDS: Vancomycin 50 MG/ML 150ML Oral Solution Kit PO SCH ×4 (10:21→20:58)
--- NOTE | 2017-07-28 17:39 | PCM.PN ---
- General Info Date of Service: 07/28/17 Functional Status: Reports: Tolerating Diet, Ambulating, Urinating - Review of Systems General: Reports: No Symptoms HEENT: Reports: No Symptoms Pulmonary: Reports: No Symptoms Cardiovascular: Reports: No Symptoms Gastrointestinal: Reports: Abdominal Pain Genitourinary: Reports: No Symptoms Musculoskeletal: Reports: No Symptoms Skin: Reports: No Symptoms Neurological: Reports: No Symptoms Psychiatric: Reports: No Symptoms - Patient Data Vitals - Most Recent: Last Vital Signs Temp 36.6 C 07/28/17 07:59 Pulse 73 07/28/17 15:16 Resp 20 07/28/17 15:16 BP 140/74 07/28/17 15:16 Pulse Ox 96 07/28/17 15:16 Weight - Most Recent: 114.351 kg I&O - Last 24 Hours: Intake & Output 07/28/17 07/28/17 07/28/17 06:59 14:59 22:59 Intake Total 480 1155 Balance 480 1155 Lab Results Last 24 Hours: Laboratory Results - last 24 hr 07/28/17 07/28/17 Range/Units 06:17 06:17 WBC 6.13 (4.23-9.07) K/mm3 RBC 3.76 L (4.63-6.08) M/mm3 Hgb 12.0 L (13.7-17.5) gm/L Hct 34.6 L (40.1-51.0) % MCV 92.0 (79.0-92.2) fl MCH 31.9 (25.7-32.2) pg MCHC 34.7 (32.2-35.5) g/dl RDW Std Deviation 42.2 (35.1-43.9) fL Plt Count 179 (163-337) K/mm3 MPV 10.6 (9.4-12.3) fl Neut % (Auto) 59.3 (34.0-67.9) % Lymph % (Auto) 22.3 (21.8-53.1) % [place] % (Auto) 13.9 H (5.3-12.2) % Eos % (Auto) 3.6 (0.8-7.0) Baso % (Auto) 0.7 (0.1-1.2) % Neut # (Auto) 3.64 (1.78-5.38) K/mm3 Lymph # (Auto) 1.37 (1.32-3.57) K/mm3 [place] # (Auto) 0.85 H (0.30-0.82) K/mm3 Eos # (Auto) 0.22 (0.04-0.54) K/mm3 Baso # (Auto) 0.04 (0.01-0.08) K/mm3 Sodium 139 (136-145) mEq/L Potassium 4.4 (3.5-5.1) mEq/L Chloride 106 (98-107) mEq/L Carbon Dioxide 26 (21-32) mEq/L Anion Gap 11.4 (5-15) BUN 14 (7-18) mg/dL Creatinine 1.2 (0.7-1.3) mg/dL Est Cr Clr Drug Dosing 78.58 mL/min Estimated GFR (MDRD) > 60 (>60) mL/min BUN/Creatinine Ratio 11.7 L (14-18) Glucose 103 (74-106) mg/dL Calcium 9.2 (8.5-10.1) mg/dL Magnesium 2.1 (1.8-2.4) mg/dl C-Reactive Protein 5.6 H* (<1.0) mg/dL Med Orders - Current: Current Medications Acetaminophen (Tylenol) 650 mg PO Q4H PRN PRN Reason: Pain (Mild 1-3)/fever Hydrocodone Bitart/Acetaminophen ([place] 325-5 Mg) 1 tab PO Q4H PRN PRN Reason: Pain (moderate 4-6) Last Admin: 07/27/17 09:43 Dose: 1 tab Hydralazine HCl (Apresoline) 10 mg IVPUSH Q6H PRN PRN Reason: Hypertension Lorazepam (Ativan) 2 mg IVPUSH Q4H PRN PRN Reason: Seizures Lorazepam (Ativan) 1 - 3 mg IVPUSH Q4H PRN; Protocol PRN Reason: withdrawl Metoclopramide HCl (Reglan) 10 mg IVPUSH Q6H PRN PRN Reason: nausea Metoprolol Tartrate (Lopressor) 5 mg IVPUSH Q4H PRN PRN Reason: Tachycardia Ondansetron HCl (Zofran Odt) 4 mg PO Q6H PRN PRN Reason: nausea, able to take PO Ondansetron HCl (Zofran) 4 mg IV Q6H PRN PRN Reason: Nausea/Vomiting Olmesartan/Amlodipine/Hctz 40-5 -12.5mg Own Med * * 0 each PO DAILY [facility] Last Admin: 07/28/17 10:20 Dose: 1 each Vancomycin HCl (First-Vancomycin 50 Compounding Kit) 125 mg PO QID [facility] Last Admin: 07/28/17 17:36 Dose: 125 mg Discontinued Medications Diatrizoate Meglum/Diatrizoate Sod (Gastrografin 37%) 90 ml PO ONETIME ONE Stop: 07/25/17 23:14 Last Admin: 07/25/17 23:54 Dose: 90 ml Diphenhydramine HCl (Benadryl) 25 mg IVPUSH ONETIME ONE Stop: 07/26/17 23:21 Last Admin: 07/26/17 23:31 Dose: 25 mg Hydromorphone HCl (Dilaudid) 1 mg IVPUSH ONETIME ONE Stop: 07/25/17 21:41 Last Admin: 07/25/17 21:50 Dose: 1 mg Hydromorphone HCl (Dilaudid) 1 mg IVPUSH ONETIME ONE Stop: 07/25/17 23:23 Last Admin: 07/25/17 23:28 Dose: 1 mg Hydromorphone HCl (Dilaudid) 1 mg IVPUSH ONETIME ONE Stop: 07/26/17 01:13 Last Admin: 07/26/17 01:23 Dose: 1 mg Sodium Chloride (Normal Saline) 1,000 mls @ 200 mls/hr IV ASDIRECTED [facility] Last Admin: 07/25/17 21:50 Dose: 200 mls/hr Metronidazole 500 mg/ Premix 100 mls @ 100 mls/hr IV ONETIME ONE Stop: 07/25/17 23:14 Last Admin: 07/25/17 22:20 Dose: 100 mls/hr Magnesium Sulfate 2 gm/ Premix 50 mls @ 25 mls/hr IV ONETIME ONE Stop: 07/26/17 00:56 Last Admin: 07/25/17 23:24 Dose: 25 mls/hr Levofloxacin/Dextrose 750 mg/ (Premix) 150 mls @ 100 mls/hr IV ONETIME ONE Stop: 07/26/17 01:28 Last Admin: 07/26/17 02:28 Dose: 100 mls/hr Potassium Chloride/Dextrose/Sod Cl (D5 1/2 Ns W/ 20 Meq/L Kcl) 1,000 mls @ 125 mls/hr IV ASDIRECTED [facility] Last Admin: 07/27/17 15:04 Dose: 125 mls/hr Sodium Chloride (Normal Saline) 1,000 mls @ 125 mls/hr IV ASDIRECTED [facility] Last Admin: 07/27/17 06:49 Dose: 125 mls/hr Metronidazole 500 mg/ Premix 100 mls @ 100 mls/hr IV Q8H [facility] Last Admin: 07/27/17 05:40 Dose: 100 mls/hr Magnesium Sulfate 2 gm/ Premix 50 mls @ 25 mls/hr IV Q2H [facility] Stop: 07/27/17 16:18 Last Admin: 07/27/17 16:07 Dose: 25 mls/hr Iopamidol (Isovue-300 (61%)) 125 ml IVPUSH ONETIME ONE Stop: 07/25/17 23:14 Last Admin: 07/25/17 23:54 Dose: 125 ml Lorazepam (Ativan) 1 mg IVPUSH ONETIME ONE Stop: 07/26/17 01:13 Last Admin: 07/26/17 01:23 Dose: 1 ml Meperidine HCl (Demerol) 75 mg IV Q3HR PRN PRN Reason: pain Last Admin: 07/26/17 10:29 Dose: 75 mg Meperidine HCl (Meperidine) 75 mg IV Q3H PRN PRN Reason: pain Last Admin: 07/27/17 04:22 Dose: 75 mg Metoclopramide HCl (Reglan) 10 mg IVPUSH ONETIME ONE Stop: 07/25/17 21:42 Last Admin: 07/25/17 21:50 Dose: 10 mg Olmesartan/Amlodipine/Hctz 20-5 -?? Own Med 1 tab PO DAILY [facility] - Exam Quality Assessment: DVT Prophylaxis General: Alert, Oriented, Cooperative HEENT: Pupils Equal, Pupils Reactive, EOMI Neck: Trachea Midline, No JVD Lungs: Normal Respiratory Effort Cardiovascular: Regular Rate, Regular Rhythm GI/Abdominal Exam: Normal Bowel Sounds, Soft, No Organomegaly, No Distention, Tender (Male) Exam: Deferred Back Exam: Normal Inspection Extremities: Normal Inspection, Non-Tender Skin: Warm Neurological: No New Focal Deficit Psy/Mental Status: Alert, Normal Affect, Normal Mood - Problem List Review Problem List Initiated/Reviewed/Updated: Yes - My Orders Last 24 Hours: My Active Orders 07/27/17 Dinner Soft Diet [DIET] - Plan Plan:: I/P: Acute: Diverticulitis -Worsening LLQ ab pain over past 2 days -Hematochezia over past day prior to arrival -Reports 6 bouts of diverticulitis over past year, initial diagnosis 5 years ago -Was given oral antibiotic (thinks Amoxil and Flagyl) 20 days ago and finished 10 day course 10 days ago -Ab X-ray notes several slightly prominent air -filled loops of small bowel suggesting ileus -Ab CT- findings compatible with diverticulitis at junction of descending and sigmoid regions -WBC 12.70, CRP 2.5, ESR 22 -Given levaquin in ED - stop -Flagyl stop today -IV fluids as ordered -Ambulation -Clear liquid diet for now, advance as tolerated -GS consult - Dr. Tavarez -Pain meds as ordered C. Diff infection -Recently on oral antibiotics -Multiple bouts of watery diarrhea with blood -No history of C. Diff -IV fluids as ordered -Oral vancomycin -Contact precautions -Barrier cream if needed -Start Questran Hx/o ETOH abuse -Recently detoxed -Reports no ETOH in past 9 days -CIWAA protocol -Ativan as needed -Monitor Chronic: HLD HTN Sleep apnea on CPAP Diverticulosis - as above Brain injury resulting in seizures which resolved at age 12 Addiction Depression Hx/o suicidal ideation Obesity Hx/o Cholecystectomy Plan: DC narcotics after ttoday Other orders as indicated above He is ambulatory so will hold off PT/OT for now DVT/PE prophylaxis: SHANTANU hose Home medications as ordered Routine AM labs DC 24-48 hours. Code status: Full code; PCP: Dr. Johnson at [facility]
[2017-07-28] MEDS: Cholestyramine/Aspartame Powder 4 GM Packet PO SCH ×2 (19:34→20:13)
[2017-07-29] MEDS: Vancomycin 50 MG/ML 150ML Oral Solution Kit PO SCH ×5 (07:51→20:32)
[2017-07-29] MEDS: AMLODIPINE PO SCH ×2 (07:53→08:12)
[2017-07-29] MEDS: HCTZ PO SCH ×2 (07:53→08:12)
[2017-07-29] MEDS: OLMESARTAN PO SCH ×2 (07:53→08:12)
[2017-07-29] MEDS: Cholestyramine/Aspartame Powder 4 GM Packet PO SCH ×2 (07:54→08:12)
[2017-07-29] MEDS ORDERED: Magnesium Sulfate/Water 4 GM in Premix Bag 1 BAG IV ONE (09:53)
--- NOTE | 2017-07-29 13:31 | PCM.PN ---
- General Info Date of Service: 07/29/17 Functional Status: Reports: Pain Controlled, Tolerating Diet, Ambulating, Urinating - Review of Systems General: Reports: No Symptoms HEENT: Reports: No Symptoms Pulmonary: Reports: No Symptoms Cardiovascular: Reports: No Symptoms Gastrointestinal: Reports: Constipation Genitourinary: Reports: No Symptoms Musculoskeletal: Reports: No Symptoms Skin: Reports: No Symptoms Neurological: Reports: No Symptoms Psychiatric: Reports: No Symptoms - Patient Data Vitals - Most Recent: Last Vital Signs Temp 36.8 C 07/29/17 05:13 Pulse 63 07/29/17 07:26 Resp 16 07/29/17 07:26 BP 117/57 L 07/29/17 07:26 Pulse Ox 98 07/29/17 07:26 Weight - Most Recent: 112.718 kg I&O - Last 24 Hours: Intake & Output 07/28/17 07/29/17 07/29/17 22:59 06:59 14:59 Intake Total 1395 800 360 Balance 1395 800 360 Lab Results Last 24 Hours: Laboratory Results - last 24 hr 07/29/17 07/29/17 Range/Units 05:02 05:02 WBC 7.49 (4.23-9.07) K/mm3 RBC 4.07 L (4.63-6.08) M/mm3 Hgb 12.7 L (13.7-17.5) gm/L Hct 36.7 L (40.1-51.0) % MCV 90.2 (79.0-92.2) fl MCH 31.2 (25.7-32.2) pg MCHC 34.6 (32.2-35.5) g/dl RDW Std Deviation 41.5 (35.1-43.9) fL Plt Count 224 (163-337) K/mm3 MPV 10.6 (9.4-12.3) fl Neut % (Auto) 59.3 (34.0-67.9) % Lymph % (Auto) 22.7 (21.8-53.1) % Braxton % (Auto) 13.9 H (5.3-12.2) % Eos % (Auto) 3.3 (0.8-7.0) Baso % (Auto) 0.7 (0.1-1.2) % Neut # (Auto) 4.44 (1.78-5.38) K/mm3 Lymph # (Auto) 1.70 (1.32-3.57) K/mm3 Braxton # (Auto) 1.04 H (0.30-0.82) K/mm3 Eos # (Auto) 0.25 (0.04-0.54) K/mm3 Baso # (Auto) 0.05 (0.01-0.08) K/mm3 Sodium 137 (136-145) mEq/L Potassium 4.2 (3.5-5.1) mEq/L Chloride 102 (98-107) mEq/L Carbon Dioxide 25 (21-32) mEq/L Anion Gap 14.2 (5-15) BUN 15 (7-18) mg/dL Creatinine 1.2 (0.7-1.3) mg/dL Est Cr Clr Drug Dosing 78.58 mL/min Estimated GFR (MDRD) > 60 (>60) mL/min BUN/Creatinine Ratio 12.5 L (14-18) Glucose 98 (74-106) mg/dL Calcium 9.4 (8.5-10.1) mg/dL Magnesium 1.6 L (1.8-2.4) mg/dl C-Reactive Protein 2.9 H* (<1.0) mg/dL Med Orders - Current: Current Medications Acetaminophen (Tylenol) 650 mg PO Q4H PRN PRN Reason: Pain (Mild 1-3)/fever Hydrocodone Bitart/Acetaminophen ([place] 325-5 Mg) 1 tab PO Q4H PRN PRN Reason: Pain (moderate 4-6) Last Admin: 07/27/17 09:43 Dose: 1 tab Cholestyramine Resin (Prevalite Packet) 4 gm PO BID [facility] Last Admin: 07/29/17 08:12 Dose: Not Given Hydralazine HCl (Apresoline) 10 mg IVPUSH Q6H PRN PRN Reason: Hypertension Lorazepam (Ativan) 2 mg IVPUSH Q4H PRN PRN Reason: Seizures Lorazepam (Ativan) 1 - 3 mg IVPUSH Q4H PRN; Protocol PRN Reason: withdrawl Metoclopramide HCl (Reglan) 10 mg IVPUSH Q6H PRN PRN Reason: nausea Metoprolol Tartrate (Lopressor) 5 mg IVPUSH Q4H PRN PRN Reason: Tachycardia Ondansetron HCl (Zofran Odt) 4 mg PO Q6H PRN PRN Reason: nausea, able to take PO Ondansetron HCl (Zofran) 4 mg IV Q6H PRN PRN Reason: Nausea/Vomiting Olmesartan/Amlodipine/Hctz 40-5 -12.5mg Own Med * * 0 each PO DAILY [facility] Last Admin: 07/29/17 08:12 Dose: Not Given Vancomycin HCl (First-Vancomycin 50 Compounding Kit) 125 mg PO QID [facility] Last Admin: 07/29/17 13:10 Dose: 125 mg Discontinued Medications Diatrizoate Meglum/Diatrizoate Sod (Gastrografin 37%) 90 ml PO ONETIME ONE Stop: 07/25/17 23:14 Last Admin: 07/25/17 23:54 Dose: 90 ml Diphenhydramine HCl (Benadryl) 25 mg IVPUSH ONETIME ONE Stop: 07/26/17 23:21 Last Admin: 07/26/17 23:31 Dose: 25 mg Hydromorphone HCl (Dilaudid) 1 mg IVPUSH ONETIME ONE Stop: 07/25/17 21:41 Last Admin: 07/25/17 21:50 Dose: 1 mg Hydromorphone HCl (Dilaudid) 1 mg IVPUSH ONETIME ONE Stop: 07/25/17 23:23 Last Admin: 07/25/17 23:28 Dose: 1 mg Hydromorphone HCl (Dilaudid) 1 mg IVPUSH ONETIME ONE Stop: 07/26/17 01:13 Last Admin: 07/26/17 01:23 Dose: 1 mg Sodium Chloride (Normal Saline) 1,000 mls @ 200 mls/hr IV ASDIRECTED [facility] Last Admin: 07/25/17 21:50 Dose: 200 mls/hr Metronidazole 500 mg/ Premix 100 mls @ 100 mls/hr IV ONETIME ONE Stop: 07/25/17 23:14 Last Admin: 07/25/17 22:20 Dose: 100 mls/hr Magnesium Sulfate 2 gm/ Premix 50 mls @ 25 mls/hr IV ONETIME ONE Stop: 07/26/17 00:56 Last Admin: 07/25/17 23:24 Dose: 25 mls/hr Levofloxacin/Dextrose 750 mg/ (Premix) 150 mls @ 100 mls/hr IV ONETIME ONE Stop: 07/26/17 01:28 Last Admin: 07/26/17 02:28 Dose: 100 mls/hr Potassium Chloride/Dextrose/Sod Cl (D5 1/2 Ns W/ 20 Meq/L Kcl) 1,000 mls @ 125 mls/hr IV ASDIRECTED [facility] Last Admin: 07/27/17 15:04 Dose: 125 mls/hr Sodium Chloride (Normal Saline) 1,000 mls @ 125 mls/hr IV ASDIRECTED [facility] Last Admin: 07/27/17 06:49 Dose: 125 mls/hr Metronidazole 500 mg/ Premix 100 mls @ 100 mls/hr IV Q8H [facility] Last Admin: 07/27/17 05:40 Dose: 100 mls/hr Magnesium Sulfate 2 gm/ Premix 50 mls @ 25 mls/hr IV Q2H [facility] Stop: 07/27/17 16:18 Last Admin: 07/27/17 16:07 Dose: 25 mls/hr Magnesium Sulfate 4 gm/ Premix 100 mls @ 50 mls/hr IV ONETIME ONE Stop: 07/29/17 11:52 Last Admin: 07/29/17 11:13 Dose: 50 mls/hr Iopamidol (Isovue-300 (61%)) 125 ml IVPUSH ONETIME ONE Stop: 07/25/17 23:14 Last Admin: 07/25/17 23:54 Dose: 125 ml Lorazepam (Ativan) 1 mg IVPUSH ONETIME ONE Stop: 07/26/17 01:13 Last Admin: 07/26/17 01:23 Dose: 1 ml Meperidine HCl (Demerol) 75 mg IV Q3HR PRN PRN Reason: pain Last Admin: 07/26/17 10:29 Dose: 75 mg Meperidine HCl (Meperidine) 75 mg IV Q3H PRN PRN Reason: pain Last Admin: 07/27/17 04:22 Dose: 75 mg Metoclopramide HCl (Reglan) 10 mg IVPUSH ONETIME ONE Stop: 07/25/17 21:42 Last Admin: 07/25/17 21:50 Dose: 10 mg Olmesartan/Amlodipine/Hctz 20-5 -?? Own Med 1 tab PO DAILY [facility] - Exam Quality Assessment: DVT Prophylaxis General: Alert, Oriented, Cooperative, No Acute Distress HEENT: Pupils Equal, Pupils Reactive, EOMI Neck: Supple, Trachea Midline, No JVD Lungs: Normal Respiratory Effort Cardiovascular: Regular Rate, Regular Rhythm GI/Abdominal Exam: Normal Bowel Sounds, Soft, Non-Tender, No Organomegaly, Distended (Male) Exam: Deferred Back Exam: Normal Inspection Extremities: Normal Inspection Skin: Warm Neurological: No New Focal Deficit, Normal Gait, Normal Speech Psy/Mental Status: Alert, Normal Affect, Normal Mood - Problem List & Annotations (1) Abdominal pain SNOMED Code(s): 53321247 Code(s): R10.9 - UNSPECIFIED ABDOMINAL PAIN Status: Acute Priority: High Current Visit: Yes Qualifiers: Abdominal location: left lower quadrant Qualified Code(s): R10.32 - Left lower quadrant pain (2) Anxiety SNOMED Code(s): 34632764 Code(s): F41.9 - ANXIETY DISORDER, UNSPECIFIED Status: Acute Priority: Medium Current Visit: Yes (3) Diverticulitis large intestine SNOMED Code(s): 2694699 Code(s): K57.32 - DVTRCLI OF LG INT W/O PERFORATION OR ABSCESS W/O BLEEDING Status: Acute Priority: High Current Visit: Yes Qualifiers: Diverticulitis bleeding: with bleeding Diverticulitis complication: without perforation or abscess Qualified Code(s): K57.33 - Diverticulitis of large intestine without perforation or abscess with bleeding (4) Enteritis due to Clostridium difficile SNOMED Code(s): 710404484 Code(s): A04.72 - ENTEROCOLITIS D/T CLOSTRIDIUM DIFFICILE, NOT SPCF RECUR Status: Acute Priority: High Current Visit: Yes (5) Hypomagnesemia SNOMED Code(s): 579799088 Code(s): E83.42 - HYPOMAGNESEMIA Status: Acute Priority: High Current Visit: Yes (6) Abdominal pain SNOMED Code(s): 29042688 Code(s): R10.9 - UNSPECIFIED ABDOMINAL PAIN Status: Acute Current Visit: No Qualifiers: Abdominal location: generalized Qualified Code(s): R10.84 - Generalized abdominal pain (7) Acute diverticulitis SNOMED Code(s): 238159100 Code(s): K57.92 - DVTRCLI OF INTEST, PART UNSP, W/O PERF OR ABSCESS W/O BLEED Status: Acute Priority: High Current Visit: No - Problem List Review Problem List Initiated/Reviewed/Updated: Yes - My Orders Last 24 Hours: My Active Orders 07/28/17 19:00 Cholestyramine/Aspartame [Prevalite Packet] 4 gm PO BID - Plan Plan:: I/P: Acute: Diverticulitis -Worsening LLQ ab pain over past 2 days -Hematochezia over past day prior to arrival -Reports 6 bouts of diverticulitis over past year, initial diagnosis 5 years ago -Was given oral antibiotic (thinks Amoxil and Flagyl) 20 days ago and finished 10 day course 10 days ago -Ab X-ray notes several slightly prominent air -filled loops of small bowel suggesting ileus -Ab CT- findings compatible with diverticulitis at junction of descending and sigmoid regions -WBC 12.70, CRP 2.5, ESR 22 -Given levaquin in ED - stop -Flagyl stop today -IV fluids as ordered -Ambulation -Regular diet -GS consult - Dr. Tavarez -Pain meds as ordered C. Diff infection -Recently on oral antibiotics -Multiple bouts of watery diarrhea with blood -No history of C. 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 Johnson at [facility]
[2017-07-29] MEDS ORDERED: Magnesium Hydroxide 400 MG/5 ML Susp 30 ML Cup PO ONE (16:52)
[2017-07-29] MEDS ORDERED: Psyllium Husk Powder Sugar Free 3.4 GM Packet PO SCH (21:00)
[2017-07-30] MEDS: Vancomycin 50 MG/ML 150ML Oral Solution Kit PO SCH ×2 (07:39→08:21)
[2017-07-30] MEDS: AMLODIPINE PO SCH ×2 (07:39→08:21)
[2017-07-30] MEDS: HCTZ PO SCH ×2 (07:39→08:21)
[2017-07-30] MEDS: OLMESARTAN PO SCH ×2 (07:39→08:21)
[2017-07-30 07:41] VITALS: BP 121/84
--- NOTE | 2017-07-30 10:01 | PCM.DCSUM1 ---
Discharge Summary - Hospital Course Free Text/Narrative:: Alexandre Lopez is a 47 yo male who presented to our ED last night (07/25/17) wwith sudden onset lower abdominal pain. He states the pain has been ongoing for the past 2 days it has been worsening It is primarily in his left lower quadrant. He's also had watery diarrhea. He was recently on a 10 day course of antibiotics for diverticulitis, which he believes was Amoxil and Flagyl. he reportedly finished this course about 10 days ago. Reports 6 bouts of diverticulitis in the past year. Reports havingan initial diagnosis of diverticulitis approximately 5 years prior. Patient states yesterday he had a very significant bout of bright red blood per rectum. This continued to occur. The pain issevere he has difficulty walking. Reportedly has difficulty eating with appetite. Reportedly has not drank any alcohol for the last 9 days. Old records show he came to the ED on July 19 needing assistance with detoxing and his DOMENICA at that time was 0.00. Reportedly sees alcohol and drug treatment counselor Moses Devine regularly. denies any use of street drugs or other substances. Urine drug screen that was performed last week was negative. In the ED temp was 37.2C. Pulse 95. Respirations 18. Blood pressure 127/80. Pulse ox 97%. Labs were obtained:CBC was elevated at 12.7. Hemoglobin low at 13.5. Hematocrit low at 30.3. He is normocytic. Pulse regular 165,000. Neutrophils were elevated at 73%. There is 1% band neutrophils. ESR was elevated at 22. Sodium was 136. Potassium 3.8. Chloride 99. Carbon dioxide 26. Anion gap was 14.8. BUN was 26. Creatinine 1.2. EGFR greater than 60. Closely 92. Calcium 9.4. Magnesium was quite low 1.4. bbilirubin 0.8. AST is 41, ALT 67, alkaline phosphatase 79. CRP is 2.5. Protein 7.9. Albumin 4.3. Lipase is good at 116. UA was negative, however his urine is quite concentrated. C. difficile toxin by PCR is found to be positive. He started on IV fluids and given Dilaudid for pain. Metronidazole was also initiated. 2 g bag of mag was started. He was given Soma 50 mg Levaquin. 1 mg ativan was started and 1 mg Reglan was pushed. Chest x-rays obtained and interpreted by Dr. Roe as "1. Several slightly prominent air-filled loops of small bowel most likely representing ileus. 2. Other incidental findings." CT the abdomen and pelvis is obtained and interpreted by Dr. Roe as "findings compatible with diverticat the junction of the descending and sigmoid regions. This finding is interval change from previous exam. 2. Other incidental findings as noted." Of note his liver does have mild fatty in. He also has a small fat-containing umbilical hernia. He carries history of: HLD, HTN, sleep apnea with CPAP use at home, diverticulosis, brain injuryresulting in seizures as a child which he grew out of at age 12. He also has a history ofalcohol addiction, depression, suicidal ideation, obesity, cholecystectomy. He also has a history of cocaine and marijuana use, which he has not used in several years. He subsequent admitted to the medical floor. He is a full code. His PCP is Dr. Johnson here at [facility]. - Discharge Data Discharge Date: 07/30/17 Discharge Disposition: Home, Self-Care 01 Condition: Good - Discharge Diagnosis/Problem(s) (1) Abdominal pain SNOMED Code(s): 87915940 ICD Code: R10.9 - UNSPECIFIED ABDOMINAL PAIN Status: Acute Priority: High Qualifiers: Abdominal location: left lower quadrant Qualified Code(s): R10.32 - Left lower quadrant pain (2) Anxiety SNOMED Code(s): 94354633 ICD Code: F41.9 - ANXIETY DISORDER, UNSPECIFIED Status: Acute Priority: Medium (3) Diverticulitis large intestine SNOMED Code(s): 0495857 ICD Code: K57.32 - DVTRCLI OF LG INT W/O PERFORATION OR ABSCESS W/O BLEEDING Status: Acute Priority: High Qualifiers: Diverticulitis bleeding: with bleeding Diverticulitis complication: without perforation or abscess Qualified Code(s): K57.33 - Diverticulitis of large intestine without perforation or abscess with bleeding (4) Enteritis due to Clostridium difficile SNOMED Code(s): 547568163 ICD Code: A04.72 - ENTEROCOLITIS D/T CLOSTRIDIUM DIFFICILE, NOT SPCF RECUR Status: Acute Priority: High (5) Hypomagnesemia SNOMED Code(s): 198153869 ICD Code: E83.42 - HYPOMAGNESEMIA Status: Acute Priority: High (6) Abdominal pain SNOMED Code(s): 16565773 ICD Code: R10.9 - UNSPECIFIED ABDOMINAL PAIN Status: Acute Qualifiers: Abdominal location: generalized Qualified Code(s): R10.84 - Generalized abdominal pain (7) Acute diverticulitis SNOMED Code(s): 712186654 ICD Code: K57.92 - DVTRCLI OF INTEST, PART UNSP, W/O PERF OR ABSCESS W/O BLEED Status: Acute Priority: High - Patient Summary/Data Consults: Consultations 07/26/17 08:01 Consult to Physician [CONS] Routine 07/27/17 12:20 Consult to Dietary [Consult to [employer]ter] [CONS] Routine - Patient Instructions Diet: Heart Healthy Diet Activity: As Tolerated Driving: May Drive Today Showering/Bathing: May Shower Notify Provider of: Fever, Increased Pain, Nausea and/or Vomiting - Discharge Plan Prescriptions/Med Rec: Psyllium Husk/Aspartame [Metamucil Sugar Free] 1 packet PO BEDTIME #30 packet Vancomycin [First-Vancomycin 50 Compounding Kit] 125 mg PO QID #80 bottle Home Medications: Home Meds Tadalafil [Cialis] 10 mg PO ASDIRECTED 07/09/17 [History] Olmesartan/Amlodipin/Hcthiazid [Tribenzor 40-5-12.5 MG] 1 each PO DAILY [History] Psyllium Husk/Aspartame [Metamucil Sugar Free] 1 packet PO BEDTIME #30 packet [Rx] Vancomycin [First-Vancomycin 50 Compounding Kit] 125 mg PO QID #80 bottle [Rx] Patient Handouts: Clostridium Difficile FAQs - ARBOLEDA, Diverticulitis, Clostridium Difficile Infection Forms: ED Department Discharge, ED Return to Work/School Form Referrals: Sandip Johnson [Primary Care Provider] - (Please call [facility] ([phone]) on Monday to make an appointment to see in 7-10 days.) - Discharge Summary/Plan Comment DC Time >30 min.: No Discharge Summary/Plan Comment: Acute: Diverticulitis -Worsening LLQ ab pain over past 2 days -Hematochezia over past day prior to arrival -Reports 6 bouts of diverticulitis over past year, initial diagnosis 5 years ago -Was given oral antibiotic (thinks Amoxil and Flagyl) 20 days ago and finished 10 day course 10 days ago -Ab X-ray notes several slightly prominent air -filled loops of small bowel suggesting ileus -Ab CT- findings compatible with diverticulitis at junction of descending and sigmoid regions -WBC 12.70, CRP 2.5, ESR 22 -Given levaquin in ED - stop -Flagyl stop today -IV fluids as ordered -Ambulation -Regular diet - consult - Dr. Tavarez -Pain meds as ordered C. Diff infection -Recently on oral antibiotics -Multiple bouts of watery diarrhea with blood -No history of C. 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 DVT/PE prophylaxis: SHANTANU hose Home medications as ordered Routine AM labs DC 07/30/17; may return to work on day of discharge without restrictions; work excuse and DC meds were provided Code status: Full code; PCP: Dr. Johnson at [facility]; follow up in 1 week. - General Info Date of Service: 07/26/17 Functional Status: Reports: Pain Controlled, Tolerating Diet, Ambulating, Urinating - Review of Systems General: Reports: No Symptoms HEENT: Reports: No Symptoms Pulmonary: Reports: No Symptoms Cardiovascular: Reports: No Symptoms Gastrointestinal: Reports: No Symptoms Genitourinary: Reports: No Symptoms Musculoskeletal: Reports: No Symptoms Skin: Reports: No Symptoms Neurological: Reports: No Symptoms Psychiatric: Reports: No Symptoms - Patient Data Vitals - Most Recent: Last Vital Signs Temp 36.4 C 07/30/17 07:38 Pulse 63 07/30/17 07:37 Resp 16 07/30/17 07:36 BP 121/84 07/30/17 07:36 Pulse Ox 96 07/30/17 07:37 Weight - Most Recent: 111.901 kg I&O - Last 24 hours: Intake & Output 07/29/17 07/30/17 07/30/17 22:59 06:59 14:59 Intake Total 1240 200 Balance 1240 200 Lab Results - Last 24 hrs: Laboratory Results - last 24 hr 07/30/17 07/30/17 Range/Units 05:09 05:09 WBC 8.65 (4.23-9.07) K/mm3 RBC 4.55 L (4.63-6.08) M/mm3 Hgb 14.3 (13.7-17.5) gm/L Hct 40.6 (40.1-51.0) % MCV 89.2 (79.0-92.2) fl MCH 31.4 (25.7-32.2) pg MCHC 35.2 (32.2-35.5) g/dl RDW Std Deviation 41.3 (35.1-43.9) fL Plt Count 273 (163-337) K/mm3 MPV 10.1 (9.4-12.3) fl Neut % (Auto) 61.9 (34.0-67.9) % Lymph % (Auto) 23.1 (21.8-53.1) % Hudspeth % (Auto) 10.8 (5.3-12.2) % Eos % (Auto) 3.5 (0.8-7.0) Baso % (Auto) 0.5 (0.1-1.2) % Neut # (Auto) 5.36 (1.78-5.38) K/mm3 Lymph # (Auto) 2.00 (1.32-3.57) K/mm3 [place]ud[place] # (Auto) 0.93 H (0.30-0.82) K/mm3 Eos # (Auto) 0.30 (0.04-0.54) K/mm3 Baso # (Auto) 0.04 (0.01-0.08) K/mm3 Sodium 136 (136-145) mEq/L Potassium 4.3 (3.5-5.1) mEq/L Chloride 101 (98-107) mEq/L Carbon Dioxide 24 (21-32) mEq/L Anion Gap 15.3 H (5-15) BUN 17 (7-18) mg/dL Creatinine 1.1 (0.7-1.3) mg/dL Est Cr Clr Drug Dosing 85.72 mL/min Estimated GFR (MDRD) > 60 (>60) mL/min BUN/Creatinine Ratio 15.5 (14-18) Glucose 98 (74-106) mg/dL Calcium 9.9 (8.5-10.1) mg/dL Magnesium 2.2 (1.8-2.4) mg/dl C-Reactive Protein 1.9 H* (<1.0) mg/dL Med Orders - Current: Current Medications Acetaminophen (Tylenol) 650 mg PO Q4H PRN PRN Reason: Pain (Mild 1-3)/fever Hydralazine HCl (Apresoline) 10 mg IVPUSH Q6H PRN PRN Reason: Hypertension Lorazepam (Ativan) 2 mg IVPUSH Q4H PRN PRN Reason: Seizures Lorazepam (Ativan) 1 - 3 mg IVPUSH Q4H PRN; Protocol PRN Reason: withdrawl Metoclopramide HCl (Reglan) 10 mg IVPUSH Q6H PRN PRN Reason: nausea Metoprolol Tartrate (Lopressor) 5 mg IVPUSH Q4H PRN PRN Reason: Tachycardia Ondansetron HCl (Zofran Odt) 4 mg PO Q6H PRN PRN Reason: nausea, able to take PO Ondansetron HCl (Zofran) 4 mg IV Q6H PRN PRN Reason: Nausea/Vomiting Olmesartan/Amlodipine/Hctz 40-5 -12.5mg Own Med * * 0 each PO DAILY [facility] Last Admin: 07/30/17 08:21 Dose: Not Given Psyllium Husk (Metamucil Sugar Free) 1 packet PO BEDTIME [facility] Last Admin: 07/29/17 20:48 Dose: Not Given Vancomycin HCl (First-Vancomycin 50 Compounding Kit) 125 mg PO QID [facility] Last Admin: 07/30/17 08:21 Dose: Not Given Discontinued Medications Hydrocodone Bitart/Acetaminophen ([place] 325-5 Mg) 1 tab PO Q4H PRN PRN Reason: Pain (moderate 4-6) Last Admin: 07/27/17 09:43 Dose: 1 tab Cholestyramine Resin (Prevalite Packet) 4 gm PO BID [facility] Last Admin: 07/29/17 08:12 Dose: Not Given Diatrizoate Meglum/Diatrizoate Sod (Gastrografin 37%) 90 ml PO ONETIME ONE Stop: 07/25/17 23:14 Last Admin: 07/25/17 23:54 Dose: 90 ml Diphenhydramine HCl (Benadryl) 25 mg IVPUSH ONETIME ONE Stop: 07/26/17 23:21 Last Admin: 07/26/17 23:31 Dose: 25 mg Hydromorphone HCl (Dilaudid) 1 mg IVPUSH ONETIME ONE Stop: 07/25/17 21:41 Last Admin: 07/25/17 21:50 Dose: 1 mg Hydromorphone HCl (Dilaudid) 1 mg IVPUSH ONETIME ONE Stop: 07/25/17 23:23 Last Admin: 07/25/17 23:28 Dose: 1 mg Hydromorphone HCl (Dilaudid) 1 mg IVPUSH ONETIME ONE Stop: 07/26/17 01:13 Last Admin: 07/26/17 01:23 Dose: 1 mg Sodium Chloride (Normal Saline) 1,000 mls @ 200 mls/hr IV ASDIRECTED [facility] Last Admin: 07/25/17 21:50 Dose: 200 mls/hr Metronidazole 500 mg/ Premix 100 mls @ 100 mls/hr IV ONETIME ONE Stop: 07/25/17 23:14 Last Admin: 07/25/17 22:20 Dose: 100 mls/hr Magnesium Sulfate 2 gm/ Premix 50 mls @ 25 mls/hr IV ONETIME ONE Stop: 07/26/17 00:56 Last Admin: 07/25/17 23:24 Dose: 25 mls/hr Levofloxacin/Dextrose 750 mg/ (Premix) 150 mls @ 100 mls/hr IV ONETIME ONE Stop: 07/26/17 01:28 Last Admin: 07/26/17 02:28 Dose: 100 mls/hr Potassium Chloride/Dextrose/Sod Cl (D5 1/2 Ns W/ 20 Meq/L Kcl) 1,000 mls @ 125 mls/hr IV ASDIRECTED [facility] Last Admin: 07/27/17 15:04 Dose: 125 mls/hr Sodium Chloride (Normal Saline) 1,000 mls @ 125 mls/hr IV ASDIRECTED [facility] Last Admin: 07/27/17 06:49 Dose: 125 mls/hr Metronidazole 500 mg/ Premix 100 mls @ 100 mls/hr IV Q8H [facility] Last Admin: 07/27/17 05:40 Dose: 100 mls/hr Magnesium Sulfate 2 gm/ Premix 50 mls @ 25 mls/hr IV Q2H [facility] Stop: 07/27/17 16:18 Last Admin: 07/27/17 16:07 Dose: 25 mls/hr Magnesium Sulfate 4 gm/ Premix 100 mls @ 50 mls/hr IV ONETIME ONE Stop: 07/29/17 11:52 Last Admin: 07/29/17 11:13 Dose: 50 mls/hr Iopamidol (Isovue-300 (61%)) 125 ml IVPUSH ONETIME ONE Stop: 07/25/17 23:14 Last Admin: 07/25/17 23:54 Dose: 125 ml Lorazepam (Ativan) 1 mg IVPUSH ONETIME ONE Stop: 07/26/17 01:13 Last Admin: 07/26/17 01:23 Dose: 1 ml Magnesium Hydroxide (Milk Of Magnesia) 30 ml PO ONETIME ONE Stop: 07/29/17 16:53 Last Admin: 07/29/17 17:10 Dose: 30 ml Meperidine HCl (Demerol) 75 mg IV Q3HR PRN PRN Reason: pain Last Admin: 07/26/17 10:29 Dose: 75 mg Meperidine HCl (Meperidine) 75 mg IV Q3H PRN PRN Reason: pain Last Admin: 07/27/17 04:22 Dose: 75 mg Metoclopramide HCl (Reglan) 10 mg IVPUSH ONETIME ONE Stop: 07/25/17 21:42 Last Admin: 07/25/17 21:50 Dose: 10 mg Olmesartan/Amlodipine/Hctz 20-5 -?? Own Med 1 tab PO DAILY SAM - Exam Quality Assessment: Reports: DVT Prophylaxis General: Reports: Alert, Oriented, Cooperative, No Acute Distress HEENT: Reports: Pupils Equal, Pupils Reactive, EOMI Lungs: Reports: Clear to Auscultation, Normal Respiratory Effort Cardiovascular: Reports: Regular Rate, Regular Rhythm GI/Abdominal Exam: Normal Bowel Sounds, Soft, Non-Tender, No Organomegaly, No Distention (Male) Exam: Deferred Rectal (Males) Exam: Deferred Back Exam: Reports: Normal Inspection Extremities: Normal Inspection, Normal Range of Motion, Non-Tender, No Pedal Edema, Normal Capillary Refill Skin: Reports: Warm, Dry, Intact Neurological: Reports: No New Focal Deficit, Normal Gait, Normal Speech Psy/Mental Status: Reports: Alert, Normal Affect, Normal Mood *Q Meaningful Use (DIS) - VTE *Q VTE Criteria *Q: - Stroke *Q Stroke Criteria *Q: - AMI *Q AMI Criteria *Q:
== END 2017-07-30 10:20 | disposition home or self-care (01) | DRG 372 ==
LOC: JD.ED 21:13 → JD.MS 07-26 01:13
PROVIDERS: ADMIT Internal Medicine; ATTEND Internal Medicine
DX: A04.72 Enterocolitis due to Clostridium difficile, not specified as recurrent (principal); K57.92 Diverticulitis of intestine, part unspecified, without perforation or abscess without bleeding; E83.42 Hypomagnesemia; F10.21 Alcohol dependence, in remission; K21.9 Gastro-esophageal reflux disease without esophagitis; E66.9 Obesity, unspecified; E78.5 Hyperlipidemia, unspecified; F41.9 Anxiety disorder, unspecified; I10 Essential (primary) hypertension; G47.30 Sleep apnea, unspecified; Z90.49 Acquired absence of other specified parts of digestive tract; K42.9 Umbilical hernia without obstruction or gangrene; F32.9 Major depressive disorder, single episode, unspecified; Z68.35 Body mass index [BMI] 35.0-35.9, adult; H54.7 Unspecified visual loss; Z79.899 Other long term (current) drug therapy
CPT/HCPCS: 36415; 74018; 74018-26; 74177; 74177-26; 80048; 80053; 81001; 83690; 83735; 85025; 85652; 86140; 87493; 96361; 96365; 96366; 96367; 96375; 96376; 99222; 99231; 99232; 99238; 99285; 99285-25; A9270-GY; J1170; J1200; J1956; J2060; J2175; J2765; J3370; J3475; J3480; J7040; Q9963; Q9967

== ENCOUNTER 2017-11-02 07:22 | Emergency (ER) | payer OTHER ==
[2017-11-02 07:33] VITALS: BP 122/58
[2017-11-02] MEDS ORDERED: LORazepam 2 MG/ML SDV IVPUSH ONE (07:49)
[2017-11-02] MEDS ORDERED: Thiamine 100 MG in Sodium Chloride 0.9% 100 ML IV ONE (07:49)
[2017-11-02] MEDS ORDERED: Dextrose 5%-0.9% NaCl 1,000 ML IV SCH (08:00)
[2017-11-02] MEDS ORDERED: HYDROmorphone 0.5 MG/0.5 ML SYRINGE IVPUSH ONE ×4 (08:30→13:32)
[2017-11-02] MEDS ORDERED: Metoclopramide 10 MG/2 ML SDV IVPUSH ONE ×2 (08:30→13:32)
--- NOTE | 2017-11-02 08:36 | EDM.PDOCBH ---
ED HPI GENERAL MEDICAL PROBLEM - General Chief Complaint: Drug or Alcohol Abuse Stated Complaint: ALCOHOL DETOX/ABD PAIN Time Seen by Provider: 11/02/17 08:10 Source of Information: Reports: Patient History Limitations: Reports: No Limitations - History of Present Illness INITIAL COMMENTS - FREE TEXT/NARRATIVE: 47-year-old male presents the ED complaining of severe mid abdominal epigastric pain. He's been drinking alcohol to excess primarily vodka and whiskey almost continuously for the last 3-1/2 days. Patient states she's been sober for about 5 months. Feels quite ill. Last drink was around midnight. Denies any vomiting. He is nauseated. He denies any diarrhea. He states he did have a meal yesterday. Feeling somewhat anxious. He states he's never had a seizure from alcohol withdrawal. Breath smells of alcohol. He is alert and oriented however. Onset: Gradual Onset Date: 10/30/17 Duration: Day(s): Location: Reports: Abdomen (Chief complaint is mid upper abdominal pain) Quality: Reports: Ache, Burning Severity: Severe Improves with: Reports: None (910) Worsens with: Reports: None Context: Reports: Other (Alcohol binge drinking for the last 3-1/2 days.). Denies: Activity, Exercise, Lifting, Sick Contact Associated Symptoms: Reports: Loss of Appetite, Malaise, Nausea/Vomiting. Denies: Confusion, Chest Pain, Cough, cough w sputum, Diaphoresis, Fever/Chills , Headaches, Rash, Seizure (Nausea without vomiting.. At no time in the last 3 days that he had he met emesis.), Shortness of Breath, Syncope, Weakness Treatments STRIP WINDER: Reports: Other (see below) (None.) Upper Abdomen Pain Score (Numeric/FACES): 7 - Related Data Allergies Allergy/AdvReac Type Severity Reaction Status Date / Time No Known Allergies Allergy Verified 11/02/17 07:33 Home Meds: Home Meds Tadalafil [Cialis] 10 mg PO ASDIRECTED 07/09/17 [History] Olmesartan/Amlodipin/Hcthiazid [Tribenzor 40-5-12.5 MG] 1 each PO DAILY [History] Psyllium Husk/Aspartame [Metamucil Sugar Free] 1 packet PO BEDTIME #30 packet [Rx] LORazepam [Ativan] 1 mg PO Q8H PRN #6 tablet 11/02/17 [Rx] Ondansetron [Zofran] 4 mg BUCCAL Q6H PRN #5 tab 11/02/17 [Rx] oxyCODONE HCl/Acetaminophen [Percocet 5-325 mg Tablet] 1 - 2 each PO Q4H PRN # 10 tablet 11/02/17 [Rx] Past Medical History HEENT History: Reports: Impaired Vision Cardiovascular History: Reports: High Cholesterol, Hypertension Respiratory History: Reports: Sleep Apnea Other Respiratory History: uses CPAP at home Gastrointestinal History: Reports: Diverticulosis Genitourinary History: Reports: Other (See Below) Other Genitourinary History: impotence Musculoskeletal History: Reports: Fracture Neurological History: Reports: Brain Injury, Seizure Other Neuro History: 2001 head injury. Seizures as a child - out grew age 12. Psychiatric History: Reports: Addiction, Depression, Suicidal Ideation Other Psychiatric History: Alcohol Endocrine/Metabolic History: Reports: Obesity/BMI 30+ - Infectious Disease History Infectious Disease History: Reports: C-Difficile - Past Surgical History GI Surgical History: Reports: Cholecystectomy Musculoskeletal Surgical History: Reports: Carpal Tunnel, ORIF Dermatological Surgical History: Reports: None Social & Family History - Family History Family Medical History: Noncontributory Cardiac: Reports: [place] Endocrine/Metabolic: Reports: Diabetes, type II Oncologic: Reports: Lung - Tobacco Use Smoking Status *Q: Never Smoker - Caffeine Use Caffeine Use: Reports: Coffee Other Caffeine Use: 2 cups 2-3 times a week - Recreational Drug Use Recreational Drug Use: Yes Drug Use in Last 12 Months: No - Living Situation & Occupation Living situation: Reports: , Alone Occupation: Employed ([employer] in [employer]) [employer] - Review of Systems Review Of Systems: See Below Constitutional: Reports: Malaise, Weakness, Fatigue, Decreased Appetite, Weight Loss. 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 Denies: Constipation, Diarrhea (See history of present illness), Difficulty Swallowing, Distension, Flatus, Hematemesis, Hematochezia, Melena, Mucous in Stool, Stool Incontinence, Vomiting : Reports: Frequency Musculoskeletal: Reports: Back Pain (Chronically) Skin: Reports: No Symptoms Neurological: Reports: Dizziness, Weakness. Denies: Pre-Existing Deficit, Tremors, Trouble Speaking, Change in Speech, Gait Disturbance Psychiatric: Reports: No Symptoms Hematologic/Lymphatic: Reports: No Symptoms Immunologic: Reports: No Symptoms ED EXAM, BEHAVIORAL HEALTH - Physical Exam Exam: See Below Exam Limited By: No Limitations General Appearance: Alert, Moderate Distress (Quite anxious and. Still has a strong smell of alcohol on his breath. He seems in [place] at the [employer] last night got home in the wee hours of the morning.) Eye Exam: Bilateral Eye: Conjunctival Injection (Mild bilateral conjunctival injection.) Head: Atraumatic, Normocephalic Neck: Normal Inspection, Supple, Non-Tender, Full Range of Motion. No: Lymphadenopathy (L), Lymphadenopathy (R) Respiratory/Chest: Lungs Clear, Normal Breath Sounds, Chest Non-Tender, Respiratory Distress (Mild tachypnea at rest.) Cardiovascular: Normal Peripheral Pulses, Regular Rate, Rhythm, No Gallop, No Murmur. No: No Edema GI/Abdominal: Normal Bowel Sounds, Soft, No Organomegaly, Pelvis Stable, Guarding (Mild guarding in the right upper quadrant and epigastrium.), Tender. No: Rebound (Quite tender to palpation mid abdomen and epigastrium.) Back Exam: Normal Inspection, Full Range of Motion. No: CVA Tenderness (L), CVA Tenderness (R) Extremities: Pedal Edema (2+ pitting edema both lower extremities.) Neurological: Alert, CN II-XII Intact, Normal Cognition, No Motor/Sensory Deficits, Oriented x 3 Psychiatric: Alert, Normal Cognition, Oriented, Restless, Other (Moderately anxious.) Skin Exam: Warm, Dry, Intact, Normal color, No rash EKG INTERPRETATION EKG Date: 11/02/17 Time: 08:00 Rhythm: NSR Rate (Beats/Min): 84 Diamond: Normal P-Wave: Present QRS: Other (Decreased voltage limb leads.) ST-T: Other (T-wave flattening aVF.) QT: Normal EKG Interpretation Comments: Essentially normal ECG COURSE, BEHAVIORAL HEALTH COMP - Course Vital Signs: Last Vital Signs Temp 36.9 C 11/02/17 07:31 Pulse 91 11/02/17 07:31 Resp 18 11/02/17 07:31 BP 122/58 L 11/02/17 07:31 Pulse Ox 95 11/02/17 07:31 Orders, Labs, Meds: Active Orders 24 hr Category Date Time Status EKG Documentation Completion [RC] STAT Care 11/02/17 07:51 Active DRUG SCREEN, URINE [URCHEM] Stat Lab 11/02/17 08:00 Ordered URINALYSIS W/MICROSCOPIC [UA W/MICROSCOPIC] [URIN] Stat Lab 11/02/17 09:50 Ordered Dextrose 5%-0.9% NaCl [Dextrose 5%-Normal Saline] 1,000 Med 11/02/17 08:00 Active ml IV ASDIRECTED Dextrose 5%-Lactated Ringers 1,000 ml Med 11/02/17 10:30 Active IV ASDIRECTED Ketorolac [Toradol] Med 11/02/17 13:45 Active 30 mg IVPUSH ONETIME Medication Orders Dextrose/Sodium Chloride (Dextrose 5%-Normal Saline) 1,000 mls @ 999 mls/hr IV ASDIRECTED SAM Last Admin: 11/02/17 08:26 Dose: 999 mls/hr Dextrose/Lactated Ringer's (Dextrose 5%-Lactated Ringers) 1,000 mls @ 999 mls/ hr IV ASDIRECTED SAM Last Admin: 11/02/17 10:35 Dose: 999 mls/hr Ketorolac Tromethamine (Toradol) 30 mg IVPUSH ONETIME SAM Last Admin: 11/02/17 13:55 Dose: 30 mg Laboratory Tests 11/02/17 11/02/17 11/02/17 Range/Units 08:00 08:36 08:36 WBC 5.81 (4.23-9.07) K/mm3 RBC 4.21 L (4.63-6.08) M/mm3 Hgb 13.6 L (13.7-17.5) gm/L Hct 38.3 L (40.1-51.0) % MCV 91.0 (79.0-92.2) fl MCH 32.3 H (25.7-32.2) pg MCHC 35.5 (32.2-35.5) g/dl RDW Std Deviation 42.7 (35.1-43.9) fL Plt Count 152 L (163-337) K/mm3 MPV 10.9 (9.4-12.3) fl Neutrophils % (Manual) 70 H (40-60) % Band Neutrophils % 0 (0-10) % Lymphocytes % (Manual) 28 (20-40) % Atypical Lymphs % 0 % Monocytes % (Manual) 1 L (2-10) % Eosinophils % (Manual) 0 L (0.8-7.0) % Basophils % (Manual) 1 (0.2-1.2) Platelet Estimate Adequate RBC Morph Comment Normal PT 10.3 (9.5-12.1) SECONDS INR 0.94 APTT 27 (24-31) SECONDS Sodium (136-145) mEq/L Potassium (3.5-5.1) mEq/L Chloride (98-107) mEq/L Carbon Dioxide (21-32) mEq/L Anion Gap (5-15) BUN (7-18) mg/dL Creatinine (0.7-1.3) mg/dL Est Cr Clr Drug Dosing mL/min Estimated GFR (MDRD) (>60) mL/min BUN/Creatinine Ratio (14-18) Glucose (74-106) mg/dL Calcium (8.5-10.1) mg/dL Magnesium (1.8-2.4) mg/dl Total Bilirubin (0.2-1.0) mg/dL AST (15-37) U/L ALT (16-63) U/L Alkaline Phosphatase (46-116) U/L Creatine Kinase (39-308) U/L C-Reactive Protein (<1.0) mg/dL Total Protein (6.4-8.2) g/dl Albumin (3.4-5.0) g/dl Globulin gm/dL Albumin/Globulin Ratio (1-2) Lipase (73-393) U/L Urine Opiates Screen Negative (NEGATIVE) Ur Buprenorphine Scrn Negative (NEGATIVE) Ur Oxycodone Screen Negative (NEGATIVE) Urine Methadone Screen Negative (NEGATIVE) Ur Propoxyphene Screen Negative (NEGATIVE) Ur Barbiturates Screen Negative (NEGATIVE) Ur Tricyclics Screen Negative (NEGATIVE) Ur Phencyclidine Scrn Negative (NEGATIVE) Ur Amphetamine Screen Negative (NEGATIVE) U Methamphetamines Scrn Negative (NEGATIVE) U Benzodiazepines Scrn Negative (NEGATIVE) U Cocaine Metab Screen Negative (NEGATIVE) U Marijuana (THC) Screen Negative (NEGATIVE) Ethyl Alcohol (0.00) gm% 11/02/17 Range/Units 08:36 WBC (4.23-9.07) K/mm3 RBC (4.63-6.08) M/mm3 Hgb (13.7-17.5) gm/L Hct (40.1-51.0) % MCV (79.0-92.2) fl MCH (25.7-32.2) pg MCHC (32.2-35.5) g/dl RDW Std Deviation (35.1-43.9) fL Plt Count (163-337) K/mm3 MPV (9.4-12.3) fl Neutrophils % (Manual) (40-60) % Band Neutrophils % (0-10) % Lymphocytes % (Manual) (20-40) % Atypical Lymphs % % Monocytes % (Manual) (2-10) % Eosinophils % (Manual) (0.8-7.0) % Basophils % (Manual) (0.2-1.2) Platelet Estimate RBC Morph Comment PT (9.5-12.1) SECONDS INR APTT (24-31) SECONDS Sodium 135 L (136-145) mEq/L Potassium 4.5 (3.5-5.1) mEq/L Chloride 102 (98-107) mEq/L Carbon Dioxide 21 (21-32) mEq/L Anion Gap 16.5 H (5-15) BUN 29 H (7-18) mg/dL Creatinine 1.9 H (0.7-1.3) mg/dL Est Cr Clr Drug Dosing 49.63 mL/min Estimated GFR (MDRD) 38 (>60) mL/min BUN/Creatinine Ratio 15.3 (14-18) Glucose 111 H (74-106) mg/dL Calcium 8.4 L (8.5-10.1) mg/dL Magnesium 1.4 L (1.8-2.4) mg/dl Total Bilirubin 0.5 (0.2-1.0) mg/dL AST 66 H (15-37) U/L ALT 95 H (16-63) U/L Alkaline Phosphatase 85 (46-116) U/L Creatine Kinase 624 H (39-308) U/L C-Reactive Protein 0.6 (<1.0) mg/dL Total Protein 7.1 (6.4-8.2) g/dl Albumin 3.6 (3.4-5.0) g/dl Globulin 3.5 gm/dL Albumin/Globulin Ratio 1.0 (1-2) Lipase 269 (73-393) U/L Urine Opiates Screen (NEGATIVE) Ur Buprenorphine Scrn (NEGATIVE) Ur Oxycodone Screen (NEGATIVE) Urine Methadone Screen (NEGATIVE) Ur Propoxyphene Screen (NEGATIVE) Ur Barbiturates Screen (NEGATIVE) Ur Tricyclics Screen (NEGATIVE) Ur Phencyclidine Scrn (NEGATIVE) Ur Amphetamine Screen (NEGATIVE) U Methamphetamines Scrn (NEGATIVE) U Benzodiazepines Scrn (NEGATIVE) U Cocaine Metab Screen (NEGATIVE) U Marijuana (THC) Screen (NEGATIVE) Ethyl Alcohol 0.01 (0.00) gm% Medications Generic Name Dose Route Start Last Admin Trade Name Orestes PRN Reason Stop Dose Admin Dextrose/Sodium Chloride 1,000 mls @ 999 mls/hr 11/02/17 08:00 11/02/17 08:26 Dextrose 5%-Normal Saline IV 999 mls/hr ASDIRECTED SAM Administration Dextrose/Lactated Ringer's 1,000 mls @ 999 mls/hr 11/02/17 10:30 11/02/17 10: 35 Dextrose 5%-Lactated Ringers IV 999 mls/hr ASDIRECTED SAM Administration Ketorolac Tromethamine 30 mg 11/02/17 13:45 11/02/17 13:55 Toradol IVPUSH 30 mg ONETIME SAM Administration Discontinued Medications Generic Name Dose Route Start Last Admin Trade Name Orestes PRN Reason Stop Dose Admin Al Hydroxide/Mg Hydroxide 30 ml 11/02/17 10:58 11/02/17 11:22 Mag-Al Plus PO 11/02/17 10:59 30 ml ONETIME ONE Administration Dicyclomine HCl 20 mg 11/02/17 10:58 11/02/17 11:22 Bentyl PO 11/02/17 10:59 20 mg ONETIME ONE Administration Hydromorphone HCl 1 mg 11/02/17 08:30 11/02/17 08:39 Dilaudid IVPUSH 11/02/17 08:31 1 mg ONETIME ONE Administration Hydromorphone HCl 0.5 mg 11/02/17 09:27 11/02/17 09:47 Dilaudid IVPUSH 11/02/17 09:28 0.5 mg ONETIME ONE Administration Hydromorphone HCl 0.5 mg 11/02/17 10:58 11/02/17 11:21 Dilaudid IVPUSH 11/02/17 10:59 0.5 mg ONETIME ONE Administration Hydromorphone HCl 0.5 mg 11/02/17 13:32 11/02/17 13:54 Dilaudid IVPUSH 11/02/17 13:33 0.5 mg ONETIME ONE Administration Thiamine HCl 100 mg/ Sodium 101 mls @ 202 mls/hr 11/02/17 07:49 11/02/17 08: 28 Chloride IV 11/02/17 07:50 202 mls/hr ONETIME ONE Administration Lorazepam 1 mg 11/02/17 07:49 11/02/17 08:27 Ativan IVPUSH 11/02/17 07:50 1 mg ONETIME ONE Administration Metoclopramide HCl 10 mg 11/02/17 08:30 11/02/17 08:38 Reglan IVPUSH 11/02/17 08:31 10 mg ONETIME ONE Administration Metoclopramide HCl 7.5 mg 11/02/17 13:32 11/02/17 13:54 Reglan IVPUSH 11/02/17 13:33 7.5 mg ONETIME ONE Administration Re-Assessment/Re-Exam: 47-year-old male presents the ED for help to stop drinking. He's been enjoying 5 months of sobriety. He's been drinking heavily the last 3-1/2 days primarily a combination of vodka whiskey and beer. Last drink was approximately midnight. He is nauseated but he said no emesis. Chief complaint is severe mid abdominal pain right upper quadrant abdominal pain. Patient has a chronic vasculitis involving his lungs. Apparently he has still been taking his medications. Plan IV D5 normal saline at open. Given Dilaudid 1 mg IV for abdominal pain with Reglan 10 mg IV. Ativan 1 mg IV for anxiety and restlessness. Will give thiamine 100 mg IV as well. Routine labs including coags and serum lipase and serum magnesium to be obtained. Urine drug screen when one becomes available although he is not known to use street drugs. 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 Total white count is 5.81 with 70% neutrophils and no bands reported. Hemoglobin is 13.6 with hematocrit of 38.3. Platelet count is 152,000. PT is 10.3 with an INR of 0.94. PTT is 27. Sodium slightly low at 135. Potassium normal at 4.5. Chloride is 102 with a bicarbonate of 21. Anion gap is mildly elevated at 16.5. BUN is 29. Creatinine is elevated at 1.9.. GFR is estimated at 38 which is stage III chronic kidney disease. Glucose is 111. Calcium is low at 8.4. Magnesium is low at 1.4. AST is 66 with an ALT of 95 of prostate normal at 85. His total CPK is elevated at 624. C-reactive protein is 0.6. Lipase normal at 269. Urine drug screen is negative. Current blood alcohol is 0.01 g percent. Therefore lab suggested alcohol-induced gastritis and mild hepatitis. He'll require further intravenous fluids to correct his metabolic acidosis. Will hang a liter of Ringer's lactate with dextrose.) Re-Assessment/Re-Exam Time: 10:59 (Still complaining of upper abdominal pain discomfort. Advised of the findings of his labs. I'm going to get him a little bit to eat. I think this might help his stomach. He will be given Maalox 30 mils by mouth with Bentyl 20 mg by mouth as well.Repeat Dilaudid 0.5mg IV as well for pain relief. ) Medical Clearance: 11/02/17 13:31 patient is still having epigastric upper abdominal pain likely hepatitis from alcoholism and alcohol-induced gastritis. Eat a little bit of meat loaf and states it did make his pain mildly worse. I'm going to repeat his antinausea medication and Dilaudid 0.5 mg IV. 11/02/17 14:22 patient is feeling improved. He will be discharged to home. He made a request for some Adderall 20 mg once daily which is used in the past for his ADDH. He tries to avoid the medication but he feels at this point time he is not getting anything accomplished because he can't stay focused on anyone's problem at a time. I did write a prescription therefore for Adderall 20 mg once daily for the next 30 days. After work she can follow-up with her primary care physician for refills. Departure - Departure Time of Disposition: 14:23 Disposition: Home, Self-Care 01 Condition: Fair Clinical Impression: Hepatitis, alcoholic, acute, ADHD (attention deficit hyperactivity disorder) Acute alcoholic gastritis Qualifiers: Gastritis bleeding: without bleeding Qualified Code(s): K29.20 - Alcoholic gastritis without bleeding - Discharge Information Prescriptions: LORazepam [Ativan] 1 mg PO Q8H PRN #6 tablet PRN Reason: Anxiety Ondansetron [Zofran] 4 mg BUCCAL Q6H PRN #5 tab PRN Reason: nausea or vomiting oxyCODONE HCl/Acetaminophen [Percocet 5-325 mg Tablet] 1 - 2 each PO Q4H PRN # 10 tablet PRN Reason: pain relief. Instructions: Gastritis, Adult, [id number] Referrals: Sandip Johnson [Primary Care Provider] - - My Orders Last 24 Hours: My Active Orders 11/02/17 07:51 EKG Documentation Completion [RC] STAT 11/02/17 08:00 DRUG SCREEN, URINE [URCHEM] Stat Dextrose 5%-0.9% NaCl [Dextrose 5%-Normal Saline] 1,000 ml IV ASDIRECTED 11/02/17 09:50 URINALYSIS W/MICROSCOPIC [UA W/MICROSCOPIC] [URIN] Stat 11/02/17 10:30 Dextrose 5%-Lactated Ringers 1,000 ml IV ASDIRECTED 11/02/17 13:45 Ketorolac [Toradol] 30 mg IVPUSH ONETIME - Assessment/Plan Last 24 Hours: My Active Orders 11/02/17 07:51 EKG Documentation Completion [RC] STAT 11/02/17 08:00 DRUG SCREEN, URINE [URCHEM] Stat Dextrose 5%-0.9% NaCl [Dextrose 5%-Normal Saline] 1,000 ml IV ASDIRECTED 11/02/17 09:50 URINALYSIS W/MICROSCOPIC [UA W/MICROSCOPIC] [URIN] Stat 11/02/17 10:30 Dextrose 5%-Lactated Ringers 1,000 ml IV ASDIRECTED 11/02/17 13:45 Ketorolac [Toradol] 30 mg IVPUSH ONETIME
[2017-11-02] MEDS ORDERED: Dextrose 5%-Lactated Ringers 1,000 ML IV SCH (10:30)
[2017-11-02] MEDS ORDERED: Aluminum Hydroxide/Magnesium Hydroxide/Simethicone Susp 30 ML Cup PO ONE (10:58)
[2017-11-02] MEDS ORDERED: Dicyclomine 10 MG Cap PO ONE (10:58)
[2017-11-02] MEDS ORDERED: Ketorolac 30 MG/ML SDV IVPUSH SCH (13:45)
== END 2017-11-02 14:15 | disposition home or self-care (01) ==
LOC: JD.ED 07:22
DX: K70.10 Alcoholic hepatitis without ascites (principal); K29.20 Alcoholic gastritis without bleeding; F90.9 Attention-deficit hyperactivity disorder, unspecified type; I10 Essential (primary) hypertension; E78.00 Pure hypercholesterolemia, unspecified; F32.9 Major depressive disorder, single episode, unspecified
CPT/HCPCS: 36415; 80053; 80306; 81001; 82550; 83690; 83735; 85007; 85027; 85610; 85730; 86140; 93005; 96361; 96365; 96375; 96376; 99285; A9270; G0480; J1170; J1885; J2060; J2765; J3411; J7030; J7042

== ENCOUNTER 2017-11-10 08:37 | Emergency (ER) | payer OTHER ==
[2017-11-10 08:49] VITALS: BP 146/76
[2017-11-10] MEDS ORDERED: Ondansetron 4 MG/2 ML SDV IVPUSH ONE (09:17)
[2017-11-10] MEDS ORDERED: HYDROmorphone 0.5 MG/0.5 ML SYRINGE IVPUSH STA (09:19)
[2017-11-10] MEDS ORDERED: Sodium Chloride 0.9% 1,000 ML IV SCH (09:30)
[2017-11-10] MEDS ORDERED: Diatrizoate Meglumine/Diatrizoate Sodium 37% 120 ML Bottle PO ONE (10:04)
[2017-11-10] MEDS ORDERED: Sodium Chloride 0.9% 10 ML Syringe FLUSH ONE (10:04)
[2017-11-10] MEDS ORDERED: Iopamidol 612 MG/ML 150 ML Bottle IVPUSH ONE (10:04)
--- NOTE | 2017-11-10 11:05 | EDM.PDOC ---
ED HPI GENERAL MEDICAL PROBLEM - General Chief Complaint: Drug or Alcohol Abuse Stated Complaint: DETOXING AND KIDNEY PAIN Time Seen by Provider: 11/10/17 08:52 Source of Information: Reports: Patient History Limitations: Reports: No Limitations - History of Present Illness INITIAL COMMENTS - FREE TEXT/NARRATIVE: The patient states that he is a binge alcoholic, and that, for the most part, he has been sober over the past 2 weeks, but that he drank the weekend of October 28 and , then drank a 1.5 L bottle of vodka over 3 days, from Monday, 2017 through 11/05/2017. He now presents with a complaint of a headache, generalized pruritus, body aches, especially in his lower extremities, and bilateral flank pain. He states that he often gets these symptoms after he binges on alcohol. The patient also reports right upper quadrant abdominal pain for the past 2 days. It is sharp and burning in character. It is not modifiable. It does not radiate. He also reports watery diarrhea last night and this morning. No recent fever, but he has had chills yesterday and this morning. No recent cough. No recent nausea, vomiting, or constipation. He reports slight dysuria, but no urinary urgency or frequency. The patient states that he has been to inpatient alcohol treatment once, in April 2018, for 10 days. He states that he stayed sober for a few months after he was released. He states that he has gone to AA past, but not for the past 2 or 3 months. 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 The patient's PCP is Dr. Johnson, who is not available today. Patient planned to see Dr. Sanchez this coming 11/14/2017 at 14:30, at which time he was going to request an injection of Vivitrol (naltrexone), which the patient has been led to believe is a "new miracle drug" that not only decreases the urge to drink alcohol, but also prevents the patient from getting intoxicated if he does drink. Bilateral Flank Pain Score (Numeric/FACES): 8 - Related Data Allergies Allergy/AdvReac Type Severity Reaction Status Date / Time No Known Allergies Allergy Verified 11/10/17 08:46 Home Meds: Home Meds Tadalafil [Cialis] 10 mg PO ASDIRECTED 07/09/17 [History] Olmesartan/Amlodipin/Hcthiazid [Tribenzor 40-5-12.5 MG] 1 each PO DAILY [History] Psyllium Husk/Aspartame [Metamucil Sugar Free] 1 packet PO BEDTIME #30 packet [Rx] LORazepam [Ativan] 1 mg PO Q8H PRN #6 tablet 11/02/17 [Rx] Ondansetron [Zofran] 4 mg BUCCAL Q6H PRN #5 tab 11/02/17 [Rx] oxyCODONE HCl/Acetaminophen [Percocet 5-325 mg Tablet] 1 - 2 each PO Q4H PRN # 10 tablet 11/02/17 [Rx] Past Medical History HEENT History: Reports: Impaired Vision Cardiovascular History: Reports: High Cholesterol, Hypertension Respiratory History: Reports: Sleep Apnea (nightly CPAP 12) Gastrointestinal History: Reports: Diverticulosis Musculoskeletal History: Reports: Fracture (right femur) Neurological History: Reports: Brain Injury (2000), Seizure (petite mal, as a child) Psychiatric History: Reports: Addiction ([place]), Depression, Suicidal Ideation Endocrine/Metabolic History: Reports: Obesity/BMI 30+ - Infectious Disease History Infectious Disease History: Reports: C-Difficile - Past Surgical History GI Surgical History: Reports: Cholecystectomy (2015) Musculoskeletal Surgical History: Reports: Carpal Tunnel (bilateral), ORIF ( right femur) Social & Family History - Family History Family Medical History: Noncontributory Cardiac: Reports: [place] Endocrine/Metabolic: Reports: Diabetes, type II Oncologic: Reports: Lung - Tobacco Use Smoking Status *Q: Never Smoker - Caffeine Use Caffeine Use: Reports: Coffee Other Caffeine Use: 2 cups 2-3 times a week - Alcohol Use Alcohol Use History: Yes Alcohol Use Frequency: Binges - Recreational Drug Use Recreational Drug Use: Yes Recreational Drug Type: Reports: Cocaine, Marijuana/Hashish - Living Situation & Occupation Living situation: Reports: , Alone 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 ED EXAM, GENERAL - Physical Exam Exam: See Below Exam Limited By: No Limitations General Appearance: Alert, WD/WN, No Apparent Distress Eye Exam: Bilateral Eye: Normal Inspection Ears: Normal External Exam, Hearing Grossly Normal Nose: Normal Inspection, No Blood Throat/Mouth: Normal Inspection, Normal Lips, Normal Voice, No Airway Compromise Head: Atraumatic, Normocephalic Neck: Normal Inspection, Full Range of Motion Respiratory/Chest: No Respiratory Distress, Lungs Clear, Normal Breath Sounds, No Accessory Muscle Use Cardiovascular: Normal Peripheral Pulses, Regular Rate, Rhythm, No Edema, No Gallop, No JVD, No Murmur, No Rub Peripheral Pulses: 4+: Radial (L), Radial (R) GI/Abdominal: Normal Bowel Sounds, Soft, No Organomegaly, No Distention, No Abnormal Bruit, No Mass, Tender (Primarily in the right upper quadrant, less tenderness elsewhere), Other (Obese) (Male) Exam: Deferred Rectal (Males) Exam: Deferred Back Exam: Normal Inspection, Full Range of Motion, NT Extremities: Normal Inspection, Normal Range of Motion, No Pedal Edema, Normal Capillary Refill Neurological: Alert, Oriented, Normal Cognition, No Motor/Sensory Deficits Psychiatric: Normal Affect Skin Exam: Warm, Dry, Intact, Normal Color, No Rash Course - Vital Signs Last Recorded V/S: Last Vital Signs Temp 37.1 C 11/10/17 08:46 Pulse 70 11/10/17 08:46 Resp 18 11/10/17 08:46 BP 146/76 H 11/10/17 08:46 Pulse Ox 100 11/10/17 08:46 - Orders/Labs/Meds Orders: Active Orders 24 hr Category Date Time Status UA W/MICROSCOPIC [URIN] Stat Lab 11/10/17 09:25 Ordered Sodium Chloride 0.9% [Normal Saline] 1,000 ml Med 11/10/17 09:30 Active IV ASDIRECTED Medication Orders Sodium Chloride (Normal Saline) 1,000 mls @ 150 mls/hr IV ASDIRECTED SAM Last Admin: 11/10/17 09:28 Dose: 150 mls/hr Labs: Laboratory Tests 11/10/17 11/10/17 11/10/17 Range/Units 09:25 09:25 09:25 WBC 9.05 (4.23-9.07) K/mm3 RBC 4.78 (4.63-6.08) M/mm3 Hgb 15.4 (13.7-17.5) gm/L Hct 43.5 (40.1-51.0) % MCV 91.0 (79.0-92.2) fl MCH 32.2 (25.7-32.2) pg MCHC 35.4 (32.2-35.5) g/dl RDW Std Deviation 43.0 (35.1-43.9) fL Plt Count 230 (163-337) K/mm3 MPV 10.7 (9.4-12.3) fl Neutrophils % (Manual) 74 H (40-60) % Band Neutrophils % 0 (0-10) % Lymphocytes % (Manual) 16 L (20-40) % Atypical Lymphs % 0 % Monocytes % (Manual) 6 (2-10) % Eosinophils % (Manual) 4 (0.8-7.0) % Basophils % (Manual) 0 L (0.2-1.2) Platelet Estimate Adequate RBC Morph Comment Normal Sodium 136 (136-145) mEq/L Potassium 3.8 (3.5-5.1) mEq/L Chloride 99 (98-107) mEq/L Carbon Dioxide 28 (21-32) mEq/L Anion Gap 12.8 (5-15) BUN 32 H (7-18) mg/dL Creatinine 1.5 H (0.7-1.3) mg/dL Est Cr Clr Drug Dosing 62.86 mL/min Estimated GFR (MDRD) 50 (>60) mL/min BUN/Creatinine Ratio 21.3 H (14-18) Glucose 101 (74-106) mg/dL Calcium 9.3 (8.5-10.1) mg/dL Total Bilirubin 0.5 (0.2-1.0) mg/dL AST 98 H (15-37) U/L ALT 131 H (16-63) U/L Alkaline Phosphatase 97 (46-116) U/L Total Protein 8.2 (6.4-8.2) g/dl Albumin 4.2 (3.4-5.0) g/dl Globulin 4.0 gm/dL Albumin/Globulin Ratio 1.1 (1-2) Lipase 113 (73-393) U/L Urine Color Light yellow (Yellow) Urine Appearance Clear (Clear) Urine pH 6.0 (5.0-8.0) Ur Specific Ryan 1.020 (1.005-1.030) Urine Protein Negative (Negative) Urine Glucose (UA) Negative (Negative) Urine Ketones Negative (Negative) Urine Occult Blood Negative (Negative) Urine Nitrite Negative (Negative) Urine Bilirubin Negative (Negative) Urine Urobilinogen 0.2 (0.2-1.0) Ur Leukocyte Esterase Negative (Negative) Urine RBC 0-5 (0-5) /hpf Urine WBC 0-5 (0-5) /hpf Ur Epithelial Cells Not seen (0-5) /hpf Urine Bacteria Not seen (FEW) /hpf Urine Mucus Not seen (FEW) /hpf Meds: Medications Generic Name Dose Route Start Last Admin Trade Name Freq PRN Reason Stop Dose Admin Sodium Chloride 1,000 mls @ 150 mls/hr 11/10/17 09:30 11/10/17 09:28 Normal Saline IV 150 mls/hr ASDIRECTED SAM Administration Discontinued Medications Generic Name Dose Route Start Last Admin Trade Name Freq PRN Reason Stop Dose Admin Diatrizoate Meglum/Diatrizoate Sod 90 ml 11/10/17 10:04 11/10/17 10:38 Gastrografin 37% PO 11/10/17 10:05 90 ml ONETIME ONE Administration Hydromorphone HCl 1 mg 11/10/17 09:19 11/10/17 09:30 Dilaudid IVPUSH 11/10/17 09:20 1 mg ONETIME STA Administration Iopamidol 125 ml 11/10/17 10:04 11/10/17 10:38 Isovue-300 (61%) IVPUSH 11/10/17 10:05 125 ml ONETIME ONE Administration Ondansetron HCl 4 mg 11/10/17 09:17 11/10/17 09:28 Zofran IVPUSH 11/10/17 09:18 4 mg ONETIME ONE Administration Sodium Chloride 10 ml 11/10/17 10:04 11/10/17 10:38 Saline Flush FLUSH 11/10/17 10:05 10 ml ONETIME ONE Administration - Re-Assessments/Exams Free Text/Narrative Re-Assessment/Exam: 11/10/17 11:22 CT of the abdomen and pelvis with oral and IV contrast is read by Dr. Roe as: 1. Incidental findings as noted above. Nothing acute is appreciated on CT study of the abdomen and pelvis. 11/10/17 11:23 All of the patient's studies have returned, with the exception of the stool WBC and rotavirus. I am told that a stool sample has not yet been collected. 11/10/17 11:50 The patient has been unable to provide a stool sample, therefore I canceled the orders. Test results discussed with the patient. Today's workup is grossly unremarkable. His BUN/Cr is modestly elevated at 32/1.5; it was 29/1.9 on 2017. His transaminases are slightly elevated, which is chronic. The cause of the patient's generalized body aches is unclear, but is not consistent with alcohol withdrawal, and does not require medical treatment other than ibuprofen or naproxen. The patient may safely be discharged home. I'm recommending that he follow-up at [facility] as early as today, not only to get into alcohol treatment, but also to be considered for an antidepressant. Departure - Departure Time of Disposition: 11:52 Disposition: Home, Self-Care 01 Condition: Good Clinical Impression: Generalized body aches, Alcohol dependence, binge pattern, Chronic kidney disease - Discharge Information Referrals: Sandip Johnson [Primary Care Provider] - Additional Instructions: You were seen in the emergency room for a headache, feeling itchy all over, diarrhea, and generalized body aches, that you were concerned were due to alcohol withdrawal. Workup in the ER included blood work, a urinalysis, and a CT scan of your abdomen and pelvis. You were unable to provide a stool sample. Other than some mild renal insufficiency, your entire workup was unremarkable. Your symptoms are not known symptoms of alcohol withdrawal, especially this far out from your last drink. We recommend that you stay well hydrated with an electrolyte-containing solution such as Gatorade or Powerade. Treat your body aches with [id number] ibuprofen (Motrin, Advil), 2-3 tablets (400-600 mg) every 8 hours, with food, as needed for pain, or over-the- counter naproxen (Aleve), one tablet every 12 hours, with food, as needed for pain. We recommend that you follow-up with [facility], as early as today , not only for alcohol treatment/rehabilitation, but also to be considered for an antidepressant: [address] [phone] Follow-up with your PCP, Dr. Johnson, as needed. If any other problems, please do not hesitate to return to the ER. - My Orders Last 24 Hours: My Active Orders 11/10/17 09:25 UA W/MICROSCOPIC [URIN] Stat 11/10/17 09:30 Sodium Chloride 0.9% [Normal Saline] 1,000 ml IV ASDIRECTED - Assessment/Plan Last 24 Hours: My Active Orders 11/10/17 09:25 UA W/MICROSCOPIC [URIN] Stat 11/10/17 09:30 Sodium Chloride 0.9% [Normal Saline] 1,000 ml IV ASDIRECTED
--- NOTE | 2017-11-10 11:13 | CT ---
CT abdomen and pelvis Technique: Multiple axial sections were obtained from above the dome of the diaphragm inferiorly through the pubic symphysis. Intravenous and oral contrast has been given. Most of the oral contrast remains within the stomach. Delayed images were also obtained through the abdomen and pelvis. Comparison: Prior CT abdomen and pelvis exam of 07/25/17. Findings: Visualized lung bases show nothing acute. Liver shows fatty infiltration. Two small cysts are seen within the liver. These cysts are stable from prior exam with largest cyst measuring approximately 1.7 cm. Spleen appears within normal limits. Adrenal glands show no nodule. Pancreas is normal. Surgical clips are seen from prior cholecystectomy. Kidneys show symmetric contrast enhancement without hydronephrosis or mass. Contrast is noted throughout the ureters on delayed images as well as contrast seen within the bladder. Aorta shows no aneurysmal dilatation. No retroperitoneal adenopathy or mesenteric abnormalities are seen. Diverticuli are seen within the descending and sigmoid colon without diverticulitis. No bowel wall thickening is seen. No free fluid or inflammatory change is seen. Appendix is seen which is normal in size. Bone window settings were reviewed which show disc space narrowing and vacuum phenomenon of the L4-L5 and L5-S1 disc. Both these discs show posterior spurring. Lesser degenerative change is seen within other portions of the spine. Impression: 1. Incidental findings as noted above. Nothing acute is appreciated on CT study of the abdomen and pelvis. Diagnostic code #2
== END 2017-11-10 12:16 | disposition home or self-care (01) ==
LOC: JD.ED 08:37
DX: I12.9 Hypertensive chronic kidney disease with stage 1 through stage 4 chronic kidney disease, or unspecified chronic kidney disease (principal); N18.9 Chronic kidney disease, unspecified; F10.20 Alcohol dependence, uncomplicated; F50.81 Binge eating disorder; E78.00 Pure hypercholesterolemia, unspecified; Z79.899 Other long term (current) drug therapy
CPT/HCPCS: 36415; 74177; 80053; 81001; 83690; 85007; 85027; 96361; 96374; 96375; 99284; J1170; J2405; J7040; J7050; Q9963; Q9967

== ENCOUNTER 2018-06-19 10:55 | Emergency (ER) | payer OTHER ==
[2018-06-19] MEDS ORDERED: Sodium Chloride 0.9% 10 ML Syringe FLUSH PRN (11:36)
[2018-06-19] MEDS ORDERED: LORazepam 2 MG/ML SDV IVPUSH ONE ×3 (11:43→14:44)
[2018-06-19] MEDS ORDERED: Sodium Chloride 0.9% 1,000 ML IV SCH ×2 (11:45→13:15)
[2018-06-19] MEDS ORDERED: Ketorolac 30 MG/ML SDV IVPUSH SCH (12:45)
--- NOTE | 2018-06-19 14:17 | EDM.PDOCBH ---
ED HPI GENERAL MEDICAL PROBLEM - General Chief Complaint: Drug or Alcohol Abuse Stated Complaint: DETOX Time Seen by Provider: 06/19/18 11:35 Source of Information: Reports: Patient, RN Notes Reviewed - History of Present Illness INITIAL COMMENTS - FREE TEXT/NARRATIVE: 48 year old male has been binge drinking for the past 5 days. Has been drinking a bottle of vodka per day. States he needs to go back to work tomorrow , works in the [employer]. He feels awful. He feels weak, dizzy, aches all over , feels anxious with palpitations. Hx of alcohol abuse and dependency but had not been drinking recently up until 5 days ago. Generalized Pain Score (Numeric/FACES): 10 - Related Data Allergies Allergy/AdvReac Type Severity Reaction Status Date / Time No Known Allergies Allergy Verified 06/19/18 11:07 Home Meds: Home Meds Dextroamphetamine/Amphetamine [Adderall 20 mg Tablet] 20 mg PO BID 02/26/18 [ History] Olmesartan [Benicar] 40 mg PO DAILY 02/26/18 [History] amLODIPine [Norvasc] 5 mg PO DAILY 02/26/18 [History] Meloxicam 15 mg PO DAILY PRN 06/19/18 [History] Past Medical History HEENT History: Reports: Impaired Vision Cardiovascular History: Reports: High Cholesterol, Hypertension Respiratory History: Reports: Sleep Apnea Other Respiratory History: uses CPAP at home Gastrointestinal History: Reports: Diverticulosis Genitourinary History: Reports: Other (See Below) Other Genitourinary History: impotence Musculoskeletal History: Reports: Fracture Neurological History: Reports: Brain Injury, Seizure Other Neuro History: 2001 head injury. Seizures as a child - out grew age 12. Psychiatric History: Reports: Addiction, Depression, Suicidal Ideation Other Psychiatric History: Alcohol Endocrine/Metabolic History: Reports: Obesity/BMI 30+ - Infectious Disease History Infectious Disease History: Reports: C-Difficile - Past Surgical History HEENT Surgical History: Reports: Oral Surgery GI Surgical History: Reports: Cholecystectomy Musculoskeletal Surgical History: Reports: Carpal Tunnel, ORIF Dermatological Surgical History: Reports: None Social & Family History - Family History Family Medical History: Noncontributory Cardiac: Reports: [place] Endocrine/Metabolic: Reports: Diabetes, type II Oncologic: Reports: Lung - Tobacco Use Smoking Status *Q: Unknown Ever Smoked - Caffeine Use Caffeine Use: Reports: Coffee Other Caffeine Use: 2 cups 2-3 times a week - Living Situation & Occupation Living situation: Reports: , Alone 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 Denies: Abdominal Pain, Vomiting Musculoskeletal: Reports: Other (generalized achiness) Skin: Denies: Rash Neurological: Reports: Dizziness. Denies: Headache, Numbness, Tingling, Trouble Speaking, Weakness Psychiatric: Reports: Anxiety. Denies: Hallucinations, Suicidal Ideation ED EXAM, BEHAVIORAL HEALTH - Physical Exam Exam: See Below General Appearance: Alert, Anxious Eye Exam: Bilateral Eye: PERRL Throat/Mouth: Normal Inspection Head: Atraumatic. No: Facial Swelling Neck: Supple, Full Range of Motion Respiratory/Chest: No Respiratory Distress, Lungs Clear, Normal Breath Sounds Cardiovascular: Tachycardia GI/Abdominal: Soft, Non-Tender. No: Guarding Back Exam: No: CVA Tenderness (L), CVA Tenderness (R) Extremities: Normal Inspection Neurological: Alert, Normal Cognition, No Motor/Sensory Deficits, Oriented x 3, Other (very mild tremor, finger to nose testing normal, ambulatory without difficulty) COURSE, BEHAVIORAL HEALTH COMP - Course Vital Signs: Last Vital Signs Temp 98.8 F 06/19/18 14:58 Pulse 99 06/19/18 14:58 Resp 18 06/19/18 14:58 BP 159/93 H 06/19/18 14:58 Pulse Ox 97 06/19/18 14:58 Orders, Labs, Meds: Active Orders 24 hr Category Date Time Status Peripheral IV Care [RC] . DIRECTED Care 06/19/18 11:36 Active Peripheral IV Insertion Adult [OM.PC] Stat Oth 06/19/18 11:36 Ordered Laboratory Tests 06/19/18 06/19/18 06/19/18 Range/Units 11:15 11:15 11:46 WBC 7.59 (4.23-9.07) K/mm3 RBC 5.51 (4.63-6.08) M/mm3 Hgb 17.4 (13.7-17.5) gm/L Hct 49.9 (40.1-51.0) % MCV 90.6 (79.0-92.2) fl MCH 31.6 (25.7-32.2) pg MCHC 34.9 (32.2-35.5) g/dl RDW Std Deviation 45.4 H (35.1-43.9) fL Plt Count 216 (163-337) K/mm3 MPV 9.8 (9.4-12.3) fl Neut % (Auto) 74.4 H (34.0-67.9) % Lymph % (Auto) 15.7 L (21.8-53.1) % Carlton % (Auto) 7.5 (5.3-12.2) % Eos % (Auto) 1.4 (0.8-7.0) Baso % (Auto) 0.9 (0.1-1.2) % Neut # (Auto) 5.64 H (1.78-5.38) K/mm3 Lymph # (Auto) 1.19 L (1.32-3.57) K/mm3 Carlton # (Auto) 0.57 (0.30-0.82) K/mm3 Eos # (Auto) 0.11 (0.04-0.54) K/mm3 Baso # (Auto) 0.07 (0.01-0.08) K/mm3 Sodium 139 (136-145) mEq/L Potassium 4.3 (3.5-5.1) mEq/L Chloride 97 L (98-107) mEq/L Carbon Dioxide 27 (21-32) mEq/L Anion Gap 19.3 H (5-15) BUN 17 (7-18) mg/dL Creatinine 1.4 H (0.7-1.3) mg/dL Est Cr Clr Drug Dosing 66.63 mL/min Estimated GFR (MDRD) 54 (>60) mL/min BUN/Creatinine Ratio 12.1 L (14-18) Glucose 114 H (74-106) mg/dL Calcium 9.3 (8.5-10.1) mg/dL Total Bilirubin 0.9 (0.2-1.0) mg/dL AST 52 H (15-37) U/L ALT 56 (16-63) U/L Alkaline Phosphatase 132 H (46-116) U/L Total Protein 8.8 H (6.4-8.2) g/dl Albumin 4.3 (3.4-5.0) g/dl Globulin 4.5 gm/dL Albumin/Globulin Ratio 1.0 (1-2) Urine Opiates Screen Negative (CRDMDO=267) Ur Buprenorphine Scrn Negative (CUTOFF=10) Ur Oxycodone Screen Negative (YQR0IH=542) Urine Methadone Screen Negative (NYO3WM=374) Ur Propoxyphene Screen Negative (BCQYMD=675) Ur Barbiturates Screen Negative (VVGIIO=833) Ur Tricyclics Screen Negative (OLPMIS=057) Ur Phencyclidine Scrn Negative (CUTOFF=25) Ur Amphetamine Screen Presumptive positive H (XESISU=954) U Methamphetamines Scrn Negative (IRAXGO=224) U Benzodiazepines Scrn Negative (LJXYHR=440) U Cocaine Metab Screen Negative (HOPCGI=767) U Marijuana (THC) Screen Negative (CUTOFF=50) Ethyl Alcohol 0.05 (0.00) gm% Medications Discontinued Medications Generic Name Dose Route Start Last Admin Trade Name Freq PRN Reason Stop Dose Admin Sodium Chloride 1,000 mls @ 999 mls/hr 06/19/18 11:45 06/19/18 11:56 Normal Saline IV 999 mls/hr ONETIME SAM Administration Sodium Chloride 1,000 mls @ 999 mls/hr 06/19/18 13:15 06/19/18 13:20 Normal Saline IV 999 mls/hr ONETIME SAM Administration Ketorolac Tromethamine 30 mg 06/19/18 12:45 06/19/18 12:51 Toradol IVPUSH 30 mg ONETIME SAM Administration Lorazepam 1 mg 06/19/18 11:43 06/19/18 11:56 Ativan IVPUSH 06/19/18 11:44 1 mg ONETIME ONE Administration Lorazepam 1 mg 06/19/18 12:40 06/19/18 12:50 Ativan IVPUSH 06/19/18 12:41 1 mg ONETIME ONE Administration Lorazepam 1 mg 06/19/18 14:44 06/19/18 14:56 Ativan IVPUSH 06/19/18 14:45 1 mg ONETIME ONE Administration Sodium Chloride 10 ml 06/19/18 11:36 06/19/18 11:56 Saline Flush FLUSH 10 ml ASDIRECTED PRN Administration Keep Vein Open Re-Assessment/Re-Exam: patient treated with 2 liters of NS IV, ativan 3 mg IV over about 4 hrs, torodol 30 mg IV, oral food and fluids. Departure - Departure Time of Disposition: 15:17 Disposition: Home, Self-Care 01 Condition: Fair Clinical Impression: Dehydration Alcohol withdrawal Qualifiers: Complication of substance-induced condition: with delirium Qualified Code(s): F10.231 - Alcohol dependence with withdrawal delirium - Discharge Information Instructions: Alcohol Use Disorder, Alcohol Intoxication, Yfrf-my-Nylx, Dehydration, Adult, [id number]-mg-Pfxl Referrals: Catherine Villafana MD [Primary Care Provider] - Additional Instructions: Avoid further alcohol. Drink plenty of water to maintain hydration. You have been given 3 mg of ativan IV while here in the ED, torodol IV, 2 liters fluid IV. Do not drive the remainder of today. You may take ativan 1 mg PO at around 6 PM tonight and 1 mg around 9 to 10 PM tonight if needed for severe withdrawal symptoms. I have prescribed a total of 3 tabs ativan if needed you may take one further mg after work tomorrow PM. Do not drive tomorrow if still feeling drowsy or impaired from the ativan. See Counselor at [facility] or [facility] as needed. - My Orders Last 24 Hours: My Active Orders 06/19/18 11:36 Peripheral IV Care [RC] . DIRECTED Peripheral IV Insertion Adult [OM.PC] Stat - Assessment/Plan Last 24 Hours: My Active Orders 06/19/18 11:36 Peripheral IV Care [RC] . DIRECTED Peripheral IV Insertion Adult [OM.PC] Stat
[2018-06-19 14:59] VITALS: BP 159/93
== END 2018-06-19 15:30 | disposition home or self-care (01) ==
LOC: JD.ED 10:55
DX: F10.231 Alcohol dependence with withdrawal delirium (principal); E86.0 Dehydration
CPT/HCPCS: 36415; 80053; 80306; 85025; 96361; 96374; 96375; 96376; 99284; G0480; J1885; J2060; J7040

== ENCOUNTER 2018-07-07 08:12 | Emergency (ER) | payer OTHER ==
[2018-07-07 08:35] VITALS: BP 135/81
[2018-07-07] MEDS ORDERED: Famotidine 20 MG/2 ML SDV IVPUSH ONE (08:57)
[2018-07-07] MEDS ORDERED: Sodium Chloride 0.9% 10 ML Syringe FLUSH PRN (08:57)
[2018-07-07] MEDS ORDERED: Sodium Chloride 0.9% 1,000 ML IV SCH (09:00)
--- NOTE | 2018-07-07 09:44 | EDM.PDOCBH ---
ED HPI GENERAL MEDICAL PROBLEM - General Chief Complaint: Behavioral/Psych Stated Complaint: ALCOHOL DETOX Time Seen by Provider: 07/07/18 08:49 Source of Information: Reports: Patient, RN Notes Reviewed - History of Present Illness INITIAL COMMENTS - FREE TEXT/NARRATIVE: 48 year old male comes in with C/O drinking "vodka for 5 days", wants help with detox. Longstanding hx of alcohol abuse and dependency, states last alcohol about an hour ago. No abd or chest pain at this time. ambulatory to ED. states he has had blood in his stool, not actively vomiting. Chest Pain Score (Numeric/FACES): 10 - Related Data Allergies Allergy/AdvReac Type Severity Reaction Status Date / Time No Known Allergies Allergy Verified 07/07/18 08:31 Home Meds: Home Meds LORazepam [Ativan] 1 mg PO Q8H #10 tab 07/07/18 [Rx] Omeprazole 40 mg PO DAILY #14 cap.cr 07/07/18 [Rx] Past Medical History HEENT History: Reports: Impaired Vision Cardiovascular History: Reports: High Cholesterol, Hypertension Respiratory History: Reports: Sleep Apnea Other Respiratory History: uses CPAP at home Gastrointestinal History: Reports: Diverticulosis Genitourinary History: Reports: Other (See Below) Other Genitourinary History: impotence Musculoskeletal History: Reports: Fracture Neurological History: Reports: Brain Injury, Seizure Other Neuro History: 2001 head injury. Seizures as a child - out grew age 12. Psychiatric History: Reports: Addiction, Depression, Suicidal Ideation Other Psychiatric History: Alcohol Endocrine/Metabolic History: Reports: Obesity/BMI 30+ - Infectious Disease History Infectious Disease History: Reports: C-Difficile - Past Surgical History HEENT Surgical History: Reports: Oral Surgery GI Surgical History: Reports: Cholecystectomy Musculoskeletal Surgical History: Reports: Carpal Tunnel, ORIF Dermatological Surgical History: Reports: None Social & Family History - Family History Family Medical History: Noncontributory Cardiac: Reports: [place] Endocrine/Metabolic: Reports: Diabetes, type II Oncologic: Reports: Lung - Tobacco Use Smoking Status *Q: Unknown Ever Smoked - Caffeine Use Caffeine Use: Reports: Coffee Other Caffeine Use: 2 cups 2-3 times a week - Alcohol Use Days Per Week of Alcohol Use: 7 Number of Drinks Per Day: 15 Total Drinks Per Week: 105 - Recreational Drug Use Recreational Drug Use: Yes - Living Situation & Occupation Living situation: Reports: , Alone 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 Denies: Abdominal Pain Musculoskeletal: Reports: No Symptoms Skin: Reports: No Symptoms Neurological: Reports: Dizziness. Denies: Trouble Speaking, Difficulty Walking ED EXAM, BEHAVIORAL HEALTH - Physical Exam Exam: See Below General Appearance: Alert, Other (quite intoxicated, ambulatory, very talkative) Eye Exam: Bilateral Eye: Conjunctival Injection, PERRL Throat/Mouth: Normal Inspection Head: Atraumatic Neck: Supple Respiratory/Chest: No Respiratory Distress, Lungs Clear, Normal Breath Sounds Cardiovascular: Regular Rate, Rhythm GI/Abdominal: Non-Tender Extremities: Normal Inspection, Normal Range of Motion Neurological: Alert, No Motor/Sensory Deficits, Other (slurred speach) Skin Exam: Warm, Dry, Normal color COURSE, BEHAVIORAL HEALTH COMP - Course Vital Signs: Last Vital Signs Temp 98.5 F 07/07/18 08:24 Pulse 100 07/07/18 08:24 Resp 18 07/07/18 08:24 BP 135/81 07/07/18 08:24 Pulse Ox 96 07/07/18 08:24 Orders, Labs, Meds: Active Orders 24 hr Category Date Time Status Peripheral IV Care [RC] . DIRECTED Care 07/07/18 08:57 Active Peripheral IV Insertion Adult [OM.PC] Stat Oth 07/07/18 08:57 Ordered Laboratory Tests 07/07/18 07/07/18 07/07/18 Range/Units 09:12 09:12 09:12 WBC 7.12 (4.23-9.07) K/mm3 RBC 5.36 (4.63-6.08) M/mm3 Hgb 17.0 (13.7-17.5) gm/L Hct 48.1 (40.1-51.0) % MCV 89.7 (79.0-92.2) fl MCH 31.7 (25.7-32.2) pg MCHC 35.3 (32.2-35.5) g/dl RDW Std Deviation 44.3 H (35.1-43.9) fL Plt Count 284 (163-337) K/mm3 MPV 9.4 (9.4-12.3) fl Neut % (Auto) 60.0 (34.0-67.9) % Lymph % (Auto) 30.8 (21.8-53.1) % Clark % (Auto) 6.2 (5.3-12.2) % Eos % (Auto) 1.5 (0.8-7.0) Baso % (Auto) 1.4 H (0.1-1.2) % Neut # (Auto) 4.27 (1.78-5.38) K/mm3 Lymph # (Auto) 2.19 (1.32-3.57) K/mm3 Clark # (Auto) 0.44 (0.30-0.82) K/mm3 Eos # (Auto) 0.11 (0.04-0.54) K/mm3 Baso # (Auto) 0.10 H (0.01-0.08) K/mm3 Sodium 141 (136-145) mEq/L Potassium 3.7 (3.5-5.1) mEq/L Chloride 102 (98-107) mEq/L Carbon Dioxide 26 (21-32) mEq/L Anion Gap 16.7 H (5-15) BUN 14 (7-18) mg/dL Creatinine 1.4 H (0.7-1.3) mg/dL Est Cr Clr Drug Dosing TNP Estimated GFR (MDRD) 54 (>60) mL/min BUN/Creatinine Ratio 10.0 L (14-18) Glucose 143 H (74-106) mg/dL Calcium 8.9 (8.5-10.1) mg/dL Total Bilirubin 0.6 (0.2-1.0) mg/dL AST 56 H (15-37) U/L ALT 69 H (16-63) U/L Alkaline Phosphatase 133 H (46-116) U/L Total Protein 8.7 H (6.4-8.2) g/dl Albumin 4.4 (3.4-5.0) g/dl Globulin 4.3 gm/dL Albumin/Globulin Ratio 1.0 (1-2) Urine Opiates Screen Negative (CBRTST=498) Ur Buprenorphine Scrn Negative (CUTOFF=10) Ur Oxycodone Screen Negative (NTD3OW=100) Urine Methadone Screen Negative (XXO6TK=572) Ur Propoxyphene Screen Negative (JDYJBZ=655) Ur Barbiturates Screen Negative (ZRIGBB=472) Ur Tricyclics Screen Negative (HWNSGT=747) Ur Phencyclidine Scrn Negative (CUTOFF=25) Ur Amphetamine Screen Negative (UUVKPE=432) U Methamphetamines Scrn Negative (BJBIWD=093) U Benzodiazepines Scrn Negative (ZHLQCE=019) U Cocaine Metab Screen Negative (EKHVMT=835) U Marijuana (THC) Screen Negative (CUTOFF=50) Ethyl Alcohol 0.20 (0.00) gm% Medications Discontinued Medications Generic Name Dose Route Start Last Admin Trade Name Freq PRN Reason Stop Dose Admin Al Hydroxide/Mg Hydroxide 30 ml 07/07/18 10:14 07/07/18 10:19 Mag-Al Plus PO 07/07/18 10:15 30 ml ONETIME ONE Administration Famotidine 20 mg 07/07/18 08:57 07/07/18 09:21 Pepcid IVPUSH 07/07/18 08:58 20 mg ONETIME ONE Administration Sodium Chloride 1,000 mls @ 999 mls/hr 07/07/18 09:00 07/07/18 09:22 Normal Saline IV 999 mls/hr ONETIME SAM Administration Lorazepam 1 mg 07/07/18 10:20 07/07/18 10:25 Ativan PO 07/07/18 10:21 1 mg ONETIME ONE Administration Sodium Chloride 10 ml 07/07/18 08:57 07/07/18 09:22 Saline Flush FLUSH 10 ml ASDIRECTED PRN Administration Keep Vein Open Re-Assessment/Re-Exam: hgb 17. Chemistries relatively OK, etoh 0.2. Have given 1 liter NS, pepcid 20 mg IV, will now give ativan 1 mg PO, We have no ICU beds available for detox. I question how serious he is to stop drinking a this time. Discharge instr. as documented. Departure - Departure Time of Disposition: 10:21 Disposition: Home, Self-Care 01 Condition: Fair Clinical Impression: Alcohol intoxication Qualifiers: Complication of substance-induced condition: uncomplicated Qualified Code(s): F10.920 - Alcohol use, unspecified with intoxication, uncomplicated - Discharge Information Prescriptions: LORazepam [Ativan] 1 mg PO Q8H #10 tab Omeprazole 40 mg PO DAILY #14 cap.cr Instructions: Alcohol Intoxication, [id number] Referrals: PCP,None [Primary Care Provider] - Forms: ED Department Discharge Additional Instructions: avoid further alcohol, ompeprazole 40 mg daily to help your stomach, bland diet as tolerated. Ativan 1 mg q 6 to 8 hour as needed to help detox, drink plenty of water to keep hydrated. follow up with [facility] 8:30 monday morning to get further help to stop drinking. - My Orders Last 24 Hours: My Active Orders 07/07/18 08:57 Peripheral IV Care [RC] . DIRECTED Peripheral IV Insertion Adult [OM.PC] Stat - Assessment/Plan Last 24 Hours: My Active Orders 07/07/18 08:57 Peripheral IV Care [RC] . DIRECTED Peripheral IV Insertion Adult [OM.PC] Stat
[2018-07-07] MEDS ORDERED: Aluminum Hydroxide/Magnesium Hydroxide/Simethicone Susp 30 ML Cup PO ONE (10:14)
[2018-07-07] MEDS ORDERED: LORazepam 1 MG Tab PO ONE (10:20)
== END 2018-07-07 11:12 | disposition home or self-care (01) ==
LOC: JD.ED 08:12
DX: F10.920 Alcohol use, unspecified with intoxication, uncomplicated (principal); E78.00 Pure hypercholesterolemia, unspecified; I10 Essential (primary) hypertension; F32.9 Major depressive disorder, single episode, unspecified; Y90.7 Blood alcohol level of 200-239 mg/100 ml; Z79.899 Other long term (current) drug therapy
CPT/HCPCS: 36415; 80053; 80306; 85025; 96361; 96374; 99284; A9270; G0480; J3490; J7040

== ENCOUNTER 2018-10-13 14:08 | Emergency (ER) | payer SELFPAY ==
[2018-10-13 14:25] VITALS: BP 128/89
[2018-10-13] MEDS ORDERED: Ondansetron 4 MG/2 ML SDV IVPUSH ONE (15:04)
[2018-10-13] MEDS ORDERED: HYDROmorphone 1 MG/ML Syringe IVPUSH ONE ×2 (15:04→16:16)
[2018-10-13] MEDS ORDERED: Sodium Chloride 0.9% 1,000 ML IV ONE (15:04)
[2018-10-13] MEDS ORDERED: Sodium Chloride 0.9% 10 ML Syringe FLUSH PRN ×2 (15:04→15:48)
[2018-10-13] MEDS ORDERED: Iohexol 647 MG/ML 100 ML Bottle IVPUSH ONE (15:47)
[2018-10-13] MEDS ORDERED: Diatrizoate Meglumine/Diatrizoate Sodium 37% 120 ML Bottle PO ONE (15:48)
--- NOTE | 2018-10-13 20:12 | EDM.PDOC ---
ED HPI GENERAL MEDICAL PROBLEM - General Chief Complaint: Abdominal Pain Stated Complaint: ABDOMINAL PAIN Time Seen by Provider: 10/13/18 14:45 Source of Information: Reports: Patient, Old Records History Limitations: Reports: No Limitations - History of Present Illness INITIAL COMMENTS - FREE TEXT/NARRATIVE: 48-year-old male presents for evaluation and treatment of abdominal pain. Patient reports significant himself the last 3-4 days. States is primarily on the right side of his abdomen. Reports associated symptoms of fevers and chills. He also states he has been feeling nauseous and has had a decreased appetite. He has tried [id number] medications including magnesium citrate as he feels that this is constipation. He states last bowel movement was this morning. He is not appreciating blood in his stool. Patient denies any urinary symptoms. Patient strongly this is diverticulitis. He has a history of diverticulitis. States he gets diverticulitis frequently after eating Popcorn. He states he last ate popcorn about a week ago. Last colonoscopy was in 2013. Previous abdominal surgeries including a laparoscopic cholecystectomy. Right Middle Abdomen Pain Score (Numeric/FACES): 9 - Related Data Allergies Allergy/AdvReac Type Severity Reaction Status Date / Time No Known Allergies Allergy Verified 07/07/18 08:31 Home Meds: Home Meds LORazepam [Ativan] 1 mg PO Q8H #10 tab 07/07/18 [Rx] Omeprazole 40 mg PO DAILY #14 cap.cr 07/07/18 [Rx] Beta Reyes 10/13/18 [History] Dextroamphetamine/Amphetamine [Adderall 10 mg Tablet] 10 mg PO DAILY 10/13/18 [ History] Past Medical History HEENT History: Reports: Impaired Vision Cardiovascular History: Reports: High Cholesterol, Hypertension Respiratory History: Reports: Sleep Apnea Other Respiratory History: uses CPAP at home Gastrointestinal History: Reports: Diverticulosis Genitourinary History: Reports: Other (See Below) Other Genitourinary History: impotence Musculoskeletal History: Reports: Fracture Neurological History: Reports: Brain Injury, Seizure Other Neuro History: 2001 head injury. Seizures as a child - out grew age 12. Psychiatric History: Reports: Addiction, Depression, Suicidal Ideation Other Psychiatric History: Alcohol Endocrine/Metabolic History: Reports: Obesity/BMI 30+ - Infectious Disease History Infectious Disease History: Reports: C-Difficile - Past Surgical History HEENT Surgical History: Reports: Oral Surgery GI Surgical History: Reports: Cholecystectomy Musculoskeletal Surgical History: Reports: Carpal Tunnel, ORIF Dermatological Surgical History: Reports: None Social & Family History - Family History Family Medical History: Noncontributory Cardiac: Reports: [place] Endocrine/Metabolic: Reports: Diabetes, type II Oncologic: Reports: Lung - Tobacco Use Smoking Status *Q: Never Smoker - Caffeine Use Caffeine Use: Reports: Coffee Other Caffeine Use: 2 cups 2-3 times a week - Recreational Drug Use Recreational Drug Use: Yes Drug Use in Last 12 Months: Yes Recreational Drug Type: Reports: Marijuana/Hashish - Living Situation & Occupation Living situation: Reports: , Alone 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 Denies: Hematochezia, Melena, Vomiting : Reports: No Symptoms ED EXAM, GI/ABD - Physical Exam Exam: See Below Exam Limited By: No Limitations General Appearance: Alert, WD/WN, Mild Distress, Obese Nose: Normal Inspection Throat/Mouth: Normal Inspection, Normal Voice, No Airway Compromise Respiratory/Chest: No Respiratory Distress, Lungs Clear, Normal Breath Sounds Cardiovascular: Normal Peripheral Pulses, Regular Rate, Rhythm, No Murmur GI/Abdominal Exam: Soft, No Distention, Tender (RLQ), Abnormal Bowel Sounds ( hypoactive), Other (no pain at mcburnies point, pain with psosas and obturators sign, no pain with heel percussion). No: Guarding Neurological: Alert, Oriented, Normal Cognition Psychiatric: Normal Affect, Normal Mood Skin Exam: Warm, Dry, Normal Color Course - Vital Signs Last Recorded V/S: Last Vital Signs Temp 97.3 F 10/13/18 14:21 Pulse 68 10/13/18 14:21 Resp 16 10/13/18 14:21 BP 128/89 10/13/18 14:21 Pulse Ox 98 10/13/18 14:21 - Orders/Labs/Meds Labs: Laboratory Tests 10/13/18 10/13/18 10/13/18 Range/Units 15:00 15:00 16:04 WBC 7.07 (4.23-9.07) K/mm3 RBC 4.88 (4.63-6.08) M/mm3 Hgb 15.5 D (13.7-17.5) gm/L Hct 43.7 (40.1-51.0) % MCV 89.5 (79.0-92.2) fl MCH 31.8 (25.7-32.2) pg MCHC 35.5 (32.2-35.5) g/dl RDW Std Deviation 43.6 (35.1-43.9) fL Plt Count 186 D (163-337) K/mm3 MPV 10.5 (9.4-12.3) fl Neutrophils % (Manual) 70 H (40-60) % Band Neutrophils % 2 (0-10) % Lymphocytes % (Manual) 25 (20-40) % Atypical Lymphs % 0 % Monocytes % (Manual) 2 (2-10) % Eosinophils % (Manual) 1 (0.8-7.0) % Basophils % (Manual) 0 L (0.2-1.2) Platelet Estimate Adequate RBC Morph Comment Normal Sodium 138 (136-145) mEq/L Potassium 4.3 (3.5-5.1) mEq/L Chloride 100 (98-107) mEq/L Carbon Dioxide 28 (21-32) mEq/L Anion Gap 14.3 (5-15) BUN 11 (7-18) mg/dL Creatinine 1.1 (0.7-1.3) mg/dL Est Cr Clr Drug Dosing 84.80 mL/min Estimated GFR (MDRD) > 60 (>60) mL/min BUN/Creatinine Ratio 10.0 L (14-18) Glucose 93 (74-106) mg/dL Calcium 10.0 (8.5-10.1) mg/dL Total Bilirubin 0.7 (0.2-1.0) mg/dL AST 47 H (15-37) U/L ALT 92 H (16-63) U/L Alkaline Phosphatase 107 (46-116) U/L C-Reactive Protein 0.4 (<1.0) mg/dL Total Protein 8.0 (6.4-8.2) g/dl Albumin 4.4 (3.4-5.0) g/dl Globulin 3.6 gm/dL Albumin/Globulin Ratio 1.2 (1-2) Lipase 406 H (73-393) U/L Urine Color Yellow (Yellow) Urine Appearance Cloudy H (Clear) Urine pH 6.5 (5.0-8.0) Ur Specific Sweeny 1.015 (1.005-1.030) Urine Protein Negative (Negative) Urine Glucose (UA) Negative (Negative) Urine Ketones Negative (Negative) Urine Occult Blood Negative (Negative) Urine Nitrite Negative (Negative) Urine Bilirubin Negative (Negative) Urine Urobilinogen 0.2 (0.2-1.0) Ur Leukocyte Esterase Negative (Negative) Urine RBC 0-5 (0-5) /hpf Urine WBC 0-5 (0-5) /hpf Ur Squamous Epith Cells 0-5 (0-5) /hpf Urine Bacteria Occasional (FEW) /hpf Urine Mucus Few (FEW) /hpf Ethyl Alcohol 0.00 (0.00) gm% Meds: Medications Discontinued Medications Generic Name Dose Route Start Last Admin Trade Name Freq PRN Reason Stop Dose Admin Diatrizoate Meglum/Diatrizoate Sod 120 ml 10/13/18 15:48 10/13/18 16:39 Gastrografin 37% PO 10/13/18 15:49 90 ml ONETIME ONE Administration Hydromorphone HCl 1 mg 10/13/18 15:04 10/13/18 15:14 Dilaudid IVPUSH 10/13/18 15:05 1 mg ONETIME ONE Administration Hydromorphone HCl 1 mg 10/13/18 16:16 10/13/18 16:22 Dilaudid IVPUSH 10/13/18 16:17 1 mg ONETIME ONE Administration Sodium Chloride 1,000 mls @ 999 mls/hr 10/13/18 15:04 10/13/18 15:14 Normal Saline IV 10/13/18 16:04 999 mls/hr ONETIME ONE Administration Iohexol 100 ml 10/13/18 15:47 10/13/18 16:39 Omnipaque-300 IVPUSH 10/13/18 15:48 100 ml ONETIME ONE Administration Ondansetron HCl 4 mg 10/13/18 15:04 10/13/18 15:14 Zofran IVPUSH 10/13/18 15:05 4 mg ONETIME ONE Administration Sodium Chloride 10 ml 10/13/18 15:04 10/13/18 15:15 Saline Flush FLUSH 10 ml ASDIRECTED PRN Administration Keep Vein Open Sodium Chloride 10 ml 10/13/18 15:48 10/13/18 16:39 Saline Flush FLUSH 10 ml ONETIME PRN Administration IV FLUSH - Radiology Interpretation Free Text/Narrative:: CT of the abdomen and pelvis with contrast impression per vrad: source of the patient's right lower quadrant pain is not elucidated. Normal appendix. - Re-Assessments/Exams Free Text/Narrative Re-Assessment/Exam: 10/13/18 20:03 Reviewed the labs and imaging with the patient. Reports his pain has resolved since the CT. Reports he has had multiple bowel movements and has no pain at this time. Will discharge home at this time. Discharge instructions as documented. Departure - Departure Time of Disposition: 20:10 Disposition: Home, Self-Care 01 Condition: Good Clinical Impression: Constipation - Discharge Information *PRESCRIPTION DRUG MONITORING PROGRAM REVIEWED*: No *COPY OF PRESCRIPTION DRUG MONITORING REPORT IN PATIENT NORMA: No Instructions: Constipation, Adult Referrals: Sandip Johnson [Primary Care Provider] - Forms: ED Department Discharge Additional Instructions: recommend drinking plenty of fluids. Recommend diet high in fruits and vegetables. Recommend MiraLAX, this is available [id number]. Follow-up with your primary care provider as needed. Please return to the ER if your Symptoms change or worsen.
--- NOTE | 2018-10-14 19:35 | CT ---
CT abdomen and pelvis Technique: Multiple axial sections were obtained from above the dome of the diaphragm inferiorly through the pubic symphysis. Intravenous and oral contrast was utilized. Delayed images were obtained through the bladder. Comparison: Prior CT abdomen and pelvis exam of 11/10/17. Findings: The liver is diminished in density which is felt compatible with fatty infiltration. Two low density lesions are seen within the right lobe of the liver which have Hounsfield unit measurements of cysts. Largest finding measures about 1.8 cm and second finding measures about 1.7 cm. Small portion of the visualized lung bases show nothing acute. Spleen appears within normal limits. Adrenal glands contain no nodule. Pancreas is within normal limits. Appendix is seen which is normal in size. Kidneys show symmetric contrast enhancement without hydronephrosis or mass. Aorta shows no aneurysm. No retroperitoneal adenopathy or mesenteric abnormalities are seen. Small fat-containing umbilical hernia is seen. Diverticuli are seen within the descending and sigmoid colons without inflammatory change of diverticulitis. No free fluid or inflammatory change is seen. Small fat-containing bilateral inguinal hernias are noted. No free fluid is seen. Surgical clips seen from prior cholecystectomy. Delayed images show contrast within the distal ureters and bladder. Bone window settings were reviewed which show disc space narrowing and vacuum phenomena within the L5-S1 disc. More severe disc space narrowing with lesser vacuum phenomena is seen within the L4-L5 disc. Other scattered degenerative change is seen throughout the spine. Impression: 1. Findings which are believed to be incidental as described above. Nothing acute is appreciated on CT study of the abdomen and pelvis. Diagnostic code #2 I agree with preliminary report from [facility], finalized on 10/13/89, 6:16 PM Central Time
== END 2018-10-13 20:27 | disposition home or self-care (01) ==
LOC: JD.ED 14:08
DX: K59.00 Constipation, unspecified (principal); I10 Essential (primary) hypertension; E66.9 Obesity, unspecified; Z98.890 Other specified postprocedural states; Z79.899 Other long term (current) drug therapy
CPT/HCPCS: 36415; 74177; 80053; 81001; 83690; 85007; 85027; 86140; 96361; 96374; 96375; 96376; 99284; G0480; J1170; J2405; J7040; Q9963; Q9967

== ENCOUNTER 2018-10-30 17:13 | Emergency (ER) | payer MEDICAID ==
[2018-10-30 17:26] VITALS: BP 118/78
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
[2018-10-30] MEDS ORDERED: methylPREDNISolone Sodium Succinate 125 MG/2 ML SDV IVPUSH ONE (18:10)
[2018-10-30] MEDS ORDERED: HYDROmorphone 1 MG/ML Syringe IVPUSH ONE (18:10)
[2018-10-30] MEDS ORDERED: Metoclopramide 10 MG/2 ML SDV IVPUSH ONE (18:11)
[2018-10-30] MEDS ORDERED: Colchicine 0.6 MG Tab PO ONE ×2 (18:11→19:28)
[2018-10-30] MEDS ORDERED: Sodium Chloride 0.9% 1,000 ML IV SCH (18:15)
[2018-10-30] MEDS ORDERED: Ketorolac 30 MG/ML SDV IVPUSH SCH (18:15)
[2018-10-30] MEDS ORDERED: HYDROmorphone 0.5 MG/0.5 ML Syringe IVPUSH ONE (19:26)
--- NOTE | 2018-10-31 07:32 | CR ---
Left ankle: Four views of the left ankle were obtained. Comparison: Previous left ankle study of 06/08/17. Slight deformity of the medial malleolus is seen compatible with old injury. Several calcifications are noted off the medial malleolus compatible with old injury. Minimal calcification is noted off the lateral malleolus also compatible with old injury. Soft tissue swelling is noted. No acute abnormality is seen. Incidental spur at the attachment of the Achilles tendon to the calcaneus is seen. Impression: 1. Evidence of old injury. 2. Incidental calcaneal spur. 3. Soft tissue swelling. No acute bony abnormality is seen. Diagnostic code #2
== END 2018-10-30 20:00 | disposition home or self-care (01) ==
LOC: JD.ED 17:13
DX: M10.072 Idiopathic gout, left ankle and foot (principal); E78.00 Pure hypercholesterolemia, unspecified; I10 Essential (primary) hypertension; E66.9 Obesity, unspecified; Z68.35 Body mass index [BMI] 35.0-35.9, adult; Z79.899 Other long term (current) drug therapy
CPT/HCPCS: 73610; 96361; 96374; 96375; 96376; 99283; A9270; J1170; J1885; J2765; J2930; J7040

== ENCOUNTER 2018-12-30 14:36 | Emergency (ER) | payer SELFPAY | END 2018-12-30 16:35 | disposition left against medical advice (07) | LOC: JD.ED 14:36 | DX: Z53.21 Procedure and treatment not carried out due to patient leaving prior to being seen by health care provider (principal) ==

== ENCOUNTER 2019-02-03 22:42 | Emergency (ER) | payer SELFPAY ==
[2019-02-03 22:56] VITALS: BP 138/100; PULSE 93
[2019-02-03] MEDS ORDERED: Metoclopramide 10 MG/2 ML SDV IVPUSH ONE (23:09)
[2019-02-03] MEDS ORDERED: LORazepam 2 MG/ML SDV IVPUSH ONE (23:09)
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
[2019-02-03] MEDS ORDERED: Dextrose 5%-Lactated Ringers 1,000 ML IV SCH (23:15)
[2019-02-04] MEDS ORDERED: LORazepam 1 MG Tab PO STA (00:04)
[2019-02-04] MEDS ORDERED: LORazepam 1 MG Tab ONE (00:04)
== END 2019-02-04 00:19 | disposition home or self-care (01) ==
LOC: JD.ED 22:42
DX: F10.231 Alcohol dependence with withdrawal delirium (principal); Y90.0 Blood alcohol level of less than 20 mg/100 ml; I10 Essential (primary) hypertension
CPT/HCPCS: 36415; 80053; 80320; 83690; 85025; 85610; 96361; 96374; 96375; 99283; A9270; J2060; J2765; J7042; 99284; G0480

== ENCOUNTER 2019-04-04 09:44 | Emergency (ER) | payer SELFPAY ==
[2019-04-04 09:57] VITALS: BP 151/88; PULSE 98
[2019-04-04] MEDS ORDERED: FLU Vacc QS2019-20(6MOS+)/PF 60 MCG/0.5 ML SYRINGE IM ONE (10:15)
[2019-04-04] MEDS ORDERED: Sodium Chloride 0.9% 10 ML Syringe FLUSH PRN (10:58)
[2019-04-04] MEDS ORDERED: Sodium Chloride 0.9% 1,000 ML IV SCH (11:00)
[2019-04-04] MEDS: LORazepam 2 MG/ML SDV IVPUSH ONE ×2 (11:14→11:34)
[2019-04-04] MEDS: Ondansetron 4 MG/2 ML SDV IVPUSH ONE ×2 (11:14→11:48)
[2019-04-04] MEDS: HYDROmorphone 0.5 MG/0.5 ML Syringe IVPUSH ONE ×2 (11:15→11:35)
--- NOTE | 2019-04-04 11:19 | EDM.PDOCBH ---
ED HPI GENERAL MEDICAL PROBLEM - General Chief Complaint: Drug or Alcohol Abuse Stated Complaint: ALCOHOL DETOX Time Seen by Provider: 04/04/19 10:50 Source of Information: Reports: Patient History Limitations: Reports: No Limitations - History of Present Illness INITIAL COMMENTS - FREE TEXT/NARRATIVE: The patient presents with alcohol withdrawal. He is an alcoholic and he last drank early this morning at 2am. He is feeling shaky. He has some nausea. He had some chest pain earlier this morning. That is gone now but he still has some numbness in his arms. He has no shortness of breath. He has no fever, chills or cough. He does have some upper abdominal pain. He also has bilateral flank pain. He has been unemployed since November. He is working on getting hired at [employer]. He is looking for help to stop drinking. He has been drinking heavily for 4 days. Onset: Gradual Duration: Hour(s): Location: Reports: Chest, Back Quality: Reports: Sharp Severity: Moderate Improves with: Reports: None Worsens with: Reports: None Associated Symptoms: Reports: Chest Pain, Nausea/Vomiting. Denies: Cough, Fever /Chills, Headaches, Shortness of Breath Right Abdomen Pain Score (Numeric/FACES): 9 - Related Data Allergies Allergy/AdvReac Type Severity Reaction Status Date / Time No Known Allergies Allergy Verified 04/04/19 09:57 Home Meds: Home Meds amLODIPine [Norvasc] 5 mg PO DAILY 02/03/19 [History] LORazepam [Ativan] 1 mg PO DAILY #18 tablet 04/04/19 [Rx] Olmesartan Medoxomil 40 mg PO DAILY 04/04/19 [History] Ondansetron [Zofran ODT] 4 mg PO Q6H PRN #20 tab.dis 04/04/19 [Rx] Past Medical History HEENT History: Reports: Impaired Vision Cardiovascular History: Reports: High Cholesterol, Hypertension Respiratory History: Reports: Sleep Apnea Other Respiratory History: uses CPAP at home Gastrointestinal History: Reports: Diverticulosis Genitourinary History: Reports: Other (See Below) Other Genitourinary History: impotence Musculoskeletal History: Reports: Fracture Neurological History: Reports: Brain Injury, Seizure Other Neuro History: 2000 head injury. Seizures as a child - out grew age 12. Psychiatric History: Reports: ADHD, Addiction, Depression Other Psychiatric History: Alcohol Endocrine/Metabolic History: Reports: Obesity/BMI 30+ - Infectious Disease History Infectious Disease History: Reports: C-Difficile - Past Surgical History HEENT Surgical History: Reports: Oral Surgery GI Surgical History: Reports: Cholecystectomy Musculoskeletal Surgical History: Reports: Carpal Tunnel, ORIF, Other (See Below ) Other Musculoskeletal Surgeries/Procedures:: elia to R femur Dermatological Surgical History: Reports: None Social & Family History - Family History Family Medical History: Noncontributory Cardiac: Reports: [place] Endocrine/Metabolic: Reports: Diabetes, type II Oncologic: Reports: Lung - Tobacco Use Smoking Status *Q: Never Smoker Second Hand Smoke Exposure: No - Caffeine Use Caffeine Use: Reports: Coffee Other Caffeine Use: 2 cups 2-3 times a week - Alcohol Use Days Per Week of Alcohol Use: 4 Number of Drinks Per Day: 10 Total Drinks Per Week: 40 - Recreational Drug Use Recreational Drug Use: No - Living Situation & Occupation Living situation: Reports: , Alone 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 Denies: Abdominal Pain, Vomiting : Reports: No Symptoms Musculoskeletal: Reports: Back Pain Skin: Reports: No Symptoms ED EXAM, BEHAVIORAL HEALTH - Physical Exam Exam: See Below Exam Limited By: No Limitations General Appearance: Alert, No Apparent Distress Ears: Normal External Exam Nose: Normal Inspection Head: Atraumatic, Normocephalic Neck: Normal Inspection Respiratory/Chest: No Respiratory Distress, Lungs Clear, Normal Breath Sounds Cardiovascular: Regular Rate, Rhythm, No Edema, No Murmur GI/Abdominal: Soft, Non-Tender, No Organomegaly, No Mass Back Exam: Normal Inspection Extremities: Normal Inspection COURSE, BEHAVIORAL HEALTH COMP - Course Vital Signs: Last Vital Signs Temp 99.3 F 04/04/19 09:56 Pulse 98 04/04/19 09:56 Resp 19 04/04/19 09:56 BP 151/88 H 04/04/19 09:56 Pulse Ox 97 04/04/19 09:56 Orders, Labs, Meds: Active Orders 24 hr Category Date Time Status Cardiac Monitoring [RC] . DIRECTED Care 04/04/19 10:59 Inactive EKG Documentation Completion [] STAT Care 04/04/19 10:59 Active Influenza Vaccine Charge [RC] .DISCHARGE Care 04/04/19 10:04 Active Peripheral IV Care [RC] . DIRECTED Care 04/04/19 10:59 Active HYDROmorphone [Dilaudid] Med 04/04/19 12:02 Once 0.5 mg IM ONETIME ONE LORazepam [Ativan] Med 04/04/19 12:02 Once 0.5 mg PO ONETIME ONE Sodium Chloride 0.9% [Saline Flush] Med 04/04/19 10:58 Active 10 ml FLUSH ASDIRECTED PRN ED Antiemetic Medication Reflex [OM.PC] Stat Oth 04/04/19 10:59 Ordered Peripheral IV Insertion Adult [OM.PC] Stat Oth 04/04/19 10:58 Ordered Medication Orders Sodium Chloride (Saline Flush) 10 ml FLUSH ASDIRECTED PRN PRN Reason: Keep Vein Open Last Admin: 04/04/19 11:16 Dose: 10 ml Medications Generic Name Dose Route Start Last Admin Trade Name Freq PRN Reason Stop Dose Admin Sodium Chloride 10 ml 04/04/19 10:58 04/04/19 11:16 Saline Flush FLUSH 10 ml ASDIRECTED PRN Administration Keep Vein Open Discontinued Medications Generic Name Dose Route Start Last Admin Trade Name Freq PRN Reason Stop Dose Admin Hydromorphone HCl 0.5 mg 04/04/19 11:00 04/04/19 11:35 Dilaudid IVPUSH 04/04/19 11:01 Not Given ONETIME ONE Hydromorphone HCl 0.5 mg 04/04/19 11:31 04/04/19 11:36 Dilaudid IM 04/04/19 11:32 0.5 mg ONETIME ONE Administration Sodium Chloride 1,000 mls @ 1,000 mls/hr 04/04/19 11:00 Normal Saline IV .BOLUS SAM Influenza Virus Vaccine 60 mcg 04/04/19 10:15 04/04/19 11:15 Fluzone Quad [id number] Syringe IM 04/04/19 10:16 60 mcg .ONCE ONE Administration Lorazepam 0.5 mg 04/04/19 11:00 04/04/19 11:34 Ativan IVPUSH 04/04/19 11:01 Not Given ONETIME ONE Lorazepam 0.5 mg 04/04/19 11:30 04/04/19 11:36 Ativan IM 04/04/19 11:31 0.5 mg ONETIME ONE Administration Ondansetron HCl 4 mg 04/04/19 10:58 04/04/19 11:48 Zofran IVPUSH 04/04/19 10:59 Not Given ONETIME ONE Ondansetron HCl Confirm 04/04/19 11:27 04/04/19 11:35 Zofran Odt Administered 04/04/19 11:28 Not Given Dose 4 mg .ROUTE .STK-MED ONE Ondansetron HCl 4 mg 04/04/19 11:30 04/04/19 11:37 Zofran Odt PO 04/04/19 11:31 4 mg ONETIME ONE Administration Re-Assessment/Re-Exam: I ordered an IV NS 1L bolus, zofran 4mg IV, dilaudid 0.5mg IV, ativan 0.5mg IV, labs and an EKG. His EKG shows a NSR with no acute changes. We could not get an IV so I cancelled the labs and I ordered zofran PO and the rest IM. His EKG shows a NSR with no acute changes. Rate was 96. I will give him a shot of dilaudid again and more ativan and discharge him home. Departure - Departure Time of Disposition: 12:05 Disposition: Home, Self-Care 01 Condition: Good Clinical Impression: Atypical chest pain Alcohol withdrawal syndrome Qualifiers: Complication of substance-induced condition: uncomplicated Qualified Code(s): F10.230 - Alcohol dependence with withdrawal, uncomplicated Abdominal pain Qualifiers: Abdominal location: upper abdomen, unspecified Qualified Code(s): R10.10 - Upper abdominal pain, unspecified - Discharge Information *PRESCRIPTION DRUG MONITORING PROGRAM REVIEWED*: No *COPY OF PRESCRIPTION DRUG MONITORING REPORT IN PATIENT NORMA: No Prescriptions: LORazepam [Ativan] 1 mg PO DAILY #18 tablet Ondansetron [Zofran ODT] 4 mg PO Q6H PRN #20 tab.dis PRN Reason: Nausea\vomiting Referrals: Ashley Disla [employer]ATOR [Primary Care Provider] - 1 Week Additional Instructions: Take the ativan 3 times per day for 3 days and then 2 times per day for 3 days and then at night for 3 days. Take the zofran every 6 hours as needed for nausea and vomiting. Follow up with [facility] at [phone] for help stopping drinking. Please return if you are worse. - My Orders Last 24 Hours: My Active Orders 04/04/19 10:04 Influenza Vaccine Charge [RC] .DISCHARGE 04/04/19 10:58 Sodium Chloride 0.9% [Saline Flush] 10 ml FLUSH ASDIRECTED PRN Peripheral IV Insertion Adult [OM.PC] Stat 04/04/19 10:59 Cardiac Monitoring [RC] . DIRECTED EKG Documentation Completion [RC] STAT Peripheral IV Care [RC] . DIRECTED ED Antiemetic Medication Reflex [OM.PC] Stat 04/04/19 12:02 HYDROmorphone [Dilaudid] 0.5 mg IM ONETIME ONE LORazepam [Ativan] 0.5 mg PO ONETIME ONE - Assessment/Plan Last 24 Hours: My Active Orders 04/04/19 10:04 Influenza Vaccine Charge [RC] .DISCHARGE 04/04/19 10:58 Sodium Chloride 0.9% [Saline Flush] 10 ml FLUSH ASDIRECTED PRN Peripheral IV Insertion Adult [OM.PC] Stat 04/04/19 10:59 Cardiac Monitoring [RC] . DIRECTED EKG Documentation Completion [RC] STAT Peripheral IV Care [RC] . DIRECTED ED Antiemetic Medication Reflex [OM.PC] Stat 04/04/19 12:02 HYDROmorphone [Dilaudid] 0.5 mg IM ONETIME ONE LORazepam [Ativan] 0.5 mg PO ONETIME ONE
[2019-04-04] MEDS ORDERED: Ondansetron 4 MG Tab.DIS ONE (11:27)
[2019-04-04] MEDS ORDERED: LORazepam 2 MG/ML SDV IM ONE (11:30)
[2019-04-04] MEDS ORDERED: Ondansetron 4 MG Tab.DIS PO ONE (11:30)
[2019-04-04] MEDS ORDERED: HYDROmorphone 0.5 MG/0.5 ML Syringe IM ONE ×2 (11:31→12:02)
[2019-04-04] MEDS ORDERED: LORazepam 0.5 MG Tab PO ONE (12:02)
== END 2019-04-04 12:20 | disposition home or self-care (01) ==
LOC: JD.ED 09:44
DX: F10.230 Alcohol dependence with withdrawal, uncomplicated (principal); R07.89 Other chest pain; R10.10 Upper abdominal pain, unspecified; I10 Essential (primary) hypertension; G47.30 Sleep apnea, unspecified; E66.9 Obesity, unspecified; Z68.37 Body mass index [BMI] 37.0-37.9, adult; Z79.899 Other long term (current) drug therapy; Z23 Encounter for immunization
CPT/HCPCS: 90471; 90686; 93005; 96372; 99284; A9270; J1170; J2060; 93010; G0008; J2405; J7030

== ENCOUNTER 2019-05-04 15:56 | Emergency (ER) | payer SELFPAY ==
[2019-05-04 16:19] VITALS: BP 160/102; PULSE 92
--- NOTE | 2019-05-04 16:29 | EDM.PDOC ---
ED HPI GENERAL MEDICAL PROBLEM - General Chief Complaint: Gastrointestinal Problem Stated Complaint: LOW RIGHT SIDE PAIN Time Seen by Provider: 05/04/19 16:24 Source of Information: Reports: Patient History Limitations: Reports: No Limitations - History of Present Illness INITIAL COMMENTS - FREE TEXT/NARRATIVE: 49-year-old male presents to the ED with complaints of right lower quadrant abdominal pain which has been constant for the last 2 days. He feels diffusely bloated. He admits that he felt he was constipated and has not had a bowel movement since the day before [place]. In a bottle of magnesium citrate earlier this morning about 0630 hrs. and a second bottle about 4-1/2 hours ago and has been having bowel movement every half hour since. However the pain in the right lower quadrant persists. No problems voiding. Only previous abdominal surgery is been laparoscopic cholecystectomy. Patient has a history of chronic alcohol abuse but has been sober for a month until he fell off the wagon one day a week ago. He has not had anything to drink since that time. He is not currently on any medications. He has joined [employer] and actually has been motivated to try and quit drinking alcohol. Pain does not radiate through to his back. Tree of diverticulitis but it's always been on the left side in the past. He reports some chills and he had put his coat on in the house during the night. So bad during the night that he could not sleep. He states he lost his appetite completely a day and half ago. Onset: Gradual Onset Date: 05/03/19 (Right lower quadrant abdominal pain yesterday morning upon awakening.) Duration: Hour(s):, Getting Worse Location: Reports: Abdomen (Right lower quadrant of the abdomen with no radiation of the pain.) Quality: Reports: Ache Severity: Severe (Constant deep aching pain.) Improves with: Reports: None ( Describes it as 10 out of 10.) Worsens with: Reports: Other Context: Denies: Activity, Exercise (Hopping or walking make it worse.), Lifting , Sick Contact, Trauma, Other Associated Symptoms: Reports: Fever/Chills, Loss of Appetite, Malaise (Chills but no definite fever.). Denies: Nausea/Vomiting, Rash, Seizure, Shortness of Breath, Syncope Treatments TRANSPORT TECH: Reports: Other (see below) (Magnesium citrate 2 bottles over the last 12 hours) Right Abdominal Pain Score (Numeric/FACES): 10 - Related Data Allergies Allergy/AdvReac Type Severity Reaction Status Date / Time No Known Allergies Allergy Verified 05/04/19 16:19 Home Meds: Home Meds amLODIPine [Norvasc] 5 mg PO DAILY 02/03/19 [History] Olmesartan Medoxomil 40 mg PO DAILY 04/04/19 [History] Ondansetron [Zofran ODT] 4 mg PO Q6H PRN #20 tab.dis 04/04/19 [Rx] levoFLOXacin [Levaquin] 500 mg PO DAILY #9 tab 05/04/19 [Rx] metroNIDAZOLE [Flagyl] 500 mg PO Q8H #24 tab 05/04/19 [Rx] oxyCODONE HCl/Acetaminophen [Percocet 5-325 mg Tablet] 1 - 2 each PO Q4H PRN # 24 tablet 05/04/19 [Rx] Past Medical History HEENT History: Reports: Impaired Vision Cardiovascular History: Reports: High Cholesterol, Hypertension Respiratory History: Reports: Sleep Apnea Other Respiratory History: uses CPAP at home Gastrointestinal History: Reports: Diverticulosis Genitourinary History: Reports: Other (See Below) Other Genitourinary History: impotence Musculoskeletal History: Reports: Fracture Neurological History: Reports: Brain Injury, Seizure Other Neuro History: 2001 head injury. Seizures as a child - out grew age 12. Psychiatric History: Reports: ADHD, Addiction, Depression Other Psychiatric History: Alcohol Endocrine/Metabolic History: Reports: Obesity/BMI 30+ - Infectious Disease History Infectious Disease History: Reports: C-Difficile - Past Surgical History HEENT Surgical History: Reports: Oral Surgery GI Surgical History: Reports: Cholecystectomy Musculoskeletal Surgical History: Reports: Carpal Tunnel, ORIF, Other (See Below ) Other Musculoskeletal Surgeries/Procedures:: elia to R femur Dermatological Surgical History: Reports: None Social & Family History - Family History Family Medical History: Noncontributory Cardiac: Reports: MT Endocrine/Metabolic: Reports: Diabetes, type II Oncologic: Reports: Lung - Tobacco Use Smoking Status *Q: Never Smoker Second Hand Smoke Exposure: No - Caffeine Use Caffeine Use: Reports: Coffee Other Caffeine Use: 2 cups 2-3 times a week - Alcohol Use Days Per Week of Alcohol Use: 1 Number of Drinks Per Day: 1 Total Drinks Per Week: 1 Date of Last Drink: 04/27/19 Time of Last Drink: 12:00 - Recreational Drug Use Recreational Drug Use: No - Living Situation & Occupation Living situation: Reports: , Alone 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 Denies: Fever HEENT: Reports: No Symptoms Respiratory: Reports: No Symptoms Cardiovascular: Reports: No Symptoms Endocrine: Reports: No Symptoms GI/Abdominal: Reports: Abdominal Pain (Right lower quadrant abdominal pain with no radiation. It is constant and he is able to localize it very well), Constipation (Vomiting for 4 days but is got his bowels working every half hour after drinking 2 bottles of magnesium citrate today.) : Reports: No Symptoms Musculoskeletal: Reports: Back Pain (Chronic low back pain.) Skin: Reports: No Symptoms Neurological: Reports: Difficulty Walking, Weakness. Denies: Confusion, Dizziness, Headache, Numbness, Syncope, Tingling Psychiatric: Reports: No Symptoms Hematologic/Lymphatic: Reports: No Symptoms (Due to right lower quadrant abdominal pain.) Immunologic: Reports: No Symptoms ED EXAM, GI/ABD - Physical Exam Exam: See Below Exam Limited By: No Limitations General Appearance: Alert, WD/WN, Anxious, Mild Distress, Other (Vital signs reveal a temperature 36.4. He is cool and clammy to touch. Heart rate is 92 and sinus. Respiratory is 18 with O2 sats are 99% on room air. BP elevated initially at 160/102 but has come down to 150/95.) Eyes: Bilateral: Normal Appearance Throat/Mouth: Normal Inspection, Normal Lips, Normal Oropharynx, Other (Tongue is minimally dry.) Head: Atraumatic, Normocephalic Neck: Normal Inspection, Supple, Non-Tender, Full Range of Motion. No: Lymphadenopathy (L), Lymphadenopathy (R) Respiratory/Chest: No Respiratory Distress, Lungs Clear, Normal Breath Sounds, No Accessory Muscle Use Cardiovascular: Normal Peripheral Pulses, Regular Rate, Rhythm, No Edema, No Gallop, No Murmur, No Rub GI/Abdominal Exam: Distended (Not notably turbinate to percussion), Guarding ( Tenderness right lower quadrant with rebound tenderness), Rebound, Tender ( Right lower quadrant abdominal pain with guarding and rebound.), Abnormal Bowel Sounds (Absence of bowel sounds appreciated.), Other (Intensive laparoscopic cholecystectomy scars.) (Male) Exam: No Hernia Back Exam: Normal Inspection, Decreased Range of Motion. No: CVA Tenderness (L) , CVA Tenderness (R) Extremities: Normal Inspection, Normal Range of Motion, Non-Tender, No Pedal Edema Neurological: Alert, Oriented, CN II-XII Intact, Normal Cognition, No Motor/ Sensory Deficits Psychiatric: Anxious Skin Exam: Cool (Cool clammy.) Course - Vital Signs Last Recorded V/S: Last Vital Signs Temp 36.4 C 05/04/19 16:19 Pulse 92 05/04/19 16:19 Resp 18 05/04/19 16:19 BP 160/102 H 05/04/19 16:19 Pulse Ox 99 05/04/19 16:19 - Orders/Labs/Meds Orders: Active Orders 24 hr Category Date Time Status Abdomen 1V Flat [CR] Stat Exams 05/04/19 16:47 Taken Abdomen Pelvis w Cont [CT] Stat Exams 05/04/19 16:47 Taken URINALYSIS W/MICROSCOPIC [UA W/MICROSCOPIC] [URIN] Stat Lab 05/04/19 16:49 Ordered Sodium Chloride 0.9% [Normal Saline] 1,000 ml Med 05/04/19 16:45 Active IV ASDIRECTED Sodium Chloride 0.9% [Saline Flush] Med 05/04/19 18:07 Active 10 ml FLUSH ONETIME PRN Medication Orders Sodium Chloride (Normal Saline) 1,000 mls @ 250 mls/hr IV ASDIRECTED SAM Last Admin: 05/04/19 17:24 Dose: 250 mls/hr Sodium Chloride (Saline Flush) 10 ml FLUSH ONETIME PRN PRN Reason: IV FLUSH Last Admin: 05/04/19 18:36 Dose: 10 ml Labs: Laboratory Tests 05/04/19 05/04/19 05/04/19 Range/Units 17:30 17:30 17:30 WBC 13.99 H (4.23-9.07) K/mm3 RBC 5.29 (4.63-6.08) M/mm3 Hgb 16.3 (13.7-17.5) gm/dl Hct 46.1 (40.1-51.0) % MCV 87.1 (79.0-92.2) fl MCH 30.8 (25.7-32.2) pg MCHC 35.4 (32.2-35.5) g/dl RDW Std Deviation 43.0 (35.1-43.9) fL Plt Count 183 (163-337) K/mm3 MPV 10.1 (9.4-12.3) fl Neut % (Auto) 77.2 H (34.0-67.9) % Lymph % (Auto) 11.6 L (21.8-53.1) % Canadian % (Auto) 10.2 (5.3-12.2) % Eos % (Auto) 0.6 L (0.8-7.0) Baso % (Auto) 0.3 (0.1-1.2) % Neut # (Auto) 10.80 H (1.78-5.38) K/mm3 Lymph # (Auto) 1.62 (1.32-3.57) K/mm3 Canadian # (Auto) 1.43 H (0.30-0.82) K/mm3 Eos # (Auto) 0.08 (0.04-0.54) K/mm3 Baso # (Auto) 0.04 (0.01-0.08) K/mm3 PT 10.7 (9.7-12.0) SECONDS INR 0.98 APTT 28 (22-31) SECONDS Sodium 137 (136-145) mEq/L Potassium 3.7 (3.5-5.1) mEq/L Chloride 101 (98-107) mEq/L Carbon Dioxide 24 (21-32) mEq/L Anion Gap 15.7 H (5-15) BUN 13 (7-18) mg/dL Creatinine 1.1 (0.7-1.3) mg/dL Est Cr Clr Drug Dosing 83.88 mL/min Estimated GFR (MDRD) > 60 (>60) mL/min BUN/Creatinine Ratio 11.8 L (14-18) Glucose 102 (74-106) mg/dL Lactic Acid (0.4-2.0) mmol/L Calcium 9.6 (8.5-10.1) mg/dL Total Bilirubin 1.4 H (0.2-1.0) mg/dL AST 22 (15-37) U/L ALT 45 (16-63) U/L Alkaline Phosphatase 103 (46-116) U/L C-Reactive Protein 11.4 H* (<1.0) mg/dL Total Protein 8.3 H (6.4-8.2) g/dl Albumin 4.2 (3.4-5.0) g/dl Globulin 4.1 gm/dL Albumin/Globulin Ratio 1.0 (1-2) Lipase 213 (73-393) U/L 05/04/19 Range/Units 17:30 WBC (4.23-9.07) K/mm3 RBC (4.63-6.08) M/mm3 Hgb (13.7-17.5) gm/dl Hct (40.1-51.0) % MCV (79.0-92.2) fl MCH (25.7-32.2) pg MCHC (32.2-35.5) g/dl RDW Std Deviation (35.1-43.9) fL Plt Count (163-337) K/mm3 MPV (9.4-12.3) fl Neut % (Auto) (34.0-67.9) % Lymph % (Auto) (21.8-53.1) % Canadian % (Auto) (5.3-12.2) % Eos % (Auto) (0.8-7.0) Baso % (Auto) (0.1-1.2) % Neut # (Auto) (1.78-5.38) K/mm3 Lymph # (Auto) (1.32-3.57) K/mm3 Canadian # (Auto) (0.30-0.82) K/mm3 Eos # (Auto) (0.04-0.54) K/mm3 Baso # (Auto) (0.01-0.08) K/mm3 PT (9.7-12.0) SECONDS INR APTT (22-31) SECONDS Sodium (136-145) mEq/L Potassium (3.5-5.1) mEq/L Chloride (98-107) mEq/L Carbon Dioxide (21-32) mEq/L Anion Gap (5-15) BUN (7-18) mg/dL Creatinine (0.7-1.3) mg/dL Est Cr Clr Drug Dosing mL/min Estimated GFR (MDRD) (>60) mL/min BUN/Creatinine Ratio (14-18) Glucose (74-106) mg/dL Lactic Acid 0.8 (0.4-2.0) mmol/L Calcium (8.5-10.1) mg/dL Total Bilirubin (0.2-1.0) mg/dL AST (15-37) U/L ALT (16-63) U/L Alkaline Phosphatase (46-116) U/L C-Reactive Protein (<1.0) mg/dL Total Protein (6.4-8.2) g/dl Albumin (3.4-5.0) g/dl Globulin gm/dL Albumin/Globulin Ratio (1-2) Lipase (73-393) U/L Meds: Medications Generic Name Dose Route Start Last Admin Trade Name Freq PRN Reason Stop Dose Admin Sodium Chloride 1,000 mls @ 250 mls/hr 05/04/19 16:45 05/04/19 17:24 Normal Saline IV 250 mls/hr ASDIRECTED SAM Administration Sodium Chloride 10 ml 05/04/19 18:07 05/04/19 18:36 Saline Flush FLUSH 10 ml ONETIME PRN Administration IV FLUSH Discontinued Medications Generic Name Dose Route Start Last Admin Trade Name Freq PRN Reason Stop Dose Admin Diatrizoate Meglum/Diatrizoate Sod 120 ml 05/04/19 18:07 05/04/19 18:36 Gastrografin 37% PO 05/04/19 18:08 90 ml ONETIME ONE Administration Hydromorphone HCl 1 mg 05/04/19 16:46 05/04/19 17:13 Dilaudid IVPUSH 05/04/19 16:47 1 mg ONETIME ONE Administration Hydromorphone HCl 1 mg 05/04/19 18:06 05/04/19 18:11 Dilaudid IVPUSH 05/04/19 18:07 1 mg ONETIME ONE Administration Hydromorphone HCl 1 mg 05/04/19 18:58 05/04/19 19:21 Dilaudid IVPUSH 05/04/19 18:59 1 mg ONETIME ONE Administration Levofloxacin/Dextrose 750 mg/ 150 mls @ 100 mls/hr 05/04/19 18:58 05/04/19 20 :19 Premix IV 05/04/19 20:27 100 mls/hr ONETIME ONE Administration Metronidazole 500 mg/ Premix 100 mls @ 100 mls/hr 05/04/19 18:58 05/04/19 19: 14 IV 05/04/19 19:57 100 mls/hr ONETIME ONE Administration Iopamidol 100 ml 05/04/19 18:07 05/04/19 18:36 Isovue-300 (61%) IVPUSH 05/04/19 18:08 100 ml ONETIME ONE Administration Lorazepam 1 mg 05/04/19 16:46 05/04/19 17:11 Ativan IVPUSH 05/04/19 16:47 1 mg ONETIME ONE Administration Lorazepam 1 mg 05/04/19 18:59 05/04/19 19:20 Ativan IVPUSH 05/04/19 19:00 1 mg ONETIME ONE Administration Metoclopramide HCl 10 mg 05/04/19 16:46 05/04/19 17:15 Reglan IVPUSH 05/04/19 16:47 10 mg ONETIME ONE Administration - Radiology Interpretation Free Text/Narrative:: 49-year-old male presents the ED with 2 day history of gradually worsening right lower quadrant abdominal pain. States the pain kept him awake all last night. He felt he was constipated since he not had a bowel movement since . He therefore took a bottle of magnesium citrate at 0630 hrs. this morning and a second bottle about 1300 hrs. today. He subsequently has been having bowel mode every half an hour. It has not relieved the pain. Pain is worse with coughing and movement such as walking. Mostly in the right lower quadrant of the abdomen and clinically he is tender over McBurney's point. Patient exaggerates his symptoms and therefore difficult to ascertain for sure that he has peritonitis. Stressing of anxiety disorder and chronic alcoholism. Apparently has not had a drink of alcohol for over a week and before that was sober for 28 days. Seems to be motivated to stop drinking alcohol. Plan IV normal saline at 250 mils per hour. Dilaudid 1 mg IV with Reglan 10 mg IV and Ativan 1 mg IV for pain relief. One view of the abdomen done prior to starting contrast orally for CT of the abdomen to rule out appendicitis. Labs to be done including a serum lipase and lactic acid. - Re-Assessments/Exams Free Text/Narrative Re-Assessment/Exam: 05/04/19 17:54 WBC is mildly elevated at 13.99. Auto differential shows 77% neutrophils. Hemoglobin is 16.3 with hematocrit of 46.1 suggesting mild hemoconcentration. Platelet count is 183,000. KUB reveals air throughout the colon but also several dilated loops of small bowel in the left hemiabdomen compatible with an ileus. 05/04/19 18:06 Patient states pain was better for a while starting to come back again now. Will repeat Dilaudid 1 mg IV. He has finished all of his oral contrast in preparation for CT abdomen and pelvis. 05/04/19 18:22 PT is 10.7. INR 0.98 with a PTT of 28. Sodium is normal at 137 with potassium of 3.7. Chloride 101 with a bicarbonate of 24. Anion gap is minimally elevated at 15.7. BUN is 13 with a creatinine of 1.1. GFR remains greater than 60. Glucose is 102 with a lactic acid of 0.8. Calcium is 9.6. Total bilirubin slightly elevated at 1.4. AST is 22 with an ALT of 45 and alk phosphatase is 103. Suspect Gilbert's syndrome. C-reactive protein is elevated at 11.4. Total protein is 8.3 with an albumin fraction of 4.2. Serum lipase is normal at 213 05/04/19 18:56 On my read of the CT of the abdomen and pelvis it reveals a small to moderate-sized hiatal hernia. Very minimal basal atelectasis bilaterally. Cardiac silhouette appears normal. The liver has a cystic lesion in the mid superior dome of the right lobe measuring 2 cm in diameter. Stable from previous CT exams. The gallbladder is absent. Pancreas appears normal. Air dilating the large bowel with some fluid. There is evidence of infiltration of the omentum in the mid to inferior abdomen . This is secondary to diverticulitis at the juncture of the descending colon and the sigmoid colon, more so on the right side than on the left mimicing appendicitis. Diverticula in the transverse colon as well as the descending colon. Appendix is visualized and is within normal limits without any periappendiceal infiltrate. Fat containing umbilical hernia. Both kidneys appear to be normal with no obstruction of the ureters. Patient thinks he wants to try things at home versus coming into the hospital. I will give him Levaquin 750 mg IV now and Flagyl 500 mg IV. Complaining of significant lower abdominal pain. Repeat Dilaudid 1 mg IV. Ativan 1 mg IV as an adjuvant treatment 05/04/19 19:45 Over read by [place] the CT the abdomen and pelvis reveals diffuse fatty infiltration of the liver with slight hepatomegaly. There is also mild splenomegaly suggesting early portal hypertension. They agree with inflammation due to diverticulitis of the sigmoid colon more so on the right than on the left which is mimicking appendicitis. Patient states at this time he has no money for medications. He also does not wish to stay in the hospital unless has too. She has been sleeping since last dose of Ativan and Dilaudid was given. Uses CPAP machine at home. Therefore placed on auto CPAP in the ED. 05/04/19 22:56 has a ride and therefore will be discharged to home. Medications have been filled for Levaquin 500 mg once daily for the next 9 days and Flagyl 500 mg 3 times a day for the next 8 days and Percocet tablets 5/325 mg one or 2 every 4-6 hours for pain relief for the next 3 days. Departure - Departure Time of Disposition: 22:58 Disposition: Home, Self-Care 01 Condition: Fair Clinical Impression: Abdominal pain, Diverticulitis Diverticulitis large intestine Qualifiers: Diverticulitis bleeding: with bleeding Diverticulitis complication: without perforation or abscess Qualified Code(s): K57.33 - Diverticulitis of large intestine without perforation or abscess with bleeding - Discharge Information *PRESCRIPTION DRUG MONITORING PROGRAM REVIEWED*: Not Applicable *COPY OF PRESCRIPTION DRUG MONITORING REPORT IN PATIENT NORMA: Not Applicable Prescriptions: levoFLOXacin [Levaquin] 500 mg PO DAILY #9 tab metroNIDAZOLE [Flagyl] 500 mg PO Q8H #24 tab oxyCODONE HCl/Acetaminophen [Percocet 5-325 mg Tablet] 1 - 2 each PO Q4H PRN # 24 tablet PRN Reason: pain relief. Referrals: Catherine Villafana MD [Primary Care Provider] - Forms: ED Department Discharge Additional Instructions: Evaluation the emergency room today in regards to gradually worsening right lower quadrant abdominal pain over the last 2 days. Associated abdominal bloating and feeling of constipation. Your history suggests no good bowel movement for the last 4 days. You have remedied the situation already by taking magnesium citrate 2 bottles today which has produced several stools the x-ray of the abdomen shows an ileus type pattern due to suspect infection. CT scan with oral contrast reveals the appendix to be within normal limits with no signs of infection. However there is acute diverticulitis at the junction of the sigmoid and descending colon more so on the right side where you very tender. It is therefore mimicing appendicitis. You're treated with pain medications 3 with Dilaudid 1 mg strength and medication Reglan 10 mg for nausea relief. You were given first dose of Levaquin 750 mg in the emergency department intravenously and first dose of Flagyl 500 mg IV as well. Prescriptions have been filled for you for Levaquin 500 mg tablet once daily starting at noon tomorrow and continue for 9 more days. Flagyl 500 mg 3 times daily for the next 8 days to bring infection under control. Pain medication is to be Percocet 5/325 mg tabs one or 2 every 3-4 hours as needed for pain relief for the next 2-3 days until the antibiotics take effect. Linear fluids such as Gatorade or Powerade and soft diet containing no food seeds or popcorn or nuts. Expect gradual improvement over the next 72 hours. If not markedly improved in 3 days or pain worsens over the next 3 days you to return to the ED. Sepsis Event Note - Evaluation Sepsis Screening Result: No Definite Risk - Focused Exam Vital Signs: Vital Signs Temp Pulse Resp BP Pulse Ox 05/04/19 16:19 36.4 C 92 18 160/102 H 99 Date Exam was Performed: 05/04/19 Time Exam was Performed: 22:29 - My Orders Last 24 Hours: My Active Orders 05/04/19 16:45 Sodium Chloride 0.9% [Normal Saline] 1,000 ml IV ASDIRECTED 05/04/19 16:47 Abdomen 1V Flat [CR] Stat Abdomen Pelvis w Cont [CT] Stat 05/04/19 16:49 URINALYSIS W/MICROSCOPIC [UA W/MICROSCOPIC] [URIN] Stat 05/04/19 18:07 Sodium Chloride 0.9% [Saline Flush] 10 ml FLUSH ONETIME PRN - Assessment/Plan Last 24 Hours: My Active Orders 05/04/19 16:45 Sodium Chloride 0.9% [Normal Saline] 1,000 ml IV ASDIRECTED 05/04/19 16:47 Abdomen 1V Flat [CR] Stat Abdomen Pelvis w Cont [CT] Stat 05/04/19 16:49 URINALYSIS W/MICROSCOPIC [UA W/MICROSCOPIC] [URIN] Stat 05/04/19 18:07 Sodium Chloride 0.9% [Saline Flush] 10 ml FLUSH ONETIME PRN
[2019-05-04] MEDS ORDERED: Sodium Chloride 0.9% 1,000 ML IV SCH (16:45)
[2019-05-04] MEDS ORDERED: HYDROmorphone 1 MG/ML Syringe IVPUSH ONE ×3 (16:46→18:58)
[2019-05-04] MEDS ORDERED: Metoclopramide 10 MG/2 ML SDV IVPUSH ONE (16:46)
[2019-05-04] MEDS ORDERED: LORazepam 2 MG/ML SDV IVPUSH ONE ×2 (16:46→18:59)
[2019-05-04] MEDS ORDERED: Iopamidol 612 MG/ML 100 ML Bottle IVPUSH ONE (18:07)
[2019-05-04] MEDS ORDERED: Diatrizoate Meglumine/Diatrizoate Sodium 37% 120 ML Bottle PO ONE (18:07)
[2019-05-04] MEDS ORDERED: Sodium Chloride 0.9% 10 ML Syringe FLUSH PRN (18:07)
[2019-05-04] MEDS ORDERED: metroNIDAZOLE/Normal Saline 500 MG in Premix Bag 1 BAG IV ONE (18:58)
[2019-05-04] MEDS ORDERED: Levofloxacin/Dextrose 5%-Water 750 MG in Premix Bag 1 BAG IV ONE (18:58)
--- NOTE | 2019-05-06 07:12 | CT ---
CT abdomen and pelvis Technique: Multiple axial sections were obtained from above the dome of the diaphragm inferiorly through the pubic symphysis. Intravenous contrast and oral contrast has been given. Delayed images were obtained to the bladder. Comparison: Prior abdominal and pelvic CT study of 10/13/18 as well as abdominal x-ray performed earlier on 05/04/19 (5:15 PM). Findings: Visualized lung bases show nothing acute. Liver shows diffuse low density compatible with fatty infiltration. Cyst is noted within the dome of the right lobe measuring 1.9 cm. Additional cyst is seen next to the gallbladder fossa measuring 2.2 cm. No additional abnormality is appreciated within the liver. Previous cholecystectomy is noted. Spleen is felt to be within normal limits. Adrenal glands show no nodule. Pancreas is within normal limits. Kidneys show symmetric contrast enhancement without hydronephrosis or mass. Appendix is seen which is normal in size. Aorta shows no aneurysm. No retroperitoneal adenopathy is appreciated. Inflammatory change is seen around a portion of the sigmoid colon. Diverticuli are seen within the sigmoid colon and findings are most likely due to diverticulitis. No additional pelvic abnormality is seen. Small fat-containing bilateral inguinal hernias are noted. Delayed images show contrast within the distal ureters and within the bladder. Bone window settings were reviewed which show scattered degenerative change within the spine. Small fat-containing umbilical hernia is noted. Impression: 1. Findings compatible with sigmoid diverticulitis. 2. Other findings as noted above believed to be incidental. Diagnostic code #3 This report was dictated in [place] Standard Time I agree with preliminary report issued by [facility] ([facility] report finalized on 05/04/19, 8:09 PM Central Time)
--- NOTE | 2019-05-06 07:12 | CR ---
Abdomen: Supine view of the abdomen was obtained. Comparison: Prior abdominal x-ray of 03/20/16. Surgical clips are seen from previous cholecystectomy. Several loops of small bowel gas are noted within the left upper abdomen which appear within normal limits at this time. Gas is noted within the colon which appears unremarkable. Intramedullary elia is noted within the right femur. Slight degenerative change is scattered within the spine. Impression: 1. Incidental findings as noted above. Diagnostic code #2 This report was dictated in [place] Standard Time
== END 2019-05-04 23:11 | disposition home or self-care (01) ==
LOC: JD.ED 15:56
DX: K57.33 Diverticulitis of large intestine without perforation or abscess with bleeding (principal); I10 Essential (primary) hypertension; E66.9 Obesity, unspecified; Z79.899 Other long term (current) drug therapy; Z68.35 Body mass index [BMI] 35.0-35.9, adult
CPT/HCPCS: 36415; 74018; 74177; 80053; 83605; 83690; 85025; 85610; 85730; 86140; 96361; 96365; 96366; 96367; 96375; 96376; 99285; J1170; J1956; J2060; J2765; J3490; J7030; Q9963; Q9967; 99284

== ENCOUNTER 2019-10-03 10:35 | Emergency (ER) | payer MEDICAID ==
[2019-10-03] MEDS ORDERED: Sodium Chloride 0.9% 10 ML Syringe FLUSH PRN (12:22)
[2019-10-03] MEDS ORDERED: Ondansetron 4 MG/2 ML SDV IVPUSH ONE (13:10)
[2019-10-03] MEDS ORDERED: LORazepam 2 MG/ML SDV IVPUSH ONE (13:10)
[2019-10-03] MEDS ORDERED: Ketorolac 30 MG/ML SDV IVPUSH ONE (13:10)
[2019-10-03] MEDS ORDERED: Sodium Chloride 0.9% 1,000 ML IV SCH (13:15)
--- NOTE | 2019-10-03 13:30 | EDM.PDOC ---
ED HPI GENERAL MEDICAL PROBLEM - General Chief Complaint: Drug or Alcohol Abuse Stated Complaint: DETOX AFTER 5 DAYS OF DRINKING Time Seen by Provider: 10/03/19 12:16 Source of Information: Reports: Patient History Limitations: Reports: No Limitations - History of Present Illness INITIAL COMMENTS - FREE TEXT/NARRATIVE: Patient is a 49-year-old male who presents to the emergency department with complaints of "detoxing from alcohol ". He states he has been drinking about 750 mils of vodka for the last 6 days. Prior to that he was sober. He has a long history of alcoholism. He went through treatment in [place] in 2018 and has been attending AA since that time. He denies any history of seizures with alcohol withdrawal. His last drink was around midnight last night. He complains of his "liver, kidneys, and ankles" hurting. He is also mildly nauseous. He states that he has a history of gout in his ankles and has not been taking his gout medication for the last couple days. He states this is a typical presentation for when he detoxes from alcohol. He states the pain in his "kidneys and liver "lasts a couple days. He also reports feeling anxious. He states that he is a friend that works for [employer] which is an alcohol treatment center in [place] and that she is working on getting him in there. He states that he does not want to be admitted or go to the [facility] crisis bed. He would like to be treated in the ER and then discharged home with Ativan for detox. Bilateral Flank Pain Score (Numeric/FACES): 8 Bilateral Ankle Pain Score (Numeric/FACES): 7 Abdomen Pain Score (Numeric/FACES): 6 - Related Data Allergies Allergy/AdvReac Type Severity Reaction Status Date / Time No Known Allergies Allergy Verified 05/04/19 16:19 Home Meds: Home Meds amLODIPine [Norvasc] 5 mg PO DAILY 02/03/19 [History] Olmesartan Medoxomil 40 mg PO DAILY 04/04/19 [History] Ondansetron [Zofran ODT] 4 mg PO Q6H PRN #20 tab.dis 04/04/19 [Rx] Amphetamine/Dextroamphetamine [Adderall] 20 mg PO BID 10/03/19 [History] LORazepam [Ativan] 1 mg PO ASDIRECTED #18 tablet 10/03/19 [Rx] Past Medical History HEENT History: Reports: Impaired Vision Cardiovascular History: Reports: High Cholesterol, Hypertension Respiratory History: Reports: Sleep Apnea Other Respiratory History: uses CPAP at home Gastrointestinal History: Reports: Diverticulosis Genitourinary History: Reports: Other (See Below) Other Genitourinary History: impotence Musculoskeletal History: Reports: Fracture Neurological History: Reports: Brain Injury, Seizure Other Neuro History: 2001 head injury. Seizures as a child - out grew age 12. Psychiatric History: Reports: ADHD, Addiction, Depression Other Psychiatric History: Alcohol Endocrine/Metabolic History: Reports: Obesity/BMI 30+ - Infectious Disease History Infectious Disease History: Reports: C-Difficile - Past Surgical History HEENT Surgical History: Reports: Oral Surgery GI Surgical History: Reports: Cholecystectomy Musculoskeletal Surgical History: Reports: Carpal Tunnel, ORIF, Other (See Below ) Other Musculoskeletal Surgeries/Procedures:: elia to R femur Dermatological Surgical History: Reports: None Social & Family History - Family History Family Medical History: Noncontributory Cardiac: Reports: [place] Endocrine/Metabolic: Reports: Diabetes, type II Oncologic: Reports: Lung - Tobacco Use Smoking Status *Q: Never Smoker - Caffeine Use Caffeine Use: Reports: Coffee, Soda Other Caffeine Use: 2 cups 2-3 times a week - Alcohol Use Date of Last Drink: 10/02/19 - Recreational Drug Use Recreational Drug Type: Reports: Cocaine, Heroin, Marijuana/Hashish Other Recreational Drug Type: last used a few weeks ago used marijuana; other drugs not since 6 yrs ago - Living Situation & Occupation Living situation: Reports: , Alone 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 Denies: Fever, Chills HEENT: Reports: No Symptoms Respiratory: Reports: No Symptoms. Denies: Shortness of Breath, Cough Cardiovascular: Reports: No Symptoms Endocrine: Reports: No Symptoms GI/Abdominal: Reports: No Symptoms, Abdominal Pain, Nausea. Denies: Vomiting : Reports: No Symptoms Musculoskeletal: Reports: Back Pain Skin: Reports: No Symptoms Neurological: Reports: Headache Psychiatric: Reports: No Symptoms Hematologic/Lymphatic: Reports: No Symptoms Immunologic: Reports: No Symptoms ED EXAM, GENERAL - Physical Exam Exam: See Below Exam Limited By: No Limitations General Appearance: Alert, WD/WN, No Apparent Distress Respiratory/Chest: No Respiratory Distress, Lungs Clear, Normal Breath Sounds, No Accessory Muscle Use, Chest Non-Tender Cardiovascular: Normal Peripheral Pulses, Regular Rate, Rhythm, No Edema, No Gallop, No JVD, No Murmur, No Rub GI/Abdominal: Normal Bowel Sounds, Soft, Non-Tender, No Organomegaly, No Distention, No Abnormal Bruit, No Mass, Tender (Generalized throughout) Extremities: Normal Inspection, Normal Range of Motion, Non-Tender, Normal Capillary Refill, No Pedal Edema Neurological: Alert, Oriented, CN II-XII Intact, Normal Cognition, Normal Gait, Normal Reflexes, No Motor/Sensory Deficits Psychiatric: Normal Affect, Normal Mood Skin Exam: Warm, Dry, Intact, Normal Color, No Rash Course - Vital Signs Last Recorded V/S: Last Vital Signs Temp 97.8 F 10/03/19 11:22 Pulse 86 10/03/19 15:42 Resp 18 10/03/19 15:42 BP 135/88 10/03/19 15:42 Pulse Ox 96 10/03/19 15:42 - Orders/Labs/Meds Orders: Active Orders 24 hr Category Date Time Status Oxygen Therapy [RC] PRN Care 10/03/19 12:22 Active Peripheral IV Care [RC] . DIRECTED Care 10/03/19 12:22 Active Peripheral IV Insertion Adult [OM.PC] Stat Oth 10/03/19 12:22 Ordered Labs: Laboratory Tests 10/03/19 10/03/19 10/03/19 Range/Units 12:00 12:00 12:00 WBC 5.89 (4.23-9.07) K/mm3 RBC 4.77 (4.63-6.08) M/mm3 Hgb 14.7 D (13.7-17.5) gm/dl Hct 41.3 (40.1-51.0) % MCV 86.6 (79.0-92.2) fl MCH 30.8 (25.7-32.2) pg MCHC 35.6 H (32.2-35.5) g/dl RDW Std Deviation 41.7 (35.1-43.9) fL Plt Count 180 (163-337) K/mm3 MPV 10.2 (9.4-12.3) fl Neut % (Auto) 62.9 (34.0-67.9) % Lymph % (Auto) 18.7 L (21.8-53.1) % [place] % (Auto) 12.6 H (5.3-12.2) % Eos % (Auto) 4.8 (0.8-7.0) Baso % (Auto) 0.8 (0.1-1.2) % Neut # (Auto) 3.71 (1.78-5.38) K/mm3 Lymph # (Auto) 1.10 L (1.32-3.57) K/mm3 [place] # (Auto) 0.74 (0.30-0.82) K/mm3 Eos # (Auto) 0.28 (0.04-0.54) K/mm3 Baso # (Auto) 0.05 (0.01-0.08) K/mm3 Sodium 137 (136-145) mEq/L Potassium 4.3 (3.5-5.1) mEq/L Chloride 102 (98-107) mEq/L Carbon Dioxide 26 (21-32) mEq/L Anion Gap 13.3 (5-15) BUN 17 (7-18) mg/dL Creatinine 1.0 (0.7-1.3) mg/dL Est Cr Clr Drug Dosing 92.26 mL/min Estimated GFR (MDRD) > 60 (>60) mL/min BUN/Creatinine Ratio 17.0 (14-18) Glucose 111 H (74-106) mg/dL Calcium 9.2 (8.5-10.1) mg/dL Total Bilirubin 0.6 (0.2-1.0) mg/dL AST 37 (15-37) U/L ALT 36 (16-63) U/L Alkaline Phosphatase 122 H (46-116) U/L Total Protein 7.4 (6.4-8.2) g/dl Albumin 3.8 (3.4-5.0) g/dl Globulin 3.6 gm/dL Albumin/Globulin Ratio 1.1 (1-2) Lipase (73-393) U/L Urine Color (Yellow) Urine Appearance (Clear) Urine pH (5.0-8.0) Ur Specific [place] (1.005-1.030) Urine Protein (Negative) Urine Glucose (UA) (Negative) Urine Ketones (Negative) Urine Occult Blood (Negative) Urine Nitrite (Negative) Urine Bilirubin (Negative) Urine Urobilinogen (0.2-1.0) Ur Leukocyte Esterase (Negative) Urine RBC (0-5) /hpf Urine WBC (0-5) /hpf Ur Squamous Epith Cells (0-5) /hpf Urine Bacteria (FEW) /hpf Urine Mucus (FEW) /hpf Ethyl Alcohol 0.00 (0.00) gm% 10/03/19 10/03/19 Range/Units 13:49 14:53 WBC (4.23-9.07) K/mm3 RBC (4.63-6.08) M/mm3 Hgb (13.7-17.5) gm/dl Hct (40.1-51.0) % MCV (79.0-92.2) fl MCH (25.7-32.2) pg MCHC (32.2-35.5) g/dl RDW Std Deviation (35.1-43.9) fL Plt Count (163-337) K/mm3 MPV (9.4-12.3) fl Neut % (Auto) (34.0-67.9) % Lymph % (Auto) (21.8-53.1) % [place] % (Auto) (5.3-12.2) % Eos % (Auto) (0.8-7.0) Baso % (Auto) (0.1-1.2) % Neut # (Auto) (1.78-5.38) K/mm3 Lymph # (Auto) (1.32-3.57) K/mm3 [place] # (Auto) (0.30-0.82) K/mm3 Eos # (Auto) (0.04-0.54) K/mm3 Baso # (Auto) (0.01-0.08) K/mm3 Sodium (136-145) mEq/L Potassium (3.5-5.1) mEq/L Chloride (98-107) mEq/L Carbon Dioxide (21-32) mEq/L Anion Gap (5-15) BUN (7-18) mg/dL Creatinine (0.7-1.3) mg/dL Est Cr Clr Drug Dosing mL/min Estimated GFR (MDRD) (>60) mL/min BUN/Creatinine Ratio (14-18) Glucose (74-106) mg/dL Calcium (8.5-10.1) mg/dL Total Bilirubin (0.2-1.0) mg/dL AST (15-37) U/L ALT (16-63) U/L Alkaline Phosphatase (46-116) U/L Total Protein (6.4-8.2) g/dl Albumin (3.4-5.0) g/dl Globulin gm/dL Albumin/Globulin Ratio (1-2) Lipase 46 L (73-393) U/L Urine Color Yellow (Yellow) Urine Appearance Clear (Clear) Urine pH 6.5 (5.0-8.0) Ur Specific [place] > or = 1.030 (1.005-1.030) Urine Protein Negative (Negative) Urine Glucose (UA) Negative (Negative) Urine Ketones Negative (Negative) Urine Occult Blood Negative (Negative) Urine Nitrite Negative (Negative) Urine Bilirubin Negative (Negative) Urine Urobilinogen 0.2 (0.2-1.0) Ur Leukocyte Esterase Negative (Negative) Urine RBC 0-5 (0-5) /hpf Urine WBC 0-5 (0-5) /hpf Ur Squamous Epith Cells 0-5 (0-5) /hpf Urine Bacteria Few (FEW) /hpf Urine Mucus Moderate H (FEW) /hpf Ethyl Alcohol (0.00) gm% Meds: Medications Discontinued Medications Generic Name Dose Route Start Last Admin Trade Name Freq PRN Reason Stop Dose Admin Sodium Chloride 1,000 mls @ 999 mls/hr 10/03/19 13:15 10/03/19 13:46 Normal Saline IV 999 mls/hr ASDIRECTED SAM Administration Ketorolac Tromethamine 30 mg 10/03/19 13:10 10/03/19 13:45 Toradol IVPUSH 10/03/19 13:11 30 mg ONETIME ONE Administration Lorazepam 0.5 mg 10/03/19 13:10 10/03/19 13:46 Ativan IVPUSH 10/03/19 13:11 0.5 mg ONETIME ONE Administration Ondansetron HCl 4 mg 10/03/19 13:10 10/03/19 13:45 Zofran IVPUSH 10/03/19 13:11 4 mg ONETIME ONE Administration Sodium Chloride 10 ml 10/03/19 12:22 10/03/19 12:32 Saline Flush FLUSH 10 ml ASDIRECTED PRN Administration Keep Vein Open - Re-Assessments/Exams Free Text/Narrative Re-Assessment/Exam: 10/03/19 15:28 Patient's work-up was found to be grossly unremarkable. He is feeling better after the medications given. We will discharge him home with a prescription for Ativan for detox. He has been given explicit instructions not to drink while taking this medication. He is in agreement with this plan. Discharge instructions as documented. Departure - Departure Time of Disposition: 15:29 Disposition: Home, Self-Care 01 Condition: Good Clinical Impression: Alcohol withdrawal syndrome Qualifiers: Complication of substance-induced condition: uncomplicated Qualified Code(s): F10.230 - Alcohol dependence with withdrawal, uncomplicated - Discharge Information *PRESCRIPTION DRUG MONITORING PROGRAM REVIEWED*: Yes *COPY OF PRESCRIPTION DRUG MONITORING REPORT IN PATIENT NORMA: No Prescriptions: LORazepam [Ativan] 1 mg PO ASDIRECTED #18 tablet Instructions: Alcohol Withdrawal Syndrome Referrals: Catherine Villafana MD [Primary Care Provider] - Additional Instructions: You were seen in the emergency department today for your work-up included blood work and urinalysis. Your work-up was found to be overall normal. While in the ER you received a liter of IV fluids, Ativan, Zofran, and Toradol. You have been provided with a prescription for Ativan tapering dose for the next 9 days. Take this medication as prescribed. You must refrain from all alcohol consumption while taking this medication. Recommend that you ensure you are in taking an adequate amount of fluid. Ensure that you are also taking your previously prescribed daily home medications. If you should experience any new or worsening symptoms of concern, please do not hesitate to return to the emergency department. Sepsis Event Note - Evaluation Sepsis Screening Result: No Definite Risk - Focused Exam Vital Signs: Vital Signs Temp Pulse Resp BP Pulse Ox Pulse Ox 10/03/19 15:42 86 18 135/88 96 10/03/19 12:22 96 10/03/19 11:22 97.8 F 97 20 150/69 H 96 Date Exam was Performed: 10/03/19 Time Exam was Performed: 18:50 - My Orders Last 24 Hours: My Active Orders 10/03/19 12:22 Oxygen Therapy [RC] PRN Peripheral IV Care [RC] . DIRECTED Peripheral IV Insertion Adult [OM.PC] Stat - Assessment/Plan Last 24 Hours: My Active Orders 10/03/19 12:22 Oxygen Therapy [RC] PRN Peripheral IV Care [RC] . DIRECTED Peripheral IV Insertion Adult [OM.PC] Stat
[2019-10-03 15:50] VITALS: BP 135/88; PULSE 86
== END 2019-10-03 15:42 | disposition home or self-care (01) ==
LOC: JD.ED 10:35
DX: F10.230 Alcohol dependence with withdrawal, uncomplicated (principal); I10 Essential (primary) hypertension; F32.9 Major depressive disorder, single episode, unspecified; F90.9 Attention-deficit hyperactivity disorder, unspecified type; E66.9 Obesity, unspecified; Z79.899 Other long term (current) drug therapy; Z68.35 Body mass index [BMI] 35.0-35.9, adult
CPT/HCPCS: 36415; 80053; 80307; 81001; 83690; 85025; 96361; 96374; 96375; 99284; J1885; J2060; J2405; J7030

== ENCOUNTER 2019-10-17 08:50 | Emergency (ER) | payer MEDICAID ==
[2019-10-17] MEDS ORDERED: Ondansetron 4 MG/2 ML SDV IVPUSH ONE (09:04)
[2019-10-17] MEDS ORDERED: Sodium Chloride 0.9% 10 ML Syringe FLUSH PRN (09:04)
[2019-10-17] MEDS ORDERED: cefTRIAXone 2 GM in Sodium Chloride 0.9% 100 ML IV ONE (09:06)
[2019-10-17 09:08] VITALS: PULSE 88
--- NOTE | 2019-10-17 09:13 | EDM.PDOCBH ---
ED HPI GENERAL MEDICAL PROBLEM - General Chief Complaint: Drug or Alcohol Abuse Stated Complaint: DETOX ( PAIN IN LEFT EAR/SWOLLEN CHEECKS-FACE) Time Seen by Provider: 10/17/19 08:57 Source of Information: Reports: Patient History Limitations: Reports: No Limitations - History of Present Illness INITIAL COMMENTS - FREE TEXT/NARRATIVE: The patient presents with alcohol withdrawal, left ear pain and left facial swelling. The patient says he has been drinking heavily for 3 days. He was here about 2 weeks ago for the same and he did stop drinking until 3 days ago. His says AA has been canceled due to the COVID 19 pandemic. He says his ear started hurting a few days ago. It is worse now and he has left facial swelling. He has no fever, chills, cough, congestion or runny nose. He did have chest pain. He has no shortness of breath. He has some nausea but no vomiting. Onset: Gradual Duration: Day(s): (3) Severity: Moderate Improves with: Reports: None Worsens with: Reports: None Associated Symptoms: Reports: Chest Pain, Nausea/Vomiting. Denies: Cough, Fever /Chills, Headaches, Shortness of Breath Left Ear Pain Score (Numeric/FACES): 8 - Related Data Allergies Allergy/AdvReac Type Severity Reaction Status Date / Time No Known Allergies Allergy Verified 05/04/19 16:19 Home Meds: Home Meds amLODIPine [Norvasc] 5 mg PO DAILY 02/03/19 [History] Olmesartan Medoxomil 40 mg PO DAILY 04/04/19 [History] Ondansetron [Zofran ODT] 4 mg PO Q6H PRN #20 tab.dis 04/04/19 [Rx] Amphetamine/Dextroamphetamine [Adderall] 20 mg PO BID 10/03/19 [History] LORazepam [Ativan] 1 mg PO ASDIRECTED #18 tablet 10/03/19 [Rx] Amoxicillin/Clavulanate K [Augmentin 875-125 MG] 1 tab PO BID #20 tablet [Rx] Hydrocodone/Acetaminophen [Hydrocodone-Acetamin 5-325 mg] 1 - 2 each PO Q6HR PRN #10 tablet 10/17/19 [Rx] LORazepam [Ativan] 1 mg PO DAILY #18 tablet 10/17/19 [Rx] Ondansetron [Zofran ODT] 4 mg PO Q6H PRN #20 tab.dis 10/17/19 [Rx] Past Medical History HEENT History: Reports: Impaired Vision Cardiovascular History: Reports: High Cholesterol, Hypertension Respiratory History: Reports: Sleep Apnea Other Respiratory History: uses CPAP at home Gastrointestinal History: Reports: Diverticulosis Genitourinary History: Reports: Other (See Below) Other Genitourinary History: impotence Musculoskeletal History: Reports: Fracture Neurological History: Reports: Brain Injury, Seizure Other Neuro History: 2001 head injury. Seizures as a child - out grew age 12. Psychiatric History: Reports: ADHD, Addiction, Depression Other Psychiatric History: Alcohol Endocrine/Metabolic History: Reports: Obesity/BMI 30+ - Infectious Disease History Infectious Disease History: Reports: C-Difficile - Past Surgical History HEENT Surgical History: Reports: Oral Surgery GI Surgical History: Reports: Cholecystectomy Musculoskeletal Surgical History: Reports: Carpal Tunnel, ORIF, Other (See Below ) Other Musculoskeletal Surgeries/Procedures:: elia to R femur Dermatological Surgical History: Reports: None Social & Family History - Family History Family Medical History: Noncontributory Cardiac: Reports: [place] Endocrine/Metabolic: Reports: Diabetes, type II Oncologic: Reports: Lung - Caffeine Use Caffeine Use: Reports: Coffee, Soda Other Caffeine Use: 2 cups 2-3 times a week - Living Situation & Occupation Living situation: Reports: , Alone 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 Denies: Abdominal Pain, Vomiting : Reports: No Symptoms Musculoskeletal: Reports: No Symptoms ED EXAM, BEHAVIORAL HEALTH - Physical Exam Exam: See Below Exam Limited By: No Limitations General Appearance: Alert, No Apparent Distress Ears: Normal External Exam Nose: Normal Inspection Head: Atraumatic, Normocephalic Neck: Normal Inspection Respiratory/Chest: No Respiratory Distress, Lungs Clear, Normal Breath Sounds Cardiovascular: Regular Rate, Rhythm, No Edema, No Murmur GI/Abdominal: Soft, Non-Tender, No Organomegaly, No Mass Extremities: Normal Inspection Neurological: Alert, No Motor/Sensory Deficits, Oriented x 3 COURSE, BEHAVIORAL HEALTH COMP - Course Vital Signs: Last Vital Signs Temp 99.0 F 10/17/19 09:00 Pulse 88 10/17/19 09:00 Resp 18 10/17/19 09:00 BP Pulse Ox 99 10/17/19 09:00 Orders, Labs, Meds: Active Orders 24 hr Category Date Time Status Cardiac Monitoring [RC] . DIRECTED Care 10/17/19 09:04 Active Peripheral IV Care [RC] . DIRECTED Care 10/17/19 09:05 Active Sodium Chloride 0.9% [Normal Saline] 1,000 ml Med 10/17/19 09:15 Active IV .BOLUS Sodium Chloride 0.9% [Saline Flush] Med 10/17/19 09:04 Active 10 ml FLUSH ASDIRECTED PRN ED Antiemetic Medication Reflex [OM.PC] Stat Oth 10/17/19 09:04 Ordered Peripheral IV Insertion Adult [OM.PC] Stat Oth 10/17/19 09:04 Ordered EKG 12 Lead [EK] Stat Ther 10/17/19 09:05 Ordered Medication Orders Sodium Chloride (Normal Saline) 1,000 mls @ 1,000 mls/hr IV .BOLUS SAM Last Admin: 10/17/19 09:27 Dose: 1,000 mls/hr Sodium Chloride (Saline Flush) 10 ml FLUSH ASDIRECTED PRN PRN Reason: Keep Vein Open Last Admin: 10/17/19 09:27 Dose: 10 ml Laboratory Tests 10/17/19 10/17/19 10/17/19 Range/Units 09:19 09:19 09:31 WBC 13.38 H (4.23-9.07) K/mm3 RBC 5.25 (4.63-6.08) M/mm3 Hgb 16.2 D (13.7-17.5) gm/dl Hct 46.3 (40.1-51.0) % MCV 88.2 (79.0-92.2) fl MCH 30.9 (25.7-32.2) pg MCHC 35.0 (32.2-35.5) g/dl RDW Std Deviation 47.3 H (35.1-43.9) fL Plt Count 189 (163-337) K/mm3 MPV 9.2 L (9.4-12.3) fl Neut % (Auto) 86.3 H (34.0-67.9) % Lymph % (Auto) 5.8 L (21.8-53.1) % [place] % (Auto) 6.7 (5.3-12.2) % Eos % (Auto) 0.7 L (0.8-7.0) Baso % (Auto) 0.4 (0.1-1.2) % Neut # (Auto) 11.56 H (1.78-5.38) K/mm3 Lymph # (Auto) 0.77 L (1.32-3.57) K/mm3 [place] # (Auto) 0.89 H (0.30-0.82) K/mm3 Eos # (Auto) 0.09 (0.04-0.54) K/mm3 Baso # (Auto) 0.05 (0.01-0.08) K/mm3 Manual Slide Review Abnormal smear Sodium 139 (136-145) mEq/L Potassium 4.0 (3.5-5.1) mEq/L Chloride 101 (98-107) mEq/L Carbon Dioxide 24 (21-32) mEq/L Anion Gap 18.0 H (5-15) BUN 12 (7-18) mg/dL Creatinine 1.2 (0.7-1.3) mg/dL Est Cr Clr Drug Dosing 76.89 mL/min Estimated GFR (MDRD) > 60 (>60) mL/min BUN/Creatinine Ratio 10.0 L (14-18) Glucose 118 H (74-106) mg/dL Calcium 9.2 (8.5-10.1) mg/dL Total Bilirubin 0.8 (0.2-1.0) mg/dL AST 41 H (15-37) U/L ALT 73 H (16-63) U/L Alkaline Phosphatase 131 H (46-116) U/L Troponin I < 0.017 (0.00-0.056) ng/mL Total Protein 8.1 (6.4-8.2) g/dl Albumin 4.1 (3.4-5.0) g/dl Globulin 4.0 gm/dL Albumin/Globulin Ratio 1.0 (1-2) Lipase 46 L (73-393) U/L Urine Opiates Screen Negative (WFATXI=310) Ur Buprenorphine Scrn Negative (CUTOFF=10) Ur Oxycodone Screen Negative (YJA0XY=556) Urine Methadone Screen Negative (TXO7OA=141) Ur Propoxyphene Screen Negative (VCKMBH=392) Ur Barbiturates Screen Negative (CQSMVM=303) Ur Tricyclics Screen Negative (YSIIEI=986) Ur Phencyclidine Scrn Negative (CUTOFF=25) Ur Amphetamine Screen Negative (GAKWFV=125) U Methamphetamines Scrn Negative (LHLZCV=047) U Benzodiazepines Scrn Presumptive positive H (YKGNUP=688) U Cocaine Metab Screen Negative (PTWLAN=096) U Marijuana (THC) Screen Presumptive positive H (CUTOFF=50) Ethyl Alcohol 0.10 (0.00) gm% Medications Generic Name Dose Route Start Last Admin Trade Name Freq PRN Reason Stop Dose Admin Sodium Chloride 1,000 mls @ 1,000 mls/hr 10/17/19 09:15 10/17/19 09:27 Normal Saline IV 1,000 mls/hr .BOLUS SAM Administration Sodium Chloride 10 ml 10/17/19 09:04 10/17/19 09:27 Saline Flush FLUSH 10 ml ASDIRECTED PRN Administration Keep Vein Open Discontinued Medications Generic Name Dose Route Start Last Admin Trade Name Freq PRN Reason Stop Dose Admin Hydromorphone HCl 1 mg 10/17/19 10:04 10/17/19 10:12 Dilaudid IVPUSH 10/17/19 10:05 1 mg ONETIME ONE Administration Hydromorphone HCl 1 mg 10/17/19 11:30 10/17/19 11:41 Dilaudid IVPUSH 10/17/19 11:31 1 mg ONETIME ONE Administration Ceftriaxone Sodium 2 gm/ 100 mls @ 200 mls/hr 10/17/19 09:06 10/17/19 09:27 Sodium Chloride IV 10/17/19 09:35 200 mls/hr ONETIME ONE Administration Ondansetron HCl 4 mg 10/17/19 09:04 10/17/19 09:27 Zofran IVPUSH 10/17/19 09:05 4 mg ONETIME ONE Administration Re-Assessment/Re-Exam: I ordered an IV NS 1L bolus, zofran 4mg IV, dilaudid 0.5mg IV, EKG, rocephin 2 grams IV and labs. His WBC was increased at 13.38. His drug screen was presumptive positive for benzos and marijuana. His anion gap is elevated at 18. His AST is elevated at 41. His ALT is elevated at 73. His alk phos is elevated at 131. His alcohol is 0.1. He still has more pain so I ordered dilaudid. I will discharge him home on augmentin and ativan. Departure - Departure Time of Disposition: 11:45 Disposition: Home, Self-Care 01 Condition: Good Clinical Impression: Parotitis, Alcohol use - Discharge Information *PRESCRIPTION DRUG MONITORING PROGRAM REVIEWED*: No *COPY OF PRESCRIPTION DRUG MONITORING REPORT IN PATIENT NORMA: No Prescriptions: Hydrocodone/Acetaminophen [Hydrocodone-Acetamin 5-325 mg] 1 - 2 each PO Q6HR PRN #10 tablet PRN Reason: Pain Amoxicillin/Clavulanate K [Augmentin 875-125 MG] 1 tab PO BID #20 tablet LORazepam [Ativan] 1 mg PO DAILY #18 tablet Ondansetron [Zofran ODT] 4 mg PO Q6H PRN #20 tab.dis PRN Reason: Nausea\vomiting Referrals: Catherine Villafana MD [Primary Care Provider] - 1 Week Additional Instructions: Take the augmentin 2 times per day for 10 days. Use lemon drops or something tart to help with the parotitis. Put warm compresses on her face 3 times per day for 5 days. Take tylenol or motrin for pain or fever. If that does not help, try the hydrocodone. Take the ativan as prescribed to help coming off of the alcohol. Take the zofran every 6 hours as needed for nausea and vomiting. Please return if you are worse. Sepsis Event Note (ED) - Focused Exam Vital Signs: Vital Signs Temp Pulse Resp Pulse Ox 10/17/19 09:00 99.0 F 88 18 99 - My Orders Last 24 Hours: My Active Orders 10/17/19 09:04 Cardiac Monitoring [RC] . DIRECTED Sodium Chloride 0.9% [Saline Flush] 10 ml FLUSH ASDIRECTED PRN ED Antiemetic Medication Reflex [OM.PC] Stat Peripheral IV Insertion Adult [OM.PC] Stat 10/17/19 09:05 Peripheral IV Care [RC] . DIRECTED EKG 12 Lead [EK] Stat 10/17/19 09:15 Sodium Chloride 0.9% [Normal Saline] 1,000 ml IV .BOLUS - Assessment/Plan Last 24 Hours: My Active Orders 10/17/19 09:04 Cardiac Monitoring [RC] . DIRECTED Sodium Chloride 0.9% [Saline Flush] 10 ml FLUSH ASDIRECTED PRN ED Antiemetic Medication Reflex [OM.PC] Stat Peripheral IV Insertion Adult [OM.PC] Stat 10/17/19 09:05 Peripheral IV Care [RC] . DIRECTED EKG 12 Lead [EK] Stat 10/17/19 09:15 Sodium Chloride 0.9% [Normal Saline] 1,000 ml IV .BOLUS
[2019-10-17] MEDS ORDERED: Sodium Chloride 0.9% 1,000 ML IV SCH (09:15)
[2019-10-17] MEDS ORDERED: HYDROmorphone 1 MG/ML Syringe IVPUSH ONE ×2 (10:04→11:30)
== END 2019-10-17 12:20 | disposition home or self-care (01) ==
LOC: JD.ED 08:50
DX: K11.20 Sialoadenitis, unspecified (principal); Z72.89 Other problems related to lifestyle; I10 Essential (primary) hypertension; E66.9 Obesity, unspecified; Z68.35 Body mass index [BMI] 35.0-35.9, adult; F90.9 Attention-deficit hyperactivity disorder, unspecified type; Z79.899 Other long term (current) drug therapy
CPT/HCPCS: 36415; 80053; 80306; 80307; 83690; 84484; 85025; 93005; 96365; 99285; J0696; J1170; J2405; J7030; J7050

== ENCOUNTER 2019-10-17 16:27 | Emergency (ER) | payer MEDICAID ==
[2019-10-17 16:45] VITALS: BP 141/85; PULSE 111
[2019-10-17] MEDS ORDERED: Sodium Chloride 0.9% 10 ML Syringe FLUSH PRN ×2 (16:45→17:49)
[2019-10-17] MEDS ORDERED: Sodium Chloride 0.9% 1,000 ML IV SCH (16:45)
[2019-10-17] MEDS ORDERED: HYDROmorphone 1 MG/ML Syringe IVPUSH ONE (16:46)
[2019-10-17] MEDS ORDERED: Ketorolac 30 MG/ML SDV IVPUSH ONE (16:46)
--- NOTE | 2019-10-17 16:53 | EDM.PDOC ---
ED HPI GENERAL MEDICAL PROBLEM - General Chief Complaint: General Stated Complaint: SWOLLEN FACE/LEFT EAR PAIN Time Seen by Provider: 10/17/19 16:38 Source of Information: Reports: Patient History Limitations: Reports: No Limitations - History of Present Illness INITIAL COMMENTS - FREE TEXT/NARRATIVE: The patient presents with left facial swelling and pain. He was here less then 12 hours ago and saw me. I diagnosed him with parotitis and gave him rocephin and got him on augmentin. He says he has more pain and swelling. He has a low grade temp of 100.2 here. He was also given some ativan to help him withdraw from alcohol. He says he went home and slept today and when he woke up there was mores swelling. He did take the antibiotics. He did not try anything for pain. He did not put any warm compresses on his face. He has no chest pain or shortness of breath. Onset: Gradual Duration: Day(s): Location: Reports: Face Quality: Reports: Sharp Severity: Severe Improves with: Reports: None Worsens with: Reports: None Associated Symptoms: Reports: Fever/Chills. Denies: Chest Pain, Cough, Headaches, Nausea/Vomiting, Shortness of Breath Left Jaw Pain Score (Numeric/FACES): 9 - Related Data Allergies Allergy/AdvReac Type Severity Reaction Status Date / Time No Known Allergies Allergy Verified 10/17/19 16:40 Home Meds: Home Meds amLODIPine [Norvasc] 5 mg PO DAILY 02/03/19 [History] Olmesartan Medoxomil 40 mg PO DAILY 04/04/19 [History] Ondansetron [Zofran ODT] 4 mg PO Q6H PRN #20 tab.dis 04/04/19 [Rx] Amphetamine/Dextroamphetamine [Adderall] 20 mg PO BID 10/03/19 [History] LORazepam [Ativan] 1 mg PO ASDIRECTED #18 tablet 10/03/19 [Rx] Amoxicillin/Clavulanate K [Augmentin 875-125 MG] 1 tab PO BID #20 tablet [Rx] Hydrocodone/Acetaminophen [Hydrocodone-Acetamin 5-325 mg] 1 - 2 each PO Q6HR PRN #10 tablet 10/17/19 [Rx] LORazepam [Ativan] 1 mg PO DAILY #18 tablet 10/17/19 [Rx] Ondansetron [Zofran ODT] 4 mg PO Q6H PRN #20 tab.dis 10/17/19 [Rx] oxyCODONE HCl/Acetaminophen [Percocet 5-325 mg Tablet] 1 - 2 each PO Q6HR PRN # 20 tablet 10/17/19 [Rx] Past Medical History HEENT History: Reports: Impaired Vision Cardiovascular History: Reports: High Cholesterol, Hypertension Respiratory History: Reports: Sleep Apnea Other Respiratory History: uses CPAP at home Gastrointestinal History: Reports: Diverticulosis Genitourinary History: Reports: Other (See Below) Other Genitourinary History: impotence Musculoskeletal History: Reports: Fracture Neurological History: Reports: Brain Injury, Seizure Other Neuro History: 2001 head injury. Seizures as a child - out grew age 12. Psychiatric History: Reports: ADHD, Addiction, Depression Other Psychiatric History: Alcohol Endocrine/Metabolic History: Reports: Obesity/BMI 30+ - Infectious Disease History Infectious Disease History: Reports: C-Difficile - Past Surgical History HEENT Surgical History: Reports: Oral Surgery GI Surgical History: Reports: Cholecystectomy Musculoskeletal Surgical History: Reports: Carpal Tunnel, ORIF, Other (See Below ) Other Musculoskeletal Surgeries/Procedures:: elia to R femur Dermatological Surgical History: Reports: None Social & Family History - Family History Family Medical History: Noncontributory Cardiac: Reports: CT Endocrine/Metabolic: Reports: Diabetes, type II Oncologic: Reports: Lung - Tobacco Use Smoking Status *Q: Never Smoker - Caffeine Use Caffeine Use: Reports: Coffee Other Caffeine Use: 2 cups 2-3 times a week - Alcohol Use Days Per Week of Alcohol Use: 7 Number of Drinks Per Day: 9 Total Drinks Per Week: 63 - Recreational Drug Use Recreational Drug Use: Yes Recreational Drug Type: Reports: Marijuana/Hashish - Living Situation & Occupation Living situation: Reports: , Alone 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) ED ROS GENERAL - Review of Systems Review Of Systems: See Below Constitutional: Reports: Fever HEENT: Reports: Other (left sided facial pain) Respiratory: Reports: No Symptoms Cardiovascular: Reports: No Symptoms Endocrine: Reports: No Symptoms GI/Abdominal: Reports: No Symptoms : Reports: No Symptoms Musculoskeletal: Reports: No Symptoms ED EXAM, GENERAL - Physical Exam Exam: See Below Exam Limited By: No Limitations General Appearance: Alert, No Apparent Distress Ears: Normal External Exam Head: Other (swelling to the left parotid gland with some erythema) Neck: Normal Inspection, Lymphadenopathy (L) Respiratory/Chest: No Respiratory Distress Extremities: Normal Inspection Neurological: Alert, Oriented, No Motor/Sensory Deficits Course - Vital Signs Last Recorded V/S: Last Vital Signs Temp 100.2 F 10/17/19 16:41 Pulse 111 H 10/17/19 16:41 Resp 18 10/17/19 16:41 BP 141/85 H 10/17/19 16:41 Pulse Ox 98 10/17/19 16:41 - Orders/Labs/Meds Orders: Active Orders 24 hr Category Date Time Status Peripheral IV Care [RC] . DIRECTED Care 10/17/19 16:45 Active HYDROmorphone [Dilaudid] Med 10/17/19 19:12 Once 0.5 mg IVPUSH ONETIME ONE Sodium Chloride 0.9% [Normal Saline] 1,000 ml Med 10/17/19 16:45 Active IV ASDIRECTED Sodium Chloride 0.9% [Saline Flush] Med 10/17/19 16:45 Active 10 ml FLUSH ASDIRECTED PRN Sodium Chloride 0.9% [Saline Flush] Med 10/17/19 17:49 Active 10 ml FLUSH ONETIME PRN Peripheral IV Insertion Adult [OM.PC] Routine Oth 10/17/19 16:45 Ordered Medication Orders Sodium Chloride (Normal Saline) 1,000 mls @ 150 mls/hr IV ASDIRECTED SAM Last Admin: 10/17/19 16:56 Dose: 150 mls/hr Sodium Chloride (Saline Flush) 10 ml FLUSH ASDIRECTED PRN PRN Reason: Keep Vein Open Last Admin: 10/17/19 17:19 Dose: 10 ml Sodium Chloride (Saline Flush) 10 ml FLUSH ONETIME PRN PRN Reason: Keep Vein Open Meds: Medications Generic Name Dose Route Start Last Admin Trade Name Freq PRN Reason Stop Dose Admin Sodium Chloride 1,000 mls @ 150 mls/hr 10/17/19 16:45 10/17/19 16:56 Normal Saline IV 150 mls/hr ASDIRECTED SAM Administration Sodium Chloride 10 ml 10/17/19 16:45 10/17/19 17:19 Saline Flush FLUSH 10 ml ASDIRECTED PRN Administration Keep Vein Open Sodium Chloride 10 ml 06/11/20 17:49 Saline Flush FLUSH ONETIME PRN Keep Vein Open Discontinued Medications Generic Name Dose Route Start Last Admin Trade Name Orestes PRN Reason Stop Dose Admin Hydromorphone HCl 1 mg 10/17/19 16:46 10/17/19 16:57 Dilaudid IVPUSH 10/17/19 16:47 1 mg ONETIME ONE Administration Iopamidol 100 ml 10/17/19 17:12 10/17/19 17:58 Isovue-300 (61%) IVPUSH 10/17/19 17:13 100 ml ONETIME ONE Administration Iopamidol 100 ml 10/17/19 17:49 Isovue-300 (61%) IVPUSH 10/17/19 17:50 ONETIME ONE Ketorolac Tromethamine 30 mg 10/17/19 16:46 10/17/19 16:57 Toradol IVPUSH 10/17/19 16:47 30 mg ONETIME ONE Administration Sodium Chloride 10 ml 10/17/19 17:12 10/17/19 17:58 Saline Flush FLUSH 10/17/19 17:13 10 ml ONETIME ONE Administration - Re-Assessments/Exams Free Text/Narrative Re-Assessment/Exam: 10/17/19 16:52 I ordered an IV NS at 125ml/hr, dilaudid 1mg IV, toradol 30mg IV, and a CT of his maxillofacial bones with IV contrast. 10/17/19 19:[address] shows mild inflammatory change on the left side of the neck most likely due to cellulitis. No fluid collections of abscess are seen. Mucosal thickening within the paranasal sinuses which is most likely chronic. Degenerative change is scattered within the cervical spine. I will give him something for pain and continue the antibiotics. Departure - Departure Time of Disposition: 19:15 Disposition: Home, Self-Care 01 Condition: Good Clinical Impression: Parotitis Cellulitis Qualifiers: Site of cellulitis: face Qualified Code(s): L03.211 - Cellulitis of face - Discharge Information *PRESCRIPTION DRUG MONITORING PROGRAM REVIEWED*: No *COPY OF PRESCRIPTION DRUG MONITORING REPORT IN PATIENT NORMA: No Prescriptions: oxyCODONE HCl/Acetaminophen [Percocet 5-325 mg Tablet] 1 - 2 each PO Q6HR PRN # 20 tablet PRN Reason: Pain Referrals: Catherine Villafana MD [Primary Care Provider] - Forms: ED Department Discharge Additional Instructions: Take the augmentin 2 times per day for 10 days. Put warm compresses on your face 3 to 5 times per day for 2 days. Take tylenol or motrin for pain and if that does not help, try the percocet. Please return if you are worse. Sepsis Event Note (ED) - Evaluation Sepsis Screening Result: No Definite Risk - Focused Exam Vital Signs: Vital Signs Temp Pulse Resp BP Pulse Ox 10/17/19 16:41 100.2 F 111 H 18 141/85 H 98 - My Orders Last 24 Hours: My Active Orders 10/17/19 16:45 Peripheral IV Care [RC] . DIRECTED Sodium Chloride 0.9% [Normal Saline] 1,000 ml IV ASDIRECTED Sodium Chloride 0.9% [Saline Flush] 10 ml FLUSH ASDIRECTED PRN Peripheral IV Insertion Adult [OM.PC] Routine 10/17/19 17:49 Sodium Chloride 0.9% [Saline Flush] 10 ml FLUSH ONETIME PRN 10/17/19 19:12 HYDROmorphone [Dilaudid] 0.5 mg IVPUSH ONETIME ONE - Assessment/Plan Last 24 Hours: My Active Orders 10/17/19 16:45 Peripheral IV Care [RC] . DIRECTED Sodium Chloride 0.9% [Normal Saline] 1,000 ml IV ASDIRECTED Sodium Chloride 0.9% [Saline Flush] 10 ml FLUSH ASDIRECTED PRN Peripheral IV Insertion Adult [OM.PC] Routine 10/17/19 17:49 Sodium Chloride 0.9% [Saline Flush] 10 ml FLUSH ONETIME PRN 10/17/19 19:12 HYDROmorphone [Dilaudid] 0.5 mg IVPUSH ONETIME ONE
[2019-10-17] MEDS ORDERED: Sodium Chloride 0.9% 10 ML Syringe FLUSH ONE (17:12)
[2019-10-17] MEDS ORDERED: Iopamidol 612 MG/ML 100 ML Bottle IVPUSH ONE ×2 (17:12→17:49)
--- NOTE | 2019-10-17 18:58 | CT ---
CT maxillofacial: Multiple axial sections were obtained from above the external auditory canals inferiorly to the bottom of the neck. Reconstructed coronal and sagittal images were obtained. Intravenous contrast was utilized. Findings: Inflammatory change is seen mostly within the left neck mostly around the left parotid gland. No fluid collections of abscess are seen. No lymphadenopathy is noted. No parapharyngeal abscess is seen. Mild mucosal thickening is seen within both maxillary sinuses as well as near the junction of the ethmoid and frontal sinuses. No air-fluid levels are seen. Mastoid sinus on the left side show slight mucosal thickening. Prevertebral soft tissues are normal. Bone window settings show scattered degenerative change within the spine. Impression: 1. Mild inflammatory change on the left side of the neck most likely due to cellulitis. No fluid collections of abscess are seen. 2. Mucosal thickening within the paranasal sinuses which is most likely chronic. 3. Degenerative change is scattered within the cervical spine. Diagnostic code #3 This report was dictated in MDT
[2019-10-17] MEDS ORDERED: HYDROmorphone 0.5 MG/0.5 ML Syringe IVPUSH ONE (19:12)
== END 2019-10-17 19:27 | disposition home or self-care (01) ==
LOC: JD.ED 16:27
DX: L03.211 Cellulitis of face (principal); K11.20 Sialoadenitis, unspecified; I10 Essential (primary) hypertension; F32.9 Major depressive disorder, single episode, unspecified; F90.9 Attention-deficit hyperactivity disorder, unspecified type; E66.9 Obesity, unspecified; Z68.35 Body mass index [BMI] 35.0-35.9, adult; Z79.899 Other long term (current) drug therapy
CPT/HCPCS: 70487; 96374; 96375; 96376; 99284; J1170; J1885; J7030; Q9967

== ENCOUNTER 2019-11-15 09:31 | Emergency (ER) | payer MEDICAID ==
[2019-11-15 10:06] VITALS: BP 149/102; PULSE 106
[2019-11-15] MEDS ORDERED: LORazepam 2 MG/ML SDV IV ONE (10:32)
[2019-11-15] MEDS ORDERED: Metoclopramide 10 MG/2 ML SDV ONE (10:33)
--- NOTE | 2019-11-15 10:37 | EDM.PDOCBH ---
ED HPI GENERAL MEDICAL PROBLEM - General Chief Complaint: Drug or Alcohol Abuse Stated Complaint: ALCOHOL DETOX Time Seen by Provider: 11/15/19 10:34 Source of Information: Reports: Patient History Limitations: Reports: No Limitations - History of Present Illness INITIAL COMMENTS - FREE TEXT/NARRATIVE: 49-year-old male once again returns to the ED after falling off the wagon and drinking alcohol once again. He reports his been drinking vodka large quantities i.e. 750 mils daily for the last 10 to 12 days. Once again he is decided to stop. Last drink was about 0200 hrs. this morning. He is feeling nauseated and slightly tremulous and of course is quite anxious about going through withdrawal. He has been through treatment programs on multiple 2 [place] occasions and shows no interest in treatment at this point time. He has not been going to AA meetings because they were canceled because of COVID but apparently are no open in writing and he plans to go back to AA meetings with his sponsor. He has had nausea but no vomiting. No hematemesis. Stools are always a bit on the looser side but for the most part are formed. He still indicates that he eats at least one solid meal daily. He denies being in trouble with the law. He denies being in any fights or falls. Onset: Other (Last drink 0200 hrs. this morning. Chronic problems with recurrent alcohol abuse.) Duration: Chronic, Constant Location: Reports: Generalized (Feeling generally ill from alcohol abuse.) Quality: Reports: Other (Does generally tremulous and of course is quite anxious.) Severity: Moderate (Mild headache mild nausea) Improves with: Reports: None Worsens with: Reports: None Context: Denies: Activity, Exercise, Lifting, Sick Contact, Trauma, Other Associated Symptoms: Reports: Loss of Appetite, Malaise, Nausea/Vomiting, Weakness (Without vomiting), Other. Denies: No Other Symptoms, Confusion, Chest Pain, Cough, cough w sputum, Diaphoresis, Fever/Chills, Headaches, Rash, Seizure, Shortness of Breath, Syncope - Related Data Allergies Allergy/AdvReac Type Severity Reaction Status Date / Time No Known Allergies Allergy Verified 10/17/19 16:40 Home Meds: Home Meds amLODIPine [Norvasc] 5 mg PO DAILY 02/03/19 [History] Olmesartan Medoxomil 40 mg PO DAILY 04/04/19 [History] Ondansetron [Zofran ODT] 4 mg PO Q6H PRN #20 tab.dis 04/04/19 [Rx] Amphetamine/Dextroamphetamine [Adderall] 20 mg PO BID 10/03/19 [History] LORazepam [Ativan] 1 mg PO ASDIRECTED #18 tablet 10/03/19 [Rx] Amoxicillin/Clavulanate K [Augmentin 875-125 MG] 1 tab PO BID #20 tablet 10/17/19 [Rx] Hydrocodone/Acetaminophen [Hydrocodone-Acetamin 5-325 mg] 1 - 2 each PO Q6HR PRN #10 tablet 10/17/19 [Rx] LORazepam [Ativan] 1 mg PO DAILY #18 tablet 10/17/19 [Rx] Ondansetron [Zofran ODT] 4 mg PO Q6H PRN #20 tab.dis 10/17/19 [Rx] oxyCODONE HCl/Acetaminophen [Percocet 5-325 mg Tablet] 1 - 2 each PO Q6HR PRN # 20 tablet 10/17/19 [Rx] LORazepam [Ativan] 1 mg PO ASDIRECTED #30 tab 11/15/19 [Rx] Past Medical History HEENT History: Reports: Impaired Vision Cardiovascular History: Reports: High Cholesterol, Hypertension Respiratory History: Reports: Sleep Apnea Other Respiratory History: uses CPAP at home Gastrointestinal History: Reports: Diverticulosis Genitourinary History: Reports: Other (See Below) Other Genitourinary History: impotence Musculoskeletal History: Reports: Fracture Neurological History: Reports: Brain Injury, Seizure Other Neuro History: 2001 head injury. Seizures as a child - out grew age 12. Psychiatric History: Reports: ADHD, Addiction, Depression Other Psychiatric History: Alcohol Endocrine/Metabolic History: Reports: Obesity/BMI 30+ - Infectious Disease History Infectious Disease History: Reports: C-Difficile - Past Surgical History HEENT Surgical History: Reports: Oral Surgery GI Surgical History: Reports: Cholecystectomy Musculoskeletal Surgical History: Reports: Carpal Tunnel, ORIF, Other (See Below) Other Musculoskeletal Surgeries/Procedures:: elia to R femur Social & Family History - Family History Family Medical History: Noncontributory Cardiac: Reports: [place] Endocrine/Metabolic: Reports: Diabetes, type II Oncologic: Reports: Lung - Tobacco Use Smoking Status *Q: Never Smoker Second Hand Smoke Exposure: No - Caffeine Use Caffeine Use: Reports: Coffee Other Caffeine Use: 2 cups 2-3 times a week - Recreational Drug Use Recreational Drug Use: Yes Recreational Drug Type: Reports: Marijuana/Hashish - Living Situation & Occupation Living situation: Reports: , Alone 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 Denies: Fever, Chills HEENT: Reports: No Symptoms Respiratory: Reports: No Symptoms Cardiovascular: Reports: No Symptoms Endocrine: Reports: Fatigue GI/Abdominal: Reports: Abdominal Pain, Decreased Appetite, Nausea. Denies: Constipation (Epigastric discomfort and burning at times.), Diarrhea, Difficulty Swallowing, Distension, Flatus, Hematemesis, Hematochezia, Melena, Mucous in Stool, Stool Incontinence, Vomiting : Reports: Frequency Musculoskeletal: Reports: Back Pain (Mild low back pain at times) Skin: Reports: No Symptoms Neurological: Reports: Dizziness, Headache (Mild), Tremors, Weakness. Denies: Confusion, Numbness, Syncope, Tingling (Mild), Trouble Speaking, Difficulty Walking (Generally weak.), Change in Speech, Gait Disturbance Psychiatric: Reports: Anxiety (Moderate) Hematologic/Lymphatic: Reports: No Symptoms Immunologic: Reports: No Symptoms ED EXAM, BEHAVIORAL HEALTH - Physical Exam Exam: See Below Exam Limited By: Other (Temperature is 36.8. Heart rate 106 and sinus. Respiratory to 16 with pulse ox of 97% room air BP elevated 149 102) General Appearance: Alert, WD/WN, Anxious, Mild Distress Eye Exam: Bilateral Eye: Normal Inspection, Nystagmus (Mild nystagmus on lateral gaze sustained.), PERRL Ears: Normal TMs Throat/Mouth: Normal Inspection, Normal Lips, Normal Oropharynx, Other (Tongue is moist.) Head: Atraumatic, Normocephalic Neck: Normal Inspection, Supple, Non-Tender, Full Range of Motion. No: Lymphadenopathy (L), Lymphadenopathy (R) Respiratory/Chest: No Respiratory Distress, Lungs Clear, Normal Breath Sounds, No Accessory Muscle Use Cardiovascular: Normal Peripheral Pulses, No Edema (Mild sinus tachycardia at rest 106/min), No Gallop, No Murmur, No Rub, Tachycardia GI/Abdominal: Normal Bowel Sounds, Soft, No Organomegaly, No Abnormal Bruit, No Mass, Pelvis Stable, Tender, Other. No: Hepatomegaly, Splenomegaly (Mild tenderness right upper quadrant and epigastrium. Liver is not palpable neither is the spleen.) Back Exam: Normal Inspection, Full Range of Motion. No: CVA Tenderness (L), CVA Tenderness (R) Extremities: Normal Inspection, Normal Range of Motion, Non-Tender, No Pedal Edema Neurological: Alert, CN II-XII Intact, Normal Cognition, Normal Reflexes, No Motor/Sensory Deficits, Oriented x 3 Psychiatric: Alert, Normal Cognition, Oriented, Other (Anxious.) Skin Exam: Warm, Dry, Intact, Normal color, No rash COURSE, BEHAVIORAL HEALTH COMP - Course Vital Signs: Last Vital Signs Temp 36.8 C 11/15/19 10:02 Pulse 106 H 11/15/19 10:02 Resp 16 11/15/19 10:02 BP 149/102 H 11/15/19 10:02 Pulse Ox 97 11/15/19 10:02 Orders, Labs, Meds: Medications Discontinued Medications Generic Name Dose Route Start Last Admin Trade Name Orestes PRN Reason Stop Dose Admin Lorazepam 2 mg 11/15/19 10:42 11/15/19 10:51 Ativan PO 11/15/19 10:43 2 mg ONETIME ONE Administration Metoclopramide HCl 10 mg 11/15/19 10:33 Reglan .XX 11/15/19 10:34 ONETIME ONE Metoclopramide HCl 10 mg 11/15/19 11:00 11/15/19 10:51 Reglan PO 11/15/19 11:01 10 mg ONETIME ONE Administration Re-Assessment/Re-Exam: 49-year-old male who frequents the ED due to falling off the wagon and drinking alcohol. He has a history of chronic alcohol abuse and dependency and has enjoyed a few months of sobriety here and there the last year. He was in AA program and doing quite well until the [place] virus took away the meetings. This is the third time I have seen him in 3 months with return to heavy drinking of vodka. He has a history of significant alcohol withdrawals's symptoms. He thinks he has had seizures in the past but this is not proven. He can eat and drink okay at this point time. He is very anxious and worried that he is going to go through severe withdrawal. Decision made not to do any labs today as he will not be admitted at any rate. He is not interested in any treatment program at this point time. Will be placed on Ativan given 2 mg orally now. Zofran 4 mg by mouth for nausea. Plan will be to place him on Ativan 1 mg every 4 hours for the next 2 days then 1 mg every 6 hours for 2 days then 1 mg every 8 hours for 2 days and then 1 mg every 12 hours for 2 days and off. Plans to reconnect with his AA sponsor and start to attend AA meetings as they are now again once open with masks and social distancing. Departure - Departure Time of Disposition: 11:43 Disposition: Home, Self-Care 01 Condition: Fair Clinical Impression: Alcohol withdrawal Qualifiers: Complication of substance-induced condition: uncomplicated Qualified Code(s): F10.230 - Alcohol dependence with withdrawal, uncomplicated - Discharge Information *PRESCRIPTION DRUG MONITORING PROGRAM REVIEWED*: Not Applicable *COPY OF PRESCRIPTION DRUG MONITORING REPORT IN PATIENT NORMA: Not Applicable Prescriptions: LORazepam [Ativan] 1 mg PO ASDIRECTED #30 tab Instructions: Alcohol Withdrawal Syndrome, Alcohol Abuse and Dependence Information, Adult Referrals: Catherine Villafana MD [Primary Care Provider] - Additional Instructions: Evaluation in the emergency room today in regards to early alcohol withdrawal symptoms. You have enjoyed many weeks of sobriety but unfortunately fell off the wagon within the last 10 to 14 days and have been drinking fairly large quantities of vodka on a daily basis. Last drink was approximately 0200 hrs. this morning. Alcohol withdrawal symptoms will start within the next 48 hours. Suggest Ativan 1 tablet every 4 hours for the next 2 days then 1 tablet every 6 hours for 2 days then 1 tablet every 8 hours for 2 days and then 1 tablet every 12 hours for 2 days. Tablet was provided in the ED. Second tablet would be due at 2:00 today. Note you cannot operate a motor vehicle while taking this medication. Suggest reconnecting with your sponsor through the alcohol Anonymous program. Turn to the ED if any further problems occur. Sepsis Event Note (ED) - Evaluation Sepsis Screening Result: No Definite Risk - Focused Exam Vital Signs: Vital Signs Temp Pulse Resp BP Pulse Ox 11/15/19 10:02 36.8 C 106 H 16 149/102 H 97
[2019-11-15] MEDS ORDERED: LORazepam 1 MG Tab PO ONE (10:42)
[2019-11-15] MEDS ORDERED: Metoclopramide 10 MG Tab PO ONE (11:00)
== END 2019-11-15 11:59 | disposition home or self-care (01) ==
LOC: JD.ED 09:31
DX: F10.230 Alcohol dependence with withdrawal, uncomplicated (principal); R10.11 Right upper quadrant pain; R10.13 Epigastric pain; R00.0 Tachycardia, unspecified; I10 Essential (primary) hypertension; F32.9 Major depressive disorder, single episode, unspecified; F90.9 Attention-deficit hyperactivity disorder, unspecified type; E66.9 Obesity, unspecified; Z68.35 Body mass index [BMI] 35.0-35.9, adult; Z79.899 Other long term (current) drug therapy
CPT/HCPCS: 99284; A9270; 99283

== ENCOUNTER 2019-12-18 12:02 | Emergency (ER) | payer MEDICAID ==
[2019-12-18 12:15] VITALS: BP 124/83; PULSE 86
[2019-12-18] MEDS ORDERED: Orphenadrine 100 MG Tab.ER PO ONE (12:51)
[2019-12-18] MEDS ORDERED: traMADol 50 MG Tab PO ONE (12:51)
--- NOTE | 2019-12-18 12:59 | EDM.PDOC ---
ED HPI GENERAL MEDICAL PROBLEM - General Chief Complaint: Back Pain or Injury Stated Complaint: LOWER BACK PAIN Time Seen by Provider: 12/18/19 12:38 Source of Information: Reports: Patient, RN Notes Reviewed History Limitations: Reports: No Limitations - History of Present Illness INITIAL COMMENTS - FREE TEXT/NARRATIVE: Patient is a 49-year-old male who presents to the ED for evaluation of his lower back pain. Patient states this back pain is been present for about 4 days now, he states he woke up and it was just there. He notes this to be in the left lower portion of his back, and states it is radiating down his left leg now as well. He thought maybe it would get better, and is progressively worsened over last 4 days, he has been using alternating amount of Aleve and ibuprofen, with little help. He tried to call his primary care provider, Dr. Roman, but was not able to get in with her until the end of December. So he sought care in the ER at this time. Patient notes that he hardly was able to get out of bed today due to the pain. He notes that walking is a little difficult as well. Tingling down the left leg, but states there is some pain that shoots down the left leg. He notes he has history with his sciatic nerve before. He denies any fever/chills, cough/shortness of breath, nausea/vomiting/diarrhea. He further denies any bowel or bladder incontinence, or any sort of saddle anesthesia. Left Lower Back Pain Score (Numeric/FACES): 8 - Related Data Allergies Allergy/AdvReac Type Severity Reaction Status Date / Time No Known Allergies Allergy Verified 12/18/19 12:15 Home Meds: Home Meds amLODIPine [Norvasc] 10 mg PO DAILY 02/03/19 [History] Olmesartan Medoxomil 40 mg PO DAILY 04/04/19 [History] Amphetamine/Dextroamphetamine [Adderall] 20 mg PO BID 10/03/19 [History] Orphenadrine [Norflex] 100 mg PO BID PRN #20 tab 12/18/19 [Rx] allopurinoL [Zyloprim] 1 tab PO DAILY 12/18/19 [History] predniSONE 20 mg PO ASDIRECTED #15 tab 12/18/19 [Rx] traMADol [Ultram] 50 mg PO Q6H PRN #12 tab 12/18/19 [Rx] Past Medical History HEENT History: Reports: Impaired Vision Cardiovascular History: Reports: High Cholesterol, Hypertension Respiratory History: Reports: Sleep Apnea Other Respiratory History: uses CPAP at home Gastrointestinal History: Reports: Diverticulosis Genitourinary History: Reports: Other (See Below) Other Genitourinary History: impotence Musculoskeletal History: Reports: Fracture Neurological History: Reports: Brain Injury, Seizure Other Neuro History: 2001 head injury. Seizures as a child - out grew age 12. Psychiatric History: Reports: ADHD, Addiction, Depression Other Psychiatric History: Alcohol Endocrine/Metabolic History: Reports: Obesity/BMI 30+ - Past Surgical History HEENT Surgical History: Reports: Oral Surgery GI Surgical History: Reports: Cholecystectomy Musculoskeletal Surgical History: Reports: Carpal Tunnel, ORIF, Other (See Below) Other Musculoskeletal Surgeries/Procedures:: elia to R femur Social & Family History - Family History Family Medical History: Noncontributory Cardiac: Reports: [place] Endocrine/Metabolic: Reports: Diabetes, type II Oncologic: Reports: Lung - Tobacco Use Smoking Status *Q: Never Smoker - Caffeine Use Caffeine Use: Reports: Coffee Other Caffeine Use: 2 cups 2-3 times a week - Recreational Drug Use Recreational Drug Use: Yes Recreational Drug Type: Reports: Marijuana/Hashish - Living Situation & Occupation Living situation: Reports: , Alone 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 ED EXAM,LOWER BACK PAIN/INJURY - Physical Exam Exam: See Below Exam Limited By: No Limitations General Appearance: Alert, WD/WN, No Apparent Distress Respiratory/Chest: No Respiratory Distress, Lungs Clear, Normal Breath Sounds, No Accessory Muscle Use, Chest Non-Tender Cardiovascular: Normal Peripheral Pulses, Regular Rate, Rhythm, No Murmur GI/Abdominal: Normal Bowel Sounds, Soft, Non-Tender, No Distention, No Mass Back Exam: Normal Inspection Extremities: Normal Inspection, Normal Capillary Refill Neurological: Alert, Normal Mood/Affect, Normal Dorsiflexion, Normal Plantar Flexion, No Motor/Sensory Deficits, Straight Leg Raise (L), Other (slight limping gait d/t pain). No: Straight Leg Raise (R), Saddle Anesthesia Psychiatric: Normal Affect, Normal Mood Skin Exam: Warm, Dry, Intact, Normal Color, No Rash Course - Vital Signs Last Recorded V/S: Last Vital Signs Temp 96.7 F L 12/18/19 12:13 Pulse 86 12/18/19 12:13 Resp 18 12/18/19 12:13 BP 124/83 12/18/19 12:13 Pulse Ox 99 12/18/19 12:13 - Orders/Labs/Meds Meds: Medications Discontinued Medications Generic Name Dose Route Start Last Admin Trade Name Orestes PRN Reason Stop Dose Admin Ketorolac Tromethamine 60 mg 12/18/19 13:36 12/18/19 13:45 Toradol IM 12/18/19 13:37 60 mg ONETIME ONE Administration Orphenadrine Citrate 100 mg 12/18/19 12:51 12/18/19 13:01 Norflex PO 12/18/19 12:52 100 mg ONETIME ONE Administration Tramadol HCl 50 mg 12/18/19 12:51 12/18/19 13:01 Ultram PO 12/18/19 12:52 50 mg ONETIME ONE Administration - Re-Assessments/Exams Free Text/Narrative Re-Assessment/Exam: 12/18/19 13:00 Patient presents to the ED for the evaluation of his lower back pain. I do believe this is more sciatic involvement in nature. Patient was requesting some sort of MRI be done, I told him that is not something we do out of the ER, and I told to follow-up with his regular provider for further imaging. We will provide the patient with a prescription for prednisone, and initially try tramadol and Norflex for management. Departure - Departure Time of Disposition: 14:12 Disposition: Home, Self-Care 01 Condition: Good Clinical Impression: Sciatica Qualifiers: Laterality: left Qualified Code(s): M54.32 - Sciatica, left side - Discharge Information *PRESCRIPTION DRUG MONITORING PROGRAM REVIEWED*: Yes *COPY OF PRESCRIPTION DRUG MONITORING REPORT IN PATIENT NORMA: No Prescriptions: Orphenadrine [Norflex] 100 mg PO BID PRN #20 tab PRN Reason: Spasms predniSONE 20 mg PO ASDIRECTED #15 tab traMADol [Ultram] 50 mg PO Q6H PRN #12 tab PRN Reason: Pain Instructions: Sciatica, [id number] Referrals: Catherine Villafana MD [Primary Care Provider] - Forms: ED Department Discharge Additional Instructions: You were evaluated in the ER today for your lower back pain. This is likely caused by sciatica, or an inflammation of your sciatic nerve. Treatment for this is anti-inflammatories, you will be given a prescription of prednisone for this, please take as directed. You have been given a prescription also for tramadol, this medication will help the acute pain, please take as few of these as you need to, for pain relief, as they can be addictive. They also can cause constipation and I recommend you take MiraLAX while taking these medications. Do not drive while taking this medication. You were given a prescription for Norflex, a muscle relaxer, please take 1 tab every 12 hours as needed for further muscle spasms. I recommend you follow-up with Dr. Roman, for an MRI if warranted of your low back. Please return to the ER at any time if symptoms change or worsen. Sepsis Event Note (ED) - Evaluation Sepsis Screening Result: No Definite Risk - Focused Exam Vital Signs: Vital Signs Temp Pulse Resp BP Pulse Ox 12/18/19 12:13 96.7 F L 86 18 124/83 99
[2019-12-18] MEDS ORDERED: Ketorolac 60 MG/2 ML SDV IM ONE (13:36)
== END 2019-12-18 14:25 | disposition home or self-care (01) ==
LOC: JD.ED 12:02
DX: M54.42 Lumbago with sciatica, left side (principal); I10 Essential (primary) hypertension; E66.9 Obesity, unspecified; Z68.35 Body mass index [BMI] 35.0-35.9, adult; Z79.899 Other long term (current) drug therapy
CPT/HCPCS: 96372; 99283; A9270; J1885

== ENCOUNTER 2020-01-11 09:38 | Emergency (ER) | payer MEDICAID ==
[2020-01-11 09:50] VITALS: BP 116/66; PULSE 89
--- NOTE | 2020-01-11 10:55 | EDM.PDOC ---
ED HPI GENERAL MEDICAL PROBLEM - General Chief Complaint: Cardiovascular Problem Stated Complaint: CHEST /NECK AND ARMS NUMBNESS Time Seen by Provider: 01/11/20 10:08 Source of Information: Reports: Patient, RN Notes Reviewed - History of Present Illness INITIAL COMMENTS - FREE TEXT/NARRATIVE: 49 yr old male has been feeling weak, dizzy light headed for the past 4 to 5 days. Sx even worse this AM. No cough, possible chills, no known fever. No chest pain or difficulty breathing. On amlodipine and losartin for Htn. He has been on 5 mg amlodipine in the past, now on 10. He ran higher BP's when he was drinking alcohol heavily. Now has been dry for the past 40 to 50 day. States his BP running a lot lower than normal for him today. - Related Data Allergies Allergy/AdvReac Type Severity Reaction Status Date / Time No Known Allergies Allergy Verified 01/11/20 09:45 Home Meds: Home Meds amLODIPine [Norvasc] 10 mg PO DAILY 02/03/19 [History] Olmesartan Medoxomil 40 mg PO DAILY 04/04/19 [History] allopurinoL [Zyloprim] 1 tab PO DAILY 12/18/19 [History] Past Medical History HEENT History: Reports: Impaired Vision Cardiovascular History: Reports: High Cholesterol, Hypertension Respiratory History: Reports: Sleep Apnea Other Respiratory History: uses CPAP at home Gastrointestinal History: Reports: Diverticulosis Genitourinary History: Reports: Other (See Below) Other Genitourinary History: impotence Musculoskeletal History: Reports: Fracture Neurological History: Reports: Brain Injury, Seizure Other Neuro History: 2001 head injury. Seizures as a child - out grew age 12. Psychiatric History: Reports: ADHD, Addiction, Depression Other Psychiatric History: Alcohol Endocrine/Metabolic History: Reports: Obesity/BMI 30+ Hematologic History: Reports: None Immunologic History: Reports: None Oncologic (Cancer) History: Reports: None Dermatologic History: Reports: None - Infectious Disease History Infectious Disease History: Reports: None - Past Surgical History HEENT Surgical History: Reports: Oral Surgery GI Surgical History: Reports: Cholecystectomy Musculoskeletal Surgical History: Reports: Carpal Tunnel, ORIF, Other (See Below) Other Musculoskeletal Surgeries/Procedures:: elia to R femur Social & Family History - Family History Family Medical History: Noncontributory Cardiac: Reports: [place] Endocrine/Metabolic: Reports: Diabetes, type II Oncologic: Reports: Lung - Tobacco Use Smoking Status *Q: Never Smoker - Caffeine Use Caffeine Use: Reports: Coffee Other Caffeine Use: 2 cups 2-3 times a week - Recreational Drug Use Recreational Drug Use: Yes Drug Use in Last 12 Months: Yes Recreational Drug Type: Reports: Marijuana/Hashish Other Recreational Drug Type: lst use was a few weeks ago - Living Situation & Occupation Living situation: Reports: , Alone 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 Denies: Fever, Diaphoresis HEENT: Reports: No Symptoms Respiratory: Denies: Shortness of Breath, Cough Cardiovascular: Denies: Chest Pain GI/Abdominal: Denies: Abdominal Pain, Vomiting Musculoskeletal: Reports: No Symptoms Skin: Reports: No Symptoms Neurological: Reports: Dizziness. Denies: Trouble Speaking, Difficulty Walking, Weakness ED EXAM, GENERAL - Physical Exam Exam: See Below General Appearance: Alert, No Apparent Distress Eye Exam: Bilateral Eye: PERRL Head: Atraumatic Neck: Supple Respiratory/Chest: No Respiratory Distress, Lungs Clear, Normal Breath Sounds Cardiovascular: Regular Rate, Rhythm GI/Abdominal: Soft, Non-Tender Extremities: Normal Inspection, Normal Range of Motion Neurological: Alert, Oriented, No Motor/Sensory Deficits, Other (finger to nose nl) Skin Exam: Warm, Dry, Normal Color, No Rash Course - Vital Signs Last Recorded V/S: Last Vital Signs Temp 96.3 F L 01/11/20 09:47 Pulse 89 01/11/20 09:47 Resp 16 01/11/20 09:47 BP 116/66 01/11/20 09:47 Pulse Ox 98 01/11/20 09:47 - Orders/Labs/Meds Orders: Active Orders 24 hr Category Date Time Status CORONAVIRUS COVID-19 PCR [facility] Stat Lab 01/11/20 10:55 Ordered Departure - Departure Time of Disposition: 10:51 Disposition: Home, Self-Care 01 Condition: Fair Clinical Impression: Hypotension, Viral syndrome Referrals: Catherine Villafana MD [Primary Care Provider] - Forms: ED Department Discharge Additional Instructions: decrease your amlodipine to 5 mg daily. decrease your losartin to 20 mg daily as tolerated. Target your BP to be in the 120's and 130' on average. At times in will run higher and lower and that is acceptable. A Covid screen has been done. That will be sent to the state lab. We will notify you of results when available, usually 3 to 4 days. Follow up with your regular medical provider next week. Bring your BP readings with you to the clinic. Sepsis Event Note (ED) - Evaluation Sepsis Screening Result: No Definite Risk - Focused Exam Vital Signs: Vital Signs Temp Pulse Resp BP Pulse Ox 01/11/20 09:47 96.3 F L 89 16 116/66 98 - My Orders Last 24 Hours: My Active Orders 01/11/20 10:55 CORONAVIRUS COVID-19 PCR PHL Stat - Assessment/Plan Last 24 Hours: My Active Orders 01/11/20 10:55 CORONAVIRUS COVID-19 PCR PHL Stat
== END 2020-01-11 11:00 | disposition home or self-care (01) ==
LOC: JD.ED 09:38
DX: I95.9 Hypotension, unspecified (principal); B34.9 Viral infection, unspecified; I10 Essential (primary) hypertension; E66.9 Obesity, unspecified; Z68.34 Body mass index [BMI] 34.0-34.9, adult; Z79.899 Other long term (current) drug therapy
CPT/HCPCS: 99282; 99284

== ENCOUNTER 2020-07-27 15:42 | Emergency (ER) | payer MEDICAID ==
[2020-07-27] MEDS ORDERED: Ketorolac 60 MG/2 ML SDV IM ONE (16:07)
--- NOTE | 2020-07-27 16:13 | EDM.PDOC ---
ED HPI GENERAL MEDICAL PROBLEM - General Chief Complaint: Back Pain or Injury Stated Complaint: LOWER RT BACK INJURY Time Seen by Provider: 07/27/20 15:51 Source of Information: Reports: Patient, RN Notes Reviewed History Limitations: Reports: No Limitations - History of Present Illness INITIAL COMMENTS - FREE TEXT/NARRATIVE: Patient is a 50-year-old male presenting to the emergency department with complaints of right low back and hip pain. He states he was at work loading a staircase onto a truck when it fell and hit him in his right lower back. He has been able to walk since the time of the injury but states it is painful. He describes a burning sensation in the soft tissues of his right upper buttocks. States he feels a little bit of tingling in his right leg, but denies numbness. Has had no bowel or bladder dysfunction. He has not taken anything for pain. Right Lower Back Pain Score (Numeric/FACES): 10 - Related Data Allergies Allergy/AdvReac Type Severity Reaction Status Date / Time No Known Allergies Allergy Verified 07/27/20 15:53 Home Meds: Home Meds amLODIPine [Norvasc] 10 mg PO DAILY 02/03/19 [History] Olmesartan Medoxomil 40 mg PO DAILY 04/04/19 [History] allopurinoL [Zyloprim] 1 tab PO DAILY 12/18/19 [History] Acetaminophen/HYDROcodone [Bexar 325-5 MG] 1 tab PO Q4H PRN #10 tablet 07/27/20 [Rx] Cyclobenzaprine [Flexeril] 10 mg PO TID PRN #10 tab 07/27/20 [Rx] Past Medical History HEENT History: Reports: Impaired Vision Cardiovascular History: Reports: High Cholesterol, Hypertension Respiratory History: Reports: Sleep Apnea Other Respiratory History: uses CPAP at home Gastrointestinal History: Reports: Diverticulosis Genitourinary History: Reports: Other (See Below) Other Genitourinary History: impotence Musculoskeletal History: Reports: Fracture Neurological History: Reports: Brain Injury, Seizure Other Neuro History: 2001 head injury. Seizures as a child - out grew age 12. Psychiatric History: Reports: ADHD, Addiction, Depression Other Psychiatric History: Alcohol Endocrine/Metabolic History: Reports: Obesity/BMI 30+ Hematologic History: Reports: None Immunologic History: Reports: None Oncologic (Cancer) History: Reports: None Dermatologic History: Reports: None - Infectious Disease History Infectious Disease History: Reports: None - Past Surgical History HEENT Surgical History: Reports: Oral Surgery Cardiovascular Surgical History: Reports: None Respiratory Surgical History: Reports: None GI Surgical History: Reports: Cholecystectomy Male Surgical History: Reports: None Endocrine Surgical History: Reports: None Neurological Surgical History: Reports: None Musculoskeletal Surgical History: Reports: Carpal Tunnel, ORIF, Other (See Below) Other Musculoskeletal Surgeries/Procedures:: elia to R femur Dermatological Surgical History: Reports: None Social & Family History - Family History Family Medical History: No Pertinent Family History Cardiac: Reports: [place] Endocrine/Metabolic: Reports: Diabetes, type II Oncologic: Reports: Lung - Tobacco Use Tobacco Use Status *Q: Never Tobacco User Second Hand Smoke Exposure: No - Caffeine Use Caffeine Use: Reports: Coffee Other Caffeine Use: 2 cups 2-3 times a week - Recreational Drug Use Recreational Drug Use: No - Living Situation & Occupation Living situation: Reports: , Alone 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 ED EXAM,LOWER BACK PAIN/INJURY - Physical Exam Exam: See Below Exam Limited By: No Limitations General Appearance: Alert, WD/WN, No Apparent Distress Respiratory/Chest: No Respiratory Distress, Lungs Clear, Normal Breath Sounds, No Accessory Muscle Use, Chest Non-Tender Cardiovascular: Normal Peripheral Pulses, Regular Rate, Rhythm, No Edema, No Gallop, No JVD, No Murmur, No Rub Back Exam: Normal Inspection, Other (Tenderness to palpation of the right upper buttocks into the right hip. No midline spinal tenderness. No ecchymosis or abrasions noted.). No: Vertebral Tenderness Neurological: Alert, Normal Mood/Affect, Normal Dorsiflexion, CN II-XII Intact, Normal Plantar Flexion, Normal Gait, Normal Reflexes, No Motor/Sensory Deficits, Oriented x 3 Psychiatric: Normal Affect, Normal Mood Skin Exam: Warm, Dry, Intact, Normal Color, No Rash Course - Vital Signs Last Recorded V/S: Last Vital Signs Temp 97 F 07/27/20 15:54 Pulse 103 H 07/27/20 15:54 Resp 16 07/27/20 15:54 BP 163/97 H 07/27/20 15:54 Pulse Ox 96 07/27/20 15:54 - Orders/Labs/Meds Orders: Active Orders 24 hr Category Date Time Status Hip Min 2V or 3V w Pelvis Rt [CR] Stat Exams 07/27/20 16:08 Ordered Lumbar Spine 2 or 3V [CR] Stat Exams 07/27/20 16:08 Ordered Meds: Medications Discontinued Medications Generic Name Dose Route Start Last Admin Trade Name Orestes PRN Reason Stop Dose Admin Hydromorphone HCl 0.5 mg 07/27/20 16:20 07/27/20 16:30 Hydromorphone 0.5 Mg/0.5 Ml Syringe IVPUSH 07/27/20 16:21 0.5 mg ONETIME ONE Administration Hydromorphone HCl 0.5 mg 07/27/20 16:57 07/27/20 17:16 Hydromorphone 0.5 Mg/0.5 Ml Syringe IVPUSH 07/27/20 16:58 0.5 mg ONETIME ONE Administration Ketorolac Tromethamine 60 mg 07/27/20 16:07 07/27/20 16:35 Ketorolac 60 Mg/2 Ml Sdv IM 07/27/20 16:08 Not Given ONETIME ONE Ketorolac Tromethamine 30 mg 07/27/20 16:19 07/27/20 16:35 Ketorolac 30 Mg/Ml Sdv IM 07/27/20 16:20 Not Given ONETIME ONE Ketorolac Tromethamine 30 mg 07/27/20 16:21 07/27/20 16:28 Ketorolac 60 Mg/2 Ml Sdv IVPUSH 07/27/20 16:22 30 mg ONETIME ONE Administration - Re-Assessments/Exams Free Text/Narrative Re-Assessment/Exam: Patient is a 50-year-old male presenting to the emergency department with complaints of right lateral low back/buttocks pain that extends into his right hip. He states that he was loading a wooden staircase into the back of a truck when it fell and hit him in this area. He has some tingling in his right lower extremity but denies any numbness. He has had no bowel or bladder dysfunction he has been able to ambulate from the time of injury. On exam, he has no midline vertebral tenderness. Does have tenderness to palpation to the right upper buttocks as well as to the right hip area. There is no ecchymosis or abrasions to the skin. Initial plan was for Toradol 60 mg IM, however patient states that he does not like intramuscular injections would rather have an IV. I have ordered IV insertion with Toradol 30 mg IV as well as Dilaudid 0.5 mg. I will obtain lumbar and right hip x-rays. 07/27/20 17:24 Patient's pain has improved after the second dose of Dilaudid 0.5. X-rays reviewed by myself and Dr. Beckford and there were no acute abnormalities found. Discussed with patient that he is suffering from a soft tissue injury. Recomm end intermittent ice as well as Tylenol and ibuprofen. I will send a prescription for Bexar for pain not relieved by this. I also sent a prescription for Flexeril should he begin to experience muscle spasms. Discharge instructions as documented. Departure - Departure Time of Disposition: 17:25 Disposition: Home, Self-Care 01 Condition: Good Clinical Impression: Back pain Qualifiers: Back pain location: back pain in other location Chronicity: acute Qualified Code(s): M54.9 - Dorsalgia, unspecified - Discharge Information *PRESCRIPTION DRUG MONITORING PROGRAM REVIEWED*: Yes *COPY OF PRESCRIPTION DRUG MONITORING REPORT IN PATIENT NORMA: No Prescriptions: Cyclobenzaprine [Flexeril] 10 mg PO TID PRN #10 tab PRN Reason: Muscle Spasm Acetaminophen/HYDROcodone [Bexar 325-5 MG] 1 tab PO Q4H PRN #10 tablet PRN Reason: Pain Instructions: Acute Back Pain, Adult Referrals: Catherine Villafana MD [Primary Care Provider] - Forms: ED Department Discharge Additional Instructions: You were seen in the emergency department today for right low back and hip pain after having a staircase hit you. X-rays were completed of the area and showed no acute abnormalities. As we discussed, you are likely suffering from a soft tissue injury to the area. While in the ER, you received Toradol and Dilaudid for pain. Recommend routine Tylenol and ibuprofen for pain relief. For pain n ot relieved by these measures, a prescription for Bexar has been sent. Take this medication only as prescribed and do not work or drive for 12 hours after taking as it can be sedating. Should you begin to experience muscle spasms, you have also been sent a short course of Flexeril which is a muscle relaxant. Do not take this at the same time as the Bexar as it can cause excessive sedation. Recommend intermittent icing of the area of pain for the next couple days. Return to ER as needed. Sepsis Event Note (ED) - Evaluation Sepsis Screening Result: No Definite Risk - Focused Exam Vital Signs: Vital Signs Temp Pulse Resp BP Pulse Ox 07/27/20 15:54 97 F 103 H 16 163/97 H 96 - My Orders Last 24 Hours: My Active Orders 07/27/20 16:08 Hip Min 2V or 3V w Pelvis Rt [CR] Stat Lumbar Spine 2 or 3V [CR] Stat - Assessment/Plan Last 24 Hours: My Active Orders 07/27/20 16:08 Hip Min 2V or 3V w Pelvis Rt [CR] Stat Lumbar Spine 2 or 3V [CR] Stat
[2020-07-27] MEDS ORDERED: Ketorolac 30 MG/ML SDV IM ONE (16:19)
[2020-07-27] MEDS ORDERED: HYDROmorphone 0.5 MG/0.5 ML Syringe IVPUSH ONE ×2 (16:20→16:57)
[2020-07-27] MEDS ORDERED: Ketorolac 60 MG/2 ML SDV IVPUSH ONE (16:21)
--- NOTE | 2020-07-27 17:47 | CR ---
Lumbar spine: AP, lateral and coned-down lateral view centered to the lumbosacral junction were obtained. Diffuse disc space narrowing is seen which is most severe at L4-5. L4-5 level also shows slight posterior osteophytes. Scattered anterior osteophytes are noted. Vertebral body heights are maintained. Pedicles are intact. Visualized transverse and spinous processes are intact. Surgical clips are seen from prior cholecystectomy. Impression: 1. Mild diffuse degenerative change within the spine. 2. Prior cholecystectomy. Diagnostic code #2
--- NOTE | 2020-07-27 17:47 | CR ---
Pelvis and right hip: AP view of the pelvis was obtained as well as AP and frog-leg lateral views of the right hip. Comparison: No prior pelvis or hip study is available. Intramedullary elia is seen within the right femur. Cortical thickening is partially visualized within the femoral shaft compatible with old healed fracture. Joint space within the right hip is preserved. Joint space within the left hip is preserved. Sacroiliac joints are unremarkable. Degenerative change is partially seen within the lumbar spine. Impression: 1. Prior intramedullary elia within the right femur. 2. Degenerative change is partially seen within the lumbar spine. Diagnostic code #2
[2020-07-27 17:49] VITALS: BP 111/67; PULSE 110
== END 2020-07-27 17:45 | disposition home or self-care (01) ==
LOC: JD.ED 15:42
DX: M54.5 Low back pain (principal); I10 Essential (primary) hypertension; E66.9 Obesity, unspecified; Z79.899 Other long term (current) drug therapy
CPT/HCPCS: 72100; 73502; 96374; 96375; 96376; 99284; J1170; J1885; 99283

== ENCOUNTER 2020-08-25 09:09 | Emergency (ER) | payer MEDICAID ==
[2020-08-25 09:40] VITALS: BP 131/63; PULSE 88
--- NOTE | 2020-08-25 10:17 | EDM.PDOC ---
ED HPI GENERAL MEDICAL PROBLEM - General Chief Complaint: Respiratory Problem Stated Complaint: NOSE AND CHEST CONGESTION,COUGH Time Seen by Provider: 08/25/20 09:34 Source of Information: Reports: Patient History Limitations: Reports: No Limitations, Other (ED vital signs reveal a temp of 97.7, pulse of 88, respiratory rate of 14, blood pressure 131/63, pulse ox is 97% on room air.) - History of Present Illness INITIAL COMMENTS - FREE TEXT/NARRATIVE: 50-year-old male presents the emergency department today with complaints of sinus and chest congestion that started 3 days ago. States this started with sinus and congestion however he states that last night he was unable to wear his CPAP due to the sinus and chest congestion. States he has developed persistent congested cough nonproductive of any sputum. He states he had the chills last evening. He states he also awoke with loss of taste and smell this morning so he is concerned he may have Covid. States his appetite has been fair. And he also does report that he has had diarrhea since Monday. Denies any nausea or vomiting or headache. Denies sore throat. - Related Data Allergies Allergy/AdvReac Type Severity Reaction Status Date / Time No Known Allergies Allergy Verified 08/25/20 09:38 Home Meds: Home Meds amLODIPine [Norvasc] 10 mg PO DAILY 02/03/19 [History] Olmesartan Medoxomil 40 mg PO DAILY 04/04/19 [History] allopurinoL [Zyloprim] 1 tab PO DAILY 12/18/19 [History] Acetaminophen/HYDROcodone [[place] 325-5 MG] 1 tab PO Q4H PRN #10 tablet 07/27/20 [Rx] Cyclobenzaprine [Flexeril] 10 mg PO TID PRN #10 tab 07/27/20 [Rx] Past Medical History HEENT History: Reports: Impaired Vision Cardiovascular History: Reports: High Cholesterol, Hypertension Respiratory History: Reports: Sleep Apnea Other Respiratory History: uses CPAP at home Gastrointestinal History: Reports: Diverticulosis Genitourinary History: Reports: Other (See Below) Other Genitourinary History: impotence Musculoskeletal History: Reports: Fracture Neurological History: Reports: Brain Injury, Seizure Other Neuro History: 2001 head injury. Seizures as a child - out grew age 12. Psychiatric History: Reports: ADHD, Addiction, Depression Other Psychiatric History: Alcohol Endocrine/Metabolic History: Reports: Obesity/BMI 30+ Hematologic History: Reports: None Immunologic History: Reports: None Oncologic (Cancer) History: Reports: None Dermatologic History: Reports: None - Infectious Disease History Infectious Disease History: Reports: C-Difficile - Past Surgical History HEENT Surgical History: Reports: Oral Surgery GI Surgical History: Reports: Cholecystectomy Musculoskeletal Surgical History: Reports: Carpal Tunnel, ORIF, Other (See Below) Other Musculoskeletal Surgeries/Procedures:: elia to R femur Social & Family History - Family History Family Medical History: No Pertinent Family History Cardiac: Reports: ND Endocrine/Metabolic: Reports: Diabetes, type II Oncologic: Reports: Lung - Tobacco Use Tobacco Use Status *Q: Never Tobacco User Second Hand Smoke Exposure: No - Caffeine Use Caffeine Use: Reports: None Other Caffeine Use: 2 cups 2-3 times a week - Recreational Drug Use Recreational Drug Use: No - Living Situation & Occupation Living situation: Reports: , Alone 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 ED EXAM, GENERAL - Physical Exam Exam: See Below Exam Limited By: No Limitations General Appearance: Alert, WD/WN, No Apparent Distress Ears: Normal External Exam, Hearing Grossly Normal Nose: Normal Inspection Throat/Mouth: Normal Inspection, Normal Lips, Normal Voice, No Airway Compromise Head: Atraumatic, Normocephalic Neck: Normal Inspection, Supple Respiratory/Chest: No Respiratory Distress, Lungs Clear, Normal Breath Sounds, No Accessory Muscle Use, Chest Non-Tender, Prolonged Expiration Cardiovascular: Regular Rate, Rhythm, No Edema, No Murmur Peripheral Pulses: 2+: Radial (L), Radial (R) GI/Abdominal: Normal Bowel Sounds, Soft, Non-Tender, No Distention (Male) Exam: Deferred Rectal (Males) Exam: Deferred Back Exam: Normal Inspection, Full Range of Motion Extremities: Normal Inspection, Normal Range of Motion, Non-Tender, No Pedal Edema, Normal Capillary Refill Neurological: Alert, Oriented, Normal Cognition Psychiatric: Normal Affect, Normal Mood Skin Exam: Warm, Dry, Intact, Normal Color, No Rash Lymphatic: No Adenopathy Course - Vital Signs Text/Narrative:: 50-year-old male with 2-day history of progressive [place] worsening sinus and chest congestion with cough. States he did develop the chills last evening. I have ordered a portable view of the chest on this patient and a swab for influenza A, influenza B and Covid. I do not feel further testing is warranted at this time. Last Recorded V/S: Last Vital Signs Temp 97.7 F 08/25/20 09:33 Pulse 88 08/25/20 09:33 Resp 14 08/25/20 09:33 BP 131/63 08/25/20 09:33 Pulse Ox 97 08/25/20 09:33 - Orders/Labs/Meds Orders: Active Orders 24 hr Category Date Time Status CORONAVIRUS COVID-19 PCR [facility] Stat Lab 08/25/20 10:14 Received - Re-Assessments/Exams Free Text/Narrative Re-Assessment/Exam: 08/25/20 10:15 Nursing staff reports to me that the patient is refusing nasal Covid swab. He is requesting to have the [facility] swab drawn and quarantined x3 days. Patient will then likely be discharged to home. 08/25/20 10:37 Radiologist impression portable view of the chest: 1. Nothing acute is appreciated on portable view of the chest. Will be discharged home. He will need to quarantine until he hears back from the state with his Covid results. Departure - Departure Time of Disposition: 10:38 Disposition: Home, Self-Care 01 Condition: Good Clinical Impression: Upper respiratory infection, viral - Discharge Information Instructions: Upper Respiratory Infection, Adult Referrals: PCP,None [Primary Care Provider] - Forms: ED Department Discharge Additional Instructions: You were seen in the emergency department today with complaints of sinus congestion, some smell, chills, diarrhea and cough. Chest x-ray was completed and this was unremarkable. There is no sign of pneumonia or infection in your lungs. We have collected a Covid swab. This will be sent out to the [facility]. You will need to isolate/quarantine until you hear back from the state with your test results. Go home and rest. Drink plenty of fluids, Gatorade and Pedialyte are good options to stay hydrated. Should your condition worsen or change, do not hesitate returning to the emergency department. Sepsis Event Note (ED) - Evaluation Sepsis Screening Result: No Definite Risk - Focused Exam Vital Signs: Vital Signs Temp Pulse Resp BP Pulse Ox 08/25/20 09:33 97.7 F 88 14 131/63 97 - My Orders Last 24 Hours: My Active Orders 08/25/20 10:14 CORONAVIRUS COVID-19 PCR [facility] Stat - Assessment/Plan Last 24 Hours: My Active Orders 08/25/20 10:14 CORONAVIRUS COVID-19 PCR [facility] Stat
--- NOTE | 2020-08-25 10:30 | CR ---
Chest: Portable view of the chest was obtained. Comparison: Prior chest x-ray of 04/26/18. Heart size and mediastinum are normal. Lungs are clear with no acute parenchymal change. No acute osseous abnormality is appreciated. Impression: 1. Nothing acute is seen on portable chest x-ray. Diagnostic code #1
== END 2020-08-25 10:50 | disposition home or self-care (01) ==
LOC: JD.ED 09:09
DX: J06.9 Acute upper respiratory infection, unspecified (principal); I10 Essential (primary) hypertension; E66.9 Obesity, unspecified; Z68.38 Body mass index [BMI] 38.0-38.9, adult; Z79.899 Other long term (current) drug therapy; Z20.822 Contact with and (suspected) exposure to COVID-19
CPT/HCPCS: 71045; 71045-26; 99282; 99285-25; U0002

== ENCOUNTER 2023-01-04 20:33 | Inpatient (IN) | payer MEDICARE ==
[2023-01-04] MEDS ORDERED: Morphine 4 MG/ML Syringe IVPUSH ONE (20:59)
[2023-01-04] MEDS ORDERED: Sodium Chloride 0.9% 1,000 ML IV SCH (21:00)
[2023-01-04 21:13] LABS: BASOPHILS ABSOLUTE AUTO 0.1 K/mm3 (0.0-0.2); BASOPHILS PERCENT AUTO 0.4 % (0.0-1.0); EOSINOPHILS ABSOLUTE AUTO 0.1 K/mm3 (0.0-0.4); EOSINOPHILS PERCENT AUTO 0.5 % (0.0-6.0); HEMATOCRIT 48.3 % (42.0-52.0); HEMOGLOBIN 17.4 gm/dl (14.0-18.0); IMMATURE GRAN ABSOLUTE AUTO 0.04 K/mm3 (0.00-0.05); IMMATURE GRAN PERCENT AUTO 0.3 % (0.0-0.4); LYMPHOCYTES ABSOLUTE AUTO 0.8 K/mm3 (1.0-4.8); LYMPHOCYTES PERCENT AUTO 5.9 % (24.0-44.0); MEAN CORPUSCULAR HEMOGLOBIN 30.9 pg (28.0-32.0); MEAN CORPUSCULAR VOLUME 85.6 fl (83.0-99.0); MEAN PLATELET VOLUME 10.4 fl (9.4-12.4); MONOCYTES ABSOLUTE AUTO 0.7 K/mm3 (0.0-0.8); MONOCYTES PERCENT AUTO 4.9 % (0.0-8.0); NEUTROPHILS ABSOLUTE AUTO 12.5 K/mm3 (1.8-7.7); PLATELET COUNT,PLT 192 K/mm3 (150-400); RED BLOOD CELL COUNT 5.64 M/mm3 (4.52-5.90); WHITE BLOOD CELL COUNT,WBC 14.21 K/mm3 (3.9-11.3)
[2023-01-04] MEDS ORDERED: Iopamidol 612 MG/ML 100 ML Bottle IVPUSH ONE (21:22)
[2023-01-04 21:32] LABS: A/G RATIO 1.2 (1-2); ALBUMIN 4.7 g/dl (3.4-5.0); ANION GAP 14.1 (5-15); CALCIUM 10.2 mg/dL (8.5-10.1); EST CRCL DRUG DOSING (CG) 86.41 mL/min; POTASSIUM,K 4.1 mEq/L (3.5-5.1); PROTEIN TOTAL,TP 8.6 g/dl (6.4-8.2)
[2023-01-04 21:35] LABS: LACTIC ACID 2.9 mmol/L (0.4-2.0)
[2023-01-04] MEDS ORDERED: Piperacillin/Tazobactam 4.5 GM in Sodium Chloride 0.9% 100 ML IV ONE (22:19)
[2023-01-04] MEDS ORDERED: Sodium Chloride 0.9% 1,000 ML IV ONE ×2 (22:23→22:24)
[2023-01-04] MEDS ORDERED: HYDROmorphone 0.5 MG/0.5 ML Syringe IVPUSH ONE (22:36)
[2023-01-04 23:08] LABS: APPEARANCE,URINE CLEAR (Clear); BILIRUBIN,URINE NEGATIVE (Negative); COLOR,URINE YELLOW (Yellow); GLUCOSE,URINE NEGATIVE (Negative); KETONES,URINE NEGATIVE (Negative); LEUKOCYTE ESTERASE,URINE NEGATIVE (Negative); NITRITE,URINE NEGATIVE (Negative); OCCULT BLOOD,URINE NEGATIVE (Negative); PH,URINE 8.5 (5.0-8.0); PROTEIN,URINE TRACE (Negative)
[2023-01-04 23:16] LABS: RBC,URINE 0-5 /hpf (0-5); SQUAMOUS EPITHELIAL CELLS,UR NOT SEEN /hpf (0-5); WBC,URINE 0-5 /hpf (0-5)
[2023-01-04 23:17] LABS: BACTERIA,URINE RARE /hpf (FEW); MUCUS,URINE NOT SEEN /hpf (FEW)
[2023-01-05] MEDS ORDERED: Dextrose 5%-0.9% NaCl 1,000 ML IV SCH (01:00)
[2023-01-05] MEDS ORDERED: Ondansetron 4 MG/2 ML SDV IVPUSH PRN (01:01)
[2023-01-05] MEDS: HYDROmorphone 0.5 MG/0.5 ML Syringe IVPUSH PRN ×4 (01:32→17:40)
[2023-01-05 03:17] LABS: BASOPHILS PERCENT AUTO 0.2 % (0.0-1.0); EOSINOPHILS PERCENT AUTO 0.1 % (0.0-6.0); HEMATOCRIT 42.1 % (42.0-52.0); HEMOGLOBIN 15.2 gm/dl (14.0-18.0); IMMATURE GRAN ABSOLUTE AUTO 0.07 K/mm3 (0.00-0.05); IMMATURE GRAN PERCENT AUTO 0.4 % (0.0-0.4); LYMPHOCYTES ABSOLUTE AUTO 1.4 K/mm3 (1.0-4.8); LYMPHOCYTES PERCENT AUTO 7.2 % (24.0-44.0); MEAN CORPUSCULAR HEMOGLOBIN 31.4 pg (28.0-32.0); MEAN CORPUSCULAR HGB CONC 36.1 g/dl (32.0-36.0); MEAN PLATELET VOLUME 10.3 fl (9.4-12.4); MONOCYTES ABSOLUTE AUTO 1.3 K/mm3 (0.0-0.8); MONOCYTES PERCENT AUTO 6.5 % (0.0-8.0); NEUTROPHILS ABSOLUTE AUTO 16.6 K/mm3 (1.8-7.7); NEUTROPHILS PERCENT AUTO 85.6 % (41.0-71.0); PLATELET COUNT,PLT 175 K/mm3 (150-400); RED BLOOD CELL COUNT 4.84 M/mm3 (4.52-5.90); WHITE BLOOD CELL COUNT,WBC 19.34 K/mm3 (3.9-11.3)
[2023-01-05 03:35] LABS: ANION GAP 13.2 (5-15); BUN/CREATININE RATIO 17.3 (14-18); CALCIUM 8.6 mg/dL (8.5-10.1); CREATININE 1.1 mg/dL (0.7-1.3); EST CRCL DRUG DOSING (CG) 81.11 mL/min; POTASSIUM,K 4.2 mEq/L (3.5-5.1)
[2023-01-05] MEDS: Ketorolac 30 MG/ML SDV IVPUSH PRN (04:20)
[2023-01-05] MEDS ORDERED: Piperacillin/Tazobactam 4.5 GM in Sodium Chloride 0.9% 100 ML IV SCH (06:00)
[2023-01-05] MEDS: Pantoprazole 40 MG Vial IVPUSH SCH (08:01)
[2023-01-05] MEDS: D5 1/2 NS w/ 20 mEq/L KCl 1,000 ML IV SCH ×2 (08:05→19:57)
[2023-01-05] MEDS: Allopurinol 100 MG Tab PO SCH (08:14)
[2023-01-05] MEDS: Losartan 100 MG Tab PO SCH (08:20)
[2023-01-05] MEDS ORDERED: Non-Formulary Medication 1 Each (Dextroamphetamine/Amphetamine [Adderall] 30 MG Tablet) PO SCH (09:00)
[2023-01-05] MEDS ORDERED: amLODIPine 5 MG Tab PO SCH (09:00)
[2023-01-05] MEDS: Heparin Sodium 5,000 Units/ML Vial SUBCUT SCH ×2 (11:41→19:56)
[2023-01-05 12:47] LABS: BASOPHILS PERCENT AUTO 0.3 % (0.0-1.0); EOSINOPHILS ABSOLUTE AUTO 0.1 K/mm3 (0.0-0.4); EOSINOPHILS PERCENT AUTO 0.7 % (0.0-6.0); HEMATOCRIT 42.7 % (42.0-52.0); HEMOGLOBIN 15.1 gm/dl (14.0-18.0); IMMATURE GRAN ABSOLUTE AUTO 0.03 K/mm3 (0.00-0.05); IMMATURE GRAN PERCENT AUTO 0.2 % (0.0-0.4); LYMPHOCYTES ABSOLUTE AUTO 1.2 K/mm3 (1.0-4.8); LYMPHOCYTES PERCENT AUTO 9.4 % (24.0-44.0); MEAN CORPUSCULAR HEMOGLOBIN 31.1 pg (28.0-32.0); MEAN CORPUSCULAR HGB CONC 35.4 g/dl (32.0-36.0); MEAN CORPUSCULAR VOLUME 87.9 fl (83.0-99.0); MEAN PLATELET VOLUME 10.2 fl (9.4-12.4); MONOCYTES ABSOLUTE AUTO 0.6 K/mm3 (0.0-0.8); MONOCYTES PERCENT AUTO 5.1 % (0.0-8.0); NEUTROPHILS ABSOLUTE AUTO 10.3 K/mm3 (1.8-7.7); NEUTROPHILS PERCENT AUTO 84.3 % (41.0-71.0); PLATELET COUNT,PLT 166 K/mm3 (150-400); RED BLOOD CELL COUNT 4.86 M/mm3 (4.52-5.90); WHITE BLOOD CELL COUNT,WBC 12.23 K/mm3 (3.9-11.3)
[2023-01-05] MEDS: Piperacillin/Tazobactam 4.5 GM in Sodium Chloride 0.9% 100 ML IV SCH ×2 (14:33→21:34)
[2023-01-05] MEDS: Acetaminophen/oxyCODONE 325-5 MG Tab PO PRN (17:30)
[2023-01-06] MEDS: HYDROmorphone 0.5 MG/0.5 ML Syringe IVPUSH PRN (01:09)
[2023-01-06] MEDS: Heparin Sodium 5,000 Units/ML Vial SUBCUT SCH ×3 (01:10→18:14)
[2023-01-06] MEDS: D5 1/2 NS w/ 20 mEq/L KCl 1,000 ML IV SCH ×2 (04:19→13:29)
[2023-01-06 05:43] LABS: ANION GAP 13.2 (5-15); CALCIUM 9.4 mg/dL (8.5-10.1); EST CRCL DRUG DOSING (CG) 89.22 mL/min; PHOSPHORUS 2.4 mg/dL (2.6-4.7); POTASSIUM,K 4.2 mEq/L (3.5-5.1)
[2023-01-06 05:44] LABS: BASOPHILS ABSOLUTE AUTO 0.1 K/mm3 (0.0-0.2); BASOPHILS PERCENT AUTO 0.3 % (0.0-1.0); EOSINOPHILS PERCENT AUTO 0.1 % (0.0-6.0); HEMATOCRIT 43.6 % (42.0-52.0); HEMOGLOBIN 15.4 gm/dl (14.0-18.0); IMMATURE GRAN ABSOLUTE AUTO 0.08 K/mm3 (0.00-0.05); IMMATURE GRAN PERCENT AUTO 0.5 % (0.0-0.4); LYMPHOCYTES ABSOLUTE AUTO 1.3 K/mm3 (1.0-4.8); LYMPHOCYTES PERCENT AUTO 9.1 % (24.0-44.0); MEAN CORPUSCULAR HGB CONC 35.3 g/dl (32.0-36.0); MEAN CORPUSCULAR VOLUME 87.7 fl (83.0-99.0); MEAN PLATELET VOLUME 10.4 fl (9.4-12.4); MONOCYTES ABSOLUTE AUTO 0.7 K/mm3 (0.0-0.8); MONOCYTES PERCENT AUTO 4.8 % (0.0-8.0); NEUTROPHILS ABSOLUTE AUTO 12.5 K/mm3 (1.8-7.7); NEUTROPHILS PERCENT AUTO 85.2 % (41.0-71.0); PLATELET COUNT,PLT 177 K/mm3 (150-400); RED BLOOD CELL COUNT 4.97 M/mm3 (4.52-5.90); WHITE BLOOD CELL COUNT,WBC 14.68 K/mm3 (3.9-11.3)
[2023-01-06] MEDS: Piperacillin/Tazobactam 4.5 GM in Sodium Chloride 0.9% 100 ML IV SCH ×3 (06:22→21:41)
[2023-01-06] MEDS ORDERED: Naloxone 0.4 MG/ML SDV IVPUSH PRN (08:05)
[2023-01-06] MEDS: Losartan 100 MG Tab PO SCH (09:02)
[2023-01-06] MEDS: Allopurinol 100 MG Tab PO SCH (09:03)
[2023-01-06] MEDS: Morphine 2 MG/ML SYRINGE IVPUSH PRN ×3 (09:04→22:59)
[2023-01-06] MEDS: Pantoprazole 40 MG Vial IVPUSH SCH (09:08)
[2023-01-06 13:16] LABS: BASOPHILS PERCENT AUTO 0.2 % (0.0-1.0); EOSINOPHILS PERCENT AUTO 0.3 % (0.0-6.0); HEMATOCRIT 44.6 % (42.0-52.0); HEMOGLOBIN 15.7 gm/dl (14.0-18.0); IMMATURE GRAN ABSOLUTE AUTO 0.07 K/mm3 (0.00-0.05); IMMATURE GRAN PERCENT AUTO 0.5 % (0.0-0.4); LYMPHOCYTES ABSOLUTE AUTO 1.6 K/mm3 (1.0-4.8); LYMPHOCYTES PERCENT AUTO 11.7 % (24.0-44.0); MEAN CORPUSCULAR HEMOGLOBIN 31.5 pg (28.0-32.0); MEAN CORPUSCULAR HGB CONC 35.2 g/dl (32.0-36.0); MEAN CORPUSCULAR VOLUME 89.4 fl (83.0-99.0); MEAN PLATELET VOLUME 9.7 fl (9.4-12.4); MONOCYTES ABSOLUTE AUTO 0.8 K/mm3 (0.0-0.8); MONOCYTES PERCENT AUTO 5.7 % (0.0-8.0); NEUTROPHILS ABSOLUTE AUTO 11.4 K/mm3 (1.8-7.7); NEUTROPHILS PERCENT AUTO 81.6 % (41.0-71.0); PLATELET COUNT,PLT 177 K/mm3 (150-400); RED BLOOD CELL COUNT 4.99 M/mm3 (4.52-5.90); WHITE BLOOD CELL COUNT,WBC 13.92 K/mm3 (3.9-11.3)
[2023-01-06] MEDS ORDERED: Lidocaine 1% 30 ML SDV ONE (13:50)
[2023-01-06] MEDS ORDERED: Bupivacaine 0.5%/EPINEPHrine 1:200,000 50 ML MDV ONE (13:50)
[2023-01-06] MEDS ORDERED: fentaNYL 100 MCG/2 ML SDV IVPUSH PRN (14:05)
[2023-01-06] MEDS ORDERED: HYDROmorphone 0.5 MG/0.5 ML Syringe IVPUSH PRN (14:05)
[2023-01-06] MEDS ORDERED: Lidocaine 1% 6 ML ONE (14:11)
[2023-01-06] MEDS ORDERED: fentaNYL 250 MCG/5 ML SDV ONE (14:12)
[2023-01-06] MEDS ORDERED: Propofol 200 MG/20 ML SDV ONE (14:12)
[2023-01-06] MEDS ORDERED: Ondansetron 4 MG/2 ML SDV ONE (14:12)
[2023-01-06] MEDS ORDERED: Dexamethasone 4 MG/ML 5 ML MDV ONE (14:12)
[2023-01-06] MEDS ORDERED: Midazolam 1 MG/ML 2 ML SDV ONE (14:12)
[2023-01-06] MEDS ORDERED: Succinylcholine 200 MG/10 ML MDV ONE (14:16)
[2023-01-06] MEDS ORDERED: Lactated Ringers 1,000 ML ONE (15:10)
[2023-01-06] MEDS ORDERED: Neostigmine Methylsulfate 10 MG/10 ML MDV ONE (15:20)
[2023-01-06] MEDS ORDERED: HYDROmorphone 0.5 MG/0.5 ML Syringe ONE (15:28)
[2023-01-06] MEDS: Ketorolac 30 MG/ML SDV IVPUSH PRN (16:44)
[2023-01-07] MEDS: Heparin Sodium 5,000 Units/ML Vial SUBCUT SCH ×3 (01:44→18:31)
[2023-01-07] MEDS: D5 1/2 NS w/ 20 mEq/L KCl 1,000 ML IV SCH ×3 (01:54→18:31)
[2023-01-07] MEDS: Morphine 2 MG/ML SYRINGE IVPUSH PRN (06:05)
[2023-01-07] MEDS: Piperacillin/Tazobactam 4.5 GM in Sodium Chloride 0.9% 100 ML IV SCH ×3 (06:06→21:08)
[2023-01-07 06:15] LABS: BASOPHILS PERCENT AUTO 0.1 % (0.0-1.0); HEMATOCRIT 37.5 % (42.0-52.0); IMMATURE GRAN ABSOLUTE AUTO 0.09 K/mm3 (0.00-0.05); IMMATURE GRAN PERCENT AUTO 0.9 % (0.0-0.4); LYMPHOCYTES ABSOLUTE AUTO 0.8 K/mm3 (1.0-4.8); LYMPHOCYTES PERCENT AUTO 8.4 % (24.0-44.0); MEAN CORPUSCULAR HEMOGLOBIN 31.7 pg (28.0-32.0); MEAN CORPUSCULAR HGB CONC 35.5 g/dl (32.0-36.0); MEAN CORPUSCULAR VOLUME 89.5 fl (83.0-99.0); MEAN PLATELET VOLUME 10.3 fl (9.4-12.4); MONOCYTES ABSOLUTE AUTO 0.4 K/mm3 (0.0-0.8); MONOCYTES PERCENT AUTO 4.4 % (0.0-8.0); NEUTROPHILS ABSOLUTE AUTO 8.6 K/mm3 (1.8-7.7); NEUTROPHILS PERCENT AUTO 86.2 % (41.0-71.0); PLATELET COUNT,PLT 149 K/mm3 (150-400); RED BLOOD CELL COUNT 4.19 M/mm3 (4.52-5.90); WHITE BLOOD CELL COUNT,WBC 9.96 K/mm3 (3.9-11.3)
[2023-01-07 06:23] LABS: HEMOGLOBIN 13.3 gm/dl (14.0-18.0)
[2023-01-07 06:34] LABS: ANION GAP 12.6 (5-15); CALCIUM 9.1 mg/dL (8.5-10.1); EST CRCL DRUG DOSING (CG) 89.22 mL/min; MAGNESIUM 1.8 mg/dL (1.8-2.4); PHOSPHORUS 2.8 mg/dL (2.6-4.7); POTASSIUM,K 4.6 mEq/L (3.5-5.1)
[2023-01-07] MEDS: Acetaminophen/oxyCODONE 325-5 MG Tab PO PRN ×2 (08:49→21:08)
[2023-01-07] MEDS: Losartan 100 MG Tab PO SCH (08:49)
[2023-01-07] MEDS: Allopurinol 100 MG Tab PO SCH (08:49)
[2023-01-07] MEDS: Pantoprazole 40 MG Vial IVPUSH SCH (08:50)
[2023-01-08] MEDS: Heparin Sodium 5,000 Units/ML Vial SUBCUT SCH ×3 (02:31→17:24)
[2023-01-08] MEDS: D5 1/2 NS w/ 20 mEq/L KCl 1,000 ML IV SCH (02:32)
[2023-01-08] MEDS: Acetaminophen/oxyCODONE 325-5 MG Tab PO PRN (02:36)
[2023-01-08] MEDS: Piperacillin/Tazobactam 4.5 GM in Sodium Chloride 0.9% 100 ML IV SCH ×2 (05:36→14:06)
[2023-01-08 05:38] LABS: BASOPHILS PERCENT AUTO 0.1 % (0.0-1.0); EOSINOPHILS ABSOLUTE AUTO 0.1 K/mm3 (0.0-0.4); EOSINOPHILS PERCENT AUTO 1.1 % (0.0-6.0); HEMATOCRIT 36.1 % (42.0-52.0); IMMATURE GRAN ABSOLUTE AUTO 0.04 K/mm3 (0.00-0.05); IMMATURE GRAN PERCENT AUTO 0.5 % (0.0-0.4); LYMPHOCYTES ABSOLUTE AUTO 1.4 K/mm3 (1.0-4.8); LYMPHOCYTES PERCENT AUTO 15.7 % (24.0-44.0); MEAN CORPUSCULAR HEMOGLOBIN 31.9 pg (28.0-32.0); MEAN CORPUSCULAR VOLUME 88.7 fl (83.0-99.0); MEAN PLATELET VOLUME 10.3 fl (9.4-12.4); MONOCYTES ABSOLUTE AUTO 0.8 K/mm3 (0.0-0.8); MONOCYTES PERCENT AUTO 8.6 % (0.0-8.0); NEUTROPHILS ABSOLUTE AUTO 6.6 K/mm3 (1.8-7.7); PLATELET COUNT,PLT 176 K/mm3 (150-400); RED BLOOD CELL COUNT 4.07 M/mm3 (4.52-5.90); WHITE BLOOD CELL COUNT,WBC 8.87 K/mm3 (3.9-11.3)
[2023-01-08 05:52] LABS: ANION GAP 13.2 (5-15); BUN/CREATININE RATIO 12.7 (14-18); CALCIUM 8.7 mg/dL (8.5-10.1); CREATININE 1.1 mg/dL (0.7-1.3); EST CRCL DRUG DOSING (CG) 81.11 mL/min; MAGNESIUM 1.5 mg/dL (1.8-2.4); PHOSPHORUS 3.5 mg/dL (2.6-4.7); POTASSIUM,K 4.2 mEq/L (3.5-5.1)
[2023-01-08] MEDS ORDERED: Acetaminophen/HYDROcodone 325-5 MG Tab PO PRN (06:45)
[2023-01-08] MEDS ORDERED: Magnesium Sulfate (4.06 MEQ/ML) 5 GM/10 ML SDV IV STA (08:52)
[2023-01-08] MEDS ORDERED: Magnesium Sulfate/Water 50 ML IV ONE (09:00)
[2023-01-08] MEDS: Losartan 100 MG Tab PO SCH (09:40)
[2023-01-08] MEDS: Pantoprazole 40 MG Vial IVPUSH SCH (09:40)
[2023-01-08] MEDS: Allopurinol 100 MG Tab PO SCH (09:41)
[2023-01-08] MEDS: Acetaminophen 325 MG Tab PO SCH ×4 (09:41→20:24)
[2023-01-08] MEDS: Morphine 2 MG/ML SYRINGE IVPUSH PRN (17:31)
[2023-01-08] MEDS ORDERED: Calcium Carbonate 500 MG Tab.Chew PO ONE (18:07)
[2023-01-08] MEDS ORDERED: Magnesium Hydroxide 400 MG/5 ML Susp 30 ML Cup PO ONE (20:06)
[2023-01-08] MEDS: Amoxicillin/Clavulanate K 875-125 MG Tab PO SCH (20:25)
[2023-01-08] MEDS: Ibuprofen 600 MG Tab PO PRN (22:48)
[2023-01-09] MEDS: Acetaminophen 325 MG Tab PO SCH ×3 (00:34→09:27)
[2023-01-09] MEDS: Heparin Sodium 5,000 Units/ML Vial SUBCUT SCH ×3 (00:35→18:14)
[2023-01-09] MEDS: Allopurinol 100 MG Tab PO SCH (09:16)
[2023-01-09] MEDS: Amoxicillin/Clavulanate K 875-125 MG Tab PO SCH ×2 (09:16→20:48)
[2023-01-09] MEDS: Losartan 100 MG Tab PO SCH (09:28)
[2023-01-09] MEDS: Pantoprazole 40 MG Vial IVPUSH SCH (09:35)
[2023-01-09] MEDS: Polyethylene Glycol 3350 Powder 17 GM Packet PO SCH (09:49)
[2023-01-09] MEDS: Acetaminophen/HYDROcodone 325-5 MG Tab PO PRN ×3 (09:49→20:48)
[2023-01-10] MEDS: Heparin Sodium 5,000 Units/ML Vial SUBCUT SCH ×2 (00:47→09:04)
[2023-01-10] MEDS: Ibuprofen 600 MG Tab PO PRN (03:11)
[2023-01-10] MEDS: Pantoprazole 40 MG Vial IVPUSH SCH (09:03)
[2023-01-10] MEDS: Allopurinol 100 MG Tab PO SCH (09:03)
[2023-01-10] MEDS: Amoxicillin/Clavulanate K 875-125 MG Tab PO SCH (09:03)
[2023-01-10] MEDS: Acetaminophen/HYDROcodone 325-5 MG Tab PO PRN (09:04)
[2023-01-10] MEDS: Losartan 100 MG Tab PO SCH (09:04)
[2023-01-10] MEDS: Polyethylene Glycol 3350 Powder 17 GM Packet PO SCH (09:04)
[2023-01-10 09:05] VITALS: BP 126/95
[2023-01-10 11:11] VITALS: PULSE 75
== END 2023-01-10 12:15 | disposition home or self-care (01) | DRG 344 ==
LOC: JD.ED 20:33 → JD.MS 23:23
PROVIDERS: ADMIT Surgery; ATTEND Surgery
PROC: 5A09357 Assistance with Respiratory Ventilation, Less than 24 Consecutive Hours, Continuous Positive Airway Pressure (ICD-10-PCS; 2023-01-04)
PROC: 0DJD4ZZ Inspection of Lower Intestinal Tract, Percutaneous Endoscopic Approach (ICD-10-PCS; principal; 2023-01-06)
DX: K57.20 Diverticulitis of large intestine with perforation and abscess without bleeding (principal); K65.9 Peritonitis, unspecified; I47.20 Ventricular tachycardia, unspecified; K57.92 Diverticulitis of intestine, part unspecified, without perforation or abscess without bleeding; E86.0 Dehydration; F90.9 Attention-deficit hyperactivity disorder, unspecified type; I10 Essential (primary) hypertension; F32.A Depression, unspecified; F41.9 Anxiety disorder, unspecified; G47.33 Obstructive sleep apnea (adult) (pediatric); D72.829 Elevated white blood cell count, unspecified; E78.00 Pure hypercholesterolemia, unspecified; Z87.81 Personal history of (healed) traumatic fracture; Z68.34 Body mass index [BMI] 34.0-34.9, adult; Z98.890 Other specified postprocedural states; Z90.49 Acquired absence of other specified parts of digestive tract; Z87.820 Personal history of traumatic brain injury; E66.9 Obesity, unspecified; Z79.899 Other long term (current) drug therapy
CPT/HCPCS: 36415; 74177; 80053; 81001; 83690; 85025; 87040 ×2; 96374; 96375; 99285; J1170; J2270; J2543; J3490; J7030 ×3; Q9967; 00790; 80048; 83605; 83735; 84100; 84484; 93005; 94660; 94760; 94761; A9270-GY; C9113; J0330; J1100; J1644; J1885; J2250; J2405; J2704; J2710; J3010; J3475; J3480; J7042; J7120